=== PATIENT | female | born 1950 | race African-American/Black ===

== ENCOUNTER 2017-03-04 16:47 | Emergency (ER) | payer OTHER ==
[2017-03-04 17:09] VITALS: BMI 27.4
--- NOTE | 2017-03-04 17:22 | PDOC ---
History of Present Illness - General History Source: Patient Exam Limitations: No Limitations - History of Present Illness Initial Comments: CHIEF COMPLAINT: 66 y/o afebrile female with PMH HTN, chronic anemia with multiple prior transfusions (currently gets weekly iron injections) c/o palpitations and weakness since noon today. HISTORY OF PRESENT ILLNESS: The patient states since around noon today after waking up from a nap she has felt extremely weak and has had palpitations. She states her had to help her walk to the bathroom otherwise she thinks she probably would have fallen. She states the palpitations stopped when she got into the ambulance. She denies f/c, n/v/d, CP, SOB, cough, hemoptysis, abd pain, back pain, LOC, head trauma, hematemesis, melena, hematochezia. Vital signs on arrival are notable for pulse of 103 with O2 sat of 93% on RA. REVIEW OF SYSTEMS: GENERAL/CONSTITUTIONAL: No fever/chills. +weakness HEAD, EYES, EARS, NOSE AND THROAT: No change in vision. No ear pain or discharge. No sore throat. CARDIOVASCULAR: +palpitations. No chest pain or shortness of breath. RESPIRATORY: No cough, wheezing, or hemoptysis. GASTROINTESTINAL: No abd pain, nausea, vomiting, diarrhea. GENITOURINARY: No dysuria, frequency, or change in urination. MUSCULOSKELETAL: No joint or muscle swelling or pain. No neck or back pain. SKIN: No rash or easy bruising. NEUROLOGIC: No headache, vertigo, loss of consciousness, or loss of sensation. PHYSICAL EXAM: GENERAL: The patient is awake, alert, and fully oriented, in no acute distress. HEAD: Normal with no signs of trauma. ENT: Pupils equal, round and reactive to light, extraocular movements intact, sclera anicteric, with pale conjunctiva. LUNGS: Clear to auscultation bilaterally. Normal excursion. No respiratory distress or use of accessory muscles. CV: Rapid rate/regular rhythm, S1/S2, no MRG. Cap refill < 2 sec. ABDOMEN: Soft, non-distended, non-tender even to deep palpation, no hepatomegaly or splenomegaly, no masses. EXTREMITIES: Normal range of motion, no edema. NEUROLOGICAL: Normal speech, normal gait. CN II-XII grossly intact. PSYCH: Normal mood, normal affect. SKIN: Warm, dry, normal turgor, no rashes or lesions noted. <Elle Duong - Last Filed: 03/04/17 18:13> <Irving Gaspar - Last Filed: 03/05/17 02:32> - General Chief Complaint: Palpitations Stated Complaint: WEAKNESS Time Seen by Provider: 03/04/17 17:13 Past History - Past Medical History Anemia: Yes Diabetes: Yes HTN: Yes Hypercholesterolemia: Yes - Immunization History Immunization Up to Date: Yes - Psycho/Social/Smoking Cessation Hx Anxiety: Yes Suicidal Ideation: No Smoking History: Never smoked Have you smoked in the past 12 months: No Number of Cigarettes Smoked Daily: 0 Information on smoking cessation initiated: No Hx Alcohol Use: No Drug/Substance Use Hx: No Substance Use Type: None <Elle Duong - Last Filed: 03/04/17 18:13> <Irving Gaspar - Last Filed: 03/05/17 02:32> - Past Medical History Allergies/Adverse Reactions: Allergies Allergy/AdvReac Type Severity Reaction Status Date / Time codeine Allergy Verified 03/04/17 17:09 oxycodone HCl [From Percocet] Allergy Verified 03/04/17 17:09 Home Medications: Ambulatory Orders Amlodipine Besylate [Norvasc -] 10 mg PO DAILY 09/18/14 Perphenazine/Amitriptyline HCl [Perphen-Amitrip 4 mg-25 mg Tab] 1 each PO DAILY 01/12/15 Carvedilol 37.5 mg PO DAILY 08/22/15 Hydrochlorothiazide [Hctz -] 25 mg PO DAILY 08/22/15 Amoxicillin/Potassium Clav [Augmentin 875-125 Tablet] 1 each PO BID #14 tablet 04/12/16 Fluticasone Prop 0.05% Nasal [Flonase -] 1 - 2 spray NS DAILY #3 spray.pump 12/23 Tramadol HCl 50 mg PO Q6H PRN 04/12/16 *Physical Exam - Vital Signs Last Vital Signs Temp Pulse Resp BP Pulse Ox 97.7 F 103 H 18 147/77 93 L 03/04/17 17:05 03/04/17 17:05 03/04/17 17:05 03/04/17 17:05 03/04/17 17:05 <Elle Duong - Last Filed: 03/04/17 18:13> - Vital Signs Last Vital Signs Temp Pulse Resp BP Pulse Ox 98.3 F 82 18 135/69 99 03/04/17 23:30 03/04/17 23:30 03/04/17 23:30 03/04/17 23:30 03/04/17 23:30 <Irving Gaspar - Last Filed: 03/05/17 02:32> Heart Score/ECG Review - ECG Intrepretation Comment:: Twelve-lead EKG was performed and reviewed by Dr. Heart. There is sinus rhythm with 1st degree AV block. The axis is normal. The intervals are normal. nonspecific T wave abnormality Impression: Abnormal twelve-lead EKG <Elle Duong - Last Filed: 03/04/17 18:13> ED Treatment Course - LABORATORY CBC & Chemistry Diagram: 03/05/17 00:15 03/04/17 19:32 - ADDITIONAL ORDERS Additional order review: Laboratory Results 03/04/17 03/04/17 03/04/17 19:32 18:22 17:22 Sodium 140 Potassium 3.0 L Chloride 100 Carbon Dioxide 22 Anion Gap 18 H BUN 20 H Creatinine 2.1 H Creat Clearance w eGFR 23.49 Random Glucose 158 H Calcium 9.9 Total Bilirubin 0.1 L AST 25 ALT 25 Alkaline Phosphatase 116 Creatine Kinase 147 Troponin I < 0.02 Total Protein 9.0 H Albumin 4.1 Urine Color Straw Urine Appearance Clear Urine pH 5.0 Ur Specific Hamlet >= 1.030 H Urine Protein 2+ H Urine Glucose (UA) Negative Urine Ketones Negative Urine Blood 2+ H Urine Nitrite Negative Urine Bilirubin Negative Urine Urobilinogen Negative Ur Leukocyte Esterase Negative Urine RBC 24 Urine WBC 1 Ur Epithelial Cells Rare Urine Mucus Rare Blood Type B POSITIVE Antibody Screen Negative 03/04/17 17:22 Sodium Cancelled Potassium Cancelled Chloride Cancelled Carbon Dioxide Cancelled Anion Gap Cancelled BUN Cancelled Creatinine Cancelled Creat Clearance w eGFR Cancelled Random Glucose Cancelled Calcium Cancelled Total Bilirubin Cancelled AST Cancelled ALT Cancelled Alkaline Phosphatase Cancelled Creatine Kinase Cancelled Troponin I Cancelled Total Protein Cancelled Albumin Cancelled Urine Color Urine Appearance Urine pH Ur Specific Ham[place] Urine Protein Urine Glucose (UA) Urine Ketones Urine Blood Urine Nitrite Urine Bilirubin Urine Urobilinogen Ur Leukocyte Esterase Urine RBC Urine WBC Ur Epithelial Cells Urine Mucus Blood Type Antibody Screen 03/05/17 03/04/17 00:15 17:22 RBC 3.58 L 3.99 MCV 77.3 L 78.1 L MCHC 30.9 L 30.5 L RDW 22.9 H 23.7 H MPV 8.3 8.8 Neutrophils % 82.0 89.7 H Lymphocytes % 12.9 D 6.5 L Monocytes % 4.3 3.5 L Eosinophils % 0.2 D 0.1 Basophils % 0.6 0.2 - RADIOLOGY Radiology Studies Ordered: Category Date Time Status CHEST CT WITHOUT CONTRAST [CT] Stat CT Scan 03/04/17 22:00 Taken - Medications Given in the ED: ED Medications Discontinued Medications Generic Name Dose Route Start Last Admin Trade Name Freq PRN Reason Stop Dose Admin Sodium Chloride 1,000 mls @ 1,000 mls/hr 03/04/17 19:02 03/04/17 19:12 Normal Saline - IV 03/04/17 20:01 1,000 mls/hr ASDIR STA Administration Sodium Chloride 1,000 mls @ 1,000 mls/hr 03/04/17 23:38 03/05/17 00:18 Normal Saline - IV 03/05/17 00:37 1,000 mls/hr ASDIR STA Administration Potassium Chloride 40 meq 03/04/17 23:36 03/05/17 00:18 K-Dur - PO 03/04/17 23:37 40 meq ONCE ONE Administration <Irving Gaspar - Last Filed: 03/05/17 02:32> Medical Decision Making - Medical Decision Making A/P: 66 y/o afebrile, tachycardic female with PMH chronic anemia with multiple transfusions c/o weakness and palpitations today. Plan is as follows: 1. EKG 2. Labs 3. CXR I am signing this patient out to my colleague: CYNTHIA Gaspar In brief, this patient is being seen in the ED for a chief complaint of: weakness, palpitations. I have completed the initial assessment interview note and have ordered: labs, CXR, EKG I have reviewed the following results: EKG Pending results are: rest Plan for disposition is as follows: Pending <Elle Duong - Last Filed: 03/04/17 18:13> - Medical Decision Making 03/05/17 02:25 Patient reports symptoms have improved. Denies CP, SOB, Abd pain or any other complaints. Discussed case with Attending, who states patient can be d/c'd to home. Labs improved. Patient to follow up with PCP tomorrow. <Irving Gaspar - Last Filed: 03/05/17 02:32> *DC/Admit/Observation/Transfer <Elle Duong - Last Filed: 03/04/17 18:13> - Discharge Dispostion Admit: No <Irving Gaspar - Last Filed: 03/05/17 02:32> Diagnosis at time of Disposition: Mild dehydration Heat exhaustion Qualifiers: Encounter type: initial encounter Qualified Code(s): T67.5XXA - Heat exhaustion , unspecified, initial encounter - Discharge Dispostion Disposition: HOME Condition at time of disposition: Improved - Referrals Referrals: Consuelo Gibbs MD [Primary Care Provider] - - Patient Instructions Printed Discharge Instructions: DI for Dehydration -- Adult, DI for Heat Exhaustion and Heat Stroke Additional Instructions: Follow up with Dr. Gibbs this week. Call to schedule appointment. Continue current medications as prescribed. Drink plenty fluids, stay hydrated. Print Language: SAMOAN
[2017-03-04 18:33] LABS: URINE APPEARANCE CLEAR; URINE BILIRUBIN NEGATIVE (NEGATIVE); URINE COLOR STRAW; URINE GLUCOSE (UA) NEGATIVE (NEGATIVE); URINE KETONE NEGATIVE (NEGATIVE); URINE LEUK ESTERASE NEGATIVE (NEGATIVE); URINE NITRITE NEGATIVE (NEGATIVE); URINE UROBILINOGEN NEGATIVE E.U./dl (0.2-1.0)
[2017-03-04 18:35] LABS: BASOPHIL 0.2 % (0-2.0); EOSINOPHIL 0.1 % (0-4.5); MCH 23.8 pg (25.7-33.7); MCHC 30.5 g/dl (32.0-36.0); MEAN CELL VOLUME 78.1 fl (80-96); MEAN PLT VOLUME 8.8 fl (7.5-11.1); NEUTROPHILS 89.7 % (42.8-82.8); PLATELET COUNT 525 K/MM3 (134-434); RDW 23.7 % (11.6-15.6); WHITE BLOOD COUNT 16.7 K/mm3 (4.0-10.0)
[2017-03-04 18:49] LABS: URINE BLOOD 2+ (NEGATIVE); URINE PROTEIN 2+ (NEGATIVE)
[2017-03-04 18:50] LABS: URINE MUCUS RARE; URINE RBC 24 /hpf (0-3); URINE WBC 1 /hpf (3-5)
[2017-03-04] MEDS ORDERED: SODIUM CHLORIDE 1,000 ML IV STA ×2 (19:02→23:38)
[2017-03-04 19:49] LABS: ANISOCYTOSIS 2+; HYPOCHROMIA 1+; PLATELET ESTIMATE INCREASED (NORMAL); POLYCHROMASIA 1+
--- NOTE | 2017-03-04 20:10 | PDOC ---
*Physical Exam - Vital Signs Last Vital Signs Temp Pulse Resp BP Pulse Ox 97.7 F 103 H 18 147/77 93 L 03/04/17 17:05 03/04/17 17:05 03/04/17 17:05 03/04/17 17:05 03/04/17 17:05 ED Treatment Course - LABORATORY CBC & Chemistry Diagram: 03/04/17 17:22 03/04/17 17:22 - ADDITIONAL ORDERS Additional order review: Laboratory Results 03/04/17 03/04/17 03/04/17 18:22 17:22 17:22 Sodium Cancelled Potassium Cancelled Chloride Cancelled Carbon Dioxide Cancelled Anion Gap Cancelled BUN Cancelled Creatinine Cancelled Creat Clearance w eGFR Cancelled Random Glucose Cancelled Calcium Cancelled Total Bilirubin Cancelled AST Cancelled ALT Cancelled Alkaline Phosphatase Cancelled Creatine Kinase Cancelled Troponin I Cancelled Total Protein Cancelled Albumin Cancelled Urine Color Straw Urine Appearance Clear Urine pH 5.0 Urine Protein 2+ H Urine Glucose (UA) Negative Urine Ketones Negative Urine Blood 2+ H Urine Nitrite Negative Urine Bilirubin Negative Urine Urobilinogen Negative Ur Leukocyte Esterase Negative Urine RBC 24 Urine WBC 1 Ur Epithelial Cells Rare Urine Mucus Rare Blood Type B POSITIVE Antibody Screen Negative 03/04/17 17:22 RBC 3.99 MCV 78.1 L MCHC 30.5 L RDW 23.7 H MPV 8.8 Neutrophils % 89.7 H Lymphocytes % 6.5 L Monocytes % 3.5 L Eosinophils % 0.1 Basophils % 0.2 - Medications Given in the ED: ED Medications Discontinued Medications Generic Name Dose Route Start Last Admin Trade Name Freq PRN Reason Stop Dose Admin Sodium Chloride 1,000 mls @ 1,000 mls/hr 03/04/17 19:02 03/04/17 19:12 Normal Saline - IV 03/04/17 20:01 1,000 mls/hr ASDIR STA Administration Medical Decision Making - Medical Decision Making 03/04/17 20:09 Seen with MLP: 66y/o F with palpitations. Found to have leulocytosis, EKG with nonspecific T wave changes. Awaiting chemistries, but given complaints and leukocytosis likely monitoring in hospital.
[2017-03-04 20:36] LABS: ALBUMIN 4.1 g/dl (3.4-5.0); ANION GAP 18 (8-16); CALCIUM 9.9 mg/dL (8.5-10.1); CO2 22 mmol/L (21-32); CREATININE 2.1 mg/dL (0.55-1.02); GLUCOSE,RANDOM 158 mg/dL (74-106); SGOT/AST 25 U/L (15-37); SGPT/ALT 25 U/L (12-78)
[2017-03-04 20:40] LABS: ALK PHOS 116 U/L (45-117); BILIRUBIN,TOTAL 0.1 mg/dL (0.2-1.0); TROPONIN I < 0.02 ng/ml (0.00-0.05)
[2017-03-04] MEDS ORDERED: POTASSIUM CHLORIDE TABS 20 MEQ TABLET.ER (FP) PO ONE (23:36)
[2017-03-05] MEDS ORDERED: POTASSIUM CHLORIDE TABS 20 MEQ TABLET.ER (FP) PO ONE (00:20)
[2017-03-05 00:45] LABS: BASOPHIL 0.6 % (0-2.0); EOSINOPHIL 0.2 % (0-4.5); MCH 23.9 pg (25.7-33.7); MCHC 30.9 g/dl (32.0-36.0); MEAN CELL VOLUME 77.3 fl (80-96); MEAN PLT VOLUME 8.3 fl (7.5-11.1); PLATELET COUNT 447 K/MM3 (134-434); RDW 22.9 % (11.6-15.6)
[2017-03-05 01:36] VITALS: BP 135/69; PULSE 82; TEMP 98.3
[2017-03-05 07:43] LABS: ANISOCYTOSIS 2+; MICROCYTOSIS 2+
--- NOTE | 2017-03-05 11:37 | EKG ---
Test Reason : Blood Pressure : / mmHG Vent. Rate : 095 BPM Atrial Rate : 095 BPM P-R Int : 238 ms QRS Dur : 094 ms QT Int : 372 ms P-R-T Axes : 063 -06 032 degrees QTc Int : 467 ms SINUS RHYTHM WITH 1ST DEGREE A-V BLOCK VOLTAGE CRITERIA FOR LEFT VENTRICULAR HYPERTROPHY NONSPECIFIC T WAVE ABNORMALITY ABNORMAL ECG NO PREVIOUS ECGS AVAILABLE Confirmed by QUENTIN MAK MD ([id number]) on 03/05/2017 11:37:29 AM Referred By: Confirmed By:QUENTIN MAK MD
== END 2017-03-05 03:02 | disposition home or self-care (01) ==
LOC: JER 16:47
PROC: 3E0337Z Introduction of Electrolytic and Water Balance Substance into Peripheral Vein, Percutaneous Approach (ICD-10-PCS; principal; 2017-03-04)
DX: E86.0 Dehydration (principal); T67.5XXA Heat exhaustion, unspecified, initial encounter; Y93.89 Activity, other specified; Y92.89 Other specified places as the place of occurrence of the external cause; I10 Essential (primary) hypertension; D53.9 Nutritional anemia, unspecified; E87.6 Hypokalemia
CPT/HCPCS: 36415; 71020-TC; 71250-TC; 80053; 81003; 81015; 82550; 84484; 85025; 86850; 86900; 86901; 93005; 93010; 99284-25

== ENCOUNTER 2017-10-13 09:04 | Emergency (ER) | payer OTHER ==
[2017-10-13 09:36] VITALS: BP 123/61; PULSE 100; TEMP 98.6; BMI 24.7
[2017-10-13] MEDS ORDERED: ALBUTEROL SO4 2.5/IPRATROPIUM 0.5 INH SOL 3 ML VIAL.NEB. NEB ONE ×2 (10:14→10:23)
--- NOTE | 2017-10-13 10:15 | PDOC ---
History of Present Illness - General Chief Complaint: Respiratory Stated Complaint: COUGH, FEVER, EAR PAIN Time Seen by Provider: 10/13/17 09:53 History Source: Patient Exam Limitations: No Limitations - History of Present Illness Initial Comments: 10/13/17 10:15 Patient is a [67-year-old female with history of hypertension, high cholesterol , [id number] diabetes presents bilateral ear pain and cough, no fever. Able to without difficulty.] Past Medical History: [Denies]. Allergies: Codeine, oxycodone Medications: [See medication list] Family History: Non-contributory Social History: Denies smoking, alcohol use, or IVDU Review of Systems GENERAL/CONSTITUTIONAL: [No fever or chills. No weakness. No weight change.] HEAD, EYES, EARS, NOSE AND THROAT: [No change in vision. Bilateral ear pain. No sore throat. ] CARDIOVASCULAR: [No chest pain or shortness of breath.] RESPIRATORY: [Moist nonproductive cough, wheezing, or hemoptysis.] GASTROINTESTINAL: [No nausea, vomiting, diarrhea or constipation. No rectal bleeding.] GENITOURINARY: [No dysuria, frequency, or change in urination.] MUSCULOSKELETAL: [No joint or muscle swelling or pain. No neck or back pain.] SKIN AND BREASTS: [No rash or easy bruising.] NEUROLOGIC: [No headache, vertigo, loss of consciousness, or loss of sensation.] PSYCHIATRIC: [No depression or anxiety.] ENDOCRINE: [No increased thirst. No abnormal weight change.] HEMATOLOGIC/LYMPHATIC: [No anemia, easy bleeding, or history of blood clots.] ALLERGIC/IMMUNOLOGIC: [No hives or skin allergy. No latex allergy.] Physical Exam: GENERAL: [The patient is awake, alert, and fully oriented, in no acute distress. ] EYES: [Pupils equal, round and reactive to light, extraocular movements intact, sclera anicteric, conjunctiva clear.] ENT: [Ears with bilateral cerumen impaction, canals are unremarkable, nares patent, oropharynx clear without exudates. Moist mucous membranes. No uvula deviation] NECK: [Normal range of motion, supple without lymphadenopathy, JVD, or masses.] LUNGS: [Breath sounds equal, clear to auscultation bilaterally. No wheezes, and no crackles.] HEART: [Regular rate and rhythm, normal S1 and S2 without murmur, rub or gallop. ] ABDOMEN: [Soft, nontender, normoactive bowel sounds. No guarding, no rebound. No masses. No bruising or abrasions] MUSCULOSKELETAL: [Normal range of motion, no edema. No clubbing or cyanosis. No cords, erythema, or tenderness. No CVA Tenderness with fist.] NEUROLOGICAL: [Cranial nerves II through XII grossly intact. Normal speech, normal gait.] SKIN: [Warm, Dry, normal turgor, no rashes or lesions noted.] 10/13/17 11:25 Past History - Past Medical History Allergies/Adverse Reactions: Allergies Allergy/AdvReac Type Severity Reaction Status Date / Time codeine Allergy palpitation Verified 10/13/17 09:32 s oxycodone HCl [From Percocet] Allergy palpitation Verified 10/13/17 09:32 s Home Medications: Ambulatory Orders Amlodipine Besylate [Norvasc -] 10 mg PO DAILY 09/18/14 Perphenazine/Amitriptyline HCl [Perphen-Amitrip 4 mg-25 mg Tab] 1 each PO DAILY 01/12/15 Carvedilol 37.5 mg PO DAILY 08/22/15 Hydrochlorothiazide [Hctz -] 25 mg PO DAILY 08/22/15 Amoxicillin/Potassium Clav [Augmentin 875-125 Tablet] 1 each PO BID #14 tablet 04/12/16 Fluticasone Prop 0.05% Nasal [Flonase -] 1 - 2 spray NS DAILY #3 spray.pump 12/23 Tramadol HCl 50 mg PO Q6H PRN 04/12/16 Albuterol Sulfate Inhaler - [Ventolin HFA Inhaler -] 2 inh PO Q4H #1 inh Carbamide Peroxide 6.5% [Debrox -] 5 drop AU BID #1 bottle 10/13/17 Anemia: Yes COPD: No Diabetes: Yes (not on meds) HTN: Yes Hypercholesterolemia: Yes - Immunization History Immunization Up to Date: No - Suicide/Smoking/Psychosocial Hx Smoking History: Former smoker Have you smoked in the past 12 months: No Number of Cigarettes Smoked Daily: 0 If you are a former smoker, when did you quit?: 50 years ago Information on smoking cessation initiated: No Hx Alcohol Use: No Drug/Substance Use Hx: No Substance Use Type: None *Physical Exam - Vital Signs Last Vital Signs Temp Pulse Resp BP Pulse Ox 98.6 F 100 H 18 123/61 94 L 10/13/17 09:32 10/13/17 09:32 10/13/17 09:32 10/13/17 09:32 10/13/17 09:32 Medical Decision Making - Medical Decision Making 10/13/17 11:25 A/P: Patient with bilateral cerumen impaction. Lungs are clear in assessment patient with dry cough most likely viral in nature. Combivent given with good results. Rapid influenza sent and is negative we'll DC patient home on Debrox and albuterol inhaler for bronchospasm if symptoms persist follow-up with primary care doctor recommend follow-up with ENT in one week after Debrox use. 10/13/17 11:25 10/13/17 16:24 *DC/Admit/Observation/Transfer Diagnosis at time of Disposition: Cough Cerumen impaction Qualifiers: Laterality: bilateral Qualified Code(s): H61.23 - Impacted cerumen, bilateral - Discharge Dispostion Disposition: HOME Condition at time of disposition: Stable Admit: No - Prescriptions Prescriptions: Albuterol Sulfate Inhaler - [Ventolin HFA Inhaler -] 2 inh PO Q4H #1 inh Carbamide Peroxide 6.5% [Debrox -] 5 drop AU BID #1 bottle - Referrals Referrals: Sharif Anderson MD [Staff Physician] - - Patient Instructions Additional Instructions: Recommend follow-up with primary care doctor on Saturday if symptoms persist If any increased cough, fever, or any other concerns return to ER - Post Discharge Activity Forms/Work/School Notes: Back to Work
== END 2017-10-13 11:32 | disposition home or self-care (01) ==
LOC: JERFT 09:04
PROC: 3E0F7GC Introduction of Other Therapeutic Substance into Respiratory Tract, Via Natural or Artificial Opening (ICD-10-PCS; principal; 2017-10-13)
DX: R05 Cough (principal); H61.23 Impacted cerumen, bilateral
CPT/HCPCS: 87804; 94640; 99281-25

== ENCOUNTER 2017-10-15 05:05 | Inpatient (IN) | payer OTHER ==
--- NOTE | 2017-10-15 05:06 | PDOC ---
History of Present Illness - General History Source: Patient Exam Limitations: No Limitations - History of Present Illness Initial Comments: 10/15/17 05:45 The patient is a 67 year old female with a significant PMH of HTN, hyperlipidemia, diabetes, and chronic renal insufficiency (not currently on dialysis) who presents to the emergency department via EMS with progressively worsening shortness of breath beginning approximately 1 week ago and vomiting beginning today. The patient reports being seen here in the ED on 10/13/2017 for evaluation of cough and was discharged home after a negative flu swab. She reports her shortness of breath became worse this morning. She also notes about 4 episodes of vomiting today. The patient was started on CPAP on EMS. She presents to the ED with dramatic and frequent respiratory symptoms. The patient denies any history of CHF, COPD, or emphysema but is on Lasix. The patient denies chest pain, headache and dizziness. Denies fever, chills, diarrhea and constipation. Denies dysuria, frequency, urgency and hematuria. Allergies: Codeine, Oxycodone HCl Past surgical history: None reported. Social history: No reported cigarette, alcohol, or drug use. PCP: None reported. <Shantanu Hill - Last Filed: 10/15/17 06:25> <Pattie Borges - Last Filed: 10/18/17 22:02> - General Stated Complaint: DIFFICULTY BREATHING Time Seen by Provider: 10/15/17 05:06 Past History <Shantanu Hill - Last Filed: 10/15/17 06:25> - Past Medical History Anemia: Yes COPD: No Diabetes: Yes (not on meds) HTN: Yes Hypercholesterolemia: Yes - Immunization History Immunization Up to Date: No - Suicide/Smoking/Psychosocial Hx Smoking History: Former smoker Have you smoked in the past 12 months: No Number of Cigarettes Smoked Daily: 0 If you are a former smoker, when did you quit?: 50 years ago Hx Alcohol Use: No Drug/Substance Use Hx: No Substance Use Type: None <Pattie Borges - Last Filed: 10/18/17 22:02> - Past Medical History Allergies/Adverse Reactions: Allergies Allergy/AdvReac Type Severity Reaction Status Date / Time codeine Allergy palpitation Verified 10/15/17 06:01 s oxycodone HCl [From Percocet] Allergy palpitation Verified 10/15/17 06:01 s Home Medications: Ambulatory Orders Amlodipine Besylate [Norvasc -] 10 mg PO DAILY 09/18/14 Perphenazine/Amitriptyline HCl [Perphen-Amitrip 4 mg-25 mg Tab] 1 each PO DAILY 01/12/15 Albuterol Sulfate Inhaler - [Ventolin HFA Inhaler -] 2 inh PO Q4H #1 inh Furosemide 40 mg PO DAILY 10/16/17 Review of Systems - Review of Systems Able to Perform ROS?: Yes Comments:: 10/15/17 05:45 GENERAL/CONSTITUTIONAL: No fever or chills. No weakness. HEAD, EYES, EARS, NOSE AND THROAT: No change in vision. No ear pain or discharge. No sore throat. CARDIOVASCULAR: (+) Shortness of breath. No chest pain. RESPIRATORY: No cough, wheezing, or hemoptysis. GASTROINTESTINAL: (+) Vomiting. No diarrhea or constipation. GENITOURINARY: No dysuria, frequency, or change in urination. MUSCULOSKELETAL: No joint or muscle swelling or pain. No neck or back pain. SKIN: No rash NEUROLOGIC: No headache, vertigo, loss of consciousness, or change in strength/ sensation. ENDOCRINE: No increased thirst. No abnormal weight change. HEMATOLOGIC/LYMPHATIC: No anemia, easy bleeding, or history of blood clots. ALLERGIC/IMMUNOLOGIC: No hives or skin allergy. <Shantanu Hill - Last Filed: 10/15/17 06:25> *Physical Exam - Vital Signs Last Vital Signs Temp Pulse Resp BP Pulse Ox 95 H 22 125/54 97 10/15/17 05:08 10/15/17 05:08 10/15/17 05:08 10/15/17 05:30 - Physical Exam Comments: 10/15/17 05:46 GENERAL: Awake, alert, and fully oriented. HEAD: No signs of trauma EYES: PERRLA, EOMI, sclera anicteric, conjunctiva clear ENT: Auricles normal inspection, hearing grossly normal, nares patent, oropharynx clear without exudates. Moist mucosa NECK: Normal ROM, supple, no lymphadenopathy, JVD, or masses LUNGS: (+) Respiratory distress. (+) Tachypneic. (+) Diffuse wheezes and crackles, worse in bases. Speaking in 2-3 word sentences. HEART: (+) Mildly tachycardic. Regular rhythm, normal S1 and S2, no murmurs, rubs or gallops ABDOMEN: (+) Obese. Soft, nontender, normoactive bowel sounds. No guarding, no rebound. No masses EXTREMITIES: Normal range of motion, no edema. No clubbing or cyanosis. No cords, erythema, or tenderness NEUROLOGICAL: Cranial nerves II through XII grossly intact. Normal speech, normal gait SKIN: Warm, Dry, normal turgor, no rashes or lesions noted. <Shantanu Hill - Last Filed: 10/15/17 06:25> ED Treatment Course - LABORATORY CBC & Chemistry Diagram: 10/15/17 05:35 10/15/17 05:35 <Shantanu Hill - Last Filed: 10/15/17 06:25> - LABORATORY CBC & Chemistry Diagram: 10/18/17 16:50 10/18/17 06:20 <Pattie Borges - Last Filed: 10/18/17 22:02> Medical Decision Making - Critical Care Time Total Critical Care Time (minutes): 30 Critical Care Statement: The care of this patient involved high complexity decision making to prevent further life threatening deterioration of the patient 's condition and/or to evaluate & treat vital organ system(s) failure or risk of failure. - Medical Decision Making 10/15/17 06:30 Pt presents to the ED complaining of severe shortness of breath that has been worsening over the last week but became acutely worse today. hypoxic on arrival of EMS, started on CPAP with improvement. On arrival to the ED, patient was tachypneic and speaking in two to three word sentences, with improvement on bipap. CXR shows bilateral pulmonary edema. Labs show severe anemia with hgb of 4 and BNP of 5300. No stool in the rectal vault on exam. Will recheck CBC--platlets are extremely high--suggestive of either lab error or acute leukemia. Will type and cross. Will admit to ICU. 10/15/17 06:40 <Pattie Borges - Last Filed: 10/18/17 22:02> *DC/Admit/Observation/Transfer - Attestations Scribe Attestion: 10/15/17 05:46 Documentation prepared by Shantanu Hill, acting as vice president medical affairs for Pattie Borges MD. <Shantanu Hill - Last Filed: 10/15/17 06:25> - Discharge Dispostion Admit: Yes <Pattie Borges - Last Filed: 10/18/17 22:02> Diagnosis at time of Disposition: Thrombocytosis, Hyponatremia CHF (congestive heart failure) Qualifiers: Congestive heart failure type: unspecified Congestive heart failure chronicity : unspecified Qualified Code(s): I50.9 - Heart failure, unspecified Anemia Qualifiers: Anemia type: unspecified type Qualified Code(s): D64.9 - Anemia, unspecified Leukocytosis Qualifiers: Leukocytosis type: unspecified Qualified Code(s): D72.829 - Elevated white blood cell count, unspecified - Discharge Dispostion Condition at time of disposition: Guarded
[2017-10-15] MEDS ORDERED: ALBUTEROL SO4 2.5/IPRATROPIUM 0.5 INH SOL 3 ML VIAL.NEB. NEB ONE ×5 (05:20→20:31)
[2017-10-15] MEDS: ALBUTEROL SO4 2.5/IPRATROPIUM 0.5 INH SOL 3 ML VIAL.NEB. NEB SCH ×4 (05:26→06:23)
[2017-10-15] MEDS ORDERED: AZITHROMYCIN IVPB 500 MG in DEXTROSE 5%-WATER - 250 ML IVPB ONE (05:43)
[2017-10-15] MEDS ORDERED: CEFTRIAXONE 1 GM in DEXTROSE 5%-WATER - 50 ML IVPB ONE (05:43)
[2017-10-15 05:46] LABS: BASO % 0.3 % (0-2.0); HEMATOCRIT 13.3 % (32.4-45.2); LYMPH % 11.9 % (8-40); MCH 21.3 pg (25.7-33.7); MCHC 27.4 g/dl (32.0-36.0); MEAN CELL VOLUME 77.9 fl (80-96); MEAN PLT VOLUME 8.5 fl (7.5-11.1); MONO % 6.3 % (3.8-10.2); NEUT % 81.5 % (42.8-82.8); RBC 1.71 M/mm3 (3.60-5.2); RDW 22.5 % (11.6-15.6)
[2017-10-15] MEDS ORDERED: AZITHROMYCIN IVPB 250 ML IVPB ONE (05:51)
[2017-10-15] MEDS ORDERED: CEFTRIAXONE 1 GM/50 ML BAG ONE (05:51)
[2017-10-15 05:59] LABS: HEMOGLOBIN 3.6 GM/dL (10.7-15.3)
[2017-10-15 06:00] LABS: ADD RBC MORPHOLOGY YES; PLATELET COUNT 1168 K/MM3 (134-434)
[2017-10-15 06:01] LABS: ANISOCYTOSIS 3+
[2017-10-15 06:08] LABS: ANION GAP 33 (8-16); BILIRUBIN,TOTAL 0.6 mg/dL (0.2-1.0); BLOOD UREA NITROGEN 35 mg/dL (7-18); CALCIUM 7.9 mg/dL (8.5-10.1); CHLORIDE 86 mmol/L (98-107); CO2 8 mmol/L (21-32); CREATININE 2.8 mg/dL (0.55-1.02); GLUCOSE,RANDOM 121 mg/dL (74-106); POTASSIUM 3.9 mmol/L (3.5-5.1); SGOT/AST 47 U/L (15-37); SGPT/ALT 41 U/L (12-78); SODIUM 127 mmol/L (136-145)
[2017-10-15 06:10] LABS: ALK PHOS 108 U/L (45-117); N-TERMINAL BNP 5381.37 pg/ml (5-125)
[2017-10-15 06:40] LABS: BASO % 0.4 % (0-2.0); HEMATOCRIT 14.4 % (32.4-45.2); LYMPH % 10.5 % (8-40); MCH 20.7 pg (25.7-33.7); MCHC 26.7 g/dl (32.0-36.0); MEAN CELL VOLUME 77.7 fl (80-96); MEAN PLT VOLUME 8.8 fl (7.5-11.1); MONO % 5.9 % (3.8-10.2); NEUT % 83.2 % (42.8-82.8); RBC 1.85 M/mm3 (3.60-5.2); RDW 22.5 % (11.6-15.6); WHITE BLOOD COUNT 20.1 K/mm3 (4.0-10.0)
[2017-10-15] MEDS ORDERED: ALBUTEROL SO4 0.5 % INH SOLN 2.5 MG/0.5 ML VIAL.NEB. NEB ONE (07:03)
[2017-10-15 07:32] LABS: HEMOGLOBIN 3.8 GM/dL (10.7-15.3); PLATELET COUNT 1257 K/MM3 (134-434)
[2017-10-15 07:36] LABS: ALBUMIN 3.2 g/dl (3.4-5.0); ANION GAP 33 (8-16); BLOOD UREA NITROGEN 34 mg/dL (7-18); CALCIUM 8.4 mg/dL (8.5-10.1); CHLORIDE 86 mmol/L (98-107); CO2 9 mmol/L (21-32); GLUCOSE,RANDOM 113 mg/dL (74-106); SGPT/ALT 44 U/L (12-78); SODIUM 128 mmol/L (136-145)
[2017-10-15 07:38] LABS: ALK PHOS 112 U/L (45-117); BILIRUBIN,TOTAL 0.6 mg/dL (0.2-1.0); CREATININE 2.7 mg/dL (0.55-1.02); TOT PROT 7.4 g/dl (6.4-8.2)
[2017-10-15 08:11] LABS: POTASSIUM 4.3 mmol/L (3.5-5.1); SGOT/AST 72 U/L (15-37)
--- NOTE | 2017-10-15 08:14 | HP ---
CHIEF COMPLAINT: "I have trouble breathing and have chest discomfort" PCP/Claims Specialist: Viviana Manning ([facility]) Onc: Dr Nieto ([facility]) HISTORY OF PRESENT ILLNESS: This is a 67 yo F with PMH of chronic microcytic hypochromic anemia (treated by Dr Nieto with Fe infusions, baseline hgb 8, no genetic workup done), family history of anemia and stroke, CKD, diet controlled DM, HTN, who presents due to worsening sob and chest discomfort x 4 days. patient reports associated malaise , night sweats, several episodes of NBNB vomiting, anorexia, subjective f/c ( measured 99F at home) and mildly sore throat and dry cough. Patient was in ED 2 days ago, at which time she was tested flu and was sent home with [facility]. Today she is found to have anemia Hgb 3.6, WBC 20.1k, PLT 1257 and CXR showed bilateral diffuse pulmonary edema w/o layering at bases, suspicious for ARDS. afebrile and hemodynamically stable. She was severely tachypneic with nornal O2 sat on presentation, improved on bipap. Several hours into ED stay, patient was found with Bipap off, unresponsive, with + pulses and was witnessed to have seizure like activity with small jerking movements in extremities. on ABG she was found to be acidotic lactate 18, abg pH 7.18 and hypoxic, was paced back on BIPAP and regained baseline mental status AAOx3. A dose of sodium bicarb was given. 2 U pRBC transfusion was initiated with 40 IV lasix between units. Due to patients slightly hypoosmolar hyponatremia 128, she was started on NS @ 50 cc , administered cautiously due to concurrent possible ARDS, was started on Medrol and was covered with abx for CAP. Patient takes hydrochlorothiazide at home and amitriptyline/Perphenazine. EMR claudio not show prior hyponatremia. Per her outpatient physical therapy technician, her baseline Hgb is 8, Plat 500, march ferritin was 153 and transferring was 13%. hematologis d/o were atributed to CKD and Fe deficiency however she has not been worked up for other causes. Her last Fe infusion was a yr ago. Patient reports family history of colon CA and a normal colonoscopy 8 yrs ago. Patient denies weight change, h/a, syncope, abd pain, hemopthysis, melena, hematochezia, bleeding gums, easy bleeding or bruising, frequent infection, adenopathy. ER course was notable for: As above Recent Travel: denies PAST MEDICAL HISTORY: as above PAST SURGICAL HISTORY: knee surgery Social History: lives at home Smoking: denies Alcohol:denies Drugs: denies Family History: colon ca, anemia, stroke, htn Allergies codeine Allergy (Verified 10/15/17 06:01) palpitations oxycodone HCl [From Percocet] Allergy (Verified 10/15/17 06:01) palpitations HOME MEDICATIONS: Home Medications Medication Instructions Recorded Amlodipine Besylate [Norvasc -] 10 mg PO DAILY 09/18/14 Perphenazine/Amitriptyline HCl 1 each PO DAILY 01/12/15 [Perphen-Amitrip 4 mg-25 mg Tab] Carvedilol 37.5 mg PO DAILY 08/22/15 Hydrochlorothiazide [Hctz -] 25 mg PO DAILY 08/22/15 Albuterol Sulfate Inhaler - 2 inh PO Q4H #1 inh 10/13/17 [Ventolin HFA Inhaler -] Carbamide Peroxide 6.5% [Debrox -] 5 drop AU BID #1 bottle 10/13/17 REVIEW OF SYSTEMS CONSTITUTIONAL: Absent: diaphoresis, weight change HEENT: Absent: rhinorrhea, nasal congestion, difficulty swallowing, visual changes CARDIOVASCULAR: Absent: chest pain, syncope, palpitations, irregular heart rate, lightheadedness , peripheral edema RESPIRATORY: Absent: orthopnea, wheezing, stridor, hemoptysis GASTROINTESTINAL: Absent: abdominal pain, abdominal distension, nausea, vomiting, diarrhea, constipation, melena, hematochezia GENITOURINARY: Absent: dysuria, frequency, urgency, hesitancy, hematuria, flank pain, genital pain MUSCULOSKELETAL: Absent: myalgia, arthralgia, joint swelling, back pain, neck pain SKIN: Absent: rash, itching, pallor HEMATOLOGIC/IMMUNOLOGIC: Absent: easy bleeding, easy bruising, lymphadenopathy, frequent infections ENDOCRINE: Absent: unexplained weight gain, unexplained weight loss, heat intolerance, cold intolerance NEUROLOGIC: Absent: headache, focal weakness or paresthesias, dizziness, unsteady gait, seizure, mental status changes, bladder or bowel incontinence PSYCHIATRIC: Absent: anxiety, depression, suicidal or homicidal ideation, hallucinations. PHYSICAL EXAMINATION Vital Signs - 24 hr 10/15/17 10/15/17 10/15/17 05:08 05:30 06:01 Temperature Pulse Rate 95 H Pulse Rate [ Left Radial] Respiratory 22 22 Rate Blood Pressure 125/54 Blood Pressure [Left Arm] O2 Sat by Pulse 97 97 100 Oximetry (%) 10/15/17 10/15/17 10/15/17 06:23 06:24 07:22 Temperature 97.7 F 98 F Pulse Rate Pulse Rate [ Left Radial] Respiratory 22 Rate Blood Pressure Blood Pressure [Left Arm] O2 Sat by Pulse 100 100 Oximetry (%) 10/15/17 10/15/17 07:23 07:33 Temperature 98.4 F 98.3 F Pulse Rate Pulse Rate [ 89 94 H Left Radial] Respiratory 14 20 Rate Blood Pressure Blood Pressure 114/49 116/65 [Left Arm] O2 Sat by Pulse 97 100 Oximetry (%) GENERAL: Awake, alert, and fully oriented, in no acute distress. HEAD: Normal with no signs of trauma. EYES: Pupils equal, round and reactive to light, extraocular movements intact, sclera anicteric, conjunctiva clear. No lid lag. EARS, NOSE, THROAT: Ears normal, nares patent, oropharynx clear without exudates. Moist mucous membranes. NECK: Normal range of motion, supple without lymphadenopathy, JVD, or masses. LUNGS: Breath sounds equal, clear to auscultation bilaterally. No wheezes, and no crackles. No accessory muscle use. HEART: Regular rate and rhythm, normal S1 and S2 without murmur, rub or gallop. ABDOMEN: Soft, nontender, not distended, normoactive bowel sounds, no guarding, no rebound, no masses. No hepatomegaly or splenomegaly. MUSCULOSKELETAL: Normal range of motion at all joints. No bony deformities or tenderness. No CVA tenderness. UPPER EXTREMITIES: 2+ pulses, warm, well-perfused. No cyanosis. No clubbing. No peripheral edema. LOWER EXTREMITIES: 2+ pulses, warm, well-perfused. No calf tenderness. No peripheral edema. NEUROLOGICAL: Cranial nerves II-XII intact. Normal speech. Normal gait. PSYCHIATRIC: Cooperative. Good eye contact. Appropriate mood and affect. SKIN: Warm, dry, normal turgor, no rashes or lesions noted, normal capillary refill. Laboratory Results - last 24 hr 10/15/17 10/15/17 10/15/17 05:35 05:35 06:27 WBC 18.0 H D RBC 1.71 L D Hgb 3.6 L* D Hct 13.3 L MCV 77.9 L MCH 21.3 L MCHC 27.4 L RDW 22.5 H Plt Count 1168 H D MPV 8.5 Neutrophils % 81.5 Lymphocytes % 11.9 Monocytes % 6.3 Eosinophils % 0.0 D Basophils % 0.3 Hypochromia 2+ Anisocytosis 3+ Sodium 127 L Potassium 3.9 Chloride 86 L Carbon Dioxide 8 L Anion Gap 33 H BUN 35 H Creatinine 2.8 H Creat Clearance w eGFR 16.80 Random Glucose 121 H Lactic Acid 18.0 H* Calcium 7.9 L Total Bilirubin 0.6 D AST 47 H ALT 41 Alkaline Phosphatase 108 Creatine Kinase 446 H Creatine Kinase Index 1.6 CK-MB (CK-2) 7.512 H Troponin I 0.19 H B-Natriuretic Peptide 5381.37 H Total Protein 7.0 Albumin 3.0 L Stool Occult Blood Blood Type Antibody Screen Crossmatch 10/15/17 10/15/17 10/15/17 06:27 06:27 06:27 WBC 20.1 H RBC 1.85 L Hgb 3.8 L* Hct 14.4 L MCV 77.7 L MCH 20.7 L MCHC 26.7 L RDW 22.5 H Plt Count 1257 H MPV 8.8 Neutrophils % 83.2 H Lymphocytes % 10.5 Monocytes % 5.9 Eosinophils % 0.0 Basophils % 0.4 Hypochromia Anisocytosis Sodium 128 L Potassium 4.3 Chloride 86 L Carbon Dioxide 9 L Anion Gap 33 H BUN 34 H Creatinine 2.7 H Creat Clearance w eGFR 17.52 Random Glucose 113 H Lactic Acid Calcium 8.4 L Total Bilirubin 0.6 AST 72 H ALT 44 Alkaline Phosphatase 112 Creatine Kinase Creatine Kinase Index CK-MB (CK-2) Troponin I B-Natriuretic Peptide Total Protein 7.4 Albumin 3.2 L Stool Occult Blood Blood Type B POSITIVE Antibody Screen Negative Crossmatch See Detail 10/15/17 06:34 WBC RBC Hgb Hct MCV MCH MCHC RDW Plt Count MPV Neutrophils % Lymphocytes % Monocytes % Eosinophils % Basophils % Hypochromia Anisocytosis Sodium Potassium Chloride Carbon Dioxide Anion Gap BUN Creatinine Creat Clearance w eGFR Random Glucose Lactic Acid Calcium Total Bilirubin AST ALT Alkaline Phosphatase Creatine Kinase Creatine Kinase Index CK-MB (CK-2) Troponin I B-Natriuretic Peptide Total Protein Albumin Stool Occult Blood Negative Blood Type Antibody Screen Crossmatch ASSESSMENT/PLAN: Thrombocytosis, leukocytosis, severe anemia, acute on chronic -suspicious for hematologic malignancy PMF, ET, CML; less likely reactive in setting of infection or visceral malignancy -elevated ESR >140, CRP 3.3, uric acid 12.3 -slightly elevated IRN 1.3 -f/u vW factor to r/o acquired deficiency, JAK2, CALR, and MPL, erythropoetin -do not give ASA or any a/c until vW factor comes back normal. Hydroxyurea not indicated until definitive diagnosis of malignancy is made -hold home antipsychotic in case contributed to dysplastic anemia, although typically pancytopenia would be present. -chest and abd/pelvis ct w/o contrast delayed due to tenuous respirator status -LE duplex r/o dvt -f/u abd US results r/o splenomegaly -stool guaiac negative -GI consult for visceral malignancy evaluation -heme/onc consult appreciated Acute hypoxic respiratory failure/Possible ARDS -Continue BIPAP -IV Medrol (ok with Oncology) -Periodic ABGS, CXR Hyponatremia -patient is aaox2 -NS not beneficial due to risk of volume overload and risk of worsening ARDS -hold HCTZ, trend lytes -discussed with renal MARQUES on CKD -creat 35/2.8 gfr 18 from baseline creat 2.1 -does not appear severely volume overloaded at this time, hemodynamically stable. -likely due to anemia -expect improvement with transfusion -discussed with renal Metabolic acidosis -mostly due to lactic acidosis. -Repeat ABG at noon after blood transfusion, if acidosis does not improve, consider either Sodium bicarb drip or IV pushes q2 hr to minimize fluid overload -discussed with renal Severe Sepsis -criteria may be met due to underlying disease process w/o infection present -Cover pulmonary source rocephin/azithro -cross culture -ID consult Chest discomfort -Elevated trop 0.19, will trend -nonspecific t inversions and glattening in II, II AVF, V4-6, LVH -liklely demand ischemia due to anemia, will repeat ekg -TTE, cardio consult, tele monitoring -continue home coreg Witnessed seizure -likely due to transient hypoxia, resolved w/o neuro deficits when BIPAP replaced -CT head w/o contrast as patient is at risk for stroke due to thrombocytosis Diet controlled DM -ISS, BGM HTN -hold HCTZ, norvasc FEN minimize unnecessary fluids, lasix as needed monitor NA, mag phos currently elevated NPO except meds Dispo ICU Visit type - Emergency Visit Emergency Visit: Yes ED Registration Date: 10/15/17 Care time: The patient presented to the Emergency Department on the above date and was hospitalized for further evaluation of their emergent condition. - New Patient This patient is new to me today: Yes Date on this admission: 10/15/17 - Critical Care Critical Care patient: Yes Total Critical Care Time (in minutes): 60 Critical Care Statement: The care of this patient involved high complexity decision making to prevent further life threatening deterioration of the patient 's condition and/or to evaluate & treat vital organ system(s) failure or risk of failure.
[2017-10-15 08:16] LABS: ARTERIAL BLD GAS O2 SATURATION 99.1 % (90-98.9); ARTERIAL BLOOD GAS BASE EXCESS -20.7 meq/l (-2-2); CARBOXYHEMOGLOBIN 2.4 gm% (0.5-2.0)
--- NOTE | 2017-10-15 08:16 | PDOC ---
*Physical Exam - Vital Signs Last Vital Signs Temp Pulse Resp BP Pulse Ox 98.3 F 94 H 20 116/65 100 10/15/17 07:33 10/15/17 07:33 10/15/17 07:33 10/15/17 07:33 10/15/17 07:33 10/15/17 07:45 Assumed care at the beginning of my shift. Patient is a 67 YOF with h/o DM, CKD , HTN p/w SOB, labs showing anemia to 3.6, WBC 20.1k, PLT 1257. CXR showed bilateral pulmonary edema. Dr. Borges spoke with Jesus, recommended repeat CBCD. ED Treatment Course - LABORATORY CBC & Chemistry Diagram: 10/15/17 06:27 10/15/17 05:35 - ADDITIONAL ORDERS Additional order review: Laboratory Results 10/15/17 10/15/17 10/15/17 06:34 06:27 05:35 Sodium 127 L Potassium 3.9 Chloride 86 L Carbon Dioxide 8 L Anion Gap 33 H BUN 35 H Creatinine 2.8 H Creat Clearance w eGFR 16.80 Random Glucose 121 H Calcium 7.9 L Total Bilirubin 0.6 D AST 47 H ALT 41 Alkaline Phosphatase 108 Creatine Kinase 446 H Creatine Kinase Index 1.6 CK-MB (CK-2) 7.512 H Troponin I 0.19 H B-Natriuretic Peptide 5381.37 H Total Protein 7.0 Albumin 3.0 L Stool Occult Blood Negative Crossmatch See Detail 10/15/17 10/15/17 06:27 05:35 RBC 1.85 L 1.71 L D MCV 77.7 L 77.9 L MCHC 26.7 L 27.4 L RDW 22.5 H 22.5 H MPV 8.8 8.5 Neutrophils % 83.2 H 81.5 Lymphocytes % 10.5 11.9 Monocytes % 5.9 6.3 Eosinophils % 0.0 0.0 D Basophils % 0.4 0.3 - Medications Given in the ED: ED Medications Discontinued Medications Generic Name Dose Route Start Last Admin Trade Name Freq PRN Reason Stop Dose Admin Albuterol Sulfate 1 amp 10/15/17 07:03 10/15/17 07:21 Ventolin 0.5% - NEB 10/15/17 07:04 1 amp ONCE ONE Administration Albuterol/Ipratropium 1 amp 10/15/17 05:15 10/15/17 06:23 Duoneb - NEB 10/15/17 06:01 1 amp Q15M HARPREET Administration Azithromycin 500 mg/ Dextrose 250 mls @ 250 mls/hr 10/15/17 05:43 10/15/17 07 :08 IVPB 10/15/17 06:42 250 mls/hr ONCE ONE Administration Ceftriaxone Sodium 1 gm/ 50 mls @ 100 mls/hr 10/15/17 05:43 10/15/17 06:27 Dextrose IVPB 10/15/17 06:12 100 mls/hr ONCE ONE Administration *DC/Admit/Observation/Transfer Diagnosis at time of Disposition: Thrombocytosis, Hyponatremia CHF (congestive heart failure) Qualifiers: Congestive heart failure type: unspecified Congestive heart failure chronicity : unspecified Qualified Code(s): I50.9 - Heart failure, unspecified Anemia Qualifiers: Anemia type: unspecified type Qualified Code(s): D64.9 - Anemia, unspecified Leukocytosis Qualifiers: Leukocytosis type: unspecified Qualified Code(s): D72.829 - Elevated white blood cell count, unspecified - Discharge Dispostion Condition at time of disposition: Guarded Admit: Yes - Referrals Referrals: Consuelo Gibbs MD [Primary Care Provider] - - Patient Instructions - Post Discharge Activity
[2017-10-15 08:19] LABS: ALLENS TEST POSITIVE; ARTERIAL BLOOD GAS PCO2 17.3 mmHg (35-45); ARTERIAL BLOOD GAS pH 7.19 (7.35-7.45)
[2017-10-15] MEDS ORDERED: ASPIRIN 81 MG CHEWABLE TABLETS PO ONE (08:21)
--- NOTE | 2017-10-15 09:07 | EKG ---
Test Reason : Blood Pressure : / mmHG Vent. Rate : 090 BPM Atrial Rate : 090 BPM P-R Int : 134 ms QRS Dur : 090 ms QT Int : 368 ms P-R-T Axes : 071 018 193 degrees QTc Int : 450 ms NORMAL SINUS RHYTHM LEFT VENTRICULAR HYPERTROPHY WITH REPOLARIZATION ABNORMALITY ABNORMAL ECG WHEN COMPARED WITH ECG OF 15-OCT-2017 05:49, PREVIOUS ECG HAS UNDETERMINED RHYTHM, NEEDS REVIEW Confirmed by Jhon Lou ([id number]) on 10/15/2017 9:06:34 AM Referred By: Confirmed By:Jhon Lou
[2017-10-15 09:10] LABS: LDH 361 U/L (84-246)
[2017-10-15] MEDS ORDERED: SODIUM CHLORIDE 1,000 ML IV SCH (09:15)
[2017-10-15] MEDS ORDERED: HYDROXYUREA 500 MG CAPSULE PO SCH (09:15)
[2017-10-15 09:16] LABS: URIC ACID 12.3 mg/dL (2.6-7.2)
[2017-10-15 09:26] LABS: ACTIVATED PTT 22.9 SECONDS (26.9-34.4)
[2017-10-15 09:32] LABS: MAGNESIUM 3.2 mg/dL (1.8-2.4)
[2017-10-15 09:37] LABS: PHOSPHOROUS 8.6 mg/dL (2.5-4.9)
[2017-10-15] MEDS ORDERED: methylPREDNISolone NA SUCC 40 MG/1 ML VIAL IVPUSH ONE (09:38)
[2017-10-15] MEDS ORDERED: LORazepam 2 MG/ML SDV VIAL ONE (09:40)
--- NOTE | 2017-10-15 09:45 | PN ---
Teaching Attending Note Name of Resident: Orin Ledesma ATTENDING PHYSICIAN STATEMENT I saw and evaluated the patient. I reviewed the resident's note and discussed the case with the resident. I agree with the resident's findings and plan as documented. SUBJECTIVE: This is a 67 year old woman with a history of stage 3 CKD, HTN, type 2 DM, anemia who comes to the ED complaining of SOB for 4 days. She reports having fatigue, chills, non-productive cough, loss of appetite, nausea, vomiting. OBJECTIVE: Vital Signs Period Temp Pulse Resp BP Sys/Rahman Pulse Ox Last 24 Hr 97.7 F-98.4 F 89-95 14-22 114-133/49-65 97-100 HEART: S1S2, RRR LUNGS: Bilateral rhonchi ABDOMEN: Soft, non-tender, mild distention, normal BS EXTREMITIES: Trace edema Laboratory Tests 10/15/17 10/15/17 10/15/17 05:35 05:35 06:27 WBC 18.0 H D RBC 1.71 L D Hgb 3.6 L* D Hct 13.3 L MCV 77.9 L MCH 21.3 L MCHC 27.4 L RDW 22.5 H Plt Count 1168 H D MPV 8.5 Neutrophils % 81.5 Lymphocytes % 11.9 Monocytes % 6.3 Eosinophils % 0.0 D Basophils % 0.3 Hypochromia 2+ Anisocytosis 3+ PTT (Actin FS) Fibrinogen Anticoagulation Therapy Puncture Site ABG pH ABG pCO2 at Pt Temp ABG pO2 at Pt Temp ABG HCO3 ABG O2 Sat (Measured) ABG O2 Content ABG Base Excess Roosevelt Test Carboxyhemoglobin O2 Delivery Device Oxygen Flow Rate Vent Mode Vent Rate Mechanical Rate Pressure Support Vent Sodium 127 L Potassium 3.9 Chloride 86 L Carbon Dioxide 8 L Anion Gap 33 H BUN 35 H Creatinine 2.8 H Creat Clearance w eGFR 16.80 Random Glucose 121 H Lactic Acid 18.0 H* Uric Acid 12.3 H Calcium 7.9 L Phosphorus 8.6 H Magnesium 3.2 H Total Bilirubin 0.6 D AST 47 H ALT 41 Alkaline Phosphatase 108 LD Total 361 H Creatine Kinase 446 H Creatine Kinase Index 1.6 CK-MB (CK-2) 7.512 H Troponin I 0.19 H C-Reactive Protein 3.3 H B-Natriuretic Peptide 5381.37 H Total Protein 7.0 Albumin 3.0 L Stool Occult Blood Blood Type Antibody Screen Crossmatch 10/15/17 10/15/17 10/15/17 06:27 06:27 06:27 WBC 20.1 H RBC 1.85 L Hgb 3.8 L* Hct 14.4 L MCV 77.7 L MCH 20.7 L MCHC 26.7 L RDW 22.5 H Plt Count 1257 H MPV 8.8 Neutrophils % 83.2 H Lymphocytes % 10.5 Monocytes % 5.9 Eosinophils % 0.0 Basophils % 0.4 Hypochromia Anisocytosis PTT (Actin FS) Fibrinogen Anticoagulation Therapy Puncture Site ABG pH ABG pCO2 at Pt Temp ABG pO2 at Pt Temp ABG HCO3 ABG O2 Sat (Measured) ABG O2 Content ABG Base Excess Roosevelt Test Carboxyhemoglobin O2 Delivery Device Oxygen Flow Rate Vent Mode Vent Rate Mechanical Rate Pressure Support Vent Sodium 128 L Potassium 4.3 Chloride 86 L Carbon Dioxide 9 L Anion Gap 33 H BUN 34 H Creatinine 2.7 H Creat Clearance w eGFR 17.52 Random Glucose 113 H Lactic Acid Uric Acid Calcium 8.4 L Phosphorus Magnesium Total Bilirubin 0.6 AST 72 H ALT 44 Alkaline Phosphatase 112 LD Total Creatine Kinase Creatine Kinase Index CK-MB (CK-2) Troponin I C-Reactive Protein B-Natriuretic Peptide Total Protein 7.4 Albumin 3.2 L Stool Occult Blood Blood Type B POSITIVE Antibody Screen Negative Crossmatch See Detail 10/15/17 10/15/17 10/15/17 06:34 08:10 08:10 WBC RBC Hgb Hct MCV MCH MCHC RDW Plt Count MPV Neutrophils % Lymphocytes % Monocytes % Eosinophils % Basophils % Hypochromia Anisocytosis PTT (Actin FS) 22.9 L Fibrinogen 486.0 Anticoagulation Therapy No Result Required. Puncture Site Left radial ABG pH 7.19 L* ABG pCO2 at Pt Temp 17.3 L* ABG pO2 at Pt Temp 218.0 H* ABG HCO3 6.3 L* ABG O2 Sat (Measured) 99.1 H ABG O2 Content 5.0 L* ABG Base Excess -20.7 L* Roosevelt Test Positive Carboxyhemoglobin 2.4 H O2 Delivery Device No Result Required. Oxygen Flow Rate Yes Vent Mode No Result Required. Vent Rate No Result Required. Mechanical Rate No Result Required. Pressure Support Vent No Result Required. Sodium Potassium Chloride Carbon Dioxide Anion Gap BUN Creatinine Creat Clearance w eGFR Random Glucose Lactic Acid Uric Acid Calcium Phosphorus Magnesium Total Bilirubin AST ALT Alkaline Phosphatase LD Total Creatine Kinase Creatine Kinase Index CK-MB (CK-2) Troponin I C-Reactive Protein B-Natriuretic Peptide Total Protein Albumin Stool Occult Blood Negative Blood Type Antibody Screen Crossmatch Home Medications Medication Instructions Recorded Amlodipine Besylate [Norvasc -] 10 mg PO DAILY 09/18/14 Perphenazine/Amitriptyline HCl 1 each PO DAILY 01/12/15 [Perphen-Amitrip 4 mg-25 mg Tab] Carvedilol 37.5 mg PO DAILY 08/22/15 Hydrochlorothiazide [Hctz -] 25 mg PO DAILY 08/22/15 Albuterol Sulfate Inhaler - 2 inh PO Q4H #1 inh 10/13/17 [Ventolin HFA Inhaler -] Carbamide Peroxide 6.5% [Debrox -] 5 drop AU BID #1 bottle 10/13/17 ASSESSMENT AND PLAN: This is a 67 year old woman with a history of stage 3 CKD, HTN, type 2 DM, anemia who presented to the ED today complaining of SOB. She was found to have WBC 20.1, Hgb 3.8, platelets 1257, Na 128, BUN 34, creatinine 2.7, AG 33, lactic acid 18.0, troponin 0.19. CXR shows pulmonary edema vs bilateral infiltrates. 1. Severe microcytic anemia, leukocytosis, thrombocytosis - Has chronic microcytic anemia treated with IV iron and transfusions in the past - Last available hemoglobin is 8.6 from 02/2017 - Transfuse 2 units PRBCs - Leukocytosis (13.0-16.7 from 02/2017) and thrombocytosis (447-525) have been present in the past - Hematology consult - Possible severe sepsis (WBC 20.1, HR 95, RR 22, lactic acid 18.0) - Rocephin, Zithromax given in ED - Blood cultures pending - Monitor lactic acid - ID consult 2. Acute hypoxic respiratory failure secondary to possible acute CHF, possible non-cardiogenic pulmonary edema, possible pneumonia - Maintain on BiPAP - Echocardiogram - Pulmonary/critical care consult - Cardiology consult 3. High anion gap metabolic acidosis secondary to lactic acidosis, MARQUES/CKD - IV sodium bicarb - Gentle IV fluid - Monitor lactic acid 4. Acute kidney injury on stage 3 CKD - Last available creatinine is 2.1 from 02/2017 - Likely secondary to hypoperfusion from severe anemia - Transfuse PRBCs, gentle hydration - Monitor creatinine - Nephrology consult 5. Hyponatremia - Gentle hydration with IV NS - Monitor electrolytes 6. Elevated troponin - Likely demand ischemia secondary to severe anemia - No ischemic changes noted on EKG - Cardiac monitoring - Serial troponins - Echocardiogram - Cardiology consult 7. HTN - Continue Coreg, Norvasc 8. Type 2 DM - Fingersticks with Novolog sliding scale
--- NOTE | 2017-10-15 09:48 | CONSULT ---
Consult Consult Specialty:: hematology Reason for Consultation:: suspicious for hematological disorder - History of Present Illness History of Present Illness: 67 YOF with h/o DM, CKD, HTN p/w SOB, labs showing anemia to 3.6, WBC 20.1k, PLT 1257. CXR showed bilateral pulmonary edema. Hematology consulted for severe abn in CBC. Pt seen and examined in the ER. Could not complete a full HPI , as pt was in severe resp distress and had a episode of unresponsiveness. - History Source History Provided By: Patient, Medical Record - Alcohol/Substance Use Hx Alcohol Use: No - Smoking History Smoking history: Former smoker Have you smoked in the past 12 months: No Aproximately how many cigarettes per day: 0 If you are a former smoker, when did you quit?: 50 years ago Home Medications - Allergies Allergies/Adverse Reactions: Allergies Allergy/AdvReac Type Severity Reaction Status Date / Time codeine Allergy palpitation Verified 10/15/17 06:01 s oxycodone HCl [From Percocet] Allergy palpitation Verified 10/15/17 06:01 s - Home Medications Home Medications: Ambulatory Orders Amlodipine Besylate [Norvasc -] 10 mg PO DAILY 09/18/14 Perphenazine/Amitriptyline HCl [Perphen-Amitrip 4 mg-25 mg Tab] 1 each PO DAILY 01/12/15 Carvedilol 37.5 mg PO DAILY 08/22/15 Hydrochlorothiazide [Hctz -] 25 mg PO DAILY 08/22/15 Albuterol Sulfate Inhaler - [Ventolin HFA Inhaler -] 2 inh PO Q4H #1 inh Carbamide Peroxide 6.5% [Debrox -] 5 drop AU BID #1 bottle 10/13/17 Review of Systems Findings/Remarks: due to her clinical condition ROS unobtained. Physical Exam Vital Signs: Vital Signs Temperature 98.1 F 10/15/17 09:44 Pulse Rate 90 10/15/17 09:44 Respiratory Rate 20 10/15/17 09:44 Blood Pressure 133/58 10/15/17 09:44 O2 Sat by Pulse Oximetry (%) 100 10/15/17 09:44 Constitutional: Yes: Severe Distress Eyes: Yes: Conjunctiva Clear HENT: Yes: Atraumatic, Normocephalic Neck: Yes: Supple. No: Lymphadenopathy Cardiovascular: Yes: Tachycardia Respiratory: Yes: Accessory Muscle Use, SOB Extremities: Yes: WNL Edema: No Neurological: Yes: Lethargy, Seizure Labs: CBC, BMP 10/15/17 06:27 10/15/17 06:27 Imaging - Results Chest X-ray: Report Reviewed Problem List - Problems (1) Anemia Code(s): D64.9 - ANEMIA, UNSPECIFIED Qualifiers: Anemia type: unspecified type Qualified Code(s): D64.9 - Anemia, unspecified (2) Leukocytosis Code(s): D72.829 - ELEVATED WHITE BLOOD CELL COUNT, UNSPECIFIED Qualifiers: Leukocytosis type: unspecified Qualified Code(s): D72.829 - Elevated white blood cell count, unspecified (3) Thrombocytosis Code(s): D47.3 - ESSENTIAL (HEMORRHAGIC) THROMBOCYTHEMIA (4) CHF (congestive heart failure) Code(s): I50.9 - HEART FAILURE, UNSPECIFIED Qualifiers: Congestive heart failure type: unspecified Congestive heart failure chronicity: unspecified Qualified Code(s): I50.9 - Heart failure, unspecified Assessment/Plan Severe anemia/Thrombocytosis/Mild Leucocytosis. -suspicious for a primary hematolgical disorder vs a reactive process ( infection, Fe Def anemia ) -will send peripheral blood flow, JAk2, BCR-ABL -reportedly follows with Dr.Elizabeth Nieto at [facility] for chronic Iron deficiency and is on venofer , accessed records did not have any work up for any primary MPN, no JAK2/BCR-ABL done. Was being treated for ACD/ACI and was given Aranesp. -transfusion prbc as needed -d/c Hydrea an anti-neoplastic agent as presently with no heme-malignancy diagnosis -d/c aspirin ( for risk of having acquired VWD and risk of bleeding from the thrombocytosis). -she is at risk for VTE, Order US of the LE to r/o DVT. if respiratory status allows , will need CT-PE protocol -if a ct abdomen , is not done. recommend US to r/o splenomegaly. Hypoxic resp distress ?etiology ?chf ?PE rec cardiology consult also I witnessed her starting to have a brief episode of unresponsiveness, started to have seizure, ?exacerbated by Hypoxia , ?new TIA , recommend Neuro c/ s ,CTH. was notified that she responded to bipap, was not intubated. MARQUES vs worsening CKD/HypoNa/lactic acidosis -send infectious work-up -abx per ID/Primary team. As per question of AC -would need CTH prior to consideration of any AC critically ill pt. d/w resident, ICU
[2017-10-15] MEDS ORDERED: methylPREDNISolone NA SUCC 125 MG/2 ML VIAL ONE (09:49)
[2017-10-15 09:50] LABS: INR 1.35 (0.82-1.09); PROTHROMBIN TIME (PATIENT) 15.3 SEC (9.98-11.88)
[2017-10-15] MEDS: CARVEDILOL 25 MG TABLET (FP) PO SCH (10:01)
[2017-10-15] MEDS: MUPIROCIN 2% TOPICAL OINTMENT FOR DECOLONIZATION NS SCH ×2 (10:01→22:03)
[2017-10-15] MEDS ORDERED: FUROSEMIDE 40 MG/4 ML INJECTABLE VIAL IVPUSH ONE (10:06)
[2017-10-15] MEDS ORDERED: CARVEDILOL 25 MG, CARVEDILOL 12.5 MG PO ONE (10:15)
[2017-10-15] MEDS ORDERED: FUROSEMIDE 40 MG/4 ML INJECTABLE VIAL ONE (10:40)
[2017-10-15 10:42] LABS: URINE APPEARANCE SLCLOUDY; URINE BILIRUBIN NEGATIVE (NEGATIVE); URINE BLOOD NEGATIVE (NEGATIVE); URINE COLOR LTYELLOW; URINE GLUCOSE (UA) NEGATIVE (NEGATIVE); URINE KETONE TRACE (NEGATIVE); URINE LEUK ESTERASE NEGATIVE (NEGATIVE); URINE NITRITE NEGATIVE (NEGATIVE); URINE PROTEIN 2+ (NEGATIVE); URINE UROBILINOGEN NEGATIVE mg/dL (0.2-1.0)
[2017-10-15 10:47] LABS: URINE BACTERIA MANY /hpf (NONE SEEN); URINE HYALINE CAST 1 /lpf; URINE MUCUS RARE
[2017-10-15] MEDS: INSULIN SLIDING SCALE (NOVOLOG) 1 VIAL SQ SCH ×2 (11:07→18:15)
[2017-10-15] MEDS ORDERED: SODIUM BICARBONATE 4.2% 5 MEQ/10 ML DISP.SYRIN IVPUSH ONE (11:14)
--- NOTE | 2017-10-15 11:26 | CONSULT ---
Consult Consult Specialty:: Nephrology Referred by:: Dr. Moeller Reason for Consultation:: CKD Acidosis - History of Present Illness Chief Complaint: Trouble breathing History of Present Illness: 67F history of HTN, CKD, diet controlled DM per patient, anemia treated with IV iron, presents to the hospital with a 4 day history of shortness of breath. Per patient she was here recently and discharged from ED. She reports continued shortness of breath which has worsened and she called EMS. She reports nausea NBNB vomiting fevers chills chest pain and shortness of breath. She also endorses an non productive cough. In the ED she was found to have anemia Hgb 3.6 , leukocytosis 20.1k, PLT 1257 and CXR showed bilateral diffuse pulmonary edema. Patient was also noted to be unresponsive at one point in the ED and had a seizure. Patient denies a history of CHF but is on lasix and coreg. She denies any ingestions or drug use. She denies over the counter NSAIDs. She states she used to follow with a facilities locator at [facility] but has not seen him in 3-5 years. She denies weight change or bleedings from GI or tracts. Patient was noted to be in metabolic acidosis in the ED. - History Source History Provided By: Patient, Medical Record Limitations to Obtaining History: Clinical Condition - Alcohol/Substance Use Hx Alcohol Use: No - Smoking History Smoking history: Former smoker Have you smoked in the past 12 months: No Aproximately how many cigarettes per day: 0 If you are a former smoker, when did you quit?: 50 years ago Home Medications - Allergies Allergies/Adverse Reactions: Allergies Allergy/AdvReac Type Severity Reaction Status Date / Time codeine Allergy palpitation Verified 10/15/17 06:01 s oxycodone HCl [From Percocet] Allergy palpitation Verified 10/15/17 06:01 s - Home Medications Home Medications: Ambulatory Orders Amlodipine Besylate [Norvasc -] 10 mg PO DAILY 09/18/14 Perphenazine/Amitriptyline HCl [Perphen-Amitrip 4 mg-25 mg Tab] 1 each PO DAILY 01/12/15 Carvedilol 37.5 mg PO DAILY 08/22/15 Hydrochlorothiazide [Hctz -] 25 mg PO DAILY 08/22/15 Albuterol Sulfate Inhaler - [Ventolin HFA Inhaler -] 2 inh PO Q4H #1 inh Carbamide Peroxide 6.5% [Debrox -] 5 drop AU BID #1 bottle 10/13/17 Family Disease History - Family Disease History Other Family History: history of anemia in family Review of Systems - Review of Systems Constitutional: reports: Chills, Fever, Weakness Eyes: reports: No Symptoms HENT: reports: No Symptoms Neck: reports: No Symptoms Cardiovascular: reports: Chest Pain, Edema, Shortness of Breath Respiratory: reports: Cough, SOB on Exertion Gastrointestinal: reports: Bloating, Constipation, Nausea, Vomiting Genitourinary: reports: No Symptoms Musculoskeletal: reports: No Symptoms Hematology/Lymphatic: reports: Other (anemia) Physical Exam Vital Signs: Vital Signs Temperature 98.1 F 10/15/17 11:08 Pulse Rate 76 10/15/17 11:08 Respiratory Rate 20 10/15/17 11:08 Blood Pressure 120/77 10/15/17 11:08 O2 Sat by Pulse Oximetry (%) 99 10/15/17 11:08 Constitutional: Yes: No Distress, Other (on BIPAP) Eyes: Yes: Other (conjunctival pallor) HENT: Yes: Atraumatic, Normocephalic Neck: Yes: Supple Cardiovascular: Yes: Regular Rate and Rhythm, S1, S2 Respiratory: Yes: On BiPap, Wheezes, Other (bilateral coarse breath sounds) Gastrointestinal: Yes: Soft, Distention. No: Tenderness Renal/: No: Bladder Distention, Mcallister Present Extremities: Yes: WNL Edema: No Neurological: Yes: Alert, Oriented Psychiatric: Yes: Alert, Oriented Labs: CBC, BMP 10/15/17 06:27 10/15/17 06:27 Imaging - Results Chest X-ray: Report Reviewed, Image Reviewed Ultrasound: Report Reviewed Assessment/Plan 67F with multiple medical problems presents to the ED with shortness of breath found to be in metabolic acidosis. anion gap metabolic acidosis with concomitant metabolic alkalosis likely secondary to GI loses and appropriately compensated respiratory alkalosis. Metabolic acidosis likely secondary to a combination of CKD and lactic acidosis Acute on chronic Kidney injury Patient received BiCarb in ED recheck ABG to check acid base status and if pH remains below 7.2 can start bicarb gtt with caution due to volume and respiratory status check osmolar gap recheck lactic acid check serum osm check urine toxicology repeat BMP now check alcohol level keep MAP >70 dose all medications for CrCl <15 check FeNa and FeUrea r/o salicylate toxicity as patient takes a lot of lorie seltzer at home and contains aspirin Severe symptomatic anemia: unknown cause patient was being worked up as outpatient could be due to CKD Transfuse PRBCs trend CBC Hematology work up Acute reparatory failure: not hypoxic or hypercarbic could be due to volume overload recommend CT scan chest - reviewed previous CT chest trend CXR ABD distention: ABD US noted patient uses a lot of lorie seltzer at home Per primary team Hyponatremia: continue to trend sodium could be from diuretics HTN: Restart home meds keep MAP >70 DM: ISS FIngersticks for blood glucose monitoring Possible CHF exacerbation: BNP elevated although many reasons could elevate it patient on coreg and lasix at home denies CHF history ECHO Will follow thank you for this consultative opportunity case discussed with attending Dr. Reed
--- NOTE | 2017-10-15 11:39 | PN ---
Teaching Attending Note Name of Resident: Elan Fournier (Nephrology) ATTENDING PHYSICIAN STATEMENT I saw and evaluated the patient. I reviewed the resident's note and discussed the case with the resident. I agree with the resident's findings and plan as documented. SUBJECTIVE: OBJECTIVE: Vital Signs Temperature 98.1 F 10/15/17 11:08 Pulse Rate 76 10/15/17 11:08 Respiratory Rate 20 10/15/17 11:08 Blood Pressure 120/77 10/15/17 11:08 O2 Sat by Pulse Oximetry (%) 99 10/15/17 11:08 Intake & Output 10/12/17 10/13/17 10/14/17 10/15/17 23:59 23:59 23:59 23:59 Output Total 100 Balance -100 Weight 68.039 kg NAD awake and alert on BIPAP RRR Dec Bs distended abd Trace LE edema ASSESSMENT AND PLAN: 67 year old woman with PMhx of CKD (baseline Cr 2.1), Hypertension, DM (not on meds), Chronic anemia who presented with complaints of sob and found to have severe anemia, metabolic acidosis and MARQUES with Cr of 2.7. #Anion gap metabolic acidosis with concurrent metabolic alkalosis with adequate respiratory compensation etiology is likely multifactorial from Lactic acidosis + renal insufficiency however given preserved BP should also r/o ingestions check repeat ABG, BMP, Serum OSM, Urine Toxicology, Alcohol levels, lactic acid at noon if ph remains less then 7.2 can consider bicarb infusion continue bipap for respiratory support #Acute on Chronic Renal insuffiency etiology likely renal hypoprofusion/ATN in setting of severe anemia check Urine for FeNa, FeUrea keep MAP > 65 volume infusion with PRBC would be cautious with IVF given possible congestion on CXR keep MAP > 70 dose all meds for CrCl less then 15 #Severe Anemia Etiology uncertain Heme following tarnsfuse PRBC as needed #Chest congestion on CXR consider CT of the chest to better characterize lesions #Abd distension f/u abd US Thank you Will follow Tc Reed DO
[2017-10-15] MEDS ORDERED: SODIUM BICARBONATE 8.4% - 50 ML ONE (11:43)
[2017-10-15] MEDS ORDERED: SODIUM BICARBONATE 2.4 MEQ/5 ML SDVIAL ONE (11:45)
[2017-10-15] MEDS ORDERED: SODIUM BICARBONATE 8.4% 50 MEQ/50 ML DISP.SYRIN IVPUSH ONE (11:57)
--- NOTE | 2017-10-15 12:13 | CON.ID ---
Consult Consult Specialty:: infectious disease Referred by:: hospitalist Reason for Consultation:: leukocytosis - History of Present Illness Chief Complaint: LEBLANC, generalized weakness History of Present Illness: 67 year old female history of iron deficiency anemia- last received venofer about 6 to 9 months ago deveoped weakness aobut one month ago- 4 days ago she became extremely weak with dry cough and LEBLANC- got SOB with any exertion no fevers seen in ED 10/13 and had influenza screen done which was negative she presented to ED this AM with worsening weakness she has had vomiting 4 times- no blood she is chronically constipated- she has had gas pain and has been taking lorie seltzer 2-3 tabs evry 4 hours for last 4 days also some tylenol denies abdominal pain no dysuria had a colonoscopy 6 years ago last saw her PCP in June 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 reports taking lasix at home which she self d/isabell two days ago - History Source History Provided By: Patient, Medical Record Limitations to Obtaining History: No Limitations - Past Medical History Cardio/Vascular: Yes: HTN Renal/: Yes: Other (ckd) Heme/Onc: Yes: Anemia - Alcohol/Substance Use Hx Alcohol Use: No - Smoking History Smoking history: Former smoker Have you smoked in the past 12 months: No Aproximately how many cigarettes per day: 0 If you are a former smoker, when did you quit?: 50 years ago - Social History Usual Living Arrangement: With Spouse ADL: Independent Occupation: retired History of Recent Travel: No Home Medications - Allergies Allergies/Adverse Reactions: Allergies Allergy/AdvReac Type Severity Reaction Status Date / Time codeine Allergy palpitation Verified 10/15/17 06:01 s oxycodone HCl [From Percocet] Allergy palpitation Verified 10/15/17 06:01 s - Home Medications Home Medications: Ambulatory Orders Amlodipine Besylate [Norvasc -] 10 mg PO DAILY 09/18/14 Perphenazine/Amitriptyline HCl [Perphen-Amitrip 4 mg-25 mg Tab] 1 each PO DAILY 01/12/15 Carvedilol 37.5 mg PO DAILY 08/22/15 Hydrochlorothiazide [Hctz -] 25 mg PO DAILY 08/22/15 Albuterol Sulfate Inhaler - [Ventolin HFA Inhaler -] 2 inh PO Q4H #1 inh Carbamide Peroxide 6.5% [Debrox -] 5 drop AU BID #1 bottle 10/13/17 Family Disease History - Family Disease History Other Family History: history of anemia in family Review of Systems - Review of Systems Constitutional: reports: Weakness. denies: Chills, Fever Eyes: reports: No Symptoms HENT: reports: No Symptoms. denies: Difficult Swallowing Neck: reports: No Symptoms Cardiovascular: reports: No Symptoms. denies: Chest Pain Respiratory: reports: Cough, SOB on Exertion Gastrointestinal: reports: Bloating, Constipation, Vomiting. denies: Abdominal Pain, Rectal Bleeding, Vomiting Blood Genitourinary: reports: No Symptoms. denies: Burning, Discharge Musculoskeletal: reports: No Symptoms Integumentary: reports: No Symptoms Physical Exam Vital Signs: Vital Signs Temperature 98.1 F 10/15/17 11:08 Pulse Rate 76 10/15/17 11:08 Respiratory Rate 20 10/15/17 11:08 Blood Pressure 120/77 10/15/17 11:08 O2 Sat by Pulse Oximetry (%) 99 10/15/17 11:08 Constitutional: Yes: Well Nourished, No Distress, Calm Eyes: Yes: Conjunctiva Clear HENT: Yes: Atraumatic, Normocephalic Neck: Yes: Supple Cardiovascular: Yes: Regular Rate and Rhythm Respiratory: Yes: Regular, CTA Bilaterally Gastrointestinal: Yes: Normal Bowel Sounds, Distention, Other (tympanitic +BS). No: Tenderness ...Rectal Exam: Yes: Deferred Extremities: Yes: WNL Edema: No Psychiatric: Yes: Alert, Oriented Labs: CBC, BMP 10/15/17 06:27 Laboratory Tests 10/15/17 10/15/17 10/15/17 06:27 11:40 11:40 Sodium 127 L Potassium 4.5 Chloride 84 L Carbon Dioxide 11 L Anion Gap 32 H BUN 44 H Creatinine 3.1 H Lactic Acid 14.4 H* Total Bilirubin 0.6 AST 72 H ALT 44 Alkaline Phosphatase 112 Imaging - Results Chest X-ray: Report Reviewed (c/w CHF), Image Reviewed Problem List - Problems (1) Anemia Code(s): D64.9 - ANEMIA, UNSPECIFIED Qualifiers: Anemia type: unspecified type Qualified Code(s): D64.9 - Anemia, unspecified (2) Lactic acidosis Code(s): E87.2 - ACIDOSIS (3) Thrombocytosis Code(s): D47.3 - ESSENTIAL (HEMORRHAGIC) THROMBOCYTHEMIA (4) Leukocytosis Code(s): D72.829 - ELEVATED WHITE BLOOD CELL COUNT, UNSPECIFIED Qualifiers: Leukocytosis type: unspecified Qualified Code(s): D72.829 - Elevated white blood cell count, unspecified (5) Acute renal failure superimposed on chronic kidney disease Code(s): N17.9 - ACUTE KIDNEY FAILURE, UNSPECIFIED; N18.9 - CHRONIC KIDNEY DISEASE, UNSPECIFIED Assessment/Plan cannot r/o sepsis- ?GI ?LUNG cxray more c/w chf in the setting of severe anemia received rocephin and zithromax in ed this am will broaden coverage to zosyn/zithromax to cover bowel as well given abdominal distention-adjust for MARQUES imaging is pending check influenza and legionella antigen as well severe acidosis- check salicylate level, management per renal severe anemia with thrombocytosis, leukocytosis may be secondary to the anemia- management per hematology d/w ICU team, d/w hematology overalll 45 minutes spent in the care of this critically ill ICU patient
[2017-10-15 12:41] LABS: URINE CREATININE 99.6 mg/dL (20-320)
[2017-10-15 12:43] LABS: COCAINE, UR NEGATIVE ng/ml (CUTOFF=300); METHADONE, UR NEGATIVE ng/ml (CUTOFF=300); OPIATES, URI NEGATIVE ng/ml (CUTOFF=300); PHENCYCLIDINE,URINE NEGATIVE ng/ml (CUTOFF=25); URINE AMPHETAMINES NEGATIVE ng/ml (CUTOFF=500); URINE BARBITURATES NEGATIVE ng/ml (CUTOFF=200); URINE BENZODIAZEPINES NEGATIVE ng/ml (CUTOFF=200)
[2017-10-15 12:45] LABS: ANION GAP 32 (8-16); BLOOD UREA NITROGEN 44 mg/dL (7-18); CALCIUM 8.4 mg/dL (8.5-10.1); CHLORIDE 84 mmol/L (98-107); CO2 11 mmol/L (21-32); CREATININE 3.1 mg/dL (0.55-1.02); GLUCOSE,RANDOM 142 mg/dL (74-106); SODIUM 127 mmol/L (136-145)
[2017-10-15 12:47] LABS: POTASSIUM 4.5 mmol/L (3.5-5.1)
[2017-10-15 12:50] LABS: ALCOHOL < 5.0 mg/dl (0-5); SALICYLATE 7.096 mg/dl (0.0-30.0)
[2017-10-15 12:53] LABS: ACETAMINOPHEN 3.159 ug/ml (10.0-30.0)
[2017-10-15 13:10] LABS: ARTERIAL BLOOD GAS PCO2 23.9 mmHg (35-45)
[2017-10-15 13:11] LABS: ALLENS TEST POSITIVE; ARTERIAL BLD GAS O2 SATURATION 99.7 % (90-98.9)
[2017-10-15] MEDS ORDERED: PIPERACILLIN/TAZOB 2.25 GM/50 ML PREMIX BAG IVPB SCH (13:15)
--- NOTE | 2017-10-15 14:16 | CONSULT ---
Consult Consult Specialty:: Pulm/CCU Referred by:: ED Reason for Consultation:: Severe anemia, Acute hypoxic respiratory failure - History of Present Illness Chief Complaint: Difficulty breathing. History of Present Illness: 67 year old F with pmh of chronic iron deficiency anemia (receiving iron infusions by hematology), CKD, DM, and HTN presented with 4 days of weakness, cough, sob that worsened. Patient was seen in the ED two days ago, tested negative for flu, and sent home with nebulizer treatments. Patient still had SOB , which worsened yesterday and came to ED via EMS. In the ED she had an episode of jerky movements, while unresponsive with her bipap removed. Patient had pulses at the time and was placed back on bipap. In the ED patient's labs revealed an anemia Hgb 3.6, leukocytosis 20.1k, PLT 1257 and CXR showed bilateral diffuse pulmonary edema. Patient denies weight change, headache, abdominal pain, hemoptysis, melena, hematochezia, lymphadenopathy. - History Source History Provided By: Patient Limitations to Obtaining History: No Limitations - Past Medical History Cardio/Vascular: Yes: HTN Renal/: Yes: Other (ckd) - Alcohol/Substance Use Hx Alcohol Use: No - Smoking History Smoking history: Former smoker Have you smoked in the past 12 months: No Aproximately how many cigarettes per day: 0 If you are a former smoker, when did you quit?: 50 years ago - Social History Usual Living Arrangement: With Spouse ADL: Independent Occupation: retired History of Recent Travel: No Home Medications - Allergies Allergies/Adverse Reactions: Allergies Allergy/AdvReac Type Severity Reaction Status Date / Time codeine Allergy palpitation Verified 10/15/17 06:01 s oxycodone HCl [From Percocet] Allergy palpitation Verified 10/15/17 06:01 s - Home Medications Home Medications: Ambulatory Orders Amlodipine Besylate [Norvasc -] 10 mg PO DAILY 09/18/14 Perphenazine/Amitriptyline HCl [Perphen-Amitrip 4 mg-25 mg Tab] 1 each PO DAILY 01/12/15 Carvedilol 37.5 mg PO DAILY 08/22/15 Hydrochlorothiazide [Hctz -] 25 mg PO DAILY 08/22/15 Albuterol Sulfate Inhaler - [Ventolin HFA Inhaler -] 2 inh PO Q4H #1 inh Carbamide Peroxide 6.5% [Debrox -] 5 drop AU BID #1 bottle 10/13/17 Family Disease History - Family Disease History Other Family History: history of anemia in family Review of Systems Findings/Remarks: CONSTITUTIONAL: Absent: diaphoresis, weight change HEENT: Absent: rhinorrhea, nasal congestion, difficulty swallowing, visual changes CARDIOVASCULAR: Absent: chest pain, syncope, palpitations, irregular heart rate, lightheadedness , peripheral edema RESPIRATORY: Absent: orthopnea, wheezing, stridor, hemoptysis GASTROINTESTINAL: Absent: abdominal pain, diarrhea, constipation, melena, hematochezia GENITOURINARY: Absent: dysuria, hematuria, flank pain MUSCULOSKELETAL: Absent: myalgia, arthralgia, back pain, neck pain SKIN: Absent: rash, itching, pallor HEMATOLOGIC/IMMUNOLOGIC: Absent: easy bleeding, easy bruising, lymphadenopathy, frequent infections ENDOCRINE: Absent: unexplained weight gain, unexplained weight loss, heat intolerance, cold intolerance NEUROLOGIC: Absent: headache, focal weakness or paresthesias PSYCHIATRIC: Absent: anxiety, depression Physical Exam Vital Signs: Vital Signs Temperature 98.1 F 10/15/17 11:08 Pulse Rate 90 10/15/17 13:32 Respiratory Rate 20 10/15/17 11:08 Blood Pressure 120/77 10/15/17 11:08 O2 Sat by Pulse Oximetry (%) 100 10/15/17 13:32 PHYSICAL EXAMINATION GENERAL: Awake, alert, and fully oriented, in respiratory distress on bipap. HEAD: Normal with no signs of trauma. EYES: Pupils equal, round and reactive to light, extraocular movements intact, sclera anicteric, conjunctiva clear. No lid lag. EARS, NOSE, THROAT: unable to assess 2/2 to bipap NECK: supple without lymphadenopathy, JVD LUNGS: diffuse rhonchi throughout HEART: Regular rate and rhythm, normal S1 and S2, no m/r/g ABDOMEN: Soft, nontender, + distended, globally reduced bowel sounds, no guarding, no rebound, no masses. No fluid wave MUSCULOSKELETAL: No CVA tenderness. UPPER EXTREMITIES: 2+ pulses, warm, well-perfused. No cyanosis. No clubbing. No peripheral edema. LOWER EXTREMITIES: 2+ pulses, warm, well-perfused. No calf tenderness. trace peripheral edema. NEUROLOGICAL: Cranial nerves II-XII grossly intact. Normal speech. PSYCHIATRIC: Cooperative. Good eye contact. Appropriate mood and affect. SKIN: Warm, dry Labs: CBC, BMP 10/15/17 06:27 10/15/17 11:40 Assessment/Plan 67 year old F with pmh of chronic iron deficiency anemia (receiving iron infusions by hematology), CKD, DM, and HTN presented with 4 days of weakness, cough, sob that worsened #CV HTN Troponinemia -Hold home BP meds except coreg -Trend troponins -Echo pending, Repeat EKG pending -Cardiology consulted #Pulm Acute hypoxic respiratory failure -Continue patient on Bipap -IV solumederol 60 mg q9h -Monitor CXR's #Renal Metabolic Acidosis 2/2 to lactic acid vs renal disease MARQUES on CKD Hyponatremia -Repeat ABG, possible sodium bicarb drip depending on repeat ABg -Monitor BMP -Monitor cr, urine output -avoid nephrotoxic medications -Renal on board #Heme/Onc Thrombocytosis, leukocytosis, anemia Diffuse abdominal distention -No aspirin or hydroxyurea -Transfuse prbc as needed, only received 1 prbc so far, maintain hgb >7 -f/u vW factor, JAK2, Bcr-abl, CALR, MPL, SHELIA and EPO -no DVT or splenomegaly on u/s -Abd xray, CT pending -Hematology on board #ID Severe Sepsis 2/2 to unknown cause -Continue ceftriaxone/azithromycin -F/u Cultures -ID on board #Neuro Possible seizure in ED -Seizure resolved -Patient with no current gross neurologic deficits -Head CT w/o contrast pending #Endo DM -BGM TIDAC -ISS TIDAC #FEN/GI -No IVF -Monitor BMP -NPO except meds #PPx -SCDs #Dispo: Continue ICU level of care
[2017-10-15] MEDS ORDERED: PIPERACILLIN/TAZOBACTAM 2.25 GM VIAL IVPB ONE (14:32)
--- NOTE | 2017-10-15 14:53 | PN ---
Teaching Attending Note Name of Resident: Caesar Bowens ATTENDING PHYSICIAN STATEMENT I saw and evaluated the patient. I reviewed the resident's note and discussed the case with the resident. I agree with the resident's findings and plan as documented. SUBJECTIVE: History of Present Illness: 67 F, chronic iron deficiency anemia (receiving iron infusions/Aranesp by hematology at [facility]), CKD, DM, and HTN. Admitted via ER due to 4 to5 days of generalized weakness, dry cough, and SOB. Patient also reports abdominal distention for the last 2 to 3 weeks. No travel history or sick contacts. No hemoptysis. She has not noticed any occult bleeding. Required NIPVV therapy for acute respiratory distress. There was a concern for seizure activity and AMS as well but has not recurred. CXR: bilateral congestive changes / no effusions. Severe anemia, thrombocytosis, lactic acidosis, and electrolyte derangement noted. Intake & Output 10/12/17 10/13/17 10/14/17 10/15/17 23:59 23:59 23:59 23:59 Output Total 100 Balance -100 Weight 150 lb Last Vital Signs Temp Pulse Resp BP Pulse Ox 98.1 F 90 20 120/77 100 10/15/17 11:08 10/15/17 13:32 10/15/17 11:08 10/15/17 11:08 10/15/17 13:32 Active Medications Acetaminophen (Tylenol -) 650 mg PO Q4H PRN PRN Reason: PAIN Amitriptyline HCl (Elavil -) 25 mg PO HS [facility] Carvedilol (Coreg -) 37.5 mg PO DAILY [facility] Last Admin: 10/15/17 10:01 Dose: Not Given Chlorhexidine Gluconate (Hibiclens For Decolonization -) 1 applic TP HS [facility] Piperacillin/Tazobactam/Dextrose (Zosyn 2.25gm Ivpb (Premix)) 2.25 gm in 50 mls @ 100 mls/hr IVPB Q8H-IV [facility] Insulin Aspart (Novolog Vial Sliding Scale -) 1 vial SQ TIDAC [facility] PRN Reason: Protocol Last Admin: 10/15/17 11:07 Dose: Not Given Methylprednisolone Sodium Succinate (Solu-Medrol -) 60 mg IVPUSH Q8H-IV [facility] Mupirocin (Bactroban Ointment (For Decolonization) -) 1 applic NS BID [facility] Stop: 10/20/17 09:59 Last Admin: 10/15/17 10:01 Dose: Not Given PHYSICAL EXAMINATION GENERAL: Awake, alert, and fully oriented, NAD on NIPPV HEAD: Normal with no signs of trauma. EYES: Pupils equal, round and reactive to light, sclera anicteric, (+) Pallor EARS, NOSE, THROAT: unable to assess 2/2 to bipap NECK: supple without lymphadenopathy, JVD LUNGS: scattered rhonchi HEART: Regular rate and rhythm, normal S1 and S2, no m/r/g ABDOMEN: Softly distended but non-tender, reduced bowel sounds, no guarding, no rebound, no masses. No fluid wave MUSCULOSKELETAL: No CVA tenderness. UPPER EXTREMITIES: 2+ pulses, warm, well-perfused. No cyanosis. No clubbing. No peripheral edema. LOWER EXTREMITIES: 2+ pulses, warm, well-perfused. No calf tenderness. trace peripheral edema. NEUROLOGICAL: Non-focal PSYCHIATRIC: Cooperative. Good eye contact. Appropriate mood and affect. SKIN: Warm, dry Labs: Laboratory Results - last 24 hr 10/15/17 10/15/17 10/15/17 05:35 05:35 06:27 WBC 18.0 H D RBC 1.71 L D Hgb 3.6 L* D Hct 13.3 L MCV 77.9 L MCH 21.3 L MCHC 27.4 L RDW 22.5 H Plt Count 1168 H D MPV 8.5 Neutrophils % 81.5 Lymphocytes % 11.9 Monocytes % 6.3 Eosinophils % 0.0 D Basophils % 0.3 Hypochromia 2+ Anisocytosis 3+ ESR PT with INR INR PTT (Actin FS) Fibrinogen Anticoagulation Therapy Puncture Site ABG pH ABG pCO2 at Pt Temp ABG pO2 at Pt Temp ABG HCO3 ABG O2 Sat (Measured) ABG O2 Content ABG Base Excess [place] Test Carboxyhemoglobin O2 Delivery Device Oxygen Flow Rate Vent Mode Vent Rate Mechanical Rate Pressure Support Vent Sodium 127 L Potassium 3.9 Chloride 86 L Carbon Dioxide 8 L Anion Gap 33 H BUN 35 H Creatinine 2.8 H Creat Clearance w eGFR 16.80 POC Glucometer Random Glucose 121 H Serum Osmolality Lactic Acid 18.0 H* Uric Acid 12.3 H Calcium 7.9 L Phosphorus 8.6 H Magnesium 3.2 H Total Bilirubin 0.6 D AST 47 H ALT 41 Alkaline Phosphatase 108 LD Total 361 H Creatine Kinase 446 H Creatine Kinase Index 1.6 CK-MB (CK-2) 7.512 H Troponin I 0.19 H C-Reactive Protein 3.3 H B-Natriuretic Peptide 5381.37 H Total Protein 7.0 Albumin 3.0 L Urine Color Urine Appearance Urine pH Ur Specific [place] Urine Protein Urine Glucose (UA) Urine Ketones Urine Blood Urine Nitrite Urine Bilirubin Urine Urobilinogen Ur Leukocyte Esterase Urine WBC (Auto) Urine RBC (Auto) Urine Bacteria Hyaline Casts Urine Mucus U Random Total Protein Ur Random Sodium Ur Random Urea Nitrogn Urine Creatinine Stool Occult Blood Salicylates Opiates Screen Methadone Screen Acetaminophen Barbiturate Screen Phencyclidine Screen Ur Amphetamines Screen MDMA (Ecstasy) Screen Benzodiazepines Screen Cocaine Screen U Marijuana (THC) Screen Alcohol, Quantitative Blood Type Antibody Screen Crossmatch 10/15/17 10/15/17 10/15/17 06:27 06:27 06:27 WBC 20.1 H RBC 1.85 L Hgb 3.8 L* Hct 14.4 L MCV 77.7 L MCH 20.7 L MCHC 26.7 L RDW 22.5 H Plt Count 1257 H MPV 8.8 Neutrophils % 83.2 H Lymphocytes % 10.5 Monocytes % 5.9 Eosinophils % 0.0 Basophils % 0.4 Hypochromia Anisocytosis ESR PT with INR INR PTT (Actin FS) Fibrinogen Anticoagulation Therapy Puncture Site ABG pH ABG pCO2 at Pt Temp ABG pO2 at Pt Temp ABG HCO3 ABG O2 Sat (Measured) ABG O2 Content ABG Base Excess [place] Test Carboxyhemoglobin O2 Delivery Device Oxygen Flow Rate Vent Mode Vent Rate Mechanical Rate Pressure Support Vent Sodium 128 L Potassium 4.3 Chloride 86 L Carbon Dioxide 9 L Anion Gap 33 H BUN 34 H Creatinine 2.7 H Creat Clearance w eGFR 17.52 POC Glucometer Random Glucose 113 H Serum Osmolality Lactic Acid Uric Acid Calcium 8.4 L Phosphorus Magnesium Total Bilirubin 0.6 AST 72 H ALT 44 Alkaline Phosphatase 112 LD Total Creatine Kinase Creatine Kinase Index CK-MB (CK-2) Troponin I C-Reactive Protein B-Natriuretic Peptide Total Protein 7.4 Albumin 3.2 L Urine Color Urine Appearance Urine pH Ur Specific [place] Urine Protein Urine Glucose (UA) Urine Ketones Urine Blood Urine Nitrite Urine Bilirubin Urine Urobilinogen Ur Leukocyte Esterase Urine WBC (Auto) Urine RBC (Auto) Urine Bacteria Hyaline Casts Urine Mucus U Random Total Protein Ur Random Sodium Ur Random Urea Nitrogn Urine Creatinine Stool Occult Blood Salicylates Opiates Screen Methadone Screen Acetaminophen Barbiturate Screen Phencyclidine Screen Ur Amphetamines Screen MDMA (Ecstasy) Screen Benzodiazepines Screen Cocaine Screen U Marijuana (THC) Screen Alcohol, Quantitative Blood Type B POSITIVE Antibody Screen Negative Crossmatch See Detail 10/15/17 10/15/17 10/15/17 06:27 06:34 08:10 WBC RBC Hgb Hct MCV MCH MCHC RDW Plt Count MPV Neutrophils % Lymphocytes % Monocytes % Eosinophils % Basophils % Hypochromia Anisocytosis ESR > 140 H PT with INR INR PTT (Actin FS) Fibrinogen Anticoagulation Therapy No Result Required. Puncture Site Left radial ABG pH 7.19 L* ABG pCO2 at Pt Temp 17.3 L* ABG pO2 at Pt Temp 218.0 H* ABG HCO3 6.3 L* ABG O2 Sat (Measured) 99.1 H ABG O2 Content 5.0 L* ABG Base Excess -20.7 L* [place] Test Positive Carboxyhemoglobin 2.4 H O2 Delivery Device No Result Required. Oxygen Flow Rate Yes Vent Mode No Result Required. Vent Rate No Result Required. Mechanical Rate No Result Required. Pressure Support Vent No Result Required. Sodium Potassium Chloride Carbon Dioxide Anion Gap BUN Creatinine Creat Clearance w eGFR POC Glucometer Random Glucose Serum Osmolality Lactic Acid Uric Acid Calcium Phosphorus Magnesium Total Bilirubin AST ALT Alkaline Phosphatase LD Total Creatine Kinase Creatine Kinase Index CK-MB (CK-2) Troponin I C-Reactive Protein B-Natriuretic Peptide Total Protein Albumin Urine Color Urine Appearance Urine pH Ur Specific [place] Urine Protein Urine Glucose (UA) Urine Ketones Urine Blood Urine Nitrite Urine Bilirubin Urine Urobilinogen Ur Leukocyte Esterase Urine WBC (Auto) Urine RBC (Auto) Urine Bacteria Hyaline Casts Urine Mucus U Random Total Protein Ur Random Sodium Ur Random Urea Nitrogn Urine Creatinine Stool Occult Blood Negative Salicylates Opiates Screen Methadone Screen Acetaminophen Barbiturate Screen Phencyclidine Screen Ur Amphetamines Screen MDMA (Ecstasy) Screen Benzodiazepines Screen Cocaine Screen U Marijuana (THC) Screen Alcohol, Quantitative Blood Type Antibody Screen Crossmatch 10/15/17 10/15/17 10/15/17 08:10 08:10 09:39 WBC RBC Hgb Hct MCV MCH MCHC RDW Plt Count MPV Neutrophils % Lymphocytes % Monocytes % Eosinophils % Basophils % Hypochromia Anisocytosis ESR PT with INR 15.30 H INR 1.35 H PTT (Actin FS) 22.9 L Fibrinogen 486.0 Anticoagulation Therapy Puncture Site ABG pH ABG pCO2 at Pt Temp ABG pO2 at Pt Temp ABG HCO3 ABG O2 Sat (Measured) ABG O2 Content ABG Base Excess [place] Test Carboxyhemoglobin O2 Delivery Device Oxygen Flow Rate Vent Mode Vent Rate Mechanical Rate Pressure Support Vent Sodium Potassium Chloride Carbon Dioxide Anion Gap BUN Creatinine Creat Clearance w eGFR POC Glucometer 99.05461 Random Glucose Serum Osmolality Lactic Acid Uric Acid Calcium Phosphorus Magnesium Total Bilirubin AST ALT Alkaline Phosphatase LD Total Creatine Kinase Creatine Kinase Index CK-MB (CK-2) Troponin I C-Reactive Protein B-Natriuretic Peptide Total Protein Albumin Urine Color Urine Appearance Urine pH Ur Specific [place] Urine Protein Urine Glucose (UA) Urine Ketones Urine Blood Urine Nitrite Urine Bilirubin Urine Urobilinogen Ur Leukocyte Esterase Urine WBC (Auto) Urine RBC (Auto) Urine Bacteria Hyaline Casts Urine Mucus U Random Total Protein Ur Random Sodium Ur Random Urea Nitrogn Urine Creatinine Stool Occult Blood Salicylates Opiates Screen Methadone Screen Acetaminophen Barbiturate Screen Phencyclidine Screen Ur Amphetamines Screen MDMA (Ecstasy) Screen Benzodiazepines Screen Cocaine Screen U Marijuana (THC) Screen Alcohol, Quantitative Blood Type Antibody Screen Crossmatch 10/15/17 10/15/17 10/15/17 10:31 11:40 11:40 WBC RBC Hgb Hct MCV MCH MCHC RDW Plt Count MPV Neutrophils % Lymphocytes % Monocytes % Eosinophils % Basophils % Hypochromia Anisocytosis ESR PT with INR INR PTT (Actin FS) Fibrinogen Anticoagulation Therapy Puncture Site ABG pH ABG pCO2 at Pt Temp ABG pO2 at Pt Temp ABG HCO3 ABG O2 Sat (Measured) ABG O2 Content ABG Base Excess [place] Test Carboxyhemoglobin O2 Delivery Device Oxygen Flow Rate Vent Mode Vent Rate Mechanical Rate Pressure Support Vent Sodium 127 L Potassium 4.5 Chloride 84 L Carbon Dioxide 11 L Anion Gap 32 H BUN 44 H Creatinine 3.1 H Creat Clearance w eGFR POC Glucometer Random Glucose 142 H Serum Osmolality Lactic Acid 14.4 H* Uric Acid Calcium 8.4 L Phosphorus Magnesium Total Bilirubin AST ALT Alkaline Phosphatase LD Total Creatine Kinase Creatine Kinase Index CK-MB (CK-2) Troponin I C-Reactive Protein B-Natriuretic Peptide Total Protein Albumin Urine Color Ltyellow Urine Appearance Slcloudy Urine pH 5.0 Ur Specific [place] 1.017 Urine Protein 2+ H Urine Glucose (UA) Negative Urine Ketones Trace H Urine Blood Negative Urine Nitrite Negative Urine Bilirubin Negative Urine Urobilinogen Negative Ur Leukocyte Esterase Negative Urine WBC (Auto) 5 Urine RBC (Auto) 2 Urine Bacteria Many Hyaline Casts 1 Urine Mucus Rare U Random Total Protein Ur Random Sodium Ur Random Urea Nitrogn Urine Creatinine Stool Occult Blood Salicylates Opiates Screen Methadone Screen Acetaminophen Barbiturate Screen Phencyclidine Screen Ur Amphetamines Screen MDMA (Ecstasy) Screen Benzodiazepines Screen Cocaine Screen U Marijuana (THC) Screen Alcohol, Quantitative Blood Type Antibody Screen Crossmatch 10/15/17 10/15/17 10/15/17 11:40 11:40 12:04 WBC RBC Hgb Hct MCV MCH MCHC RDW Plt Count MPV Neutrophils % Lymphocytes % Monocytes % Eosinophils % Basophils % Hypochromia Anisocytosis ESR PT with INR INR PTT (Actin FS) Fibrinogen Anticoagulation Therapy Puncture Site ABG pH ABG pCO2 at Pt Temp ABG pO2 at Pt Temp ABG HCO3 ABG O2 Sat (Measured) ABG O2 Content ABG Base Excess [place] Test Carboxyhemoglobin O2 Delivery Device Oxygen Flow Rate Vent Mode Vent Rate Mechanical Rate Pressure Support Vent Sodium Potassium Chloride Carbon Dioxide Anion Gap BUN Creatinine Creat Clearance w eGFR POC Glucometer Random Glucose Serum Osmolality 288 Lactic Acid Uric Acid Calcium Phosphorus Magnesium Total Bilirubin AST ALT Alkaline Phosphatase LD Total Creatine Kinase Creatine Kinase Index CK-MB (CK-2) Troponin I C-Reactive Protein B-Natriuretic Peptide Total Protein Albumin Urine Color Urine Appearance Urine pH Ur Specific [place] Urine Protein Urine Glucose (UA) Urine Ketones Urine Blood Urine Nitrite Urine Bilirubin Urine Urobilinogen Ur Leukocyte Esterase Urine WBC (Auto) Urine RBC (Auto) Urine Bacteria Hyaline Casts Urine Mucus U Random Total Protein Ur Random Sodium Ur Random Urea Nitrogn Urine Creatinine Stool Occult Blood Salicylates 7.096 Opiates Screen Methadone Screen Acetaminophen 3.159 L Barbiturate Screen Phencyclidine Screen Ur Amphetamines Screen MDMA (Ecstasy) Screen Benzodiazepines Screen Cocaine Screen U Marijuana (THC) Screen Alcohol, Quantitative Cancelled < 5.0 Blood Type Antibody Screen Crossmatch 10/15/17 10/15/17 10/15/17 12:05 12:05 12:05 WBC RBC Hgb Hct MCV MCH MCHC RDW Plt Count MPV Neutrophils % Lymphocytes % Monocytes % Eosinophils % Basophils % Hypochromia Anisocytosis ESR PT with INR INR PTT (Actin FS) Fibrinogen Anticoagulation Therapy Puncture Site ABG pH ABG pCO2 at Pt Temp ABG pO2 at Pt Temp ABG HCO3 ABG O2 Sat (Measured) ABG O2 Content ABG Base Excess [place] Test Carboxyhemoglobin O2 Delivery Device Oxygen Flow Rate Vent Mode Vent Rate Mechanical Rate Pressure Support Vent Sodium Potassium Chloride Carbon Dioxide Anion Gap BUN Creatinine Creat Clearance w eGFR POC Glucometer Random Glucose Serum Osmolality Lactic Acid Uric Acid Calcium Phosphorus Magnesium Total Bilirubin AST ALT Alkaline Phosphatase LD Total Creatine Kinase Creatine Kinase Index CK-MB (CK-2) Troponin I C-Reactive Protein B-Natriuretic Peptide Total Protein Albumin Urine Color Urine Appearance Urine pH Ur Specific [place] Urine Protein Urine Glucose (UA) Urine Ketones Urine Blood Urine Nitrite Urine Bilirubin Urine Urobilinogen Ur Leukocyte Esterase Urine WBC (Auto) Urine RBC (Auto) Urine Bacteria Hyaline Casts Urine Mucus U Random Total Protein 159 H Ur Random Sodium 10 Ur Random Urea Nitrogn Cancelled 313 Urine Creatinine 99.6 Stool Occult Blood Salicylates Opiates Screen Negative Methadone Screen Negative Acetaminophen Barbiturate Screen Negative Phencyclidine Screen Negative Ur Amphetamines Screen Negative MDMA (Ecstasy) Screen Negative Benzodiazepines Screen Negative Cocaine Screen Negative U Marijuana (THC) Screen Negative Alcohol, Quantitative Blood Type Antibody Screen Crossmatch 10/15/17 10/15/17 12:05 12:49 WBC RBC Hgb Hct MCV MCH MCHC RDW Plt Count MPV Neutrophils % Lymphocytes % Monocytes % Eosinophils % Basophils % Hypochromia Anisocytosis ESR PT with INR INR PTT (Actin FS) Fibrinogen Anticoagulation Therapy No Result Required. Puncture Site Right radial ABG pH 7.40 D ABG pCO2 at Pt Temp 23.9 L D ABG pO2 at Pt Temp 152.0 H* ABG HCO3 14.6 L* ABG O2 Sat (Measured) 99.7 H* ABG O2 Content 7.2 L* ABG Base Excess No Result Required. [place] Test Positive Carboxyhemoglobin O2 Delivery Device No Result Required. Oxygen Flow Rate Yes Vent Mode No Result Required. Vent Rate No Result Required. Mechanical Rate No Result Required. Pressure Support Vent No Result Required. Sodium Potassium Chloride Carbon Dioxide Anion Gap BUN Creatinine Creat Clearance w eGFR POC Glucometer Random Glucose Serum Osmolality Lactic Acid Uric Acid Calcium Phosphorus Magnesium Total Bilirubin AST ALT Alkaline Phosphatase LD Total Creatine Kinase Creatine Kinase Index CK-MB (CK-2) Troponin I C-Reactive Protein B-Natriuretic Peptide Total Protein Albumin Urine Color Urine Appearance Urine pH Ur Specific [place] Urine Protein Urine Glucose (UA) Urine Ketones Urine Blood Urine Nitrite Urine Bilirubin Urine Urobilinogen Ur Leukocyte Esterase Urine WBC (Auto) Urine RBC (Auto) Urine Bacteria Hyaline Casts Urine Mucus U Random Total Protein Ur Random Sodium Ur Random Urea Nitrogn Urine Creatinine Cancelled Stool Occult Blood Salicylates Opiates Screen Methadone Screen Acetaminophen Barbiturate Screen Phencyclidine Screen Ur Amphetamines Screen MDMA (Ecstasy) Screen Benzodiazepines Screen Cocaine Screen U Marijuana (THC) Screen Alcohol, Quantitative Blood Type Antibody Screen Crossmatch Assessment/Plan Severe symptomatic anemia Abnormal CXR: (?) early ARDS (?) High output CHF Acute hypoxic respiratory failure Do not suspect PNA Chronic iron deficiency anemia CKD DM HTN (?) troponin PLAN: Transfusional support Trend troponin Cardiology consulted ECHO STAT CT Ab/Pelvis Would minimize IVF for now due to possibility of ARDS physiology Monitor off Steroids for now Follow ABG Strict I & O Chamberlain-culture Glycemic control Noted that patient has been evaluated by Heme and ID ICU monitoring Dr Martínez Critical care time spent in reviewing chart, evaluating patient and formulating plan - 36 minutes.
[2017-10-15] MEDS: PIPERACILLIN/TAZOB 2.25 GM 2.25 GM/50 ML BAG IVPB SCH (14:57)
[2017-10-15 15:17] LABS: BASO % 0.3 % (0-2.0); EOS % 0.2 % (0-4.5); HEMATOCRIT 17.1 % (32.4-45.2); LYMPH % 10.4 % (8-40); MCH 22.9 pg (25.7-33.7); MCHC 30.4 g/dl (32.0-36.0); MEAN CELL VOLUME 75.3 fl (80-96); MEAN PLT VOLUME 8.2 fl (7.5-11.1); MONO % 2.9 % (3.8-10.2); NEUT % 86.2 % (42.8-82.8); PLATELET COUNT 1057 K/MM3 (134-434); RBC 2.26 M/mm3 (3.60-5.2); RDW 21.8 % (11.6-15.6); WHITE BLOOD COUNT 22.5 K/mm3 (4.0-10.0)
[2017-10-15 15:24] LABS: HEMOGLOBIN 5.2 GM/dL (10.7-15.3)
[2017-10-15 15:43] LABS: ALBUMIN 3.2 g/dl (3.4-5.0); ANION GAP 24 (8-16); BLOOD UREA NITROGEN 48 mg/dL (7-18); CALCIUM 8.3 mg/dL (8.5-10.1); CHLORIDE 85 mmol/L (98-107); CO2 20 mmol/L (21-32); CREATININE 2.9 mg/dL (0.55-1.02); GLUCOSE,RANDOM 157 mg/dL (74-106); MAGNESIUM 3.1 mg/dL (1.8-2.4); PHOSPHOROUS 6.9 mg/dL (2.5-4.9); POTASSIUM 3.5 mmol/L (3.5-5.1); SGOT/AST 81 U/L (15-37); SGPT/ALT 60 U/L (12-78); SODIUM 129 mmol/L (136-145)
[2017-10-15 15:45] LABS: ALK PHOS 111 U/L (45-117); BILIRUBIN,TOTAL 0.6 mg/dL (0.2-1.0); TOT PROT 7.2 g/dl (6.4-8.2)
[2017-10-15] MEDS ORDERED: methylPREDNISolone NA SUCC 40 MG/1 ML VIAL IVPUSH SCH (18:00)
[2017-10-15] MEDS ORDERED: PIPERACILLIN/TAZOB 2.25 GM 2.25 GM in DEXTROSE 5%-WATER - 100 ML IVPB SCH (18:00)
--- NOTE | 2017-10-15 19:01 | CON.CARD ---
Consult Consult Specialty:: Cardiology Referred by:: Hospitalist Reason for Consultation:: Cardiac evaluation - History of Present Illness Chief Complaint: Seen in ER with respiratory distress on CPAP History of Present Illness: Patient is a 67 year old female with underlying history of chronic iron deficiency anemia (had received iron infusion), CKD, diabetes mellitus and hypertension who presents with generalized weakness, cough and worsening shortness of breath. Patient was in the ED on Saturday and was tested negative for influenza and wa sent home with nebulizer treatment. Patient continued to have shortness of breath which prompted her to return via EMS. She was placed on BIPAP for worsening respiratory status and severe metabolic acidosis. She was also found to be severely anemic with Hgb of 3.6, leukocytosis 20.1 and thrombocytosis 1257 suggestive of a hematologic process. CXR revealed bilateral diffuse pulmonary edema suggestive of high output failure. Cardiology consultation was called for further evaluation. She was ordered transthoracic echocardiography which revealed normal left ventricular systolic function, normal RV systolic function, mild mitral valve regurgitation and mild pulmonary hypertension. She denies chest pain or palpitations. She remains on BIPAP. She denies fever or chills. She denies headache or lightheadedness. She denies nausea, vomiting, diarrhea or abdominal pain. - History Source History Provided By: Patient, Medical Record Limitations to Obtaining History: Clinical Condition - Past Medical History Cardio/Vascular: Yes: HTN Renal/: Yes: Renal Inusuff Heme/Onc: Yes: Anemia Endocrine: Yes: Diabetes Mellitus - Past Surgical History Additional Surgical History: Knee surgery - Alcohol/Substance Use Hx Alcohol Use: No - Smoking History Smoking history: Former smoker Have you smoked in the past 12 months: No Aproximately how many cigarettes per day: 0 If you are a former smoker, when did you quit?: 50 years ago - Social History Usual Living Arrangement: With Spouse ADL: Independent Occupation: retired History of Recent Travel: No Home Medications - Allergies Allergies/Adverse Reactions: Allergies Allergy/AdvReac Type Severity Reaction Status Date / Time codeine Allergy palpitation Verified 10/15/17 06:01 s oxycodone HCl [From Percocet] Allergy palpitation Verified 10/15/17 06:01 s - Home Medications Home Medications: Ambulatory Orders Amlodipine Besylate [Norvasc -] 10 mg PO DAILY 09/18/14 Perphenazine/Amitriptyline HCl [Perphen-Amitrip 4 mg-25 mg Tab] 1 each PO DAILY 01/12/15 Carvedilol 37.5 mg PO DAILY 08/22/15 Hydrochlorothiazide [Hctz -] 25 mg PO DAILY 08/22/15 Albuterol Sulfate Inhaler - [Ventolin HFA Inhaler -] 2 inh PO Q4H #1 inh Carbamide Peroxide 6.5% [Debrox -] 5 drop AU BID #1 bottle 10/13/17 Family Disease History - Family Disease History Other Family History: history of anemia in family Review of Systems - Review of Systems Constitutional: denies: Chills, Fever Cardiovascular: reports: Shortness of Breath. denies: Chest Pain, Palpitations Respiratory: reports: SOB, SOB on Exertion. denies: Cough, Hemoptysis, PND Gastrointestinal: reports: Vomiting. denies: Abdominal Pain, Constipation, Diarrhea, Melena, Nausea, Rectal Bleeding Genitourinary: denies: Dysuria, Hematuria Musculoskeletal: denies: Back Pain, Joint Pain Neurological: reports: Weakness. denies: Dizziness, Headache, Seizure, Syncope Vital Signs: Vital Signs Temperature 98.1 F 10/15/17 18:42 Pulse Rate 90 10/15/17 18:42 Respiratory Rate 20 10/15/17 18:42 Blood Pressure 116/69 10/15/17 18:42 O2 Sat by Pulse Oximetry (%) 100 10/15/17 18:42 Constitutional: Yes: Well Nourished HENT: Yes: Atraumatic Neck: Yes: Supple Respiratory: Yes: Diminished Gastrointestinal: Yes: Normal Bowel Sounds, Soft, Abdomen, Obese. No: Tenderness Cardiovascular: Yes: Regular Rate and Rhythm JVD: No Carotid Bruit: No PMI: Non-Displaced Heart Sounds: Yes: S1, S2. No: Gallop Murmur: Yes: Systolic Murmur, Grade 1 Edema: No - Other Data Labs, Other Data: CBC, BMP 10/15/17 15:00 10/15/17 15:00 INR, PTT INR 1.35 (0.82-1.09) H 10/15/17 08:10 Fibrinogen 486.0 mg/dL (238-498) 10/15/17 08:10 Troponin, BNP 10/15/17 10/15/17 05:35 15:00 Troponin I 0.19 H 0.27 H B-Natriuretic Peptide 5381.37 H Laboratory Results - last 24 hr 10/15/17 10/15/17 10/15/17 05:35 05:35 06:27 WBC 18.0 H D RBC 1.71 L D Hgb 3.6 L* D Hct 13.3 L MCV 77.9 L MCH 21.3 L MCHC 27.4 L RDW 22.5 H Plt Count 1168 H D MPV 8.5 Neutrophils % 81.5 Lymphocytes % 11.9 Monocytes % 6.3 Eosinophils % 0.0 D Basophils % 0.3 Hypochromia 2+ Anisocytosis 3+ ESR PT with INR INR PTT (Actin FS) Fibrinogen Anticoagulation Therapy Puncture Site ABG pH ABG pCO2 at Pt Temp ABG pO2 at Pt Temp ABG HCO3 ABG O2 Sat (Measured) ABG O2 Content ABG Base Excess [place] Test Carboxyhemoglobin O2 Delivery Device Oxygen Flow Rate Vent Mode Vent Rate Mechanical Rate Pressure Support Vent Sodium 127 L Potassium 3.9 Chloride 86 L Carbon Dioxide 8 L Anion Gap 33 H BUN 35 H Creatinine 2.8 H Creat Clearance w eGFR 16.80 POC Glucometer Random Glucose 121 H Serum Osmolality Lactic Acid 18.0 H* Uric Acid 12.3 H Calcium 7.9 L Phosphorus 8.6 H Magnesium 3.2 H Total Bilirubin 0.6 D AST 47 H ALT 41 Alkaline Phosphatase 108 LD Total 361 H Creatine Kinase 446 H Creatine Kinase Index 1.6 CK-MB (CK-2) 7.512 H Troponin I 0.19 H C-Reactive Protein 3.3 H B-Natriuretic Peptide 5381.37 H Total Protein 7.0 Albumin 3.0 L Urine Color Urine Appearance Urine pH Ur Specific [place] Urine Protein Urine Glucose (UA) Urine Ketones Urine Blood Urine Nitrite Urine Bilirubin Urine Urobilinogen Ur Leukocyte Esterase Urine WBC (Auto) Urine RBC (Auto) Urine Bacteria Hyaline Casts Urine Mucus U Random Total Protein Ur Random Sodium Ur Random Urea Nitrogn Urine Creatinine Stool Occult Blood Salicylates Opiates Screen Methadone Screen Acetaminophen Barbiturate Screen Phencyclidine Screen Ur Amphetamines Screen MDMA (Ecstasy) Screen Benzodiazepines Screen Cocaine Screen U Marijuana (THC) Screen Alcohol, Quantitative Blood Type Antibody Screen Crossmatch 10/15/17 10/15/17 10/15/17 06:27 06:27 06:27 WBC 20.1 H RBC 1.85 L Hgb 3.8 L* Hct 14.4 L MCV 77.7 L MCH 20.7 L MCHC 26.7 L RDW 22.5 H Plt Count 1257 H MPV 8.8 Neutrophils % 83.2 H Lymphocytes % 10.5 Monocytes % 5.9 Eosinophils % 0.0 Basophils % 0.4 Hypochromia Anisocytosis ESR PT with INR INR PTT (Actin FS) Fibrinogen Anticoagulation Therapy Puncture Site ABG pH ABG pCO2 at Pt Temp ABG pO2 at Pt Temp ABG HCO3 ABG O2 Sat (Measured) ABG O2 Content ABG Base Excess [place] Test Carboxyhemoglobin O2 Delivery Device Oxygen Flow Rate Vent Mode Vent Rate Mechanical Rate Pressure Support Vent Sodium 128 L Potassium 4.3 Chloride 86 L Carbon Dioxide 9 L Anion Gap 33 H BUN 34 H Creatinine 2.7 H Creat Clearance w eGFR 17.52 POC Glucometer Random Glucose 113 H Serum Osmolality Lactic Acid Uric Acid Calcium 8.4 L Phosphorus Magnesium Total Bilirubin 0.6 AST 72 H ALT 44 Alkaline Phosphatase 112 LD Total Creatine Kinase Creatine Kinase Index CK-MB (CK-2) Troponin I C-Reactive Protein B-Natriuretic Peptide Total Protein 7.4 Albumin 3.2 L Urine Color Urine Appearance Urine pH Ur Specific [place] Urine Protein Urine Glucose (UA) Urine Ketones Urine Blood Urine Nitrite Urine Bilirubin Urine Urobilinogen Ur Leukocyte Esterase Urine WBC (Auto) Urine RBC (Auto) Urine Bacteria Hyaline Casts Urine Mucus U Random Total Protein Ur Random Sodium Ur Random Urea Nitrogn Urine Creatinine Stool Occult Blood Salicylates Opiates Screen Methadone Screen Acetaminophen Barbiturate Screen Phencyclidine Screen Ur Amphetamines Screen MDMA (Ecstasy) Screen Benzodiazepines Screen Cocaine Screen U Marijuana (THC) Screen Alcohol, Quantitative Blood Type B POSITIVE Antibody Screen Negative Crossmatch See Detail 10/15/17 10/15/17 10/15/17 06:27 06:34 08:10 WBC RBC Hgb Hct MCV MCH MCHC RDW Plt Count MPV Neutrophils % Lymphocytes % Monocytes % Eosinophils % Basophils % Hypochromia Anisocytosis ESR > 140 H PT with INR INR PTT (Actin FS) Fibrinogen Anticoagulation Therapy No Result Required. Puncture Site Left radial ABG pH 7.19 L* ABG pCO2 at Pt Temp 17.3 L* ABG pO2 at Pt Temp 218.0 H* ABG HCO3 6.3 L* ABG O2 Sat (Measured) 99.1 H ABG O2 Content 5.0 L* ABG Base Excess -20.7 L* [place] Test Positive Carboxyhemoglobin 2.4 H O2 Delivery Device No Result Required. Oxygen Flow Rate Yes Vent Mode No Result Required. Vent Rate No Result Required. Mechanical Rate No Result Required. Pressure Support Vent No Result Required. Sodium Potassium Chloride Carbon Dioxide Anion Gap BUN Creatinine Creat Clearance w eGFR POC Glucometer Random Glucose Serum Osmolality Lactic Acid Uric Acid Calcium Phosphorus Magnesium Total Bilirubin AST ALT Alkaline Phosphatase LD Total Creatine Kinase Creatine Kinase Index CK-MB (CK-2) Troponin I C-Reactive Protein B-Natriuretic Peptide Total Protein Albumin Urine Color Urine Appearance Urine pH Ur Specific [place] Urine Protein Urine Glucose (UA) Urine Ketones Urine Blood Urine Nitrite Urine Bilirubin Urine Urobilinogen Ur Leukocyte Esterase Urine WBC (Auto) Urine RBC (Auto) Urine Bacteria Hyaline Casts Urine Mucus U Random Total Protein Ur Random Sodium Ur Random Urea Nitrogn Urine Creatinine Stool Occult Blood Negative Salicylates Opiates Screen Methadone Screen Acetaminophen Barbiturate Screen Phencyclidine Screen Ur Amphetamines Screen MDMA (Ecstasy) Screen Benzodiazepines Screen Cocaine Screen U Marijuana (THC) Screen Alcohol, Quantitative Blood Type Antibody Screen Crossmatch 10/15/17 10/15/17 10/15/17 08:10 08:10 09:39 WBC RBC Hgb Hct MCV MCH MCHC RDW Plt Count MPV Neutrophils % Lymphocytes % Monocytes % Eosinophils % Basophils % Hypochromia Anisocytosis ESR PT with INR 15.30 H INR 1.35 H PTT (Actin FS) 22.9 L Fibrinogen 486.0 Anticoagulation Therapy Puncture Site ABG pH ABG pCO2 at Pt Temp ABG pO2 at Pt Temp ABG HCO3 ABG O2 Sat (Measured) ABG O2 Content ABG Base Excess [place] Test Carboxyhemoglobin O2 Delivery Device Oxygen Flow Rate Vent Mode Vent Rate Mechanical Rate Pressure Support Vent Sodium Potassium Chloride Carbon Dioxide Anion Gap BUN Creatinine Creat Clearance w eGFR POC Glucometer 99.57237 Random Glucose Serum Osmolality Lactic Acid Uric Acid Calcium Phosphorus Magnesium Total Bilirubin AST ALT Alkaline Phosphatase LD Total Creatine Kinase Creatine Kinase Index CK-MB (CK-2) Troponin I C-Reactive Protein B-Natriuretic Peptide Total Protein Albumin Urine Color Urine Appearance Urine pH Ur Specific [place] Urine Protein Urine Glucose (UA) Urine Ketones Urine Blood Urine Nitrite Urine Bilirubin Urine Urobilinogen Ur Leukocyte Esterase Urine WBC (Auto) Urine RBC (Auto) Urine Bacteria Hyaline Casts Urine Mucus U Random Total Protein Ur Random Sodium Ur Random Urea Nitrogn Urine Creatinine Stool Occult Blood Salicylates Opiates Screen Methadone Screen Acetaminophen Barbiturate Screen Phencyclidine Screen Ur Amphetamines Screen MDMA (Ecstasy) Screen Benzodiazepines Screen Cocaine Screen U Marijuana (THC) Screen Alcohol, Quantitative Blood Type Antibody Screen Crossmatch 10/15/17 10/15/17 10/15/17 10:31 11:40 11:40 WBC RBC Hgb Hct MCV MCH MCHC RDW Plt Count MPV Neutrophils % Lymphocytes % Monocytes % Eosinophils % Basophils % Hypochromia Anisocytosis ESR PT with INR INR PTT (Actin FS) Fibrinogen Anticoagulation Therapy Puncture Site ABG pH ABG pCO2 at Pt Temp ABG pO2 at Pt Temp ABG HCO3 ABG O2 Sat (Measured) ABG O2 Content ABG Base Excess [place] Test Carboxyhemoglobin O2 Delivery Device Oxygen Flow Rate Vent Mode Vent Rate Mechanical Rate Pressure Support Vent Sodium 127 L Potassium 4.5 Chloride 84 L Carbon Dioxide 11 L Anion Gap 32 H BUN 44 H Creatinine 3.1 H Creat Clearance w eGFR POC Glucometer Random Glucose 142 H Serum Osmolality Lactic Acid 14.4 H* Uric Acid Calcium 8.4 L Phosphorus Magnesium Total Bilirubin AST ALT Alkaline Phosphatase LD Total Creatine Kinase Creatine Kinase Index CK-MB (CK-2) Troponin I C-Reactive Protein B-Natriuretic Peptide Total Protein Albumin Urine Color Ltyellow Urine Appearance Slcloudy Urine pH 5.0 Ur Specific [place] 1.017 Urine Protein 2+ H Urine Glucose (UA) Negative Urine Ketones Trace H Urine Blood Negative Urine Nitrite Negative Urine Bilirubin Negative Urine Urobilinogen Negative Ur Leukocyte Esterase Negative Urine WBC (Auto) 5 Urine RBC (Auto) 2 Urine Bacteria Many Hyaline Casts 1 Urine Mucus Rare U Random Total Protein Ur Random Sodium Ur Random Urea Nitrogn Urine Creatinine Stool Occult Blood Salicylates Opiates Screen Methadone Screen Acetaminophen Barbiturate Screen Phencyclidine Screen Ur Amphetamines Screen MDMA (Ecstasy) Screen Benzodiazepines Screen Cocaine Screen U Marijuana (THC) Screen Alcohol, Quantitative Blood Type Antibody Screen Crossmatch 10/15/17 10/15/17 10/15/17 11:40 11:40 12:04 WBC RBC Hgb Hct MCV MCH MCHC RDW Plt Count MPV Neutrophils % Lymphocytes % Monocytes % Eosinophils % Basophils % Hypochromia Anisocytosis ESR PT with INR INR PTT (Actin FS) Fibrinogen Anticoagulation Therapy Puncture Site ABG pH ABG pCO2 at Pt Temp ABG pO2 at Pt Temp ABG HCO3 ABG O2 Sat (Measured) ABG O2 Content ABG Base Excess [place] Test Carboxyhemoglobin O2 Delivery Device Oxygen Flow Rate Vent Mode Vent Rate Mechanical Rate Pressure Support Vent Sodium Potassium Chloride Carbon Dioxide Anion Gap BUN Creatinine Creat Clearance w eGFR POC Glucometer Random Glucose Serum Osmolality 288 Lactic Acid Uric Acid Calcium Phosphorus Magnesium Total Bilirubin AST ALT Alkaline Phosphatase LD Total Creatine Kinase Creatine Kinase Index CK-MB (CK-2) Troponin I C-Reactive Protein B-Natriuretic Peptide Total Protein Albumin Urine Color Urine Appearance Urine pH Ur Specific [place] Urine Protein Urine Glucose (UA) Urine Ketones Urine Blood Urine Nitrite Urine Bilirubin Urine Urobilinogen Ur Leukocyte Esterase Urine WBC (Auto) Urine RBC (Auto) Urine Bacteria Hyaline Casts Urine Mucus U Random Total Protein Ur Random Sodium Ur Random Urea Nitrogn Urine Creatinine Stool Occult Blood Salicylates 7.096 Opiates Screen Methadone Screen Acetaminophen 3.159 L Barbiturate Screen Phencyclidine Screen Ur Amphetamines Screen MDMA (Ecstasy) Screen Benzodiazepines Screen Cocaine Screen U Marijuana (THC) Screen Alcohol, Quantitative Cancelled < 5.0 Blood Type Antibody Screen Crossmatch 10/15/17 10/15/17 10/15/17 12:05 12:05 12:05 WBC RBC Hgb Hct MCV MCH MCHC RDW Plt Count MPV Neutrophils % Lymphocytes % Monocytes % Eosinophils % Basophils % Hypochromia Anisocytosis ESR PT with INR INR PTT (Actin FS) Fibrinogen Anticoagulation Therapy Puncture Site ABG pH ABG pCO2 at Pt Temp ABG pO2 at Pt Temp ABG HCO3 ABG O2 Sat (Measured) ABG O2 Content ABG Base Excess [place] Test Carboxyhemoglobin O2 Delivery Device Oxygen Flow Rate Vent Mode Vent Rate Mechanical Rate Pressure Support Vent Sodium Potassium Chloride Carbon Dioxide Anion Gap BUN Creatinine Creat Clearance w eGFR POC Glucometer Random Glucose Serum Osmolality Lactic Acid Uric Acid Calcium Phosphorus Magnesium Total Bilirubin AST ALT Alkaline Phosphatase LD Total Creatine Kinase Creatine Kinase Index CK-MB (CK-2) Troponin I C-Reactive Protein B-Natriuretic Peptide Total Protein Albumin Urine Color Urine Appearance Urine pH Ur Specific [place] Urine Protein Urine Glucose (UA) Urine Ketones Urine Blood Urine Nitrite Urine Bilirubin Urine Urobilinogen Ur Leukocyte Esterase Urine WBC (Auto) Urine RBC (Auto) Urine Bacteria Hyaline Casts Urine Mucus U Random Total Protein 159 H Ur Random Sodium 10 Ur Random Urea Nitrogn Cancelled 313 Urine Creatinine 99.6 Stool Occult Blood Salicylates Opiates Screen Negative Methadone Screen Negative Acetaminophen Barbiturate Screen Negative Phencyclidine Screen Negative Ur Amphetamines Screen Negative MDMA (Ecstasy) Screen Negative Benzodiazepines Screen Negative Cocaine Screen Negative U Marijuana (THC) Screen Negative Alcohol, Quantitative Blood Type Antibody Screen Crossmatch 10/15/17 10/15/17 10/15/17 12:05 12:49 15:00 WBC 22.5 H RBC 2.26 L D Hgb 5.2 L* D Hct 17.1 L D MCV 75.3 L MCH 22.9 L MCHC 30.4 L RDW 21.8 H Plt Count 1057 H MPV 8.2 Neutrophils % 86.2 H Lymphocytes % 10.4 Monocytes % 2.9 L Eosinophils % 0.2 D Basophils % 0.3 Hypochromia Anisocytosis ESR PT with INR INR PTT (Actin FS) Fibrinogen Anticoagulation Therapy No Result Required. Puncture Site Right radial ABG pH 7.40 D ABG pCO2 at Pt Temp 23.9 L D ABG pO2 at Pt Temp 152.0 H* ABG HCO3 14.6 L* ABG O2 Sat (Measured) 99.7 H* ABG O2 Content 7.2 L* ABG Base Excess No Result Required. [place] Test Positive Carboxyhemoglobin O2 Delivery Device No Result Required. Oxygen Flow Rate Yes Vent Mode No Result Required. Vent Rate No Result Required. Mechanical Rate No Result Required. Pressure Support Vent No Result Required. Sodium Potassium Chloride Carbon Dioxide Anion Gap BUN Creatinine Creat Clearance w eGFR POC Glucometer Random Glucose Serum Osmolality Lactic Acid Uric Acid Calcium Phosphorus Magnesium Total Bilirubin AST ALT Alkaline Phosphatase LD Total Creatine Kinase Creatine Kinase Index CK-MB (CK-2) Troponin I C-Reactive Protein B-Natriuretic Peptide Total Protein Albumin Urine Color Urine Appearance Urine pH Ur Specific [place] Urine Protein Urine Glucose (UA) Urine Ketones Urine Blood Urine Nitrite Urine Bilirubin Urine Urobilinogen Ur Leukocyte Esterase Urine WBC (Auto) Urine RBC (Auto) Urine Bacteria Hyaline Casts Urine Mucus U Random Total Protein Ur Random Sodium Ur Random Urea Nitrogn Urine Creatinine Cancelled Stool Occult Blood Salicylates Opiates Screen Methadone Screen Acetaminophen Barbiturate Screen Phencyclidine Screen Ur Amphetamines Screen MDMA (Ecstasy) Screen Benzodiazepines Screen Cocaine Screen U Marijuana (THC) Screen Alcohol, Quantitative Blood Type Antibody Screen Crossmatch 10/15/17 10/15/17 10/15/17 15:00 15:00 15:00 WBC RBC Hgb Hct MCV MCH MCHC RDW Plt Count MPV Neutrophils % Lymphocytes % Monocytes % Eosinophils % Basophils % Hypochromia Anisocytosis ESR PT with INR INR PTT (Actin FS) Fibrinogen Anticoagulation Therapy No Result Required. Puncture Site ABG pH ABG pCO2 at Pt Temp ABG pO2 at Pt Temp ABG HCO3 ABG O2 Sat (Measured) ABG O2 Content ABG Base Excess [place] Test Carboxyhemoglobin O2 Delivery Device No Result Required. Oxygen Flow Rate No Result Required. Vent Mode No Result Required. Vent Rate No Result Required. Mechanical Rate No Result Required. Pressure Support Vent No Result Required. Sodium 129 L Potassium 3.5 Chloride 85 L Carbon Dioxide 20 L Anion Gap 24 H BUN 48 H Creatinine 2.9 H Creat Clearance w eGFR 16.14 POC Glucometer Random Glucose 157 H Serum Osmolality Lactic Acid Uric Acid Calcium 8.3 L Phosphorus 6.9 H Magnesium 3.1 H Total Bilirubin 0.6 AST 81 H ALT 60 Alkaline Phosphatase 111 LD Total Creatine Kinase Creatine Kinase Index CK-MB (CK-2) Troponin I 0.27 H C-Reactive Protein B-Natriuretic Peptide Total Protein 7.2 Albumin 3.2 L Urine Color Urine Appearance Urine pH Ur Specific [place] Urine Protein Urine Glucose (UA) Urine Ketones Urine Blood Urine Nitrite Urine Bilirubin Urine Urobilinogen Ur Leukocyte Esterase Urine WBC (Auto) Urine RBC (Auto) Urine Bacteria Hyaline Casts Urine Mucus U Random Total Protein Ur Random Sodium Ur Random Urea Nitrogn Urine Creatinine Stool Occult Blood Salicylates Opiates Screen Methadone Screen Acetaminophen Barbiturate Screen Phencyclidine Screen Ur Amphetamines Screen MDMA (Ecstasy) Screen Benzodiazepines Screen Cocaine Screen U Marijuana (THC) Screen Alcohol, Quantitative Blood Type Antibody Screen Crossmatch Normal sinus rhythm with LVH Echo: Report Reviewed (Normal LV systolic function, normal RV function, mild MR , mild pulmonary HTN) Imaging - Results Chest X-ray: Report Reviewed (Pulmonary edema) X-ray: Report Reviewed (AXR bowel gas pattern) Ultrasound: Report Reviewed (Vascular No DVT) EKG: Report Reviewed Problem List - Problems (1) Demand ischemia Code(s): I24.8 - OTHER FORMS OF ACUTE ISCHEMIC HEART DISEASE (2) Diabetes mellitus Code(s): E11.9 - TYPE 2 DIABETES MELLITUS WITHOUT COMPLICATIONS Qualifiers: Diabetes mellitus type: type 2 Diabetes mellitus complication status: without complication Diabetes mellitus mcfp 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 Qualified Code(s): E11.9 - Type 2 diabetes mellitus without complications (3) Hypertension Code(s): I10 - ESSENTIAL (PRIMARY) HYPERTENSION Qualifiers: Hypertension type: essential hypertension Qualified Code(s): I10 - Essential (primary) hypertension (4) Acute renal failure superimposed on chronic kidney disease Code(s): N17.9 - ACUTE KIDNEY FAILURE, UNSPECIFIED; N18.9 - CHRONIC KIDNEY DISEASE, UNSPECIFIED (5) Anemia Code(s): D64.9 - ANEMIA, UNSPECIFIED Qualifiers: Anemia type: unspecified type Qualified Code(s): D64.9 - Anemia, unspecified (6) CHF (congestive heart failure) Code(s): I50.9 - HEART FAILURE, UNSPECIFIED Qualifiers: Congestive heart failure type: unspecified Congestive heart failure chronicity: unspecified Qualified Code(s): I50.9 - Heart failure, unspecified (7) Lactic acidosis Code(s): E87.2 - ACIDOSIS (8) Leukocytosis Code(s): D72.829 - ELEVATED WHITE BLOOD CELL COUNT, UNSPECIFIED Qualifiers: Leukocytosis type: unspecified Qualified Code(s): D72.829 - Elevated white blood cell count, unspecified (9) Thrombocytosis Code(s): D47.3 - ESSENTIAL (HEMORRHAGIC) THROMBOCYTHEMIA Assessment/Plan 1. Severe symptomatic anemia/leukocytosis/thrombocytosis, etiology to be determined, hematologic process 2. Clinical presentation compatible with high output failure +/- ARDS - acute hypoxic respiratory failure currently on BIPAP 3. Elevated troponin - demand ischemia 4. History of hypertension 5. Diabetes mellitus 6. CKD 7. ? sepsis 8. Lactic acidosis PLAN: 1. ICU admission 2. Hematology input noted. Transfuse as per Hematology service. 3. Empiric antibiotics. Sepsis work up 4. Follow CXR. Diuresis as needed 5. CT of chest, abdomen/pelvis. 6. Transthoracic echocardiography report noted 7. Trend troponin Guarded Further plans are to follow Patient was seen and examined 40 minutes. Jitendra Rowley MD
[2017-10-15 19:11] LABS: ARTERIAL BLD GAS O2 SATURATION 94.4 % (90-98.9); ARTERIAL BLOOD GAS BASE EXCESS 2.4 meq/l (-2-2); ARTERIAL BLOOD GAS PO2 70.8 mmHg (80-100); ARTERIAL BLOOD GAS pH 7.48 (7.35-7.45)
[2017-10-15 19:12] VITALS: BMI 24.7
[2017-10-15 19:13] LABS: ALLENS TEST POSITIVE
[2017-10-15] MEDS ORDERED: CHLORHEXIDINE GLUCONATE 4% CLEANSER FOR DECOLONIZATION TP SCH (22:00)
[2017-10-15] MEDS ORDERED: AMITRIPTYLINE HCL 25 MG TABLET (FP) ONE (22:23)
[2017-10-15] MEDS: AMITRIPTYLINE HCL 25 MG TABLET (FP) PO SCH (22:25)
[2017-10-15 22:54] LABS: BASO % 0.1 % (0-2.0); EOS % 0.4 % (0-4.5); HEMATOCRIT 20.3 % (32.4-45.2); LYMPH % 8.3 % (8-40); MCH 24.2 pg (25.7-33.7); MCHC 31.9 g/dl (32.0-36.0); MEAN CELL VOLUME 75.9 fl (80-96); MEAN PLT VOLUME 8.2 fl (7.5-11.1); MONO % 5.9 % (3.8-10.2); NEUT % 85.3 % (42.8-82.8); PLATELET COUNT 1003 K/MM3 (134-434); RBC 2.67 M/mm3 (3.60-5.2); WHITE BLOOD COUNT 22.9 K/mm3 (4.0-10.0)
[2017-10-15 23:08] LABS: HEMOGLOBIN 6.5 GM/dL (10.7-15.3)
[2017-10-16] MEDS ORDERED: PIPERACILLIN/TAZOBACTAM 2.25 GM VIAL IVPB ONE (02:08)
[2017-10-16] MEDS: PIPERACILLIN/TAZOB 2.25 GM 2.25 GM/50 ML BAG IVPB SCH ×6 (02:37→21:55)
[2017-10-16 06:28] LABS: BASO % 0.6 % (0-2.0); HEMATOCRIT 19.9 % (32.4-45.2); LYMPH % 7.7 % (8-40); MCH 24.4 pg (25.7-33.7); MCHC 32.1 g/dl (32.0-36.0); MEAN CELL VOLUME 76.2 fl (80-96); MEAN PLT VOLUME 8.3 fl (7.5-11.1); MONO % 6.6 % (3.8-10.2); NEUT % 85.1 % (42.8-82.8); PLATELET COUNT 944 K/MM3 (134-434); RBC 2.61 M/mm3 (3.60-5.2); RDW 20.3 % (11.6-15.6); WHITE BLOOD COUNT 27.8 K/mm3 (4.0-10.0)
[2017-10-16 06:52] LABS: LDH 436 U/L (84-246)
[2017-10-16 07:15] LABS: INR 1.28 (0.82-1.09); PROTHROMBIN TIME (PATIENT) 14.5 SEC (9.98-11.88)
[2017-10-16] MEDS: INSULIN SLIDING SCALE (NOVOLOG) 1 VIAL SQ SCH ×3 (07:15→18:54)
[2017-10-16 07:17] LABS: ACTIVATED PTT 25.8 SECONDS (26.9-34.4)
[2017-10-16 07:27] LABS: URIC ACID 14.3 mg/dL (2.6-7.2)
[2017-10-16 07:29] LABS: HEMOGLOBIN 6.4 GM/dL (10.7-15.3)
[2017-10-16 07:36] LABS: ALBUMIN 3.1 g/dl (3.4-5.0); ANION GAP 12 (8-16); BILIRUBIN,TOTAL 0.6 mg/dL (0.2-1.0); BLOOD UREA NITROGEN 52 mg/dL (7-18); CALCIUM 7.9 mg/dL (8.5-10.1); CHLORIDE 95 mmol/L (98-107); CO2 28 mmol/L (21-32); CREATININE 2.4 mg/dL (0.55-1.02); GLUCOSE,RANDOM 127 mg/dL (74-106); MAGNESIUM 3.4 mg/dL (1.8-2.4); PHOSPHOROUS 6.1 mg/dL (2.5-4.9); POTASSIUM 3.6 mmol/L (3.5-5.1); SGOT/AST 101 U/L (15-37); SGPT/ALT 78 U/L (12-78); SODIUM 135 mmol/L (136-145); TOT PROT 6.7 g/dl (6.4-8.2)
[2017-10-16 07:51] LABS: ALK PHOS 104 U/L (45-117)
--- NOTE | 2017-10-16 08:54 | PN ---
Progress Note (short form) - Note Progress Note: still in ED awake and alert +flatus no BM for 4 days on !00% NRB mask s/p transfusion Vital Signs Period Temp Pulse Resp BP Sys/Rahman Pulse Ox Last 24 Hr 98.1 F-99.4 F 76-97 18-20 116-150/58-77 50-100 cor-rrr lungs decreased bs at bases abd firm +BS, distended ext no edema CBC, BMP 10/16/17 06:05 10/16/17 06:05 lactic acid 1.1 cxray- multifocal infiltrates ct scans- right axillary lymph node multifocal pneumonia head ct- no cva Microbiology 10/15/17 06:27 Blood - Peripheral Venous Blood Culture - Preliminary NO GROWTH OBTAINED AFTER 24 HOURS, INCUBATION TO CONTINUE FOR 4 DAYS. 10/15/17 06:27 Blood - Peripheral Venous Blood Culture - Preliminary NO GROWTH OBTAINED AFTER 24 HOURS, INCUBATION TO CONTINUE FOR 4 DAYS. 10/15/17 12:22 Urine For Antigen Detection Legionella Antigen - Final 10/15/17 12:22 Urine For Antigen Detection Streptococcus pneumoniae Antigen (M - Final 10/15/17 13:30 Nasopharyngeal Swab Influenza Types A,B Antigen (PRICE) - Final 10/15/17 13:30 Nasopharyngeal Swab - Final a/p chest imaging c/w pneumonia- would continue zosyn - ?aspiration- she had vomited numerous times at home severe anemia with leukocytosis and thrombocytosis- s/p transfusion- ?further blood products, ?malignancy right axillary adenopathy- ?biopsy mario/ckd-improved abdominal distention persists Problem List - Problems (1) Anemia Code(s): D64.9 - ANEMIA, UNSPECIFIED Qualifiers: Anemia type: unspecified type Qualified Code(s): D64.9 - Anemia, unspecified (2) Lactic acidosis Code(s): E87.2 - ACIDOSIS (3) Thrombocytosis Code(s): D47.3 - ESSENTIAL (HEMORRHAGIC) THROMBOCYTHEMIA (4) Leukocytosis Code(s): D72.829 - ELEVATED WHITE BLOOD CELL COUNT, UNSPECIFIED Qualifiers: Leukocytosis type: unspecified Qualified Code(s): D72.829 - Elevated white blood cell count, unspecified (5) Acute renal failure superimposed on chronic kidney disease Code(s): N17.9 - ACUTE KIDNEY FAILURE, UNSPECIFIED; N18.9 - CHRONIC KIDNEY DISEASE, UNSPECIFIED
--- NOTE | 2017-10-16 09:07 | CON.GI ---
Consult Consult Specialty:: GI Reason for Consultation:: Anemia - History of Present Illness History of Present Illness: PER ED INTAKE: This is a 67 yo F with PMH of chronic microcytic hypochromic anemia (treated by Dr Nieto with Fe infusions, baseline hgb 8, no genetic workup done), family history of anemia and stroke, CKD, diet controlled DM, HTN, who presents due to worsening sob and chest discomfort x 4 days. patient reports associated malaise , night sweats, several episodes of NBNB vomiting, anorexia, subjective f/c ( measured 99F at home) and mildly sore throat and dry cough. Patient was in ED 2 days ago, at which time she was tested flu and was sent home with nebs. Today she is found to have anemia Hgb 3.6, WBC 20.1k, PLT 1257 and CXR showed bilateral diffuse pulmonary edema w/o layering at bases, suspicious for ARDS. afebrile and hemodynamically stable. She was severely tachypneic with nornal O2 sat on presentation, improved on bipap. Several hours into ED stay, patient was found with Bipap off, unresponsive, with + pulses and was witnessed to have seizure like activity with small jerking movements in extremities. on ABG she was found to be acidotic lactate 18, abg pH 7.18 and hypoxic, was paced back on BIPAP and regained baseline mental status AAOx3. A dose of sodium bicarb was given. 2 U pRBC transfusion was initiated with 40 IV lasix between units. Due to patients slightly hypoosmolar hyponatremia 128, she was started on NS @ 50 cc , administered cautiously due to concurrent possible ARDS, was started on Medrol and was covered with abx for CAP. Patient takes hydrochlorothiazide at home and amitriptyline/Perphenazine. EMR claudio not show prior hyponatremia. Per her outpatient search engine marketing strategist, her baseline Hgb is 8, Plat 500, march ferritin was 153 and transferring was 13%. hematologis d/o were atributed to CKD and Fe deficiency however she has not been worked up for other causes. Her last Fe infusion was a yr ago. Patient reports family history of colon CA and a normal colonoscopy 8 yrs ago. Patient denies weight change, h/a, syncope, abd pain, hemopthysis, melena, hematochezia, bleeding gums, easy bleeding or bruising, frequent infection, adenopathy. At the time of this encounter, the patient is on non-rebreather, saturating 100% , awake, alert, oriented, appears comfortable. States she noted abdominal distension 2 weeks ago. Reports regular, formed bms with laxatives. Had one episode of vomiting in the last 2 weeks. Has not experienced abdominal pain, or discomfort related to the distension. Maintained adequate PO intake all this time. Reports no melena, hematochezia, hematemesis, changed in stool caliper, or weight loss.A CT study revealed b/l pna and normal bowels. US - no biliary pathology. AXR - non-specific bowel gas pattern. - History Source History Provided By: Patient, Medical Record, Caregiver Limitations to Obtaining History: No Limitations - Past Medical History Cardio/Vascular: Yes: HTN Renal/: Yes: Renal Inusuff Endocrine: Yes: Diabetes Mellitus - Past Surgical History Additional Surgical History: Knee surgery - Alcohol/Substance Use Hx Alcohol Use: No - Smoking History Smoking history: Former smoker Have you smoked in the past 12 months: No Aproximately how many cigarettes per day: 0 If you are a former smoker, when did you quit?: 50 years ago - Social History Usual Living Arrangement: With Spouse ADL: Independent Occupation: retired History of Recent Travel: No Home Medications - Allergies Allergies/Adverse Reactions: Allergies Allergy/AdvReac Type Severity Reaction Status Date / Time codeine Allergy palpitation Verified 10/15/17 06:01 s oxycodone HCl [From Percocet] Allergy palpitation Verified 10/15/17 06:01 s - Home Medications Home Medications: Ambulatory Orders Amlodipine Besylate [Norvasc -] 10 mg PO DAILY 09/18/14 Perphenazine/Amitriptyline HCl [Perphen-Amitrip 4 mg-25 mg Tab] 1 each PO DAILY 01/12/15 Carvedilol 37.5 mg PO DAILY 08/22/15 Hydrochlorothiazide [Hctz -] 25 mg PO DAILY 08/22/15 Albuterol Sulfate Inhaler - [Ventolin HFA Inhaler -] 2 inh PO Q4H #1 inh Carbamide Peroxide 6.5% [Debrox -] 5 drop AU BID #1 bottle 10/13/17 Family Disease History - Family Disease History Family Disease History: CA: Mother (colon) Other Family History: history of anemia in family Review of Systems Findings/Remarks: As per HPI, H&P Physical Exam-GI Vital Signs: Vital Signs Temperature 98.1 F 10/16/17 07:30 Pulse Rate 88 10/16/17 07:30 Respiratory Rate 18 10/16/17 07:30 Blood Pressure 149/73 10/16/17 07:30 O2 Sat by Pulse Oximetry (%) 100 10/16/17 07:30 Constitutional: Yes: Well Nourished, No Distress, Calm. No: Anxious, Diaphoresis Eyes: Yes: Conjunctiva Clear HENT: Yes: Atraumatic Neck: Yes: Supple Cardiovascular: Yes: Regular Rate and Rhythm Respiratory: Yes: Regular, On Venti-Mask Gastrointestinal Inspection: Yes: Distention ...Palpate: No: Firm/Rigid, Guarding, Tenderness, Epigastium, Tenderness, Rebound ...Percussion: Yes: Tympanitic. No: Dullness ...Rectal Exam: Yes: Deferred, Guaiac Negative Neurological: Yes: Alert, Oriented Labs: CBC, BMP 10/16/17 06:05 10/16/17 06:05 INR, PTT INR 1.28 (0.82-1.09) H 10/16/17 06:05 Fibrinogen 486.0 mg/dL (238-498) 10/15/17 08:10 Laboratory Tests 10/15/17 10/15/17 10/15/17 05:35 05:35 06:27 WBC 18.0 H D RBC 1.71 L D Hgb 3.6 L* D Hct 13.3 L MCV 77.9 L MCH 21.3 L MCHC 27.4 L RDW 22.5 H Plt Count 1168 H D MPV 8.5 Neutrophils % 81.5 Lymphocytes % 11.9 Monocytes % 6.3 Eosinophils % 0.0 D Basophils % 0.3 Hypochromia 2+ Anisocytosis 3+ ESR PT with INR INR PTT (Actin FS) Fibrinogen Anticoagulation Therapy Puncture Site ABG pH ABG pCO2 at Pt Temp ABG pO2 at Pt Temp ABG HCO3 ABG O2 Sat (Measured) ABG O2 Content ABG Base Excess [place] Test Carboxyhemoglobin O2 Delivery Device Oxygen Flow Rate Vent Mode Vent Rate Mechanical Rate Pressure Support Vent Sodium 127 L Potassium 3.9 Chloride 86 L Carbon Dioxide 8 L Anion Gap 33 H BUN 35 H Creatinine 2.8 H Creat Clearance w eGFR 16.80 POC Glucometer Random Glucose 121 H Serum Osmolality Lactic Acid 18.0 H* Uric Acid 12.3 H Calcium 7.9 L Phosphorus 8.6 H Magnesium 3.2 H Total Bilirubin 0.6 D AST 47 H ALT 41 Alkaline Phosphatase 108 LD Total 361 H Creatine Kinase 446 H Creatine Kinase Index 1.6 CK-MB (CK-2) 7.512 H Troponin I 0.19 H C-Reactive Protein 3.3 H B-Natriuretic Peptide 5381.37 H Total Protein 7.0 Albumin 3.0 L Urine Color Urine Appearance Urine pH Ur Specific Robertson Urine Protein Urine Glucose (UA) Urine Ketones Urine Blood Urine Nitrite Urine Bilirubin Urine Urobilinogen Ur Leukocyte Esterase Urine WBC (Auto) Urine RBC (Auto) Urine Bacteria Hyaline Casts Urine Mucus U Random Total Protein Ur Random Sodium Ur Random Urea Nitrogn Urine Creatinine Stool Occult Blood Salicylates Opiates Screen Methadone Screen Acetaminophen Barbiturate Screen Phencyclidine Screen Ur Amphetamines Screen MDMA (Ecstasy) Screen Benzodiazepines Screen Cocaine Screen U Marijuana (THC) Screen Alcohol, Quantitative Rheumatoid Factor Blood Type Antibody Screen Crossmatch 10/15/17 10/15/17 10/15/17 06:27 06:27 06:27 WBC 20.1 H RBC 1.85 L Hgb 3.8 L* Hct 14.4 L MCV 77.7 L MCH 20.7 L MCHC 26.7 L RDW 22.5 H Plt Count 1257 H MPV 8.8 Neutrophils % 83.2 H Lymphocytes % 10.5 Monocytes % 5.9 Eosinophils % 0.0 Basophils % 0.4 Hypochromia Anisocytosis ESR PT with INR INR PTT (Actin FS) Fibrinogen Anticoagulation Therapy Puncture Site ABG pH ABG pCO2 at Pt Temp ABG pO2 at Pt Temp ABG HCO3 ABG O2 Sat (Measured) ABG O2 Content ABG Base Excess [place] Test Carboxyhemoglobin O2 Delivery Device Oxygen Flow Rate Vent Mode Vent Rate Mechanical Rate Pressure Support Vent Sodium 128 L Potassium 4.3 Chloride 86 L Carbon Dioxide 9 L Anion Gap 33 H BUN 34 H Creatinine 2.7 H Creat Clearance w eGFR 17.52 POC Glucometer Random Glucose 113 H Serum Osmolality Lactic Acid Uric Acid Calcium 8.4 L Phosphorus Magnesium Total Bilirubin 0.6 AST 72 H ALT 44 Alkaline Phosphatase 112 LD Total Creatine Kinase Creatine Kinase Index CK-MB (CK-2) Troponin I C-Reactive Protein B-Natriuretic Peptide Total Protein 7.4 Albumin 3.2 L Urine Color Urine Appearance Urine pH Ur Specific Robertson Urine Protein Urine Glucose (UA) Urine Ketones Urine Blood Urine Nitrite Urine Bilirubin Urine Urobilinogen Ur Leukocyte Esterase Urine WBC (Auto) Urine RBC (Auto) Urine Bacteria Hyaline Casts Urine Mucus U Random Total Protein Ur Random Sodium Ur Random Urea Nitrogn Urine Creatinine Stool Occult Blood Salicylates Opiates Screen Methadone Screen Acetaminophen Barbiturate Screen Phencyclidine Screen Ur Amphetamines Screen MDMA (Ecstasy) Screen Benzodiazepines Screen Cocaine Screen U Marijuana (THC) Screen Alcohol, Quantitative Rheumatoid Factor Blood Type B POSITIVE Antibody Screen Negative Crossmatch See Detail 10/15/17 10/15/17 10/15/17 06:27 06:34 08:10 WBC RBC Hgb Hct MCV MCH MCHC RDW Plt Count MPV Neutrophils % Lymphocytes % Monocytes % Eosinophils % Basophils % Hypochromia Anisocytosis ESR > 140 H PT with INR INR PTT (Actin FS) Fibrinogen Anticoagulation Therapy No Result Required. Puncture Site Left radial ABG pH 7.19 L* ABG pCO2 at Pt Temp 17.3 L* ABG pO2 at Pt Temp 218.0 H* ABG HCO3 6.3 L* ABG O2 Sat (Measured) 99.1 H ABG O2 Content 5.0 L* ABG Base Excess -20.7 L* [place] Test Positive Carboxyhemoglobin 2.4 H O2 Delivery Device No Result Required. Oxygen Flow Rate Yes Vent Mode No Result Required. Vent Rate No Result Required. Mechanical Rate No Result Required. Pressure Support Vent No Result Required. Sodium Potassium Chloride Carbon Dioxide Anion Gap BUN Creatinine Creat Clearance w eGFR POC Glucometer Random Glucose Serum Osmolality Lactic Acid Uric Acid Calcium Phosphorus Magnesium Total Bilirubin AST ALT Alkaline Phosphatase LD Total Creatine Kinase Creatine Kinase Index CK-MB (CK-2) Troponin I C-Reactive Protein B-Natriuretic Peptide Total Protein Albumin Urine Color Urine Appearance Urine pH Ur Specific Robertson Urine Protein Urine Glucose (UA) Urine Ketones Urine Blood Urine Nitrite Urine Bilirubin Urine Urobilinogen Ur Leukocyte Esterase Urine WBC (Auto) Urine RBC (Auto) Urine Bacteria Hyaline Casts Urine Mucus U Random Total Protein Ur Random Sodium Ur Random Urea Nitrogn Urine Creatinine Stool Occult Blood Negative Salicylates Opiates Screen Methadone Screen Acetaminophen Barbiturate Screen Phencyclidine Screen Ur Amphetamines Screen MDMA (Ecstasy) Screen Benzodiazepines Screen Cocaine Screen U Marijuana (THC) Screen Alcohol, Quantitative Rheumatoid Factor Blood Type Antibody Screen Crossmatch 10/15/17 10/15/17 10/15/17 08:10 08:10 09:39 WBC RBC Hgb Hct MCV MCH MCHC RDW Plt Count MPV Neutrophils % Lymphocytes % Monocytes % Eosinophils % Basophils % Hypochromia Anisocytosis ESR PT with INR 15.30 H INR 1.35 H PTT (Actin FS) 22.9 L Fibrinogen 486.0 Anticoagulation Therapy Puncture Site ABG pH ABG pCO2 at Pt Temp ABG pO2 at Pt Temp ABG HCO3 ABG O2 Sat (Measured) ABG O2 Content ABG Base Excess [place] Test Carboxyhemoglobin O2 Delivery Device Oxygen Flow Rate Vent Mode Vent Rate Mechanical Rate Pressure Support Vent Sodium Potassium Chloride Carbon Dioxide Anion Gap BUN Creatinine Creat Clearance w eGFR POC Glucometer 99.62134 Random Glucose Serum Osmolality Lactic Acid Uric Acid Calcium Phosphorus Magnesium Total Bilirubin AST ALT Alkaline Phosphatase LD Total Creatine Kinase Creatine Kinase Index CK-MB (CK-2) Troponin I C-Reactive Protein B-Natriuretic Peptide Total Protein Albumin Urine Color Urine Appearance Urine pH Ur Specific Robertson Urine Protein Urine Glucose (UA) Urine Ketones Urine Blood Urine Nitrite Urine Bilirubin Urine Urobilinogen Ur Leukocyte Esterase Urine WBC (Auto) Urine RBC (Auto) Urine Bacteria Hyaline Casts Urine Mucus U Random Total Protein Ur Random Sodium Ur Random Urea Nitrogn Urine Creatinine Stool Occult Blood Salicylates Opiates Screen Methadone Screen Acetaminophen Barbiturate Screen Phencyclidine Screen Ur Amphetamines Screen MDMA (Ecstasy) Screen Benzodiazepines Screen Cocaine Screen U Marijuana (THC) Screen Alcohol, Quantitative Rheumatoid Factor Blood Type Antibody Screen Crossmatch 10/15/17 10/15/17 10/15/17 10:31 11:40 11:40 WBC RBC Hgb Hct MCV MCH MCHC RDW Plt Count MPV Neutrophils % Lymphocytes % Monocytes % Eosinophils % Basophils % Hypochromia Anisocytosis ESR PT with INR INR PTT (Actin FS) Fibrinogen Anticoagulation Therapy Puncture Site ABG pH ABG pCO2 at Pt Temp ABG pO2 at Pt Temp ABG HCO3 ABG O2 Sat (Measured) ABG O2 Content ABG Base Excess [place] Test Carboxyhemoglobin O2 Delivery Device Oxygen Flow Rate Vent Mode Vent Rate Mechanical Rate Pressure Support Vent Sodium 127 L Potassium 4.5 Chloride 84 L Carbon Dioxide 11 L Anion Gap 32 H BUN 44 H Creatinine 3.1 H Creat Clearance w eGFR POC Glucometer Random Glucose 142 H Serum Osmolality Lactic Acid 14.4 H* Uric Acid Calcium 8.4 L Phosphorus Magnesium Total Bilirubin AST ALT Alkaline Phosphatase LD Total Creatine Kinase Creatine Kinase Index CK-MB (CK-2) Troponin I C-Reactive Protein B-Natriuretic Peptide Total Protein Albumin Urine Color Ltyellow Urine Appearance Slcloudy Urine pH 5.0 Ur Specific Robertson 1.017 Urine Protein 2+ H Urine Glucose (UA) Negative Urine Ketones Trace H Urine Blood Negative Urine Nitrite Negative Urine Bilirubin Negative Urine Urobilinogen Negative Ur Leukocyte Esterase Negative Urine WBC (Auto) 5 Urine RBC (Auto) 2 Urine Bacteria Many Hyaline Casts 1 Urine Mucus Rare U Random Total Protein Ur Random Sodium Ur Random Urea Nitrogn Urine Creatinine Stool Occult Blood Salicylates Opiates Screen Methadone Screen Acetaminophen Barbiturate Screen Phencyclidine Screen Ur Amphetamines Screen MDMA (Ecstasy) Screen Benzodiazepines Screen Cocaine Screen U Marijuana (THC) Screen Alcohol, Quantitative Rheumatoid Factor Blood Type Antibody Screen Crossmatch 10/15/17 10/15/17 10/15/17 11:40 11:40 12:04 WBC RBC Hgb Hct MCV MCH MCHC RDW Plt Count MPV Neutrophils % Lymphocytes % Monocytes % Eosinophils % Basophils % Hypochromia Anisocytosis ESR PT with INR INR PTT (Actin FS) Fibrinogen Anticoagulation Therapy Puncture Site ABG pH ABG pCO2 at Pt Temp ABG pO2 at Pt Temp ABG HCO3 ABG O2 Sat (Measured) ABG O2 Content ABG Base Excess [place] Test Carboxyhemoglobin O2 Delivery Device Oxygen Flow Rate Vent Mode Vent Rate Mechanical Rate Pressure Support Vent Sodium Potassium Chloride Carbon Dioxide Anion Gap BUN Creatinine Creat Clearance w eGFR POC Glucometer Random Glucose Serum Osmolality 288 Lactic Acid Uric Acid Calcium Phosphorus Magnesium Total Bilirubin AST ALT Alkaline Phosphatase LD Total Creatine Kinase Creatine Kinase Index CK-MB (CK-2) Troponin I C-Reactive Protein B-Natriuretic Peptide Total Protein Albumin Urine Color Urine Appearance Urine pH Ur Specific Robertson Urine Protein Urine Glucose (UA) Urine Ketones Urine Blood Urine Nitrite Urine Bilirubin Urine Urobilinogen Ur Leukocyte Esterase Urine WBC (Auto) Urine RBC (Auto) Urine Bacteria Hyaline Casts Urine Mucus U Random Total Protein Ur Random Sodium Ur Random Urea Nitrogn Urine Creatinine Stool Occult Blood Salicylates 7.096 Opiates Screen Methadone Screen Acetaminophen 3.159 L Barbiturate Screen Phencyclidine Screen Ur Amphetamines Screen MDMA (Ecstasy) Screen Benzodiazepines Screen Cocaine Screen U Marijuana (THC) Screen Alcohol, Quantitative Cancelled < 5.0 Rheumatoid Factor Blood Type Antibody Screen Crossmatch 10/15/17 10/15/17 10/15/17 12:05 12:05 12:05 WBC RBC Hgb Hct MCV MCH MCHC RDW Plt Count MPV Neutrophils % Lymphocytes % Monocytes % Eosinophils % Basophils % Hypochromia Anisocytosis ESR PT with INR INR PTT (Actin FS) Fibrinogen Anticoagulation Therapy Puncture Site ABG pH ABG pCO2 at Pt Temp ABG pO2 at Pt Temp ABG HCO3 ABG O2 Sat (Measured) ABG O2 Content ABG Base Excess [place] Test Carboxyhemoglobin O2 Delivery Device Oxygen Flow Rate Vent Mode Vent Rate Mechanical Rate Pressure Support Vent Sodium Potassium Chloride Carbon Dioxide Anion Gap BUN Creatinine Creat Clearance w eGFR POC Glucometer Random Glucose Serum Osmolality Lactic Acid Uric Acid Calcium Phosphorus Magnesium Total Bilirubin AST ALT Alkaline Phosphatase LD Total Creatine Kinase Creatine Kinase Index CK-MB (CK-2) Troponin I C-Reactive Protein B-Natriuretic Peptide Total Protein Albumin Urine Color Urine Appearance Urine pH Ur Specific [place] Urine Protein Urine Glucose (UA) Urine Ketones Urine Blood Urine Nitrite Urine Bilirubin Urine Urobilinogen Ur Leukocyte Esterase Urine WBC (Auto) Urine RBC (Auto) Urine Bacteria Hyaline Casts Urine Mucus U Random Total Protein 159 H Ur Random Sodium 10 Ur Random Urea Nitrogn Cancelled 313 Urine Creatinine 99.6 Stool Occult Blood Salicylates Opiates Screen Negative Methadone Screen Negative Acetaminophen Barbiturate Screen Negative Phencyclidine Screen Negative Ur Amphetamines Screen Negative MDMA (Ecstasy) Screen Negative Benzodiazepines Screen Negative Cocaine Screen Negative U Marijuana (THC) Screen Negative Alcohol, Quantitative Rheumatoid Factor Blood Type Antibody Screen Crossmatch 10/15/17 10/15/17 10/15/17 12:05 12:49 15:00 WBC 22.5 H RBC 2.26 L D Hgb 5.2 L* D Hct 17.1 L D MCV 75.3 L MCH 22.9 L MCHC 30.4 L RDW 21.8 H Plt Count 1057 H MPV 8.2 Neutrophils % 86.2 H Lymphocytes % 10.4 Monocytes % 2.9 L Eosinophils % 0.2 D Basophils % 0.3 Hypochromia Anisocytosis ESR PT with INR INR PTT (Actin FS) Fibrinogen Anticoagulation Therapy No Result Required. Puncture Site Right radial ABG pH 7.40 D ABG pCO2 at Pt Temp 23.9 L D ABG pO2 at Pt Temp 152.0 H* ABG HCO3 14.6 L* ABG O2 Sat (Measured) 99.7 H* ABG O2 Content 7.2 L* ABG Base Excess No Result Required. [place] Test Positive Carboxyhemoglobin O2 Delivery Device No Result Required. Oxygen Flow Rate Yes Vent Mode No Result Required. Vent Rate No Result Required. Mechanical Rate No Result Required. Pressure Support Vent No Result Required. Sodium Potassium Chloride Carbon Dioxide Anion Gap BUN Creatinine Creat Clearance w eGFR POC Glucometer Random Glucose Serum Osmolality Lactic Acid Uric Acid Calcium Phosphorus Magnesium Total Bilirubin AST ALT Alkaline Phosphatase LD Total Creatine Kinase Creatine Kinase Index CK-MB (CK-2) Troponin I C-Reactive Protein B-Natriuretic Peptide Total Protein Albumin Urine Color Urine Appearance Urine pH Ur Specific [place] Urine Protein Urine Glucose (UA) Urine Ketones Urine Blood Urine Nitrite Urine Bilirubin Urine Urobilinogen Ur Leukocyte Esterase Urine WBC (Auto) Urine RBC (Auto) Urine Bacteria Hyaline Casts Urine Mucus U Random Total Protein Ur Random Sodium Ur Random Urea Nitrogn Urine Creatinine Cancelled Stool Occult Blood Salicylates Opiates Screen Methadone Screen Acetaminophen Barbiturate Screen Phencyclidine Screen Ur Amphetamines Screen MDMA (Ecstasy) Screen Benzodiazepines Screen Cocaine Screen U Marijuana (THC) Screen Alcohol, Quantitative Rheumatoid Factor Blood Type Antibody Screen Crossmatch 10/15/17 10/15/17 10/15/17 15:00 15:00 15:00 WBC RBC Hgb Hct MCV MCH MCHC RDW Plt Count MPV Neutrophils % Lymphocytes % Monocytes % Eosinophils % Basophils % Hypochromia Anisocytosis ESR PT with INR INR PTT (Actin FS) Fibrinogen Anticoagulation Therapy No Result Required. Puncture Site Right radial ABG pH 7.48 H ABG pCO2 at Pt Temp 35.0 D ABG pO2 at Pt Temp 70.8 L D ABG HCO3 25.7 ABG O2 Sat (Measured) 94.4 ABG O2 Content 7.3 L* ABG Base Excess 2.4 H [place] Test Positive Carboxyhemoglobin O2 Delivery Device Bipap Oxygen Flow Rate 50% Vent Mode No Result Required. Vent Rate No Result Required. Mechanical Rate No Pressure Support Vent 14/6 Sodium 129 L Potassium 3.5 Chloride 85 L Carbon Dioxide 20 L Anion Gap 24 H BUN 48 H Creatinine 2.9 H Creat Clearance w eGFR 16.14 POC Glucometer Random Glucose 157 H Serum Osmolality Lactic Acid Uric Acid Calcium 8.3 L Phosphorus 6.9 H Magnesium 3.1 H Total Bilirubin 0.6 AST 81 H ALT 60 Alkaline Phosphatase 111 LD Total Creatine Kinase Creatine Kinase Index CK-MB (CK-2) Troponin I 0.27 H C-Reactive Protein B-Natriuretic Peptide Total Protein 7.2 Albumin 3.2 L Urine Color Urine Appearance Urine pH Ur Specific [place] Urine Protein Urine Glucose (UA) Urine Ketones Urine Blood Urine Nitrite Urine Bilirubin Urine Urobilinogen Ur Leukocyte Esterase Urine WBC (Auto) Urine RBC (Auto) Urine Bacteria Hyaline Casts Urine Mucus U Random Total Protein Ur Random Sodium Ur Random Urea Nitrogn Urine Creatinine Stool Occult Blood Salicylates Opiates Screen Methadone Screen Acetaminophen Barbiturate Screen Phencyclidine Screen Ur Amphetamines Screen MDMA (Ecstasy) Screen Benzodiazepines Screen Cocaine Screen U Marijuana (THC) Screen Alcohol, Quantitative Rheumatoid Factor Blood Type Antibody Screen Crossmatch 10/15/17 10/15/17 10/15/17 15:15 18:11 22:42 WBC 22.9 H RBC 2.67 L Hgb 6.5 L* D Hct 20.3 L D MCV 75.9 L MCH 24.2 L MCHC 31.9 L RDW 21.0 H Plt Count 1003 H MPV 8.2 Neutrophils % 85.3 H Lymphocytes % 8.3 D Monocytes % 5.9 D Eosinophils % 0.4 D Basophils % 0.1 Hypochromia Anisocytosis ESR PT with INR INR PTT (Actin FS) Fibrinogen Anticoagulation Therapy Puncture Site ABG pH ABG pCO2 at Pt Temp ABG pO2 at Pt Temp ABG HCO3 ABG O2 Sat (Measured) ABG O2 Content ABG Base Excess [place] Test Carboxyhemoglobin O2 Delivery Device Oxygen Flow Rate Vent Mode Vent Rate Mechanical Rate Pressure Support Vent Sodium Potassium Chloride Carbon Dioxide Anion Gap BUN Creatinine Creat Clearance w eGFR POC Glucometer 143.28965 Random Glucose Serum Osmolality Lactic Acid 7.3 H* Uric Acid Calcium Phosphorus Magnesium Total Bilirubin AST ALT Alkaline Phosphatase LD Total Creatine Kinase Creatine Kinase Index CK-MB (CK-2) Troponin I C-Reactive Protein B-Natriuretic Peptide Total Protein Albumin Urine Color Urine Appearance Urine pH Ur Specific [place] Urine Protein Urine Glucose (UA) Urine Ketones Urine Blood Urine Nitrite Urine Bilirubin Urine Urobilinogen Ur Leukocyte Esterase Urine WBC (Auto) Urine RBC (Auto) Urine Bacteria Hyaline Casts Urine Mucus U Random Total Protein Ur Random Sodium Ur Random Urea Nitrogn Urine Creatinine Stool Occult Blood Salicylates Opiates Screen Methadone Screen Acetaminophen Barbiturate Screen Phencyclidine Screen Ur Amphetamines Screen MDMA (Ecstasy) Screen Benzodiazepines Screen Cocaine Screen U Marijuana (THC) Screen Alcohol, Quantitative Rheumatoid Factor Blood Type Antibody Screen Crossmatch 10/15/17 10/16/17 10/16/17 23:42 06:05 06:05 WBC 27.8 H RBC 2.61 L Hgb 6.4 L* Hct 19.9 L MCV 76.2 L MCH 24.4 L MCHC 32.1 RDW 20.3 H Plt Count 944 H MPV 8.3 Neutrophils % 85.1 H Lymphocytes % 7.7 L Monocytes % 6.6 Eosinophils % 0.0 D Basophils % 0.6 D Hypochromia Anisocytosis ESR PT with INR 14.50 H INR 1.28 H PTT (Actin FS) 25.8 L Fibrinogen Anticoagulation Therapy Puncture Site ABG pH ABG pCO2 at Pt Temp ABG pO2 at Pt Temp ABG HCO3 ABG O2 Sat (Measured) ABG O2 Content ABG Base Excess [place] Test Carboxyhemoglobin O2 Delivery Device Oxygen Flow Rate Vent Mode Vent Rate Mechanical Rate Pressure Support Vent Sodium Potassium Chloride Carbon Dioxide Anion Gap BUN Creatinine Creat Clearance w eGFR POC Glucometer Random Glucose Serum Osmolality Lactic Acid 1.7 Uric Acid Calcium Phosphorus Magnesium Total Bilirubin AST ALT Alkaline Phosphatase LD Total Creatine Kinase Creatine Kinase Index CK-MB (CK-2) Troponin I C-Reactive Protein B-Natriuretic Peptide Total Protein Albumin Urine Color Urine Appearance Urine pH Ur Specific [place] Urine Protein Urine Glucose (UA) Urine Ketones Urine Blood Urine Nitrite Urine Bilirubin Urine Urobilinogen Ur Leukocyte Esterase Urine WBC (Auto) Urine RBC (Auto) Urine Bacteria Hyaline Casts Urine Mucus U Random Total Protein Ur Random Sodium Ur Random Urea Nitrogn Urine Creatinine Stool Occult Blood Salicylates Opiates Screen Methadone Screen Acetaminophen Barbiturate Screen Phencyclidine Screen Ur Amphetamines Screen MDMA (Ecstasy) Screen Benzodiazepines Screen Cocaine Screen U Marijuana (THC) Screen Alcohol, Quantitative Rheumatoid Factor Blood Type Antibody Screen Crossmatch 10/16/17 10/16/17 10/16/17 06:05 06:05 06:05 WBC RBC Hgb Hct MCV MCH MCHC RDW Plt Count MPV Neutrophils % Lymphocytes % Monocytes % Eosinophils % Basophils % Hypochromia Anisocytosis ESR PT with INR INR PTT (Actin FS) Fibrinogen Anticoagulation Therapy Puncture Site ABG pH ABG pCO2 at Pt Temp ABG pO2 at Pt Temp ABG HCO3 ABG O2 Sat (Measured) ABG O2 Content ABG Base Excess Roosevelt Test Carboxyhemoglobin O2 Delivery Device Oxygen Flow Rate Vent Mode Vent Rate Mechanical Rate Pressure Support Vent Sodium 135 L Potassium 3.6 Chloride 95 L Carbon Dioxide 28 Anion Gap 12 BUN 52 H Creatinine 2.4 H Creat Clearance w eGFR 20.08 POC Glucometer Random Glucose 127 H Serum Osmolality Lactic Acid 1.1 Uric Acid 14.3 H* Calcium 7.9 L Phosphorus 6.1 H Magnesium 3.4 H Total Bilirubin 0.6 AST 101 H ALT 78 Alkaline Phosphatase 104 LD Total 436 H Creatine Kinase 1719 H Creatine Kinase Index CK-MB (CK-2) Troponin I 0.72 H* C-Reactive Protein B-Natriuretic Peptide Total Protein 6.7 Albumin 3.1 L Urine Color Urine Appearance Urine pH Ur Specific Robertson Urine Protein Urine Glucose (UA) Urine Ketones Urine Blood Urine Nitrite Urine Bilirubin Urine Urobilinogen Ur Leukocyte Esterase Urine WBC (Auto) Urine RBC (Auto) Urine Bacteria Hyaline Casts Urine Mucus U Random Total Protein Ur Random Sodium Ur Random Urea Nitrogn Urine Creatinine Stool Occult Blood Salicylates Opiates Screen Methadone Screen Acetaminophen Barbiturate Screen Phencyclidine Screen Ur Amphetamines Screen MDMA (Ecstasy) Screen Benzodiazepines Screen Cocaine Screen U Marijuana (THC) Screen Alcohol, Quantitative Rheumatoid Factor < 10.0 Blood Type Antibody Screen Crossmatch Imaging - Results X-ray: Report Reviewed Cat Scan: Report Reviewed Ultrasound: Report Reviewed Problem List - Problems (1) Iron deficiency anemia due to chronic blood loss Code(s): D50.0 - IRON DEFICIENCY ANEMIA SECONDARY TO BLOOD LOSS (CHRONIC) (2) Iron deficiency anemia Code(s): D50.9 - IRON DEFICIENCY ANEMIA, UNSPECIFIED (3) Abnormal abdominal exam Code(s): R19.8 - OTH SYMPTOMS AND SIGNS INVOLVING THE DGSTV SYS AND ABDOMEN (4) Acute renal failure superimposed on chronic kidney disease Code(s): N17.9 - ACUTE KIDNEY FAILURE, UNSPECIFIED; N18.9 - CHRONIC KIDNEY DISEASE, UNSPECIFIED (5) CHF (congestive heart failure) Code(s): I50.9 - HEART FAILURE, UNSPECIFIED Qualifiers: Congestive heart failure type: unspecified Congestive heart failure chronicity: unspecified Qualified Code(s): I50.9 - Heart failure, unspecified (6) Diabetes mellitus Code(s): E11.9 - TYPE 2 DIABETES MELLITUS WITHOUT COMPLICATIONS Qualifiers: Diabetes mellitus type: type 2 Diabetes mellitus complication status: without complication Diabetes mellitus retirement insulin use: without retirement use Qualified Code(s): E11.9 - Type 2 diabetes mellitus without complications (7) Hyponatremia Code(s): E87.1 - HYPO-OSMOLALITY AND HYPONATREMIA (8) Iron deficiency anemia Code(s): D50.9 - IRON DEFICIENCY ANEMIA, UNSPECIFIED (9) Lactic acidosis Code(s): E87.2 - ACIDOSIS (10) Leukocytosis Code(s): D72.829 - ELEVATED WHITE BLOOD CELL COUNT, UNSPECIFIED Qualifiers: Leukocytosis type: unspecified Qualified Code(s): D72.829 - Elevated white blood cell count, unspecified (11) Thrombocytosis Code(s): D47.3 - ESSENTIAL (HEMORRHAGIC) THROMBOCYTHEMIA Assessment/Plan A 67 yof with multiple chronic medical issues, found to have b/l PNA, electrolytes abnormalities, renal insufficiency and profound microcytic, hypochromic anemia w/o obvious source, or external signs of blood loss. An Abdominal distension was found on exam, however the patient reports normal, formed stools, flatus. Various imaging modalities do not indicate any degree of obstruction, or bowel pathology thus far. As discussed with the patient, the GI work up is warranted in settings of severe , microcytic, hypochromic anemia to r/o gastrointestinal malignancy, or chronic GI blood loss. The patient in not optimal for endoscopic work up at this time due to acute respiratory and electrolytes issues. Will follow Betina closely for any acute GI-related developments while she is recovering from b/l PNA. Diagnostic EGD and colonoscopy as soon as her pulmonary status improves, sooner if dictated by clinical condition.
[2017-10-16] MEDS ORDERED: PIPERACILLIN/TAZOB 2.25 GM/50 ML PREMIX BAG IVPB SCH (09:15)
--- NOTE | 2017-10-16 09:20 | PN ---
Progress Note (short form) - Note Progress Note: pt seen and examined, in the ER. Events noted Imaging/labs/chart reviewed She feels much better. was on BiPAP, now on Facemask. asked her if she recalls anything about the axillary LN, she mentioned she wasn' t aware of any LAD nor was she investigated with any biopsy. She wasn't aware of any "hematological" disorder other than the anemia for which she was on aranesp/venofer until 09/2016. O/E: General: NAD, on Facemask HEENT: NCAT Bilateral breast/axilla: Could not appreciate any mass Cor: RRR Lung: CTAb/l Abd: distended , BS+. LE: No edema Temp Pulse Resp BP Pulse Ox 98.1 F 88 18 149/73 100 10/16/17 07:30 10/16/17 07:30 10/16/17 07:30 10/16/17 07:30 10/16/17 07:30 CBC, BMP 10/16/17 06:05 10/16/17 06:05 Current Medications Generic Name Dose Route Start Last Admin Trade Name Freq PRN Reason Stop Dose Admin Acetaminophen 650 mg 10/15/17 09:04 Tylenol - PO Q4H PRN PAIN Amitriptyline HCl 25 mg 10/15/17 22:00 10/15/17 22:25 Elavil - PO 25 mg HS [facility] Administration Carvedilol 37.5 mg 10/15/17 10:00 10/15/17 10:01 Coreg - PO Not Given DAILY [facility] Chlorhexidine Gluconate 1 applic 10/15/17 22:00 10/15/17 22:25 Hibiclens For Decolonization - TP Not Given HS [facility] Insulin Aspart 1 vial 10/15/17 11:00 10/16/17 07:15 Novolog Vial Sliding Scale - SQ Not Given TIDAC [facility] Protocol Mupirocin 1 applic 10/15/17 10:00 10/15/17 22:03 Bactroban Ointment (For Decolonization) - NS 10/20/17 09:59 1 appful BID [facility] Administration Piperacillin/Tazobactam/Dextrose 2.25 gm 10/16/17 09:15 Zosyn 2.25gm Ivpb (Premix) IVPB Q6H-IV [facility] Severe anemia/Thrombocytosis/Mild Leucocytosis. -improving -a reactive process alone (myrtle in the setting of small spleen) or in combination with a primary hematological process along with reactive process (eg : infection) is not certain at this point -await all the molecular and spl tests that has been done ( will take time for the results ) -GI f/u reviewed -await VWD panel Hypoxic resp distress -improved -CT with multifocal PNA, abx per ID and w/u per ID Incidental note of axillary LAD: -?seen on 02/2017 CT ?report -would recommend US of the axilla and when stable a core biopsy MARQUES vs worsening CKD -renal fn stable now -hyperuricemia ?etiology -LDH is increasing, hapto added -will ask renal about renally dosed allopurinol as still at this point still a primary heme disorder is not ruled out. will follow discussed with pt pts PMD Dr.Radhika Gibbs Problem List - Problems (1) Anemia Code(s): D64.9 - ANEMIA, UNSPECIFIED Qualifiers: Anemia type: unspecified type Qualified Code(s): D64.9 - Anemia, unspecified (2) Leukocytosis Code(s): D72.829 - ELEVATED WHITE BLOOD CELL COUNT, UNSPECIFIED Qualifiers: Leukocytosis type: unspecified Qualified Code(s): D72.829 - Elevated white blood cell count, unspecified (3) Thrombocytosis Code(s): D47.3 - ESSENTIAL (HEMORRHAGIC) THROMBOCYTHEMIA (4) CHF (congestive heart failure) Code(s): I50.9 - HEART FAILURE, UNSPECIFIED Qualifiers: Congestive heart failure type: unspecified Congestive heart failure chronicity: unspecified Qualified Code(s): I50.9 - Heart failure, unspecified
[2017-10-16] MEDS ORDERED: ASPIRIN 81 MG CHEWABLE TABLETS PO SCH (10:00)
[2017-10-16] MEDS: MUPIROCIN 2% TOPICAL OINTMENT FOR DECOLONIZATION NS SCH (10:00)
--- NOTE | 2017-10-16 10:27 | EKG ---
Test Reason : Blood Pressure : / mmHG Vent. Rate : 089 BPM Atrial Rate : 089 BPM P-R Int : 134 ms QRS Dur : 090 ms QT Int : 388 ms P-R-T Axes : 061 005 041 degrees QTc Int : 472 ms SINUS RHYTHM WITH PREMATURE SUPRAVENTRICULAR COMPLEXES MODERATE VOLTAGE CRITERIA FOR LVH, MAY BE NORMAL VARIANT NONSPECIFIC ST AND T WAVE ABNORMALITY ABNORMAL ECG WHEN COMPARED WITH ECG OF 15-OCT-2017 05:51, PREMATURE SUPRAVENTRICULAR COMPLEXES ARE NOW PRESENT T WAVE INVERSION NO LONGER EVIDENT IN INFERIOR LEADS T WAVE INVERSION NO LONGER EVIDENT IN LATERAL LEADS Confirmed by KIERSTEN RENO, ANDREW ([id number]) on 10/16/2017 10:26:37 AM Referred By: Confirmed By:ANDREW BURCH MD
[2017-10-16] MEDS ORDERED: amLODIPine BESYLATE 5 MG TABLET (FP) ONE (11:34)
[2017-10-16] MEDS: SODIUM CHLORIDE 1,000 ML IV SCH (11:35)
[2017-10-16] MEDS: amLODIPine BESYLATE 5 MG TABLET (FP) PO SCH (11:40)
--- NOTE | 2017-10-16 12:08 | PN ---
Progress Note (short form) - Note Progress Note: Renal follow up for MARQUES on CKD and metabolic acidosis Pt seen and examined in the ER no acute complaints abd is still distended but is passing gas sob is improved no fever, chills, N/V/D making urine via sood Vital Signs Temperature 97.7 F 10/16/17 11:30 Pulse Rate 90 10/16/17 11:30 Respiratory Rate 18 10/16/17 11:30 Blood Pressure 151/77 10/16/17 11:30 O2 Sat by Pulse Oximetry (%) 100 10/16/17 11:30 Intake & Output 10/13/17 10/14/17 10/15/17 10/16/17 23:59 23:59 23:59 23:59 Output Total 1700 Balance -1700 Weight 63.503 kg NAD awake and alert on 100% NRB Dec BS throughout the lung haynes distended abd no LE edema CBC, BMP 10/16/17 06:05 10/16/17 06:05 Current Medications Acetaminophen (Tylenol -) 650 mg PO Q4H PRN PRN Reason: PAIN Amitriptyline HCl (Elavil -) 25 mg PO HS [facility] Last Admin: 10/15/17 22:25 Dose: 25 mg Amlodipine Besylate (Norvasc -) 5 mg PO DAILY [facility] Last Admin: 10/16/17 11:40 Dose: 5 mg Carvedilol (Coreg -) 37.5 mg PO DAILY [facility] Last Admin: 10/15/17 10:01 Dose: Not Given Chlorhexidine Gluconate (Hibiclens For Decolonization -) 1 applic TP HS [facility] Last Admin: 10/15/17 22:25 Dose: Not Given Sodium Chloride (Normal Saline -) 1,000 mls @ 83 mls/hr IV ASDIR [facility] Last Admin: 10/16/17 11:35 Dose: 83 mls/hr Piperacillin/Tazobactam/Dextrose (Zosyn 2.25gm Ivpb (Premix)) 2.25 gm in 50 mls @ 100 mls/hr IVPB Q6H-IV [facility] Insulin Aspart (Novolog Vial Sliding Scale -) 1 vial SQ TIDAC [facility] PRN Reason: Protocol Last Admin: 10/16/17 07:15 Dose: Not Given Mupirocin (Bactroban Ointment (For Decolonization) -) 1 applic NS BID [facility] Stop: 10/20/17 09:59 Last Admin: 10/16/17 10:00 Dose: Not Given 67 year old woman with PMhx of CKD (baseline Cr 2.1), Hypertension, DM (not on meds), Chronic anemia who presented with complaints of sob and found to have severe anemia, metabolic acidosis and MARQUES with Cr of 2.7. #Anion gap metabolic acidosis acidosis improved, lactic acid is now WNL BP stable continue PRBC transfusion keep MAP > 65 Trend serum bicab levels #Acute on Chronic Renal insufficiency urine studies consistent with pre-renal azotemia renal function improving toward baseline s/p transfusions continue volume resuscitation with IVF and PRBC as needed #Severe Anemia improving with blood transfusion heme following #Chest congestion on CXR findings now more consistent with infectious process continue Abx as per ID Will follow Tc Reed DO
[2017-10-16] MEDS ORDERED: INSULIN (NOVOLOG) ASPART 100 UNITS/ML 10ML VIAL ONE (12:59)
--- NOTE | 2017-10-16 14:51 | PN ---
Teaching Attending Note Name of Resident: Sharif Gimenez ATTENDING PHYSICIAN STATEMENT I saw and evaluated the patient. I reviewed the resident's note and discussed the case with the resident. I agree with the resident's findings and plan as documented. SUBJECTIVE: seen at 10 am , feels much better than before, has no Cp or abd pain, denies hematuria, hematochezia, vaginal bleed or melena. follows with oceanic sciences professor and gets IV iron but does not know her diagnosis. OBJECTIVE: NAD. Non rebreather mask on, dry MM, no facial droop EOMI. CV: RRR, 3/6 Sm at LUSB and LLSB with 2/6 SM at apex . . JVD Lungs: b/l fine crackles on boh lung haynes . Abd: soft, distended , NT, tympanic , no hepatomegaly Ext: no edema , or erythema ASSESSMENT AND PLAN: 67 y/o lady with h/o chronic microcytic anemia, CKD 3, DM II, HTN, and other medical problems who presented with SOB and chest discomofrt x 10 days . She was found to have severe sepsis, hyponatremia, MARQUES, metabolic acidosis, and severe anemia 1- Severe sepsis : due to b/l PNA. ( community acquired). CT scan reviewed. improved. - cont zosyn for broad coverage. might be able to downgrade to CTx and azithro - send sputum cx - follow blood cx - Urine legionella/ pneumococcal neg - send mycoplasma igM 2- Acute hypoxic resp failure, 2/2 PNA - cont Abx - oxygen supp, - pleural effusions , are likely parapneumonic 3-Severe microcytic anemia : unknown w/u and diagnosis from before follows with Dr. Nieto . responded to 2 units of RBC. ? chronic GI bleed, vs hemolytic anemia ( LDH slightly elevated) , vs Thalassemia or other - transfuse another unit of RBC - unfortunately iron studies were not done before transfusion - FOBT Neg x 1, repeat x 2 - GI w/u ( EGD, colo) when stable - will contact her oceanic sciences professor. - will check with heme about smear - f/u uterine fibroids as out pt 4- MARQUES: prerenal azotemia. FeUrea 16%. responded to IVF and blood - start gentle hydration and give another unit of RBC - hold HCTZ 5- metabolic acidosis form lactic acidosis . due to severe sepsis and hypoxia, resolved 6- demand ischemia: due to sepsis . - EKG reviewed. flat and inverted TW in lateral leads. - repeat trop - although has elevated BNP, she clinically looks volume depleted 7-HTN: hold LCTx and start lower dose of norvasc 8- mild Rhabdo : IVF Dispo : downgrade to tele SCDs for DVT px .
[2017-10-16] MEDS: ACETAMINOPHEN 325 MG TABLET (FP) PO PRN (15:50)
--- NOTE | 2017-10-16 16:07 | PN ---
Progress Note (short form) - Note Progress Note: PULMONARY Transfused 3 units PRBC with appropriate response. States breathing is improving. +nonproductive cough. Last Vital Signs Temp Pulse Resp BP Pulse Ox 98.0 F 85 21 116/72 95 10/16/17 15:15 10/16/17 15:15 10/16/17 15:15 10/16/17 15:15 10/16/17 15:15 Gen: mildly tachypneic at rest Heart: RRR Lung: decreased breath sounds at the bases Abd: soft, nontender Ext: no edema CBC, BMP 10/16/17 06:05 10/16/17 06:05 Active Medications Acetaminophen (Tylenol -) 650 mg PO Q4H PRN PRN Reason: PAIN Last Admin: 10/16/17 15:50 Dose: 650 mg Amitriptyline HCl (Elavil -) 25 mg PO HS [facility] Last Admin: 10/15/17 22:25 Dose: 25 mg Amlodipine Besylate (Norvasc -) 5 mg PO DAILY [facility] Last Admin: 10/16/17 11:40 Dose: 5 mg Sodium Chloride (Normal Saline -) 1,000 mls @ 83 mls/hr IV ASDIR [facility] Last Admin: 10/16/17 11:35 Dose: 83 mls/hr Piperacillin/Tazobactam/Dextrose (Zosyn 2.25gm Ivpb (Premix)) 2.25 gm in 50 mls @ 100 mls/hr IVPB Q6H-IV [facility] Last Admin: 10/16/17 15:05 Dose: Not Given Insulin Aspart (Novolog Vial Sliding Scale -) 1 vial SQ TIDAC [facility] PRN Reason: Protocol Last Admin: 10/16/17 12:55 Dose: 2 units A/P Acute Hypoxic Respiratory Failure Severe Anemia Pneumonia Sepsis r/o ARDS Lactic Acidosis +Troponins likely Demand Ischemia HTN DM CKD - continue antibiotics - f/u cultures - inhaled bronchodilators - monitor H/H - transfuse as needed - O2 to keep SpO2 >90% - DVT prophylaxis
--- NOTE | 2017-10-16 16:10 | PN ---
Physical Exam: SUBJECTIVE: Patient seen and examined at bedside. Patient is well-appearing and is breathing off of bipap and on a non-rebreather. Patient states that her breathing has much improved. She states that she still has a cough productive of white sputum. She states that she has been retaining urine and hasn't had a bowel movement in several days, although she has been passing gas. Denies chest pain, SOB, nausea, vomiting, diarrhea, fevers, chills. OBJECTIVE: Vital Signs Period Temp Pulse Resp BP Sys/Rahman Pulse Ox Last 24 Hr 97.7 F-99.4 F 85-96 18-21 116-151/61-77 50-100 GENERAL: The patient is awake, alert, and fully oriented, in no acute distress. breathing on non-rebreather NECK: Trachea midline, full range of motion, supple. no JVD noted on exam LUNGS: Breath sounds equal, clear to auscultation bilaterally, bibasilar crackles noted on exam HEART: Regular rate and rhythm, systolic murmur 2/6 noted on exam, S1, S2 without murmur, rub or gallop. ABDOMEN: distended and tympanitic, nontender, bowel sounds present but diminished, no guarding, no rebound, no hepatosplenomegaly, no masses. EXTREMITIES: 2+ pulses, warm, well-perfused, no edema. NEUROLOGICAL: Cranial nerves II through XII grossly intact. Normal speech, gait not observed. PSYCH: Normal mood, normal affect. SKIN: Warm, dry, normal turgor, no rashes or lesions noted Laboratory Results - last 24 hr 10/11/17 10/15/17 10/15/17 08:00 06:27 06:27 WBC RBC Hgb Hct MCV MCH MCHC RDW Plt Count MPV Neutrophils % Lymphocytes % Monocytes % Eosinophils % Basophils % PT with INR INR PTT (Actin FS) Anticoagulation Therapy Puncture Site ABG pH ABG pCO2 at Pt Temp ABG pO2 at Pt Temp ABG HCO3 ABG O2 Sat (Measured) ABG O2 Content ABG Base Excess Roosevelt Test O2 Delivery Device Oxygen Flow Rate Vent Mode Vent Rate Mechanical Rate Pressure Support Vent Sodium Potassium Chloride Carbon Dioxide Anion Gap BUN Creatinine Creat Clearance w eGFR POC Glucometer Random Glucose Lactic Acid Uric Acid Calcium Phosphorus Magnesium Erythropoietin Final Cancelled Total Bilirubin AST ALT Alkaline Phosphatase LD Total Creatine Kinase Creatine Kinase Index CK-MB (CK-2) Troponin I Total Protein Albumin Rheumatoid Factor Blood Type B POSITIVE Antibody Screen Negative Crossmatch See Detail 10/15/17 10/15/17 10/15/17 15:00 15:00 15:15 WBC RBC Hgb Hct MCV MCH MCHC RDW Plt Count MPV Neutrophils % Lymphocytes % Monocytes % Eosinophils % Basophils % PT with INR INR PTT (Actin FS) Anticoagulation Therapy No Result Required. Puncture Site Right radial ABG pH 7.48 H ABG pCO2 at Pt Temp 35.0 D ABG pO2 at Pt Temp 70.8 L D ABG HCO3 25.7 ABG O2 Sat (Measured) 94.4 ABG O2 Content 7.3 L* ABG Base Excess 2.4 H Roosevelt Test Positive O2 Delivery Device Bipap Oxygen Flow Rate 50% Vent Mode No Result Required. Vent Rate No Result Required. Mechanical Rate No Pressure Support Vent 14/6 Sodium Potassium Chloride Carbon Dioxide Anion Gap BUN Creatinine Creat Clearance w eGFR POC Glucometer Random Glucose Lactic Acid 7.3 H* Uric Acid Calcium Phosphorus Magnesium Erythropoietin Total Bilirubin AST ALT Alkaline Phosphatase LD Total Creatine Kinase Creatine Kinase Index CK-MB (CK-2) Troponin I 0.27 H Total Protein Albumin Rheumatoid Factor Blood Type Antibody Screen Crossmatch 10/15/17 10/15/17 10/15/17 18:11 22:42 23:42 WBC 22.9 H RBC 2.67 L Hgb 6.5 L* D Hct 20.3 L D MCV 75.9 L MCH 24.2 L MCHC 31.9 L RDW 21.0 H Plt Count 1003 H MPV 8.2 Neutrophils % 85.3 H Lymphocytes % 8.3 D Monocytes % 5.9 D Eosinophils % 0.4 D Basophils % 0.1 PT with INR INR PTT (Actin FS) Anticoagulation Therapy Puncture Site ABG pH ABG pCO2 at Pt Temp ABG pO2 at Pt Temp ABG HCO3 ABG O2 Sat (Measured) ABG O2 Content ABG Base Excess Roosevelt Test O2 Delivery Device Oxygen Flow Rate Vent Mode Vent Rate Mechanical Rate Pressure Support Vent Sodium Potassium Chloride Carbon Dioxide Anion Gap BUN Creatinine Creat Clearance w eGFR POC Glucometer [phone] Random Glucose Lactic Acid 1.7 Uric Acid Calcium Phosphorus Magnesium Erythropoietin Total Bilirubin AST ALT Alkaline Phosphatase LD Total Creatine Kinase Creatine Kinase Index CK-MB (CK-2) Troponin I Total Protein Albumin Rheumatoid Factor Blood Type Antibody Screen Crossmatch 10/16/17 10/16/17 10/16/17 06:05 06:05 06:05 WBC 27.8 H RBC 2.61 L Hgb 6.4 L* Hct 19.9 L MCV 76.2 L MCH 24.4 L MCHC 32.1 RDW 20.3 H Plt Count 944 H MPV 8.3 Neutrophils % 85.1 H Lymphocytes % 7.7 L Monocytes % 6.6 Eosinophils % 0.0 D Basophils % 0.6 D PT with INR 14.50 H INR 1.28 H PTT (Actin FS) 25.8 L Anticoagulation Therapy Puncture Site ABG pH ABG pCO2 at Pt Temp ABG pO2 at Pt Temp ABG HCO3 ABG O2 Sat (Measured) ABG O2 Content ABG Base Excess Roosevelt Test O2 Delivery Device Oxygen Flow Rate Vent Mode Vent Rate Mechanical Rate Pressure Support Vent Sodium 135 L Potassium 3.6 Chloride 95 L Carbon Dioxide 28 Anion Gap 12 BUN 52 H Creatinine 2.4 H Creat Clearance w eGFR 20.08 POC Glucometer Random Glucose 127 H Lactic Acid Uric Acid Calcium 7.9 L Phosphorus 6.1 H Magnesium 3.4 H Erythropoietin Total Bilirubin 0.6 AST 101 H ALT 78 Alkaline Phosphatase 104 LD Total Creatine Kinase 1719 H Creatine Kinase Index 0.4 CK-MB (CK-2) 8.188 H Troponin I 0.72 H* Total Protein 6.7 Albumin 3.1 L Rheumatoid Factor Blood Type Antibody Screen Crossmatch 10/16/17 10/16/17 10/16/17 06:05 06:05 12:53 WBC RBC Hgb Hct MCV MCH MCHC RDW Plt Count MPV Neutrophils % Lymphocytes % Monocytes % Eosinophils % Basophils % PT with INR INR PTT (Actin FS) Anticoagulation Therapy Puncture Site ABG pH ABG pCO2 at Pt Temp ABG pO2 at Pt Temp ABG HCO3 ABG O2 Sat (Measured) ABG O2 Content ABG Base Excess Roosevelt Test O2 Delivery Device Oxygen Flow Rate Vent Mode Vent Rate Mechanical Rate Pressure Support Vent Sodium Potassium Chloride Carbon Dioxide Anion Gap BUN Creatinine Creat Clearance w eGFR POC Glucometer [phone] Random Glucose Lactic Acid 1.1 Uric Acid 14.3 H* Calcium Phosphorus Magnesium Erythropoietin Total Bilirubin AST ALT Alkaline Phosphatase LD Total 436 H Creatine Kinase Creatine Kinase Index CK-MB (CK-2) Troponin I Total Protein Albumin Rheumatoid Factor < 10.0 Blood Type Antibody Screen Crossmatch Active Medications Generic Name Dose Route Start Last Admin Trade Name Freq PRN Reason Stop Dose Admin Acetaminophen 650 mg 10/15/17 09:04 10/16/17 15:50 Tylenol - PO 650 mg Q4H PRN Administration PAIN Amitriptyline HCl 25 mg 10/15/17 22:00 10/15/17 22:25 Elavil - PO 25 mg HS [facility] Administration Amlodipine Besylate 5 mg 10/16/17 11:15 10/16/17 11:40 Norvasc - PO 5 mg DAILY [facility] Administration Sodium Chloride 1,000 mls @ 83 mls/hr 10/16/17 11:00 10/16/17 11:35 Normal Saline - IV 83 mls/hr ASDIR [facility] Administration Piperacillin/Tazobactam/Dextrose 2.25 gm in 50 mls @ 100 mls/hr 10/16/17 11: 30 10/16/17 15:05 Zosyn 2.25gm Ivpb (Premix) IVPB Not Given Q6H-IV [facility] Insulin Aspart 1 vial 10/15/17 11:00 10/16/17 12:55 Novolog Vial Sliding Scale - SQ 2 units TIDAC [facility] Administration Protocol ASSESSMENT/PLAN: This is a 67 year old female with a past medical history of chronic anemia, DM, HTN, MARQUES is admitted to the hospital for the treatment of respiratory failure, sepsis, anemia, and MARQUES. #Respiratory Failure: likely 2/2 severe sepsis due to bilateral pneumonia in combination with anemia -patient saturating at 100% on non-rebreather, she desatted when non-rebreather was removed -continue treatment with zosyn 2.25gm IV -pulmonology Dr. Cleaning consult appreciated #Severe Anemia: hgb was 3.6 on admission, improved, patient is a known chronic anemic -patient is s/p 2 U PRBCs, after which hgb improved to 6.5 and then 6.4 several hours later -although hemoglobin improved appropriately to treatment, patient would need another unit PRBCs -order 1 unit PRBCs -recheck Hgb in AM -Patient's portable grinding machine operator, Dr. Liyah Nieto ([phone]) was contacted to discuss etiology of anemia. Patient is a long-time patient of hers, but hasn't seen her in a long time in person, but rather has phone call conversations. Patient had previous workup done by Dr. Spencer Miles at [facility], who diagnosed her with alpha thalassemia trait, folate, B12, and iron deficiencies. She was getting Venofer infusions in the past. Dr. Nieto reports no other known causes, and stated that the patient's baseline Hgb is 9 and she has had several nosebleeds likely associated with high blood pressure. #Troponinemia: likely demand -repeat troponinsat 3pm #Acute Kidney Injury: likely pre-renal in origin - improving -fractional excretion of urea 19%, represents prerenal in origin #Hyponatremia: resolved #Metabolic Acidosis: likely 2/2 lactic acidosis -fluids and blood #FEN Diabetic/sodium diet Replete lytes in AM can use fluids to assist in MARQUES #Prophylaxis: SCDs #Disposition: Continue to monitor on med surg Visit type - Emergency Visit Emergency Visit: Yes ED Registration Date: 10/15/17 Care time: The patient presented to the Emergency Department on the above date and was hospitalized for further evaluation of their emergent condition. - New Patient This patient is new to me today: Yes Date on this admission: 10/16/17 - Critical Care Critical Care patient: No
--- NOTE | 2017-10-16 17:48 | PN ---
Progress Note, Physician History of Present Illness: Dyspnea and cough slowly improving. - Current Medication List Current Medications: Active Medications Acetaminophen (Tylenol -) 650 mg PO Q4H PRN PRN Reason: PAIN Last Admin: 10/16/17 15:50 Dose: 650 mg Amitriptyline HCl (Elavil -) 25 mg PO HS [facility] Last Admin: 10/15/17 22:25 Dose: 25 mg Amlodipine Besylate (Norvasc -) 5 mg PO DAILY [facility] Last Admin: 10/16/17 11:40 Dose: 5 mg Sodium Chloride (Normal Saline -) 1,000 mls @ 83 mls/hr IV ASDIR [facility] Last Admin: 10/16/17 11:35 Dose: 83 mls/hr Piperacillin/Tazobactam/Dextrose (Zosyn 2.25gm Ivpb (Premix)) 2.25 gm in 50 mls @ 100 mls/hr IVPB Q6H-IV [facility] Last Admin: 10/16/17 15:05 Dose: Not Given Insulin Aspart (Novolog Vial Sliding Scale -) 1 vial SQ TIDAC [facility] PRN Reason: Protocol Last Admin: 10/16/17 12:55 Dose: 2 units - Objective Vital Signs: Vital Signs Temperature 99.3 F 10/16/17 17:00 Pulse Rate 80 10/16/17 17:00 Respiratory Rate 22 10/16/17 17:00 Blood Pressure 154/72 10/16/17 17:00 O2 Sat by Pulse Oximetry (%) 95 10/16/17 17:00 Constitutional: Yes: No Distress, Calm Neck: Yes: Supple Cardiovascular: Yes: Regular Rate and Rhythm Respiratory: Yes: Regular, Diminished, On Venti-Mask Gastrointestinal: Yes: Normal Bowel Sounds, Soft Edema: No Labs: CBC, BMP 10/16/17 06:05 10/16/17 06:05 INR, PTT INR 1.28 (0.82-1.09) H 10/16/17 06:05 Fibrinogen 486.0 mg/dL (238-498) 10/15/17 08:10 - ....Imaging Chest X-ray: Report Reviewed (Improved congestion and bibasilar infiltrates, RUL consolidation) Cat Scan: Report Reviewed (Chest CT: Bilateral upper and lower lobe consolidation) EKG: Report Reviewed (SR @ 89 PAC, mod criterial for LVH) Problem List - Problems (1) Acute renal failure superimposed on chronic kidney disease Code(s): N17.9 - ACUTE KIDNEY FAILURE, UNSPECIFIED; N18.9 - CHRONIC KIDNEY DISEASE, UNSPECIFIED Qualifiers: Chronic kidney disease stage: unspecified stage (2) Anemia Code(s): D64.9 - ANEMIA, UNSPECIFIED Qualifiers: Anemia type: unspecified type Qualified Code(s): D64.9 - Anemia, unspecified (3) CHF (congestive heart failure) Code(s): I50.9 - HEART FAILURE, UNSPECIFIED Qualifiers: Congestive heart failure type: unspecified Congestive heart failure chronicity: unspecified Qualified Code(s): I50.9 - Heart failure, unspecified (4) Demand ischemia Code(s): I24.8 - OTHER FORMS OF ACUTE ISCHEMIC HEART DISEASE (5) Diabetes mellitus Code(s): E11.9 - TYPE 2 DIABETES MELLITUS WITHOUT COMPLICATIONS Qualifiers: Diabetes mellitus type: type 2 Diabetes mellitus complication status: without complication Diabetes mellitus moth exterminator insulin use: without alf use Qualified Code(s): E11.9 - Type 2 diabetes mellitus without complications (6) Hypertension Code(s): I10 - ESSENTIAL (PRIMARY) HYPERTENSION Qualifiers: Hypertension type: essential hypertension Qualified Code(s): I10 - Essential (primary) hypertension (7) Leukocytosis Code(s): D72.829 - ELEVATED WHITE BLOOD CELL COUNT, UNSPECIFIED Qualifiers: Leukocytosis type: unspecified Qualified Code(s): D72.829 - Elevated white blood cell count, unspecified (8) Thrombocytosis Code(s): D47.3 - ESSENTIAL (HEMORRHAGIC) THROMBOCYTHEMIA (9) Pneumonia Code(s): J18.9 - PNEUMONIA, UNSPECIFIED ORGANISM Qualifiers: Laterality: bilateral Lung location: upper lobe of lung (10) Diastolic dysfunction Code(s): I51.9 - HEART DISEASE, UNSPECIFIED Assessment/Plan 10/15/2017 Echo: Normal biventricular size and fxn, mild LAE, mild MR, mild pulm HTN RVSP 30-40 mmHg 1. Severe symptomatic anemia/leukocytosis/thrombocytosis improving, etiology to be determined 2. Acute hypoxic respiratory failure referable to multilobar pneumonia and sepsis currently on ventimask 3. Elevated troponin - demand ischemia 4. Hypertension/HCVD 5. Diastolic dysfunction 6. Diabetes mellitus 7. Acute on CKD (pre-renal) 8. Lactic acidosis improved PLAN: 1. BD, O2 to keep SpO2 >90% 2. Hematology input noted. Transfuse as per Hematology service. 3. Empiric antibiotics per ID. Sepsis work up ongoing 4. Judicious hydration with monitor renal recovery 5. Norvasc 5 qd 6. Trend troponin to document peak, mechanical DVT prophylaxis
[2017-10-16] MEDS ORDERED: ENOXAPARIN NA (PORCINE) 30 MG/0.3 ML DISP.SYRIN SQ SCH (18:15)
[2017-10-16 18:33] LABS: HEMATOCRIT 24.4 % (32.4-45.2); HEMOGLOBIN 7.7 GM/dL (10.7-15.3); MCH 24.5 pg (25.7-33.7); MCHC 31.5 g/dl (32.0-36.0); MEAN CELL VOLUME 77.7 fl (80-96); MEAN PLT VOLUME 8.2 fl (7.5-11.1); PLATELET COUNT 914 K/MM3 (134-434); RBC 3.14 M/mm3 (3.60-5.2); RDW 20.2 % (11.6-15.6); WHITE BLOOD COUNT 27.9 K/mm3 (4.0-10.0)
[2017-10-16] MEDS: CARVEDILOL 25 MG TABLET (FP) PO SCH (18:56)
[2017-10-16] MEDS: AMITRIPTYLINE HCL 25 MG TABLET (FP) PO SCH ×2 (21:45→21:57)
[2017-10-17] MEDS: PIPERACILLIN/TAZOB 2.25 GM 2.25 GM/50 ML BAG IVPB SCH ×2 (03:21→09:30)
[2017-10-17] MEDS: SODIUM CHLORIDE 1,000 ML IV SCH ×3 (03:30→18:28)
[2017-10-17 07:28] LABS: HEMATOCRIT 23.5 % (32.4-45.2); HEMOGLOBIN 7.3 GM/dL (10.7-15.3); MCH 24.2 pg (25.7-33.7); MCHC 31.1 g/dl (32.0-36.0); MEAN CELL VOLUME 77.7 fl (80-96); MEAN PLT VOLUME 8.1 fl (7.5-11.1); PLATELET COUNT 782 K/MM3 (134-434); RBC 3.02 M/mm3 (3.60-5.2); RDW 20.2 % (11.6-15.6); WHITE BLOOD COUNT 24.2 K/mm3 (4.0-10.0)
[2017-10-17] MEDS: INSULIN SLIDING SCALE (NOVOLOG) 1 VIAL SQ SCH ×3 (07:38→17:13)
[2017-10-17 08:42] LABS: ANION GAP 12 (8-16); BLOOD UREA NITROGEN 25 mg/dL (7-18); CALCIUM 7.8 mg/dL (8.5-10.1); CHLORIDE 102 mmol/L (98-107); CO2 26 mmol/L (21-32); GLUCOSE,RANDOM 107 mg/dL (74-106); POTASSIUM 3.6 mmol/L (3.5-5.1); SODIUM 140 mmol/L (136-145)
[2017-10-17 08:50] LABS: CREATININE 1.5 mg/dL (0.55-1.02)
[2017-10-17] MEDS ORDERED: PT OWN MED DRAWER 7, Y5N ONE (09:16)
[2017-10-17] MEDS: amLODIPine BESYLATE 5 MG TABLET (FP) PO SCH (09:30)
--- NOTE | 2017-10-17 09:36 | PN ---
Progress Note (short form) - Note Progress Note: pt seen and examined. Pt much improved, now on NC. She feels better she says. had no BM yet. +cough ( non productive ) No other sx reported/ All consults noted/chart reviewed in detail O/E: General: NAD, on NC. HEENT: NCAT Bilateral breast/axilla: Could not appreciate any mass Cor: RRR Lung: CTAb/l Abd: distended , BS+. LE: No edema Last Vital Signs Temp Pulse Resp BP Pulse Ox 98.6 F 92 H 20 158/85 97 10/17/17 05:00 10/17/17 05:00 10/17/17 05:00 10/17/17 05:00 10/16/17 20:51 CBC, BMP 10/17/17 05:23 10/17/17 05:23 Current Medications Generic Name Dose Route Start Last Admin Trade Name Freq PRN Reason Stop Dose Admin Acetaminophen 650 mg 10/15/17 09:04 10/16/17 15:50 Tylenol - PO 650 mg Q4H PRN Administration PAIN Amitriptyline HCl 25 mg 10/15/17 22:00 10/16/17 21:57 Elavil - PO Not Given HS [facility] Amlodipine Besylate 5 mg 10/16/17 11:15 10/17/17 09:30 Norvasc - PO 5 mg DAILY [facility] Administration Sodium Chloride 1,000 mls @ 83 mls/hr 10/16/17 11:00 10/17/17 03:30 Normal Saline - IV 83 mls/hr ASDIR [facility] Administration Piperacillin/Tazobactam/Dextrose 2.25 gm in 50 mls @ 100 mls/hr 10/16/17 11: 30 10/17/17 09:30 Zosyn 2.25gm Ivpb (Premix) IVPB 100 mls/hr Q6H-IV [facility] Administration Piperacillin Sod/Tazobactam 100 mls @ 200 mls/hr 10/17/17 21:30 Sod 2.25 gm/ Dextrose IVPB Q6H-IV [facility] Insulin Aspart 1 vial 10/15/17 11:00 10/17/17 07:38 Novolog Vial Sliding Scale - SQ Not Given TIDAC [facility] Protocol Severe anemia/Thrombocytosis/Mild Leucocytosis. multifocal PNA, as per CT Incidental note of axillary LAD in CT chest h/o Gastric ulcers MARQUES Hyperuricemia high LDH -improving/stable -for heme parameters: a reactive process alone (myrtle in the setting of small spleen) or in combination with a primary hematological process along with reactive process (eg: infection) is not certain at this point -await all the molecular and spl tests that has been done ( will take time for the results ) -GI f/u reviewed -await VWD panel - abx per ID and w/u per ID -Biopsy (of the image finding of LAD) at some point either IP/OP,need to inform her PMD ( Dr.Radhika Gibbs) -renal fn stable -f/u Hapto -if less suspicion of bleed, to consider DVT ppx -Await today's LDH/Uric acid ?allopurinol -will follow Problem List - Problems (1) Anemia Code(s): D64.9 - ANEMIA, UNSPECIFIED Qualifiers: Anemia type: unspecified type Qualified Code(s): D64.9 - Anemia, unspecified (2) Leukocytosis Code(s): D72.829 - ELEVATED WHITE BLOOD CELL COUNT, UNSPECIFIED Qualifiers: Leukocytosis type: unspecified Qualified Code(s): D72.829 - Elevated white blood cell count, unspecified (3) Thrombocytosis Code(s): D47.3 - ESSENTIAL (HEMORRHAGIC) THROMBOCYTHEMIA (4) CHF (congestive heart failure) Code(s): I50.9 - HEART FAILURE, UNSPECIFIED Qualifiers: Congestive heart failure type: unspecified Congestive heart failure chronicity: unspecified Qualified Code(s): I50.9 - Heart failure, unspecified
--- NOTE | 2017-10-17 11:09 | PN ---
Progress Note, Physician Chief Complaint: Events noted Feels better History of Present Illness: Patient was seen and examined. Awake and alert. Chart was reviewed Denies chest pain, less SOB and no palpitations this am Complains of cough Sinus tachycardia with elevated BP - Current Medication List Current Medications: Active Medications Acetaminophen (Tylenol -) 650 mg PO Q4H PRN PRN Reason: PAIN Last Admin: 10/16/17 15:50 Dose: 650 mg Amitriptyline HCl (Elavil -) 25 mg PO HS [facility] Last Admin: 10/16/17 21:57 Dose: Not Given Amlodipine Besylate (Norvasc -) 5 mg PO DAILY [facility] Last Admin: 10/17/17 09:30 Dose: 5 mg Sodium Chloride (Normal Saline -) 1,000 mls @ 83 mls/hr IV ASDIR [facility] Last Admin: 10/17/17 03:30 Dose: 83 mls/hr Piperacillin Sod/Tazobactam (Sod 2.25 gm/ Dextrose) 100 mls @ 200 mls/hr IVPB Q6H-IV [facility] Insulin Aspart (Novolog Vial Sliding Scale -) 1 vial SQ TIDAC [facility] PRN Reason: Protocol Last Admin: 10/17/17 07:38 Dose: Not Given - Objective Vital Signs: Vital Signs Temperature 98.2 F 10/17/17 09:00 Pulse Rate 110 H 10/17/17 09:00 Respiratory Rate 18 10/17/17 09:00 Blood Pressure 164/84 10/17/17 09:00 O2 Sat by Pulse Oximetry (%) 94 L 10/17/17 08:00 Constitutional: Yes: Well Nourished Eyes: Yes: PERRL HENT: Yes: Atraumatic Neck: Yes: Supple Cardiovascular: Yes: Regular Rate and Rhythm, Tachycardia, Murmur (Soft SM), S1 , S2 Respiratory: Yes: Diminished Gastrointestinal: Yes: Normal Bowel Sounds, Soft. No: Tenderness Edema: No Additional Findings/Remarks: - Review of Systems Constitutional: denies: Chills, Fever Cardiovascular: reports: Shortness of Breath. denies: Chest Pain, Palpitations Respiratory: reports: SOB, SOB on Exertion. (+) Cough, denies: Hemoptysis, PND Gastrointestinal: denies: Vomiting. denies: Abdominal Pain, Constipation, Diarrhea, Melena, Nausea, Rectal Bleeding Genitourinary: denies: Dysuria, Hematuria Musculoskeletal: denies: Back Pain, Joint Pain Neurological: reports: Weakness. denies: Dizziness, Headache, Seizure, Syncope Labs: CBC, BMP 10/17/17 05:23 10/17/17 05:23 INR, PTT INR 1.28 (0.82-1.09) H 10/16/17 06:05 Fibrinogen 486.0 mg/dL (238-498) 10/15/17 08:10 Problem List - Problems (1) Demand ischemia Code(s): I24.8 - OTHER FORMS OF ACUTE ISCHEMIC HEART DISEASE (2) Diabetes mellitus Code(s): E11.9 - TYPE 2 DIABETES MELLITUS WITHOUT COMPLICATIONS Qualifiers: Diabetes mellitus type: type 2 Diabetes mellitus complication status: without complication Diabetes mellitus custodial insulin use: without watermelon inspector use Qualified Code(s): E11.9 - Type 2 diabetes mellitus without complications (3) Hypertension Code(s): I10 - ESSENTIAL (PRIMARY) HYPERTENSION Qualifiers: Hypertension type: essential hypertension Qualified Code(s): I10 - Essential (primary) hypertension (4) Acute renal failure superimposed on chronic kidney disease Code(s): N17.9 - ACUTE KIDNEY FAILURE, UNSPECIFIED; N18.9 - CHRONIC KIDNEY DISEASE, UNSPECIFIED Qualifiers: Chronic kidney disease stage: unspecified stage (5) Anemia Code(s): D64.9 - ANEMIA, UNSPECIFIED Qualifiers: Anemia type: unspecified type Qualified Code(s): D64.9 - Anemia, unspecified (6) CHF (congestive heart failure) Code(s): I50.9 - HEART FAILURE, UNSPECIFIED Qualifiers: Congestive heart failure type: unspecified Congestive heart failure chronicity: unspecified Qualified Code(s): I50.9 - Heart failure, unspecified (7) Lactic acidosis Code(s): E87.2 - ACIDOSIS (8) Leukocytosis Code(s): D72.829 - ELEVATED WHITE BLOOD CELL COUNT, UNSPECIFIED Qualifiers: Leukocytosis type: unspecified Qualified Code(s): D72.829 - Elevated white blood cell count, unspecified (9) Thrombocytosis Code(s): D47.3 - ESSENTIAL (HEMORRHAGIC) THROMBOCYTHEMIA Assessment/Plan 1. Severe symptomatic anemia/leukocytosis/thrombocytosis, hematologic process - improving 2. Initial presentation suggestive of high output failure with hypoxic respiratory failure - multi-lobar pneumonia and sepsis 3. Elevated troponin - demand ischemia 4. History of hypertension 5. Diabetes mellitus 6. Acute on chronic kidney disease 7. Lactic acidosis - improved PLAN: 1. Follow CBC and Hematology input. 2. Empiric antibiotics. 3. Continue Amlodipine as tolerated 4. Hydration and monitor renal function 5. Continue monitor on telemetry Guarded Jitendra Rowley MD
[2017-10-17 11:10] LABS: LDH 673 U/L (84-246); URIC ACID 9.4 mg/dL (2.6-7.2)
--- NOTE | 2017-10-17 13:24 | PN ---
Progress Note, Physician Chief Complaint: ID Still some SOB couph but not acutely ill Never febrile - Current Medication List Current Medications: Active Medications Acetaminophen (Tylenol -) 650 mg PO Q4H PRN PRN Reason: PAIN Last Admin: 10/16/17 15:50 Dose: 650 mg Amitriptyline HCl (Elavil -) 25 mg PO HS [facility] Last Admin: 10/16/17 21:57 Dose: Not Given Amlodipine Besylate (Norvasc -) 5 mg PO DAILY [facility] Last Admin: 10/17/17 09:30 Dose: 5 mg Sodium Chloride (Normal Saline -) 1,000 mls @ 83 mls/hr IV [facility]IR [facility] Last Admin: 10/17/17 12:13 Dose: Not Given Piperacillin Sod/Tazobactam (Sod 2.25 gm/ Dextrose) 100 mls @ 200 mls/hr IVPB Q6H-IV [facility] Insulin Aspart (Novolog Vial Sliding Scale -) 1 vial SQ TIDAC [facility] PRN Reason: Protocol Last Admin: 10/17/17 11:48 Dose: 2 units - Objective Vital Signs: Vital Signs Temperature 98.2 F 10/17/17 09:00 Pulse Rate 110 H 10/17/17 09:00 Respiratory Rate 18 10/17/17 09:00 Blood Pressure 164/84 10/17/17 09:00 O2 Sat by Pulse Oximetry (%) 94 L 10/17/17 08:00 Constitutional: Yes: No Distress Neck: Yes: WNL, Supple Cardiovascular: Yes: Regular Rate and Rhythm, S1, S2. No: Murmur Respiratory: Yes: WNL, Regular, CTA Bilaterally Gastrointestinal: Yes: WNL, Normal Bowel Sounds, Soft, Distention. No: Tenderness, Tenderness, Epigastrium Labs: CBC, BMP 10/17/17 05:23 10/17/17 05:23 INR, PTT INR 1.28 (0.82-1.09) H 10/16/17 06:05 Fibrinogen 486.0 mg/dL (238-498) 10/15/17 08:10 Assessment/Plan Microbiology 10/15/17 10:31 Urine - Urine Clean Catch Urine Culture - Final NO GROWTH OBTAINED 10/15/17 06:27 Blood - Peripheral Venous Blood Culture - Preliminary NO GROWTH OBTAINED AFTER 48 HOURS, INCUBATION TO CONTINUE FOR 3 DAYS. 02/06/18 06:27 Blood - Peripheral Venous Blood Culture - Preliminary NO GROWTH OBTAINED AFTER 48 HOURS, INCUBATION TO CONTINUE FOR 3 DAYS. Laboratory Tests 10/17/17 10/17/17 05:23 05:23 WBC 24.2 H Hgb 7.3 L Hct 23.5 L Plt Count 782 H BUN 25 H D Creatinine 1.5 H Assessment Suspect myeloproliferative disorder CT chest seen could be pulmonary edema heart failure ( vs PNA) Plan Discussed with pulmonary and hematology Flow cytometry pending Repeat chest xray if Pneumonia better may consider stopping antibiotics ( edema ?) Ry RENO
--- NOTE | 2017-10-17 13:26 | PN ---
Progress Note (short form) - Note Progress Note: PULMONARY Marked clinical improvement. No fevers recorded. Minimal nonproductive cough. No fevers or chills. Last Vital Signs Temp Pulse Resp BP Pulse Ox 98.2 F 110 H 18 164/84 94 L 10/17/17 09:00 10/17/17 09:00 10/17/17 09:00 10/17/17 09:00 10/17/17 08:00 Intake & Output 10/14/17 10/15/17 10/16/17 10/17/17 23:59 23:59 23:59 23:59 Intake Total 733 821 Output Total 1700 3200 1350 Balance -1700 -2467 -529 Weight 63.503 kg 68.719 kg Gen: less tachypneic Heart: RRR Lung: decreased breath sounds at the bases Abd: soft, nontender Ext: no edema CBC, BMP 10/17/17 05:23 10/17/17 05:23 Active Medications Acetaminophen (Tylenol -) 650 mg PO Q4H PRN PRN Reason: PAIN Last Admin: 10/16/17 15:50 Dose: 650 mg Amitriptyline HCl (Elavil -) 25 mg PO HS [facility] Last Admin: 10/16/17 21:57 Dose: Not Given Amlodipine Besylate (Norvasc -) 5 mg PO DAILY [facility] Last Admin: 10/17/17 09:30 Dose: 5 mg Sodium Chloride (Normal Saline -) 1,000 mls @ 83 mls/hr IV ASDIR [facility] Last Admin: 10/17/17 12:13 Dose: Not Given Piperacillin Sod/Tazobactam (Sod 2.25 gm/ Dextrose) 100 mls @ 200 mls/hr IVPB Q6H-IV [facility] Insulin Aspart (Novolog Vial Sliding Scale -) 1 vial SQ TIDAC [facility] PRN Reason: Protocol Last Admin: 10/17/17 11:48 Dose: 2 units A/P Acute Hypoxic Respiratory Failure Severe Anemia s/p PRBC Transfusions r/o Myeloproliferative Disorder r/o Pneumonia Sepsis r/o ARDS Lactic Acidosis +Troponins likely Demand Ischemia HTN DM CKD - continue empiric antibiotics - f/u cultures - initial CT chest findings may be related to acute pulmonary edema from high output failure - will repeat CXR in AM, if marked improvement can consider stopping antibiotics if cultures negative - inhaled bronchodilators - monitor H/H - transfuse as needed - heme f/u - O2 to keep SpO2 >90% - DVT prophylaxis
[2017-10-17] MEDS: PIPERACILLIN/TAZOB 2.25 GM 2.25 GM in DEXTROSE 5%-WATER - 100 ML IVPB SCH ×2 (14:27→21:30)
[2017-10-17] MEDS: ACETAMINOPHEN 325 MG TABLET (FP) PO PRN (14:34)
--- NOTE | 2017-10-17 16:11 | PN ---
Teaching Attending Note Name of Resident: Sharif Gimenez ATTENDING PHYSICIAN STATEMENT I saw and evaluated the patient. I reviewed the resident's note and discussed the case with the resident. I agree with the resident's findings and plan as documented. SUBJECTIVE: No fever or chills. feels much better. SOB has improved refused 2 doses of zosyn last night OBJECTIVE: NAD. has NC on EOMI. CV: RRR, 3/6 SM at LUSB and LLSB with 2/6 SM at apex. JVD Lungs: b/l fine crackles on both lung haynes . Ext: no edema , or erythema Breast exam : no masses in breasts , possible muscular density felt in lower part of both breasts. 1 cm soft, nontender , mobile lymph node is felt in R axilla and 0.5 CM Lymph node ( mobile , non tender , and soft ) in L axilla ASSESSMENT AND PLAN: 67 y/o lady with h/o chronic microcytic anemia, CKD 3, DM II, HTN, and other medical problems who presented with SOB and chest discomofrt x 10 days . She was found to have severe sepsis, hyponatremia, MARQUES, metabolic acidosis, and severe anemia 1- Suspicion for Severe sepsis : from b/l PNA. - cont zosyn - sputum cx if able to - follow blood cx - Urine legionella/ pneumococcal neg - mycoplasma igM pending - D/W Dr. Cleaning , cont Abx empirically . question of Pulm edema , but her O2 requirement improved even with IVF. still can be pulm congestion as it is b/l and central - repeat Cxray in am 2-Severe microcytic anemia :her pulverizer Dr. Payne was contacted and paperwork was obtained. she has h/o alpha Thalassemia , iron def a, folat and B12 def. - monitor Hb . transfuse for Hb < 7 - although LDh is elevated , but hapto is elevated and bili is NL, does nto fit with hemolysis - repeat OB - no premature cells on smear - has h/o gastric ulcers per her pulverizer, will need EGD to r/o GI bleed - follow Heme studies - Primay BM disorder myrtle with leukocytosis 3- MARQUES: prerenal azotemia. - cont gentle hydration 4- metabolic acidosis form lactic acidosis . due to severe sepsis and hypoxia, resolved 5- demand ischemia: due to sepsis. -Trop trended down 6-HTN:cont norvasc 7- mild Rhabdo : IVF SCDs, hold heparin until EGD is done Dispo : [facility]
--- NOTE | 2017-10-17 16:18 | PN ---
Physical Exam: SUBJECTIVE: Patient seen and examined at bedside. Nurse informed me that patient refused 2 previous doses of zosyn because it "caused her to cough and have worsened respiratory symptoms". Patient overnight also needed bipap because she was desaturating on non-rebreather. Currently patient is seen breathing on bipap. She is awake and alert and in no distress. She denies shortness of breath, chest pain, nausea, vomiting, or diarrhea. She endorses a cough productive of white sputum that has improved since yesterday. She also has not yet had a bowel movement, and she states that she frequently passes gas when moving positions. OBJECTIVE: Vital Signs Period Temp Pulse Resp BP Sys/Rahman Pulse Ox Last 24 Hr 98.2 F-99.4 F 80-110 18-22 148-165/72-85 94-97 GENERAL: The patient is awake, alert, and fully oriented, in no acute distress. breathing on bipap when examined NECK: Trachea midline, full range of motion, supple. no JVD noted on exam LUNGS: Breath sounds equal, clear to auscultation bilaterally, improved lung exam, decreased crackles HEART: Regular rate and rhythm, systolic murmur 2/6 noted on exam, S1, S2 without murmur, rub or gallop. ABDOMEN: distended and tympanitic, nontender, bowel sounds present but diminished, no guarding, no rebound, no hepatosplenomegaly, no masses. EXTREMITIES: 2+ pulses, warm, well-perfused, no edema. NEUROLOGICAL: Cranial nerves II through XII grossly intact. Normal speech, gait not observed. PSYCH: Normal mood, normal affect. : Mcallister removed this morning and patient spontaneously voided SKIN: Warm, dry, normal turgor, no rashes or lesions noted Laboratory Results - last 24 hr 10/15/17 10/16/17 10/16/17 08:10 10:00 18:00 WBC RBC Hgb Hct MCV MCH MCHC RDW Plt Count MPV Haptoglobin 250 H Methemoglobin 2.0 H Sodium Potassium Chloride Carbon Dioxide Anion Gap BUN Creatinine POC Glucometer Random Glucose Uric Acid Calcium Ferritin LD Total Creatine Kinase 1759 H Creatine Kinase Index 0.4 CK-MB (CK-2) 7.462 H Troponin I 0.57 H 10/16/17 10/16/17 10/16/17 18:00 18:00 18:53 WBC 27.9 H RBC 3.14 L D Hgb 7.7 L D Hct 24.4 L D MCV 77.7 L MCH 24.5 L MCHC 31.5 L RDW 20.2 H Plt Count 914 H MPV 8.2 Haptoglobin Methemoglobin Sodium Potassium Chloride Carbon Dioxide Anion Gap BUN Creatinine POC Glucometer 175 Random Glucose Uric Acid Calcium Ferritin LD Total Creatine Kinase Creatine Kinase Index CK-MB (CK-2) Troponin I 0.58 H 10/17/17 10/17/17 10/17/17 05:23 05:23 05:23 WBC 24.2 H RBC 3.02 L Hgb 7.3 L Hct 23.5 L MCV 77.7 L MCH 24.2 L MCHC 31.1 L RDW 20.2 H Plt Count 782 H MPV 8.1 Haptoglobin Methemoglobin Sodium 140 Potassium 3.6 Chloride 102 Carbon Dioxide 26 Anion Gap 12 BUN 25 H D Creatinine 1.5 H POC Glucometer Random Glucose 107 H Uric Acid 9.4 H D Calcium 7.8 L Ferritin 28.304 LD Total 673 H Creatine Kinase 1158 H Creatine Kinase Index 0.2 CK-MB (CK-2) 3.278 Troponin I 0.36 H 10/17/17 10/17/17 10/17/17 05:23 05:50 11:47 WBC RBC Hgb Hct MCV MCH MCHC RDW Plt Count MPV Haptoglobin Methemoglobin Sodium Potassium Chloride Carbon Dioxide Anion Gap BUN Creatinine POC Glucometer 141 160 Random Glucose Uric Acid Cancelled Calcium Ferritin LD Total Cancelled Creatine Kinase Creatine Kinase Index CK-MB (CK-2) Troponin I Active Medications Generic Name Dose Route Start Last Admin Trade Name Freq PRN Reason Stop Dose Admin Acetaminophen 650 mg 10/15/17 09:04 10/17/17 14:34 Tylenol - PO 650 mg Q4H PRN Administration PAIN Amitriptyline HCl 25 mg 10/15/17 22:00 10/16/17 21:57 Elavil - PO Not Given HS HARPREET Amlodipine Besylate 5 mg 10/16/17 11:15 10/17/17 09:30 Norvasc - PO 5 mg DAILY HARPREET Administration Sodium Chloride 1,000 mls @ 83 mls/hr 10/16/17 11:00 10/17/17 12:13 Normal Saline - IV Not Given ASDIR HARPREET Piperacillin Sod/Tazobactam 100 mls @ 200 mls/hr 10/17/17 15:00 10/17/17 14: 27 Sod 2.25 gm/ Dextrose IVPB 200 mls/hr Q6H-IV HARPREET Administration Insulin Aspart 1 vial 10/15/17 11:00 10/17/17 11:48 Novolog Vial Sliding Scale - SQ 2 units TIDAC HARPREET Administration Protocol ASSESSMENT/PLAN: This is a 67 year old female with a past medical history of chronic anemia, DM, HTN, MARQUES is admitted to the hospital for the treatment of respiratory failure, sepsis, anemia, and MARQUES. #Respiratory Failure: likely 2/2 severe sepsis due to bilateral pneumonia in combination with anemia -patient was breathing on bipap in the morning saturating at 100%, later bipap was removed and patient was saturating on nasal cannula 5L -continue treatment with zosyn 2.25gm IV - encourage taking the medication to assist with the pneumonia -pulmonology Dr. Cleaning consult appreciated - could also be related to pulmonary edema from acute high-output failure -repeat CXR in AM -appreciate ID reccs and Cards reccs #Severe Anemia: stable - Hgb 7.3 today -patient is s/p 2 U PRBCs this hospital admission -recheck CBC in AM -Patient's enroller, Dr. Liyah Nieto ([phone]) was contacted to discuss etiology of anemia. Patient is a long-time patient of hers, but hasn't seen her in a long time in person, but rather has phone call conversations. Patient had previous workup done by Dr. Spencer Miles at [facility], who diagnosed her with alpha thalassemia trait, folate, B12, and iron deficiencies. She was getting Venofer infusions in the past. Dr. Nieto reports no other known causes, and stated that the patient's baseline Hgb is 9 and she has had several nosebleeds likely associated with high blood pressure. -appreciate heme reccs #Troponinemia: likely demand, resolved -trops peaked, no longer need to trend #Acute Kidney Injury: likely pre-renal in origin - improving, Cre 1.5 today -fractional excretion of urea 19% on admission, represents prerenal in origin -continuing to improve, monitor BMP in AM #Hyponatremia: resolved #Metabolic Acidosis: likely 2/2 lactic acidosis -IV NS @ 83cc/hr #FEN Diabetic/sodium diet Replete lytes in AM IV NS @ 83c/hr #Prophylaxis: SCDs #Disposition: Continue to monitor on med surg Visit type - Emergency Visit Emergency Visit: No - New Patient This patient is new to me today: No - Critical Care Critical Care patient: No
--- NOTE | 2017-10-17 16:50 | PN ---
Progress Note, Physician Chief Complaint: The patient seen in her room. On Bipap. Comfortable. Reviewed notes of other physicians. No chest pain. History of Present Illness: 67 year old woman with PMhx of CKD (baseline Cr 2.1), Hypertension, DM (not on meds), Chronic anemia who presented with complaints of sob and found to have severe anemia, metabolic acidosis and MARQUES with Cr of 2.7. - Current Medication List Current Medications: Active Medications Acetaminophen (Tylenol -) 650 mg PO Q4H PRN PRN Reason: PAIN Last Admin: 10/17/17 14:34 Dose: 650 mg Amitriptyline HCl (Elavil -) 25 mg PO HS HARPREET Last Admin: 10/16/17 21:57 Dose: Not Given Amlodipine Besylate (Norvasc -) 5 mg PO DAILY [facility] Last Admin: 10/17/17 09:30 Dose: 5 mg Sodium Chloride (Normal Saline -) 1,000 mls @ 83 mls/hr IV ASDIR [facility] Last Admin: 10/17/17 12:13 Dose: Not Given Piperacillin Sod/Tazobactam (Sod 2.25 gm/ Dextrose) 100 mls @ 200 mls/hr IVPB Q6H-IV HARPREET Last Admin: 10/17/17 14:27 Dose: 200 mls/hr Insulin Aspart (Novolog Vial Sliding Scale -) 1 vial SQ TIDAC HARPREET PRN Reason: Protocol Last Admin: 10/17/17 11:48 Dose: 2 units - Objective Vital Signs: Vital Signs Temperature 99.4 F 10/17/17 14:00 Pulse Rate 97 H 10/17/17 14:00 Respiratory Rate 18 10/17/17 09:00 Blood Pressure 148/79 10/17/17 14:00 O2 Sat by Pulse Oximetry (%) 94 L 10/17/17 08:00 Constitutional: Yes: Anxious, Pallor Eyes: Yes: Conjunctiva Clear HENT: Yes: Normocephalic Neck: Yes: Trachea Midline Cardiovascular: Yes: S1, S2 Respiratory: Yes: Regular, CTA Bilaterally, Cough, Diminished, Rhonchi Gastrointestinal: Yes: Normal Bowel Sounds, Soft Genitourinary: No: CVA Tenderness - Left, CVA Tenderness - Right Labs: CBC, BMP 10/17/17 05:23 10/17/17 05:23 INR, PTT INR 1.28 (0.82-1.09) H 10/16/17 06:05 Fibrinogen 486.0 mg/dL (238-498) 10/15/17 08:10 Problem List - Problems (1) Chronic kidney disease Code(s): N18.9 - CHRONIC KIDNEY DISEASE, UNSPECIFIED (2) Acute renal failure superimposed on chronic kidney disease Code(s): N17.9 - ACUTE KIDNEY FAILURE, UNSPECIFIED; N18.9 - CHRONIC KIDNEY DISEASE, UNSPECIFIED Qualifiers: Chronic kidney disease stage: unspecified stage (3) Anemia Code(s): D64.9 - ANEMIA, UNSPECIFIED Qualifiers: Anemia type: unspecified type Qualified Code(s): D64.9 - Anemia, unspecified (4) CHF (congestive heart failure) Code(s): I50.9 - HEART FAILURE, UNSPECIFIED Qualifiers: Congestive heart failure type: unspecified Congestive heart failure chronicity: unspecified Qualified Code(s): I50.9 - Heart failure, unspecified (5) Diabetes mellitus Code(s): E11.9 - TYPE 2 DIABETES MELLITUS WITHOUT COMPLICATIONS Qualifiers: Diabetes mellitus type: type 2 Diabetes mellitus complication status: without complication Diabetes mellitus fdc insulin use: without laborer marine terminal use Qualified Code(s): E11.9 - Type 2 diabetes mellitus without complications (6) Hypertension Code(s): I10 - ESSENTIAL (PRIMARY) HYPERTENSION Qualifiers: Hypertension type: essential hypertension Qualified Code(s): I10 - Essential (primary) hypertension Assessment/Plan 67 year old woman with PMhx of CKD (baseline Cr 2.1), Hypertension, DM (not on meds), Chronic anemia who presented with complaints of sob and found to have severe anemia, metabolic acidosis and MARQUES with Cr of 2.7. Anion gap metabolic acidosis. Resolved Vital signs stable. Severe anemia... continue PRBC transfusion as needed. Hematolgy services following. Hyperuricemia..improved. No objection to starting low dose allopurinol if needed. Acute on Chronic Renal insufficiency urine studies consistent with pre-renal azotemia renal function improving toward baseline s/p transfusions continue volume resuscitation with IVF and PRBC as needed Chest congestion on CXR findings now more consistent with infectious process. Abx as per ID Thank you. Will follow with you. Mary Oviedo MD
[2017-10-17] MEDS ORDERED: SODIUM PHOSPHATE/NA BIPHOS 133 ML ENEMA PR ONE (19:15)
[2017-10-17] MEDS: AMITRIPTYLINE HCL 25 MG TABLET (FP) PO SCH (21:30)
[2017-10-18] MEDS ORDERED: ADENOSINE 6 MG/2 ML VIAL IVPUSH ONE (01:54)
--- NOTE | 2017-10-18 02:14 | HOSP ---
Subjective - Review of Symptoms Events since last encounter: RN called that patient is having a HR of 150. Patient seen and examined. Patient reports palpitations. Denies chest pain, sob, dizziness, lightheadedness , nausea, vomiting, Denies numbness or weakness in any part of body. Denies blood in stool. BP 154/77 VT 155 Spo3 96% on 3 L nasal canula. Patient awake alert oriented. CVS_ tachycardia, s1s2 normal Lungs: b/l air entry present, mild crackles b/l, no wheeze. EKG strips from monitor reviewed ECHO from 10/15/17 reviewed New EKG shows SVT Plan Adenosine 6mg IV TSH, cbc, cmp, mg, phos, trop i stat cardiology follow up after adenosine changed to sinus rhythm, HR decreased to 110. Patient feels much better. Discussed Dr. Moeller. Physical Examination Vital Signs: Vital Signs Temperature 98.9 F 10/17/17 17:00 Pulse Rate 62 10/17/17 17:00 Respiratory Rate 20 10/17/17 17:00 Blood Pressure 153/84 10/17/17 17:00 O2 Sat by Pulse Oximetry (%) 94 L 10/17/17 08:00 Labs: CBC, BMP 10/17/17 05:23 10/17/17 05:23 Visit type - Emergency Visit Emergency Visit: Yes ED Registration Date: 10/15/17 Care time: The patient presented to the Emergency Department on the above date and was hospitalized for further evaluation of their emergent condition. - New Patient This patient is new to me today: Yes Date on this admission: 10/18/17 - Critical Care Critical Care patient: No
[2017-10-18] MEDS: PIPERACILLIN/TAZOB 2.25 GM 2.25 GM in DEXTROSE 5%-WATER - 100 ML IVPB SCH ×4 (02:22→22:27)
[2017-10-18 03:12] LABS: BASO % 0.2 % (0-2.0); EOS % 0.9 % (0-4.5); HEMATOCRIT 26.1 % (32.4-45.2); LYMPH % 6.6 % (8-40); MCH 24.3 pg (25.7-33.7); MCHC 30.8 g/dl (32.0-36.0); MEAN CELL VOLUME 78.9 fl (80-96); MEAN PLT VOLUME 8.5 fl (7.5-11.1); MONO % 4.1 % (3.8-10.2); NEUT % 88.2 % (42.8-82.8); PLATELET COUNT 781 K/MM3 (134-434); RDW 20.3 % (11.6-15.6); WHITE BLOOD COUNT 20.4 K/mm3 (4.0-10.0)
[2017-10-18 03:45] LABS: ALBUMIN 2.6 g/dl (3.4-5.0); ANION GAP 13 (8-16); BILIRUBIN,TOTAL 0.5 mg/dL (0.2-1.0); BLOOD UREA NITROGEN 18 mg/dL (7-18); CALCIUM 7.9 mg/dL (8.5-10.1); CHLORIDE 103 mmol/L (98-107); CO2 23 mmol/L (21-32); CREATININE 1.3 mg/dL (0.55-1.02); GLUCOSE,RANDOM 124 mg/dL (74-106); MAGNESIUM 2.4 mg/dL (1.8-2.4); PHOSPHOROUS 2.6 mg/dL (2.5-4.9); POTASSIUM 3.4 mmol/L (3.5-5.1); SGOT/AST 131 U/L (15-37); SGPT/ALT 224 U/L (12-78); SODIUM 139 mmol/L (136-145); TOT PROT 6.8 g/dl (6.4-8.2)
[2017-10-18 03:54] LABS: ALK PHOS 158 U/L (45-117)
[2017-10-18] MEDS ORDERED: POTASSIUM CHLORIDE ORAL LIQUID 20 MEQ/15 ML PO ONE (04:02)
[2017-10-18] MEDS: SODIUM CHLORIDE 1,000 ML IV SCH ×2 (04:29→11:40)
[2017-10-18 06:06] LABS: VON WILL RISTOCETIN CO-FACTOR 258 % (50-200)
[2017-10-18] MEDS: INSULIN SLIDING SCALE (NOVOLOG) 1 VIAL SQ SCH ×3 (06:06→16:50)
[2017-10-18 07:47] LABS: CHLORIDE 106 mmol/L (98-107); POTASSIUM 4.5 mmol/L (3.5-5.1); SODIUM 139 mmol/L (136-145)
[2017-10-18 08:01] LABS: ALBUMIN 2.4 g/dl (3.4-5.0); ALK PHOS 147 U/L (45-117); ANION GAP 9 (8-16); BILIRUBIN,TOTAL 0.6 mg/dL (0.2-1.0); BLOOD UREA NITROGEN 16 mg/dL (7-18); CALCIUM 8.1 mg/dL (8.5-10.1); CO2 24 mmol/L (21-32); CREATININE 1.3 mg/dL (0.55-1.02); GLUCOSE,RANDOM 113 mg/dL (74-106); LDH 450 U/L (84-246); MAGNESIUM 2.3 mg/dL (1.8-2.4); PHOSPHOROUS 3.1 mg/dL (2.5-4.9); SGOT/AST 106 U/L (15-37); SGPT/ALT 194 U/L (12-78); TOT PROT 6.1 g/dl (6.4-8.2); URIC ACID 5.3 mg/dL (2.6-7.2)
[2017-10-18 08:07] LABS: SERUM IRON SATURATION 4 % (15-55); TOTAL IRON BINDING CAPACITY 365 ug/dL (250-450); UIBC 350 ug/dL (118-369)
[2017-10-18 08:26] LABS: HEMATOCRIT 25.4 % (32.4-45.2); HEMOGLOBIN 7.6 GM/dL (10.7-15.3); MEAN CELL VOLUME 79.8 fl (80-96); MEAN PLT VOLUME 8.1 fl (7.5-11.1); PLATELET COUNT 756 K/MM3 (134-434); RBC 3.18 M/mm3 (3.60-5.2); WHITE BLOOD COUNT 19.8 K/mm3 (4.0-10.0)
--- NOTE | 2017-10-18 09:05 | PN ---
Progress Note, Physician History of Present Illness: Clinically much better. on NC O2. No events to suggest ongoing GI bleeding - Current Medication List Current Medications: Active Medications Acetaminophen (Tylenol -) 650 mg PO Q4H PRN PRN Reason: PAIN Amitriptyline HCl (Elavil -) 25 mg PO HS HARPREET Amlodipine Besylate (Norvasc -) 5 mg PO DAILY [facility] Piperacillin Sod/Tazobactam (Sod 2.25 gm/ Dextrose) 100 mls @ 200 mls/hr IVPB Q6H-IV HARPREET Last Admin: 10/18/17 02:22 Dose: 200 mls/hr Sodium Chloride (Normal Saline -) 1,000 mls @ 83 mls/hr IV ASDIR HARPREET Last Admin: 10/18/17 04:29 Dose: Not Given Insulin Aspart (Novolog Vial Sliding Scale -) 1 vial SQ TIDAC HARPREET PRN Reason: Protocol Last Admin: 10/18/17 06:06 Dose: Not Given - Objective Vital Signs: Vital Signs Temperature 98 F 10/18/17 08:01 Pulse Rate 92 H 10/18/17 08:01 Respiratory Rate 20 10/18/17 08:01 Blood Pressure 142/62 10/18/17 08:01 O2 Sat by Pulse Oximetry (%) 97 10/17/17 21:00 Constitutional: Yes: Well Nourished, No Distress, Calm Eyes: Yes: Conjunctiva Clear HENT: Yes: Atraumatic Neck: Yes: Supple Cardiovascular: Yes: Regular Rate and Rhythm Respiratory: Yes: Regular Gastrointestinal: Yes: Soft. No: Melena, Rectal Bleeding, Tenderness, Vomiting Neurological: Yes: Alert, Oriented Labs: CBC, BMP 10/18/17 06:20 10/18/17 06:20 INR, PTT INR 1.28 (0.82-1.09) H 10/16/17 06:05 Fibrinogen 486.0 mg/dL (238-498) 10/15/17 08:10 CBCD WBC 19.8 K/mm3 (4.0-10.0) H 10/18/17 06:20 RBC 3.18 M/mm3 (3.60-5.2) L 10/18/17 06:20 Hgb 7.6 GM/dL (10.7-15.3) L 10/18/17 06:20 Hct 25.4 % (32.4-45.2) L 10/18/17 06:20 MCV 79.8 fl (80-96) L 10/18/17 06:20 MCHC 30.0 g/dl (32.0-36.0) L 10/18/17 06:20 RDW 20.0 % (11.6-15.6) H 10/18/17 06:20 Plt Count 756 K/MM3 (134-434) H 10/18/17 06:20 MPV 8.1 fl (7.5-11.1) 10/18/17 06:20 CMP Sodium 139 mmol/L (136-145) 10/18/17 06:20 Potassium 4.5 mmol/L (3.5-5.1) 10/18/17 06:20 Chloride 106 mmol/L (98-107) 10/18/17 06:20 Carbon Dioxide 24 mmol/L (21-32) 10/18/17 06:20 Anion Gap 9 (8-16) 10/18/17 06:20 BUN 16 mg/dL (7-18) 10/18/17 06:20 Creatinine 1.3 mg/dL (0.55-1.02) H 10/18/17 06:20 Creat Clearance w eGFR 40.73 (>60) 10/18/17 06:20 Calcium 8.1 mg/dL (8.5-10.1) L 10/18/17 06:20 Total Bilirubin 0.6 mg/dL (0.2-1.0) 10/18/17 06:20 AST 106 U/L (15-37) H 10/18/17 06:20 ALT 194 U/L (12-78) H 10/18/17 06:20 Alkaline Phosphatase 147 U/L (45-117) H 10/18/17 06:20 Total Protein 6.1 g/dl (6.4-8.2) L 10/18/17 06:20 Albumin 2.4 g/dl (3.4-5.0) L 10/18/17 06:20 Problem List - Problems (1) Iron deficiency anemia due to chronic blood loss Code(s): D50.0 - IRON DEFICIENCY ANEMIA SECONDARY TO BLOOD LOSS (CHRONIC) (2) Iron deficiency anemia Code(s): D50.9 - IRON DEFICIENCY ANEMIA, UNSPECIFIED (3) Abnormal abdominal exam Code(s): R19.8 - OTH SYMPTOMS AND SIGNS INVOLVING THE DGSTV SYS AND ABDOMEN (4) Acute renal failure superimposed on chronic kidney disease Code(s): N17.9 - ACUTE KIDNEY FAILURE, UNSPECIFIED; N18.9 - CHRONIC KIDNEY DISEASE, UNSPECIFIED Qualifiers: Chronic kidney disease stage: unspecified stage (5) CHF (congestive heart failure) Code(s): I50.9 - HEART FAILURE, UNSPECIFIED Qualifiers: Congestive heart failure type: unspecified Congestive heart failure chronicity: unspecified Qualified Code(s): I50.9 - Heart failure, unspecified (6) Diabetes mellitus Code(s): E11.9 - TYPE 2 DIABETES MELLITUS WITHOUT COMPLICATIONS Qualifiers: Diabetes mellitus type: type 2 Diabetes mellitus complication status: without complication Diabetes mellitus buttermaker helper insulin use: without shelter use Qualified Code(s): E11.9 - Type 2 diabetes mellitus without complications (7) Hyponatremia Code(s): E87.1 - HYPO-OSMOLALITY AND HYPONATREMIA (8) Iron deficiency anemia Code(s): D50.9 - IRON DEFICIENCY ANEMIA, UNSPECIFIED (9) Lactic acidosis Code(s): E87.2 - ACIDOSIS (10) Leukocytosis Code(s): D72.829 - ELEVATED WHITE BLOOD CELL COUNT, UNSPECIFIED Qualifiers: Leukocytosis type: unspecified Qualified Code(s): D72.829 - Elevated white blood cell count, unspecified (11) Thrombocytosis Code(s): D47.3 - ESSENTIAL (HEMORRHAGIC) THROMBOCYTHEMIA Assessment/Plan As discussed with the patient, will plan endoscopic work up for iron deficiency anemia early next week if continues to improve from respiratory stand point. PPI po qam and close monitoring for signs of acute GI bleeding.
--- NOTE | 2017-10-18 09:42 | PATH ---
Surgical Pathology Report Patient Name: JOLIE PRAKASH [facility]. Rec. #: [id number] /Age/Gender: 1950 (Age: 67) / F Account: [id number] Location: [address] [place] [address] Taken: 10/16/2017 Received: 10/16/2017 Reported: 10/18/2017 Physicians: Jo Reynoso M.D. Specimen(s) Received PERIPHERAL BLOOD 2 GREEN TOPS Clinical History New onset thrombocytosis Final Diagnosis COMPREHENSIVE FL[facility] [place] ([id number]) shows the following: INTERPRETATION: In the sample analyzed, there is no evidence of B or T cell proliferative disorders or increase in blasts. Comment: Correlation with the results of molecular studies (BCR/ABL1,JAK2, MPL,CALR) is essential in order to assess for peripheral blood involvement by a myeloproliferative process. See [facility] report for additional details ([id number]). Electronically Signed Viki Hernandez M.D. Addendum Reported: 10/22/2017 Addendum Diagnosis JAK2 ([id number]) MUTATION ANALYSIS BY PCR [facility] [place] ([id number]) shows the following: RESULTS: Only the wild-type JAK2 sequence was detected. INTERPRETATION: Negative for JAK2 (V617F) Mutation. See [facility] report ([id number]) for additional details. BCR-ABL GENE REARRANGEMENT (IS) ANALYSIS performed and interpreted at [place], [place] ([id number]) shows the following: RESULTS: NEGATIVE BCR/ABL Major breakpoints (b2a2 and b3a2): Not Detected BCR/ABL Minor breakpoint (e1a2): Not Detected INTERPRETATION: No BCR-ABL translocation was detected in this sample. See [facility] report ([id number]) for additional details. Viki Hernandez M.D. Gross Description Received are 2 lavender top tubes of peripheral blood which are sent to [facility]. /10/16/2017 saudi10/16/2017
[2017-10-18] MEDS ORDERED: amLODIPine BESYLATE 5 MG TABLET (FP) PO SCH (10:00)
--- NOTE | 2017-10-18 10:28 | PN ---
Progress Note, Physician History of Present Illness: Episode of PSVT 150s overnight which broke with Adenosine 6 mg IV. Had BM for first time in 5 days with relief of bloating. Dyspnea improving. - Current Medication List Current Medications: Active Medications Acetaminophen (Tylenol -) 650 mg PO Q4H PRN PRN Reason: PAIN Amitriptyline HCl (Elavil -) 25 mg PO HS HARPREET Amlodipine Besylate (Norvasc -) 5 mg PO DAILY [facility] Piperacillin Sod/Tazobactam (Sod 2.25 gm/ Dextrose) 100 mls @ 200 mls/hr IVPB Q6H-IV HARPREET Last Admin: 10/18/17 02:22 Dose: 200 mls/hr Sodium Chloride (Normal Saline -) 1,000 mls @ 83 mls/hr IV ASDIR [facility] Last Admin: 10/18/17 04:29 Dose: Not Given Insulin Aspart (Novolog Vial Sliding Scale -) 1 vial SQ TIDAC HARPREET PRN Reason: Protocol Last Admin: 10/18/17 06:06 Dose: Not Given Pantoprazole Sodium (Protonix -) 40 mg PO DAILY [facility] - Objective Vital Signs: Vital Signs Temperature 98 F 10/18/17 08:01 Pulse Rate 92 H 10/18/17 08:01 Respiratory Rate 20 10/18/17 08:01 Blood Pressure 142/62 10/18/17 08:01 O2 Sat by Pulse Oximetry (%) 98 10/18/17 08:00 Constitutional: Yes: No Distress, Calm Neck: Yes: Supple Cardiovascular: Yes: Regular Rate and Rhythm Respiratory: Yes: Regular, Diminished, On Nasal O2 Gastrointestinal: Yes: Soft, Hypoactive Bowel Sounds Edema: No Labs: CBC, BMP 10/18/17 06:20 10/18/17 06:20 INR, PTT INR 1.28 (0.82-1.09) H 10/16/17 06:05 Fibrinogen 486.0 mg/dL (238-498) 10/15/17 08:10 - ....Imaging Chest X-ray: Report Reviewed (Slight improvement) EKG: Report Reviewed (PSVT @ 156 Tele: PSVT->SR) Problem List - Problems (1) Acute renal failure superimposed on chronic kidney disease Code(s): N17.9 - ACUTE KIDNEY FAILURE, UNSPECIFIED; N18.9 - CHRONIC KIDNEY DISEASE, UNSPECIFIED Qualifiers: Chronic kidney disease stage: unspecified stage (2) Anemia Code(s): D64.9 - ANEMIA, UNSPECIFIED Qualifiers: Anemia type: unspecified type Qualified Code(s): D64.9 - Anemia, unspecified (3) CHF (congestive heart failure) Code(s): I50.9 - HEART FAILURE, UNSPECIFIED Qualifiers: Congestive heart failure type: unspecified Congestive heart failure chronicity: unspecified Qualified Code(s): I50.9 - Heart failure, unspecified (4) Demand ischemia Code(s): I24.8 - OTHER FORMS OF ACUTE ISCHEMIC HEART DISEASE (5) Diabetes mellitus Code(s): E11.9 - TYPE 2 DIABETES MELLITUS WITHOUT COMPLICATIONS Qualifiers: Diabetes mellitus type: type 2 Diabetes mellitus complication status: without complication Diabetes mellitus intermediate insulin use: without logging engineer use Qualified Code(s): E11.9 - Type 2 diabetes mellitus without complications (6) Hypertension Code(s): I10 - ESSENTIAL (PRIMARY) HYPERTENSION Qualifiers: Hypertension type: essential hypertension Qualified Code(s): I10 - Essential (primary) hypertension (7) Leukocytosis Code(s): D72.829 - ELEVATED WHITE BLOOD CELL COUNT, UNSPECIFIED Qualifiers: Leukocytosis type: unspecified Qualified Code(s): D72.829 - Elevated white blood cell count, unspecified (8) Thrombocytosis Code(s): D47.3 - ESSENTIAL (HEMORRHAGIC) THROMBOCYTHEMIA (9) Pneumonia Code(s): J18.9 - PNEUMONIA, UNSPECIFIED ORGANISM Qualifiers: Laterality: bilateral Lung location: upper lobe of lung (10) Diastolic dysfunction Code(s): I51.9 - HEART DISEASE, UNSPECIFIED (11) Paroxysmal supraventricular tachycardia Code(s): I47.1 - SUPRAVENTRICULAR TACHYCARDIA (12) Abnormal LFTs Code(s): R94.5 - ABNORMAL RESULTS OF LIVER FUNCTION STUDIES Assessment/Plan 10/15/2017 Echo: Normal biventricular size and fxn, mild LAE, mild MR, mild pulm HTN RVSP 30-40 mmHg 1. Paroxysmal supraventricular tachycardia-> NSR post adenosine 2. Severe symptomatic anemia/leukocytosis/thrombocytosis improving, r/o Myeloproliferative Disorder 3. Acute hypoxic respiratory failure referable to multilobar pneumonia and sepsis improving 4. Elevated troponin - demand ischemia 5. Hypertension/HCVD 6. Diastolic dysfunction 7. Diabetes mellitus 8. Acute on CKD (pre-renal) 9. Abnormal LFTs PLAN: 1. BD, O2 to keep SpO2 >90% 2. Hematology input noted. Transfuse as per Hematology service. 3. Empiric antibiotics per ID, f/u C&S 4. Judicious hydration with monitor renal recovery 5. Change Norvasc 5 qd to Toprol XL 25 qd 6. Troponins have peaked, trend LFTs, mechanical DVT prophylaxis 7. Consideration for EP study and RF ablation as outpatient 8. Endoscopy planned early next week for evaluation of anemia per GI input, f/u CXR
[2017-10-18] MEDS: PANTOPRAZOLE 40 MG TABLET (FP) PO SCH (10:34)
--- NOTE | 2017-10-18 10:53 | PN ---
Progress Note (short form) - Note Progress Note: pt seen and examined. continues to improved well. chart reviewed in detail, consult notes reviewed CBC improving New abn LFTs LDH/UA improving appreciate renal O/E: General: NAD, on NC. HEENT: NCAT Cor: RRR Lung: CTAb/l Abd: distended , BS+. LE: No edema Last Vital Signs Temp Pulse Resp BP Pulse Ox 98 F 92 H 20 142/62 98 10/18/17 08:01 10/18/17 08:01 10/18/17 08:01 10/18/17 08:01 10/18/17 08:00 CBC, BMP 10/18/17 06:20 10/18/17 06:20 Current Medications Generic Name Dose Route Start Last Admin Trade Name Freq PRN Reason Stop Dose Admin Acetaminophen 650 mg 10/18/17 00:17 Tylenol - PO Q4H PRN PAIN Amitriptyline HCl 25 mg 10/18/17 22:00 Elavil - PO HS [facility] Piperacillin Sod/Tazobactam 100 mls @ 200 mls/hr 10/17/17 15:00 10/18/17 02: 22 Sod 2.25 gm/ Dextrose IVPB 200 mls/hr Q6H-IV [facility] Administration Sodium Chloride 1,000 mls @ 83 mls/hr 10/18/17 00:17 10/18/17 04:29 Normal Saline - IV Not Given ASDIR [facility] Insulin Aspart 1 vial 10/18/17 07:00 10/18/17 06:06 Novolog Vial Sliding Scale - SQ Not Given TIDAC [facility] Protocol Metoprolol Succinate 25 mg 10/18/17 10:45 Toprol Xl - PO DAILY [facility] Pantoprazole Sodium 40 mg 10/18/17 06:00 10/18/17 10:34 Protonix - PO 40 mg DAILY [facility] Administration Severe anemia/Thrombocytosis/Mild Leucocytosis. multifocal PNA, as per CT Incidental note of axillary LAD in CT chest h/o Gastric ulcers MARQUES abn LFts ( new ) LDH/Uric acid down trended -flow negative, await molecular studies to rule in MPN -abx duration per ID, f/u repeat CXR -will hold off on allopurinol, parameters improved, daily LDH/Uric acid -axillary LAD biopsy IP/OP -LFTs ?med ,nl on admission, continue to monitor Problem List - Problems (1) Anemia Code(s): D64.9 - ANEMIA, UNSPECIFIED Qualifiers: Anemia type: unspecified type Qualified Code(s): D64.9 - Anemia, unspecified (2) Leukocytosis Code(s): D72.829 - ELEVATED WHITE BLOOD CELL COUNT, UNSPECIFIED Qualifiers: Leukocytosis type: unspecified Qualified Code(s): D72.829 - Elevated white blood cell count, unspecified (3) Thrombocytosis Code(s): D47.3 - ESSENTIAL (HEMORRHAGIC) THROMBOCYTHEMIA (4) CHF (congestive heart failure) Code(s): I50.9 - HEART FAILURE, UNSPECIFIED Qualifiers: Congestive heart failure type: unspecified Congestive heart failure chronicity: unspecified Qualified Code(s): I50.9 - Heart failure, unspecified
--- NOTE | 2017-10-18 11:03 | PN ---
Progress Note (short form) - Note Progress Note: alert +BM today on nasal canulla episode palpitations overnight-svt responded to adenosine +BM dry cough on her way to repeat cxray Vital Signs Period Temp Pulse Resp BP Sys/Rahman Pulse Ox Last 24 Hr 98 F-99.4 F 62-158 16-20 142-163/62-93 97-98 cor-rrr lungs decreased bs upper back abd firm, nt ext no edema CBC, BMP 10/18/17 06:20 10/18/17 06:20 cxray- multifocal infiltrates-predominantly RUL ct scans- right axillary lymph node multifocal pneumonia head ct- no cva Microbiology 10/15/17 06:27 Blood - Peripheral Venous Blood Culture - Preliminary NO GROWTH OBTAINED AFTER 72 HOURS, INCUBATION TO CONTINUE FOR 2 DAYS. 10/15/17 06:27 Blood - Peripheral Venous Blood Culture - Preliminary NO GROWTH OBTAINED AFTER 72 HOURS, INCUBATION TO CONTINUE FOR 2 DAYS. 10/16/17 12:56 Serum Mycoplasma Antibody - Preliminary 10/15/17 10:31 Urine - Urine Clean Catch Urine Culture - Final NO GROWTH OBTAINED 10/15/17 12:22 Urine For Antigen Detection Legionella Antigen - Final 10/15/17 12:22 Urine For Antigen Detection Streptococcus pneumoniae Antigen (M - Final 10/15/17 13:30 Nasopharyngeal Swab Influenza Types A,B Antigen (PRICE) - Final 10/15/17 13:30 Nasopharyngeal Swab - Final a/p chest imaging c/w pneumonia- - ?aspiration- she had vomited numerous times at home-?atypical CHF- f/u cxray today- continue zosyn severe anemia with leukocytosis and thrombocytosis- s/p transfusion- high haptoglobin argues against hemolysis right axillary adenopathy- ?biopsy mario/ckd-improved abnl lfts, elevated cpk- ?partially due to elevated CPK, shock liver recovering? , appear to be trending down, will repeat cpk in am Problem List - Problems (1) Anemia Code(s): D64.9 - ANEMIA, UNSPECIFIED Qualifiers: Anemia type: unspecified type Qualified Code(s): D64.9 - Anemia, unspecified (2) Lactic acidosis Code(s): E87.2 - ACIDOSIS (3) Thrombocytosis Code(s): D47.3 - ESSENTIAL (HEMORRHAGIC) THROMBOCYTHEMIA (4) Leukocytosis Code(s): D72.829 - ELEVATED WHITE BLOOD CELL COUNT, UNSPECIFIED Qualifiers: Leukocytosis type: unspecified Qualified Code(s): D72.829 - Elevated white blood cell count, unspecified (5) Acute renal failure superimposed on chronic kidney disease Code(s): N17.9 - ACUTE KIDNEY FAILURE, UNSPECIFIED; N18.9 - CHRONIC KIDNEY DISEASE, UNSPECIFIED Qualifiers: Chronic kidney disease stage: unspecified stage
[2017-10-18] MEDS: metoPROLOL SUCCINATE 25 MG TAB.SR.24H (FP) PO SCH (11:40)
--- NOTE | 2017-10-18 13:12 | PN ---
Progress Note (short form) - Note Progress Note: Renal follow up for MARQUES on CKD and metabolic acidosis Pt seen and examined the bedside awake and alert on NC O2 has episode of SVT last night no sob, chest pain, abd pain, N/V making urine Vital Signs Temperature 98 F 10/18/17 08:01 Pulse Rate 92 H 10/18/17 08:01 Respiratory Rate 20 10/18/17 08:01 Blood Pressure 142/62 10/18/17 08:01 O2 Sat by Pulse Oximetry (%) 98 10/18/17 08:00 Intake & Output 10/15/17 10/16/17 10/17/17 10/18/17 23:59 23:59 23:59 23:59 Intake Total 733 3148 240 Output Total 1700 3200 1350 Balance -1700 -2467 1798 240 Weight 63.503 kg 68.719 kg 70.307 kg NAD Dec BS at lung bases trace LE edema CBC, BMP 10/18/17 06:20 10/18/17 06:20 Current Medications Acetaminophen (Tylenol -) 650 mg PO Q4H PRN PRN Reason: PAIN Amitriptyline HCl (Elavil -) 25 mg PO HS [facility] Piperacillin Sod/Tazobactam (Sod 2.25 gm/ Dextrose) 100 mls @ 200 mls/hr IVPB Q6H-IV [facility] Last Admin: 10/18/17 11:36 Dose: 200 mls/hr Sodium Chloride (Normal Saline -) 1,000 mls @ 83 mls/hr IV ASDIR [facility] Last Admin: 10/18/17 11:40 Dose: 83 mls/hr Insulin Aspart (Novolog Vial Sliding Scale -) 1 vial SQ TIDAC [facility] PRN Reason: Protocol Last Admin: 10/18/17 11:36 Dose: Not Given Metoprolol Succinate (Toprol Xl -) 25 mg PO DAILY [facility] Last Admin: 10/18/17 11:40 Dose: 25 mg Pantoprazole Sodium (Protonix -) 40 mg PO DAILY [facility] Last Admin: 10/18/17 10:34 Dose: 40 mg 67 year old woman with PMhx of CKD (baseline Cr 2.1), Hypertension, DM (not on meds), Chronic anemia who presented with complaints of sob and found to have severe anemia, metabolic acidosis and MARQUES with Cr of 2.7. #Anion gap metabolic acidosis acidosis is now resolved, LA and serum Bicarb are WNL #Acute on Chronic Renal insufficiency Renal function now improved to better then pt reported baseline can d/c IVF as pt is tolerating oral diet and has good fluid intake trend BUN/Cr and electrolytes #Severe Anemia Hgb is improved Heme following #Chest congestion on CXR Continue Abx as per ID holding IVF Will follow Tc Reed DO
--- NOTE | 2017-10-18 13:41 | PN ---
Progress Note, Physician History of Present Illness: PULMONARY ALERT,FEELING BETTER,SOB IMPROVING.-CP,LESS COUGH + CLEAR SPUTUM. - Current Medication List Current Medications: Active Medications Acetaminophen (Tylenol -) 650 mg PO Q4H PRN PRN Reason: PAIN Amitriptyline HCl (Elavil -) 25 mg PO HS [facility] Piperacillin Sod/Tazobactam (Sod 2.25 gm/ Dextrose) 100 mls @ 200 mls/hr IVPB Q6H-IV [facility] Last Admin: 10/18/17 11:36 Dose: 200 mls/hr Insulin Aspart (Novolog Vial Sliding Scale -) 1 vial SQ TIDAC [facility] PRN Reason: Protocol Last Admin: 10/18/17 11:36 Dose: Not Given Metoprolol Succinate (Toprol Xl -) 25 mg PO DAILY [facility] Last Admin: 10/18/17 11:40 Dose: 25 mg Pantoprazole Sodium (Protonix -) 40 mg PO DAILY [facility] Last Admin: 10/18/17 10:34 Dose: 40 mg - Objective Vital Signs: Vital Signs Temperature 98 F 10/18/17 08:01 Pulse Rate 92 H 10/18/17 08:01 Respiratory Rate 20 10/18/17 08:01 Blood Pressure 142/62 10/18/17 08:01 O2 Sat by Pulse Oximetry (%) 98 10/18/17 08:00 Constitutional: Yes: Well Nourished, Calm Eyes: Yes: WNL HENT: Yes: WNL Neck: Yes: WNL Cardiovascular: Yes: Regular Rate and Rhythm, S1, S2 Respiratory: Yes: CTA Bilaterally (CRACKLES MEHDI), Rales Gastrointestinal: Yes: Normal Bowel Sounds, Soft Extremities: Yes: WNL Edema: Yes Edema: LLE: Trace, RLE: Trace Labs: CBC, BMP 10/18/17 06:20 10/18/17 06:20 INR, PTT INR 1.28 (0.82-1.09) H 10/16/17 06:05 Fibrinogen 486.0 mg/dL (238-498) 10/15/17 08:10 - ....Imaging Chest X-ray: Report Reviewed, Image Reviewed Problem List - Problems (1) Acute hypoxemic respiratory failure Code(s): J96.01 - ACUTE RESPIRATORY FAILURE WITH HYPOXIA (2) Anemia Code(s): D64.9 - ANEMIA, UNSPECIFIED Qualifiers: Anemia type: unspecified type Qualified Code(s): D64.9 - Anemia, unspecified (3) CHF (congestive heart failure) Code(s): I50.9 - HEART FAILURE, UNSPECIFIED Qualifiers: Congestive heart failure type: unspecified Congestive heart failure chronicity: unspecified Qualified Code(s): I50.9 - Heart failure, unspecified (4) Chronic kidney disease Code(s): N18.9 - CHRONIC KIDNEY DISEASE, UNSPECIFIED (5) Demand ischemia Code(s): I24.8 - OTHER FORMS OF ACUTE ISCHEMIC HEART DISEASE (6) Diabetes mellitus Code(s): E11.9 - TYPE 2 DIABETES MELLITUS WITHOUT COMPLICATIONS Qualifiers: Diabetes mellitus type: type 2 Diabetes mellitus complication status: without complication Diabetes mellitus snf insulin use: without termite control representative use Qualified Code(s): E11.9 - Type 2 diabetes mellitus without complications (7) Lactic acidosis Code(s): E87.2 - ACIDOSIS (8) Pneumonia Code(s): J18.9 - PNEUMONIA, UNSPECIFIED ORGANISM Qualifiers: Laterality: bilateral Lung location: upper lobe of lung Assessment/Plan A/P Acute Hypoxic Respiratory Failure IMPROVING Severe Anemia s/p PRBC Transfusions r/o Myeloproliferative Disorder Pneumonia clinically improving Sepsis Lactic Acidosis +Troponins likely Demand Ischemia HTN DM CKD - antibiotics - inhaled bronchodilators - monitor H/H - transfuse as needed - O2 to keep SpO2 >90% - DVT prophylaxis DR JOY
[2017-10-18 13:57] LABS: VON WILLEBRAND ANTIGEN 476 % (50-200)
--- NOTE | 2017-10-18 14:10 | PN ---
Physical Exam: SUBJECTIVE: Patient seen and examined at bedside. Patient states that she feels improved and is able to breathe off of bipap. States that she had a bowel movement. denies chest pain, SOB, nausea, vomiting, diarrhea. OBJECTIVE: Vital Signs Period Temp Pulse Resp BP Sys/Rahman Pulse Ox Last 24 Hr 98 F-98.9 F 62-158 16-20 142-163/62-93 97-98 GENERAL: The patient is awake, alert, and fully oriented, in no acute distress. breathing on bipap when examined NECK: Trachea midline, full range of motion, supple. no JVD noted on exam LUNGS: Breath sounds equal, clear to auscultation bilaterally, improved lung exam, decreased crackles HEART: Regular rate and rhythm, systolic murmur 2/6 noted on exam, S1, S2 without murmur, rub or gallop. ABDOMEN: soft and nontender, bowel sounds present but diminished, no guarding, no rebound, no hepatosplenomegaly, no masses. EXTREMITIES: 2+ pulses, warm, well-perfused, no edema. NEUROLOGICAL: Cranial nerves II through XII grossly intact. Normal speech, gait not observed. PSYCH: Normal mood, normal affect. : patient is spontaneously voiding SKIN: Warm, dry, normal turgor, no rashes or lesions noted Laboratory Results - last 24 hr 10/15/17 10/16/17 10/16/17 06:27 06:05 06:05 WBC RBC Hgb Hct MCV MCH MCHC RDW Plt Count MPV Neutrophils % Lymphocytes % Monocytes % Eosinophils % Basophils % von Willebrand Antigen 476 H vWF Ristocetin Cofactr 258 H Sodium Potassium Chloride Carbon Dioxide Anion Gap BUN Creatinine Creat Clearance w eGFR POC Glucometer Random Glucose Lactic Acid Uric Acid Calcium Phosphorus Magnesium Iron TIBC Iron Saturation Total Bilirubin AST ALT Alkaline Phosphatase LD Total Troponin I Total Protein Albumin TSH SHELIA Screen Negative Blood Type B POSITIVE Antibody Screen Negative Crossmatch See Detail 10/17/17 10/17/17 10/18/17 05:23 17:12 03:00 WBC RBC Hgb Hct MCV MCH MCHC RDW Plt Count MPV Neutrophils % Lymphocytes % Monocytes % Eosinophils % Basophils % von Willebrand Antigen vWF Ristocetin Cofactr Sodium 139 Potassium 3.4 L Chloride 103 Carbon Dioxide 23 Anion Gap 13 BUN 18 Creatinine 1.3 H Creat Clearance w eGFR 40.73 POC Glucometer 153 Random Glucose 124 H Lactic Acid Uric Acid Calcium 7.9 L Phosphorus 2.6 Magnesium 2.4 Iron 15 L TIBC 365 Iron Saturation 4 L Total Bilirubin 0.5 AST 131 H ALT 224 H Alkaline Phosphatase 158 H LD Total Troponin I 0.20 H Total Protein 6.8 Albumin 2.6 L TSH 1.89 SHELIA Screen Blood Type Antibody Screen Crossmatch 10/18/17 10/18/17 10/18/17 03:00 03:30 05:57 WBC 20.4 H RBC 3.30 L Hgb 8.0 L Hct 26.1 L MCV 78.9 L MCH 24.3 L MCHC 30.8 L RDW 20.3 H Plt Count 781 H MPV 8.5 Neutrophils % 88.2 H Lymphocytes % 6.6 L Monocytes % 4.1 Eosinophils % 0.9 D Basophils % 0.2 von Willebrand Antigen vWF Ristocetin Cofactr Sodium Potassium Chloride Carbon Dioxide Anion Gap BUN Creatinine Creat Clearance w eGFR POC Glucometer 134 Random Glucose Lactic Acid 1.0 Uric Acid Calcium Phosphorus Magnesium Iron TIBC Iron Saturation Total Bilirubin AST ALT Alkaline Phosphatase LD Total Troponin I Total Protein Albumin TSH SHELIA Screen Blood Type Antibody Screen Crossmatch 10/18/17 10/18/17 10/18/17 06:20 06:20 11:35 WBC 19.8 H RBC 3.18 L Hgb 7.6 L Hct 25.4 L MCV 79.8 L MCH 24.0 L MCHC 30.0 L RDW 20.0 H Plt Count 756 H MPV 8.1 Neutrophils % Lymphocytes % Monocytes % Eosinophils % Basophils % von Willebrand Antigen vWF Ristocetin Cofactr Sodium 139 Potassium 4.5 Chloride 106 Carbon Dioxide 24 Anion Gap 9 BUN 16 Creatinine 1.3 H Creat Clearance w eGFR 40.73 POC Glucometer 150 Random Glucose 113 H Lactic Acid Uric Acid 5.3 D Calcium 8.1 L Phosphorus 3.1 Magnesium 2.3 Iron TIBC Iron Saturation Total Bilirubin 0.6 AST 106 H ALT 194 H Alkaline Phosphatase 147 H LD Total 450 H Troponin I Total Protein 6.1 L Albumin 2.4 L TSH SHELIA Screen Blood Type Antibody Screen Crossmatch Active Medications Generic Name Dose Route Start Last Admin Trade Name Freq PRN Reason Stop Dose Admin Acetaminophen 650 mg 10/18/17 00:17 Tylenol - PO Q4H PRN PAIN Amitriptyline HCl 25 mg 10/18/17 22:00 Elavil - PO HS [facility] Piperacillin Sod/Tazobactam 100 mls @ 200 mls/hr 10/17/17 15:00 10/18/17 11: 36 Sod 2.25 gm/ Dextrose IVPB 200 mls/hr Q6H-IV [facility] Administration Insulin Aspart 1 vial 10/18/17 07:00 10/18/17 11:36 Novolog Vial Sliding Scale - SQ Not Given TIDAC [facility] Protocol Metoprolol Succinate 25 mg 10/18/17 10:45 10/18/17 11:40 Toprol Xl - PO 25 mg DAILY [facility] Administration Pantoprazole Sodium 40 mg 10/18/17 06:00 10/18/17 10:34 Protonix - PO 40 mg DAILY [facility] Administration ASSESSMENT/PLAN: This is a 67 year old female with a past medical history of chronic anemia, DM, HTN, MARQUES is admitted to the hospital for the treatment of respiratory failure, sepsis, anemia, and MARQUES. #Respiratory Failure: likely 2/2 severe sepsis due to bilateral pneumonia -patient is saturating at 100% on 5L NC this morning -continue treatment with zosyn 2.25gm IV -pulm consult appreciated -repeat CXR in AM -appreciate ID reccs and Cards reccs #Severe Anemia: stable -patient is s/p 2 U PRBCs this hospital admission -recheck CBC in AM -Patient's community relations liaison, Dr. Liyah Nieto ([phone]) was contacted to discuss etiology of anemia. Patient is a long-time patient of hers, but hasn't seen her in a long time in person, but rather has phone call conversations. Patient had previous workup done by Dr. Spencer Miles at [facility], who diagnosed her with alpha thalassemia trait, folate, B12, and iron deficiencies. She was getting Venofer infusions in the past. Dr. Nieto reports no other known causes, and stated that the patient's baseline Hgb is 9 and she has had several nosebleeds likely associated with high blood pressure. -appreciate heme reccs #Troponinemia: likely demand, resolved -trops peaked, no longer need to trend #Acute Kidney Injury: improving -fractional excretion of urea 19% on admission, represents prerenal in origin -continuing to improve, monitor BMP in AM #Hyponatremia: resolved #Metabolic Acidosis: likely 2/2 lactic acidosis -resolved #FEN Diabetic/sodium diet Replete lytes in AM Not on standing fluids #Prophylaxis: SCDs #Disposition: Continue to monitor on med surg Visit type - Emergency Visit Emergency Visit: No - New Patient This patient is new to me today: No - Critical Care Critical Care patient: No
--- NOTE | 2017-10-18 14:11 | EKG ---
Test Reason : Blood Pressure : / mmHG Vent. Rate : 156 BPM Atrial Rate : 208 BPM P-R Int : 000 ms QRS Dur : 070 ms QT Int : 290 ms P-R-T Axes : 000 003 109 degrees QTc Int : 467 ms POOR DATA QUALITY, INTERPRETATION MAY BE ADVERSELY AFFECTED SUPRAVENTRICULAR TACHYCARDIA LEFT VENTRICULAR HYPERTROPHY WITH REPOLARIZATION ABNORMALITY CANNOT RULE OUT SEPTAL INFARCT , AGE UNDETERMINED ABNORMAL ECG Confirmed by MARLO INIGUEZ MD ([id number]) on 10/18/2017 2:10:38 PM Referred By: Confirmed By:MARLO INIGUEZ MD
[2017-10-18 17:09] LABS: BASO % 0.4 % (0-2.0); EOS % 1.8 % (0-4.5); HEMATOCRIT 24.9 % (32.4-45.2); HEMOGLOBIN 7.8 GM/dL (10.7-15.3); LYMPH % 9.8 % (8-40); MCH 24.5 pg (25.7-33.7); MCHC 31.3 g/dl (32.0-36.0); MEAN CELL VOLUME 78.4 fl (80-96); MEAN PLT VOLUME 7.9 fl (7.5-11.1); MONO % 5.8 % (3.8-10.2); NEUT % 82.2 % (42.8-82.8); PLATELET COUNT 722 K/MM3 (134-434); RBC 3.17 M/mm3 (3.60-5.2); RDW 20.5 % (11.6-15.6); WHITE BLOOD COUNT 16.4 K/mm3 (4.0-10.0)
--- NOTE | 2017-10-18 19:51 | PN ---
Teaching Attending Note Name of Resident: Sharif Gimenez ATTENDING PHYSICIAN STATEMENT I saw and evaluated the patient. I reviewed the resident's note and discussed the case with the resident. I agree with the resident's findings and plan as documented. SUBJECTIVE: no pain, no OSB , feels better OBJECTIVE: NAD. CV: RRR, 3/6 SM at LUSB and LLSB with 2/6 SM at apex. JVD Lungs: b/l fine crackles on both lung haynes . Ext: no edema , or erythema ASSESSMENT AND PLAN: 67 y/o lady with h/o chronic microcytic anemia, CKD 3, DM II, HTN, and other medical problems who presented with SOB and chest discomofrt x 10 days . She was found to have severe sepsis, hyponatremia, MARQUES, metabolic acidosis, and severe anemia 1- Suspicion for Severe sepsis : from b/l PNA. although cxray is worse , the pt is doing better - cont zosyn - sputum cx pending - follow blood cx - mycoplasma igM pending 2-Severe microcytic anemia : she has h/o alpha Thalassemia , iron def a, folat and B12 def. - monitor Hb . 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 - dc IVF 4- Metabolic acidosis form lactic acidosis . due to severe sepsis and hypoxia, resolved 5- Demand ischemia: due to sepsis. -Trop trended down 6-HTN:cont norvasc 7- b/l LAP in axilla on exam breast exam with no masses , she undertand the need for mammo and lymphp node Bx to r/o breast cancer as out pt 8- LFTs abn: possibly due to Abx . monitor , trended down . if up again can get US SCDs, give sq heparin Dispo : [facility]
[2017-10-18] MEDS: HEPARIN NA (PORCINE) 5,000 UNITS/ML 1ML VIAL SQ SCH (22:27)
[2017-10-18] MEDS: AMITRIPTYLINE HCL 25 MG TABLET (FP) PO SCH (22:43)
[2017-10-19] MEDS ORDERED: PT OWN MED DRAWER 7, Y5N ONE ×2 (00:47→14:52)
[2017-10-19] MEDS: PIPERACILLIN/TAZOB 2.25 GM 2.25 GM in DEXTROSE 5%-WATER - 100 ML IVPB SCH ×4 (02:29→22:18)
[2017-10-19] MEDS: HEPARIN NA (PORCINE) 5,000 UNITS/ML 1ML VIAL SQ SCH ×3 (06:13→22:07)
[2017-10-19] MEDS: INSULIN SLIDING SCALE (NOVOLOG) 1 VIAL SQ SCH ×3 (06:14→17:02)
[2017-10-19 08:43] LABS: CHLORIDE 106 mmol/L (98-107); POTASSIUM 3.9 mmol/L (3.5-5.1); SODIUM 138 mmol/L (136-145)
[2017-10-19 08:51] LABS: BASO % 0.4 % (0-2.0); EOS % 3.9 % (0-4.5); HEMATOCRIT 27.2 % (32.4-45.2); HEMOGLOBIN 8.2 GM/dL (10.7-15.3); LYMPH % 10.7 % (8-40); MCH 23.7 pg (25.7-33.7); MCHC 30.1 g/dl (32.0-36.0); MONO % 5.4 % (3.8-10.2); NEUT % 79.6 % (42.8-82.8); PLATELET COUNT 720 K/MM3 (134-434); RBC 3.45 M/mm3 (3.60-5.2); RDW 21.2 % (11.6-15.6); WHITE BLOOD COUNT 14.9 K/mm3 (4.0-10.0)
[2017-10-19 08:55] LABS: ALBUMIN 2.5 g/dl (3.4-5.0); ALK PHOS 156 U/L (45-117); ANION GAP 8 (8-16); BILIRUBIN,TOTAL 0.2 mg/dL (0.2-1.0); BLOOD UREA NITROGEN 18 mg/dL (7-18); CALCIUM 8.3 mg/dL (8.5-10.1); CO2 24 mmol/L (21-32); CREATININE 1.3 mg/dL (0.55-1.02); GLUCOSE,RANDOM 122 mg/dL (74-106); SGOT/AST 63 U/L (15-37); SGPT/ALT 156 U/L (12-78); TOT PROT 6.4 g/dl (6.4-8.2)
[2017-10-19] MEDS: PANTOPRAZOLE 40 MG TABLET (FP) PO SCH ×2 (09:08→16:01)
[2017-10-19] MEDS: metoPROLOL SUCCINATE 25 MG TAB.SR.24H (FP) PO SCH (09:08)
[2017-10-19] MEDS: ACETAMINOPHEN 325 MG TABLET (FP) PO PRN (09:35)
--- NOTE | 2017-10-19 10:41 | PN ---
Progress Note, Physician History of Present Illness: PULMONARY ALERT,FEELING BETTER,-SOB,-CP,MIN COUGH - Current Medication List Current Medications: Active Medications Acetaminophen (Tylenol -) 650 mg PO Q4H PRN PRN Reason: PAIN Last Admin: 10/19/17 09:35 Dose: 650 mg Amitriptyline HCl (Elavil -) 25 mg PO HS [facility] Last Admin: 10/18/17 22:43 Dose: Not Given Heparin Sodium (Porcine) (Heparin -) 5,000 unit SQ TID [facility] Last Admin: 10/19/17 06:13 Dose: 5,000 unit Piperacillin Sod/Tazobactam (Sod 2.25 gm/ Dextrose) 100 mls @ 200 mls/hr IVPB Q6H-IV [facility] Last Admin: 10/19/17 09:08 Dose: 200 mls/hr Insulin Aspart (Novolog Vial Sliding Scale -) 1 vial SQ TIDAC [facility] PRN Reason: Protocol Last Admin: 10/19/17 06:14 Dose: Not Given Metoprolol Succinate (Toprol Xl -) 25 mg PO DAILY [facility] Last Admin: 10/19/17 09:08 Dose: 25 mg Pantoprazole Sodium (Protonix -) 40 mg PO DAILY [facility] Last Admin: 10/19/17 09:08 Dose: 40 mg - Objective Vital Signs: Vital Signs Temperature 98.5 F 10/19/17 07:29 Pulse Rate 91 H 10/19/17 07:29 Respiratory Rate 20 10/19/17 07:33 Blood Pressure 123/82 10/19/17 07:29 O2 Sat by Pulse Oximetry (%) 99 10/19/17 10:02 Constitutional: Yes: Well Nourished, Calm Eyes: Yes: WNL HENT: Yes: WNL Neck: Yes: WNL Cardiovascular: Yes: Regular Rate and Rhythm, S1, S2 Respiratory: Yes: Rales (FEW CRACKLES) Gastrointestinal: Yes: Normal Bowel Sounds, Soft Extremities: Yes: WNL Edema: No Labs: CBC, BMP 10/19/17 07:55 10/19/17 07:55 INR, PTT INR 1.28 (0.82-1.09) H 10/16/17 06:05 Fibrinogen 486.0 mg/dL (238-498) 10/15/17 08:10 Problem List - Problems (1) Acute hypoxemic respiratory failure Code(s): Neelima96.01 - ACUTE RESPIRATORY FAILURE WITH HYPOXIA (2) Anemia Code(s): D64.9 - ANEMIA, UNSPECIFIED Qualifiers: Anemia type: unspecified type Qualified Code(s): D64.9 - Anemia, unspecified (3) CHF (congestive heart failure) Code(s): I50.9 - HEART FAILURE, UNSPECIFIED Qualifiers: Congestive heart failure type: unspecified Congestive heart failure chronicity: unspecified Qualified Code(s): I50.9 - Heart failure, unspecified (4) Chronic kidney disease Code(s): N18.9 - CHRONIC KIDNEY DISEASE, UNSPECIFIED (5) Demand ischemia Code(s): I24.8 - OTHER FORMS OF ACUTE ISCHEMIC HEART DISEASE (6) Diabetes mellitus Code(s): E11.9 - TYPE 2 DIABETES MELLITUS WITHOUT COMPLICATIONS Qualifiers: Diabetes mellitus type: type 2 Diabetes mellitus complication status: without complication Diabetes mellitus intermediate insulin use: without intermediate use Qualified Code(s): E11.9 - Type 2 diabetes mellitus without complications (7) Lactic acidosis Code(s): E87.2 - ACIDOSIS (8) Pneumonia Code(s): J18.9 - PNEUMONIA, UNSPECIFIED ORGANISM Qualifiers: Laterality: bilateral Lung location: upper lobe of lung Assessment/Plan A/P Acute Hypoxic Respiratory Failure IMPROVING Severe Anemia s/p PRBC Transfusions r/o Myeloproliferative Disorder Pneumonia clinically improving Sepsis Lactic Acidosis +Troponins likely Demand Ischemia HTN DM CKD - antibiotics - inhaled bronchodilators - monitor H/H - transfuse as needed - O2 to keep SpO2 >90% - DVT prophylaxis - chest x-ray am pa +lateral am DR JOY
--- NOTE | 2017-10-19 11:33 | PN ---
Progress Note, Physician Chief Complaint: The patient seen in her room. O2 by nasal cannula in place. Seems comfortable. Denies any chest pains, but still gets occasional shortness of breath. Maintains good urine output. - Current Medication List Current Medications: Active Medications Acetaminophen (Tylenol -) 650 mg PO Q4H PRN PRN Reason: PAIN Last Admin: 10/19/17 09:35 Dose: 650 mg Amitriptyline HCl (Elavil -) 25 mg PO HS [facility] Last Admin: 10/18/17 22:43 Dose: Not Given Heparin Sodium (Porcine) (Heparin -) 5,000 unit SQ TID [facility] Last Admin: 10/19/17 06:13 Dose: 5,000 unit Piperacillin Sod/Tazobactam (Sod 2.25 gm/ Dextrose) 100 mls @ 200 mls/hr IVPB Q6H-IV [facility] Last Admin: 10/19/17 09:08 Dose: 200 mls/hr Insulin Aspart (Novolog Vial Sliding Scale -) 1 vial SQ TIDAC [facility] PRN Reason: Protocol Last Admin: 10/19/17 11:25 Dose: Not Given Metoprolol Succinate (Toprol Xl -) 25 mg PO DAILY [facility] Last Admin: 10/19/17 09:08 Dose: 25 mg Pantoprazole Sodium (Protonix -) 40 mg PO DAILY [facility] Last Admin: 10/19/17 09:08 Dose: 40 mg - Objective Vital Signs: Vital Signs Temperature 98.5 F 10/19/17 07:29 Pulse Rate 91 H 10/19/17 07:29 Respiratory Rate 20 10/19/17 07:33 Blood Pressure 123/82 10/19/17 07:29 O2 Sat by Pulse Oximetry (%) 99 10/19/17 10:02 Constitutional: Yes: Well Nourished, Calm Eyes: Yes: Conjunctiva Clear HENT: Yes: Normocephalic Cardiovascular: Yes: Regular Rate and Rhythm, S1, S2 Respiratory: Yes: Diminished, Rhonchi Gastrointestinal: Yes: Normal Bowel Sounds, Soft Genitourinary: No: Bladder Distention, CVA Tenderness - Left, CVA Tenderness - Right Musculoskeletal: Yes: Joint Stiffness Edema: No Labs: CBC, BMP 10/19/17 07:55 10/19/17 07:55 INR, PTT INR 1.28 (0.82-1.09) H 10/16/17 06:05 Fibrinogen 486.0 mg/dL (238-498) 10/15/17 08:10 Problem List - Problems (1) Chronic kidney disease Code(s): N18.9 - CHRONIC KIDNEY DISEASE, UNSPECIFIED (2) Acute renal failure superimposed on chronic kidney disease Code(s): N17.9 - ACUTE KIDNEY FAILURE, UNSPECIFIED; N18.9 - CHRONIC KIDNEY DISEASE, UNSPECIFIED Qualifiers: Chronic kidney disease stage: unspecified stage (3) Anemia Code(s): D64.9 - ANEMIA, UNSPECIFIED Qualifiers: Anemia type: unspecified type Qualified Code(s): D64.9 - Anemia, unspecified (4) CHF (congestive heart failure) Code(s): I50.9 - HEART FAILURE, UNSPECIFIED Qualifiers: Congestive heart failure type: unspecified Congestive heart failure chronicity: unspecified Qualified Code(s): I50.9 - Heart failure, unspecified (5) Diabetes mellitus Code(s): E11.9 - TYPE 2 DIABETES MELLITUS WITHOUT COMPLICATIONS Qualifiers: Diabetes mellitus type: type 2 Diabetes mellitus complication status: without complication Diabetes mellitus supervisor intermediates insulin use: without fpc use Qualified Code(s): E11.9 - Type 2 diabetes mellitus without complications (6) Hypertension Code(s): I10 - ESSENTIAL (PRIMARY) HYPERTENSION Qualifiers: Hypertension type: essential hypertension Qualified Code(s): I10 - Essential (primary) hypertension Assessment/Plan 67 year old woman with PMhx of CKD , Hypertension, DM, Chronic anemia who presented with complaints of sob and found to have severe anemia, metabolic acidosis and MARQUES with Cr of 2.7. The patient's renal functions have improved significantly. Anion gap metabolic acidosis. Resolved Severe anemia... continue PRBC transfusion as needed. Hematolgy services following. Hyperuricemia..improved. Last uric acid 5.3. She does not require IV fluids at this point. IV Abx as per the ID services. Thank you. Will follow with you. Mary Oviedo MD
[2017-10-19] MEDS: IRON SUCROSE INJECTION 200 MG in SODIUM CHLORIDE 90 ML IVPB SCH (13:30)
--- NOTE | 2017-10-19 14:11 | PN ---
Physical Exam: SUBJECTIVE: Patient seen and examined at bedside. No acute events overnight noted. Pt feels better and has decreased SOB and cough. Feels improved overall. OBJECTIVE: Vital Signs Period Temp Pulse Resp BP Sys/Rahman Pulse Ox Last 24 Hr 98.4 F-99.1 F 89-99 16-20 123-168/81-97 99-100 GENERAL: The patient is awake, alert, and fully oriented, in no acute distress. NECK: Trachea midline, full range of motion, supple. LUNGS: Mild crackles. HEART: Regular rate and rhythm, S1 S2+, systolic murmur 2/6 best heard in aortic region ABDOMEN: soft and nontender, normoactive bowel sounds. EXTREMITIES: warm, well-perfused, no edema. NEUROLOGICAL: Normal speech, gait not observed. PSYCH: Normal mood, normal affect. SKIN: Warm, dry Laboratory Results - last 24 hr 10/15/1718 10/17/17 06:27 06:05 05:23 WBC RBC Hgb Hct MCV MCH MCHC RDW Plt Count MPV Neutrophils % Lymphocytes % Monocytes % Eosinophils % Basophils % von Willebrand Antigen 476 H Sodium Potassium Chloride Carbon Dioxide Anion Gap BUN Creatinine Creat Clearance w eGFR POC Glucometer Random Glucose Calcium Total Bilirubin AST ALT Alkaline Phosphatase Creatine Kinase Creatine Kinase Index CK-MB (CK-2) Total Protein Albumin Globulin 3.5 Beta Globulins 1.2 ANSHUL & SPEP Interp Total Protein (ANSHUL) 6.3 Albumin (ANSHUL) 2.8 L Albumin/Globulin (ANSHUL) 0.9 Lgmzu-7-Kzckdlavs ANSHUL 0.4 Jfdef-0-Zmayzageg ANSHUL 1.2 H Gamma Globulins (ANSHUL) 0.8 ANSHUL M-Armand Not observed ANSHUL Comments IEP IgG 905 IEP IgA 232 IEP IgM 73 Blood Type B POSITIVE Antibody Screen Negative Crossmatch See Detail 10/18/17 10/18/17 10/19/17 16:49 16:50 05:05 WBC 16.4 H RBC 3.17 L Hgb 7.8 L Hct 24.9 L MCV 78.4 L MCH 24.5 L MCHC 31.3 L RDW 20.5 H Plt Count 722 H MPV 7.9 Neutrophils % 82.2 Lymphocytes % 9.8 D Monocytes % 5.8 Eosinophils % 1.8 D Basophils % 0.4 von Willebrand Antigen Sodium Potassium Chloride Carbon Dioxide Anion Gap BUN Creatinine Creat Clearance w eGFR POC Glucometer 118 Random Glucose Calcium Total Bilirubin AST ALT Alkaline Phosphatase Creatine Kinase 302 H Creatine Kinase Index 0.6 CK-MB (CK-2) 2.029 Total Protein Albumin Globulin Beta Globulins ANSHUL & SPEP Interp Total Protein (ANSHUL) Albumin (ANSHUL) Albumin/Globulin (ANSHUL) Unfjt-9-Ytfnbsidv ANSHUL Dyskv-8-Hdbtdjypi ANSHUL Gamma Globulins (ANSHUL) ANSHUL M-Armand ANSHUL Comments IEP IgG IEP IgA IEP IgM Blood Type Antibody Screen Crossmatch 10/19/17 10/19/17 10/19/17 06:01 07:55 07:55 WBC 14.9 H RBC 3.45 L Hgb 8.2 L Hct 27.2 L MCV 79.0 L MCH 23.7 L MCHC 30.1 L RDW 21.2 H Plt Count 720 H MPV 8.0 Neutrophils % 79.6 Lymphocytes % 10.7 Monocytes % 5.4 Eosinophils % 3.9 D Basophils % 0.4 von Willebrand Antigen Sodium 138 Potassium 3.9 Chloride 106 Carbon Dioxide 24 Anion Gap 8 BUN 18 Creatinine 1.3 H Creat Clearance w eGFR 40.73 POC Glucometer 129 Random Glucose 122 H Calcium 8.3 L Total Bilirubin 0.2 D AST 63 H ALT 156 H Alkaline Phosphatase 156 H Creatine Kinase Creatine Kinase Index CK-MB (CK-2) Total Protein 6.4 Albumin 2.5 L Globulin Beta Globulins ANSHUL & SPEP Interp Total Protein (ANSHUL) Albumin (ANSHUL) Albumin/Globulin (ANSHUL) Dpmer-0-Ayxpdlbag ANSHUL Idetn-0-Lemknyvea ANSHUL Gamma Globulins (ANSHUL) ANSHUL M-Armand ANSHUL Comments IEP IgG IEP IgA IEP IgM Blood Type Antibody Screen Crossmatch 10/19/17 11:10 WBC RBC Hgb Hct MCV MCH MCHC RDW Plt Count MPV Neutrophils % Lymphocytes % Monocytes % Eosinophils % Basophils % von Willebrand Antigen Sodium Potassium Chloride Carbon Dioxide Anion Gap BUN Creatinine Creat Clearance w eGFR POC Glucometer 112 Random Glucose Calcium Total Bilirubin AST ALT Alkaline Phosphatase Creatine Kinase Creatine Kinase Index CK-MB (CK-2) Total Protein Albumin Globulin Beta Globulins ANSHUL & SPEP Interp Total Protein (ANSHUL) Albumin (ANSHUL) Albumin/Globulin (ANSHUL) Bwycl-8-Fucajdhax ANSHUL Uwsby-8-Mueqothen ANSHUL Gamma Globulins (ANSHUL) ANSHUL M-Armand ANSHUL Comments IEP IgG IEP IgA IEP IgM Blood Type Antibody Screen Crossmatch Active Medications Generic Name Dose Route Start Last Admin Trade Name Freq PRN Reason Stop Dose Admin Acetaminophen 650 mg 10/18/17 00:17 10/19/17 09:35 Tylenol - PO 650 mg Q4H PRN Administration PAIN Amitriptyline HCl 25 mg 10/18/17 22:00 10/18/17 22:43 Elavil - PO Not Given HS [facility] Heparin Sodium (Porcine) 5,000 unit 10/18/17 22:00 10/19/17 13:32 Heparin - SQ 5,000 unit TID [facility] Administration Piperacillin Sod/Tazobactam 100 mls @ 200 mls/hr 10/17/17 15:00 10/19/17 09: 08 Sod 2.25 gm/ Dextrose IVPB 200 mls/hr Q6H-IV [facility] Administration Iron Sucrose 200 mg/ Sodium 100 mls @ 100 mls/hr 10/19/17 13:00 10/19/17 13: 30 Chloride IVPB 10/22/17 12:59 100 mls/hr DAILY@0800 [facility] Administration Insulin Aspart 1 vial 10/18/17 07:00 10/19/17 11:25 Novolog Vial Sliding Scale - SQ Not Given [facility] Protocol Metoprolol Succinate 25 mg 10/18/17 10:45 10/19/17 09:08 Toprol Xl - PO 25 mg DAILY [facility] Administration Pantoprazole Sodium 40 mg 10/18/17 06:00 10/19/17 09:08 Protonix - PO 40 mg DAILY [facility] Administration ASSESSMENT/PLAN: 67 y/o F w/PMH of chronic anemia, HTN, DM admitted for respiratory failure and sepsis secondary to pna. Respiratory failure and sepsis secondary to b/l PNA -Pt clinically improving -c/w zosyn 2.25 gm IV, ID on board -pulm on board -oxygenating well on 5L NC -CXR w/no significant change -f/u AM CXR -Chronic anemia -Received 2 units PRBCs during this admission. -pt w/hx of alpha thal trait, b12, folic acid, and iron def -H/H currently stable -continue to monitor -heme on board -MARQUES -improved -Cr 1.3 and has been stable at 1.3 for last few days. -continue to monitor -HTN -c/w toprol xl 25 mg po qd, off norvasc now -DVT ppx -Heparin 5000 units sq q8h -FEN -No fluids -Monitor electrolytes -Diabetic low sodium diet -Dispo: monitor on med surg Visit type - Emergency Visit Emergency Visit: Yes ED Registration Date: 10/15/17 Care time: The patient presented to the Emergency Department on the above date and was hospitalized for further evaluation of their emergent condition. - New Patient This patient is new to me today: Yes Date on this admission: 10/19/17 - Critical Care Critical Care patient: No
--- NOTE | 2017-10-19 14:27 | PN ---
Progress Note, Physician History of Present Illness: No further episodes of PSVT once on Toprol XL. Dyspnea improving. - Current Medication List Current Medications: Active Medications Acetaminophen (Tylenol -) 650 mg PO Q4H PRN PRN Reason: PAIN Last Admin: 10/19/17 09:35 Dose: 650 mg Amitriptyline HCl (Elavil -) 25 mg PO HS [facility] Last Admin: 10/18/17 22:43 Dose: Not Given Heparin Sodium (Porcine) (Heparin -) 5,000 unit SQ TID [facility] Last Admin: 10/19/17 13:32 Dose: 5,000 unit Piperacillin Sod/Tazobactam (Sod 2.25 gm/ Dextrose) 100 mls @ 200 mls/hr IVPB Q6H-IV [facility] Last Admin: 10/19/17 09:08 Dose: 200 mls/hr Iron Sucrose 200 mg/ Sodium (Chloride) 100 mls @ 100 mls/hr IVPB DAILY@0800 [facility] Stop: 10/22/17 12:59 Last Admin: 10/19/17 13:30 Dose: 100 mls/hr Insulin Aspart (Novolog Vial Sliding Scale -) 1 vial SQ TIDAC [facility] PRN Reason: Protocol Last Admin: 10/19/17 11:25 Dose: Not Given Metoprolol Succinate (Toprol Xl -) 25 mg PO DAILY [facility] Last Admin: 10/19/17 09:08 Dose: 25 mg Pantoprazole Sodium (Protonix -) 40 mg PO DAILY [facility] Last Admin: 10/19/17 09:08 Dose: 40 mg - Objective Vital Signs: Vital Signs Temperature 98.5 F 10/19/17 07:29 Pulse Rate 91 H 10/19/17 07:29 Respiratory Rate 20 10/19/17 07:33 Blood Pressure 123/82 10/19/17 07:29 O2 Sat by Pulse Oximetry (%) 99 10/19/17 10:02 Constitutional: Yes: No Distress, Calm Neck: Yes: Supple Cardiovascular: Yes: Regular Rate and Rhythm Respiratory: Yes: Regular, CTA Bilaterally, On Nasal O2 Gastrointestinal: Yes: Normal Bowel Sounds, Soft Edema: No Labs: CBC, BMP 10/19/17 07:55 10/19/17 07:55 INR, PTT INR 1.28 (0.82-1.09) H 10/16/17 06:05 Fibrinogen 486.0 mg/dL (238-498) 10/15/17 08:10 - ....Imaging Chest X-ray: Report Reviewed (No significant changes) EKG: Report Reviewed (Tele: SR occ PVC no recurrence of PSVT) Problem List - Problems (1) Acute renal failure superimposed on chronic kidney disease Code(s): N17.9 - ACUTE KIDNEY FAILURE, UNSPECIFIED; N18.9 - CHRONIC KIDNEY DISEASE, UNSPECIFIED Qualifiers: Chronic kidney disease stage: unspecified stage (2) Anemia Code(s): D64.9 - ANEMIA, UNSPECIFIED Qualifiers: Anemia type: unspecified type Qualified Code(s): D64.9 - Anemia, unspecified (3) CHF (congestive heart failure) Code(s): I50.9 - HEART FAILURE, UNSPECIFIED Qualifiers: Congestive heart failure type: unspecified Congestive heart failure chronicity: unspecified Qualified Code(s): I50.9 - Heart failure, unspecified (4) Demand ischemia Code(s): I24.8 - OTHER FORMS OF ACUTE ISCHEMIC HEART DISEASE (5) Diabetes mellitus Code(s): E11.9 - TYPE 2 DIABETES MELLITUS WITHOUT COMPLICATIONS Qualifiers: Diabetes mellitus type: type 2 Diabetes mellitus complication status: without complication Diabetes mellitus rodent exterminator insulin use: without custodial use Qualified Code(s): E11.9 - Type 2 diabetes mellitus without complications (6) Hypertension Code(s): I10 - ESSENTIAL (PRIMARY) HYPERTENSION Qualifiers: Hypertension type: essential hypertension Qualified Code(s): I10 - Essential (primary) hypertension (7) Leukocytosis Code(s): D72.829 - ELEVATED WHITE BLOOD CELL COUNT, UNSPECIFIED Qualifiers: Leukocytosis type: unspecified Qualified Code(s): D72.829 - Elevated white blood cell count, unspecified (8) Thrombocytosis Code(s): D47.3 - ESSENTIAL (HEMORRHAGIC) THROMBOCYTHEMIA (9) Pneumonia Code(s): J18.9 - PNEUMONIA, UNSPECIFIED ORGANISM Qualifiers: Laterality: bilateral Lung location: upper lobe of lung (10) Diastolic dysfunction Code(s): I51.9 - HEART DISEASE, UNSPECIFIED (11) Paroxysmal supraventricular tachycardia Code(s): I47.1 - SUPRAVENTRICULAR TACHYCARDIA (12) Abnormal LFTs Code(s): R94.5 - ABNORMAL RESULTS OF LIVER FUNCTION STUDIES Assessment/Plan 10/15/2017 Echo: Normal biventricular size and fxn, mild LAE, mild MR, mild pulm HTN RVSP 30-40 mmHg 1. Paroxysmal supraventricular tachycardia-> NSR post adenosine 2. Severe symptomatic anemia/leukocytosis/thrombocytosis improving, r/o Myeloproliferative Disorder 3. Acute hypoxic respiratory failure referable to multilobar pneumonia and sepsis improving 4. Elevated troponin - demand ischemia 5. Hypertension/HCVD 6. Diastolic dysfunction 7. Diabetes mellitus 8. Acute on CKD (pre-renal) improving 9. Abnormal LFTs improving PLAN: 1. BD, O2 to keep SpO2 >90% 2. Hematology input noted. Transfuse as per Hematology service. 3. Empiric antibiotics per ID, f/u C&S 4. Judicious hydration with monitor renal recovery 5. Continue Toprol XL 25 qd, start ASA 81 qd 6. Troponins and LFTs have peaked and now downtrending, DVT and GI prophylaxis 7. Consideration for EP study and RF ablation as outpatient 8. Endoscopy planned early next week for evaluation of anemia per GI input
[2017-10-19] MEDS: ASPIRIN 81 MG CHEWABLE TABLETS PO SCH (14:55)
--- NOTE | 2017-10-19 15:04 | PN ---
Progress Note (short form) - Note Progress Note: alert +BM today on nasal canulla Vital Signs Period Temp Pulse Resp BP Sys/Rahman Pulse Ox Last 24 Hr 98.5 F-99.1 F 89-99 16-20 123-168/82-97 99-100 cor-rrr lungs decreased bs at bases abd softer ext trace edema CBC, BMP 10/19/17 07:55 10/19/17 07:55 Microbiology 10/16/17 16:35 Sputum - Expectorated Gram Stain - Final 10/16/17 16:35 Sputum - Expectorated Sputum Culture - Preliminary 10/15/17 06:27 Blood - Peripheral Venous Blood Culture - Preliminary NO GROWTH OBTAINED AFTER 96 HOURS, INCUBATION TO CONTINUE FOR 1 DAYS. 10/15/17 06:27 Blood - Peripheral Venous Blood Culture - Preliminary NO GROWTH OBTAINED AFTER 96 HOURS, INCUBATION TO CONTINUE FOR 1 DAYS. 10/16/17 12:56 Serum Mycoplasma Antibody - Preliminary 10/15/17 10:31 Urine - Urine Clean Catch Urine Culture - Final NO GROWTH OBTAINED 10/15/17 12:22 Urine For Antigen Detection Legionella Antigen - Final 10/15/17 12:22 Urine For Antigen Detection Streptococcus pneumoniae Antigen (M - Final 10/15/17 13:30 Nasopharyngeal Swab Influenza Types A,B Antigen (PRICE) - Final 10/15/17 13:30 Nasopharyngeal Swab - Final a/p possible pneumonia versus chf- continue zosyn- ?aspiration at home-day #4 antibiotics severe anemia- per heme/GI d/w hospitalist Problem List - Problems (1) Anemia Code(s): D64.9 - ANEMIA, UNSPECIFIED Qualifiers: Anemia type: unspecified type Qualified Code(s): D64.9 - Anemia, unspecified (2) Lactic acidosis Code(s): E87.2 - ACIDOSIS (3) Thrombocytosis Code(s): D47.3 - ESSENTIAL (HEMORRHAGIC) THROMBOCYTHEMIA (4) Leukocytosis Code(s): D72.829 - ELEVATED WHITE BLOOD CELL COUNT, UNSPECIFIED Qualifiers: Leukocytosis type: unspecified Qualified Code(s): D72.829 - Elevated white blood cell count, unspecified (5) Acute renal failure superimposed on chronic kidney disease Code(s): N17.9 - ACUTE KIDNEY FAILURE, UNSPECIFIED; N18.9 - CHRONIC KIDNEY DISEASE, UNSPECIFIED Qualifiers: Chronic kidney disease stage: unspecified stage
--- NOTE | 2017-10-19 15:46 | PN ---
Teaching Attending Note Name of Resident: Hipolito Ocampo ATTENDING PHYSICIAN STATEMENT I saw and evaluated the patient. I reviewed the resident's note and discussed the case with the resident. I agree with the resident's findings and plan as documented. SUBJECTIVE: No fever or chills , feels better , no abd pain or SOB , no dysuria OBJECTIVE: NAD. CV: RRR, 3/6 SM at LUSB and LLSB with 2/6 SM at apex. JVD Lungs: clear lungs today, minimal decrease in breath sounds at bases Ext: no edema , or erythema ASSESSMENT AND PLAN: 67 y/o lady with h/o chronic microcytic anemia, CKD 3, DM II, HTN, and other medical problems who presented with SOB and chest discomofrt x 10 days . She was found to have severe sepsis, hyponatremia, MARQUES, metabolic acidosis, and severe anemia 1- Suspicion for Severe sepsis: from b/l PNA. cxray reviewed. - cont zosyn ( day 5 of abx ) - sputum wit neg gram stain , and no growth in 24 hr - blood cx NGTD - mycoplasma igM pending 2-Severe microcytic anemia : she has h/o alpha Thalassemia , iron def a, folat and B12 def. - monitor Hb . 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 - stable Cr 4- HTN: cont BB , as she had SVTs 5- Demand ischemia: due to sepsis. -Trop trended down 6- - b/l LAP in axilla on exam breast exam with no masses , she understand the need for mammo and lymph node Bx to r/o breast cancer as out pt 7- LFTs abn: possibly due to Abx or sepsis . monitor , trended down . if up again can get US SCDs, sq heparin Dispo : [facility]
--- NOTE | 2017-10-19 18:14 | PN ---
Progress Note (short form) - Note Progress Note: Seen in follow up. No new complaints, no events noted over past 24 hours. Meds reviewed. Current Medications Generic Name Dose Route Start Last Admin Trade Name Daria PRN Reason Stop Dose Admin Acetaminophen 650 mg 10/18/17 00:17 10/19/17 09:35 Tylenol - PO 650 mg Q4H PRN Administration PAIN Amitriptyline HCl 25 mg 10/18/17 22:00 10/18/17 22:43 Elavil - PO Not Given [facility] Aspirin 81 mg 10/19/17 14:45 10/19/17 14:55 Asa - PO 81 mg DAILY [facility] Administration Heparin Sodium (Porcine) 5,000 unit 10/18/17 22:00 10/19/17 13:32 Heparin - SQ 5,000 unit TID [facility] Administration Piperacillin Sod/Tazobactam 100 mls @ 200 mls/hr 10/17/17 15:00 10/19/17 14: 54 Sod 2.25 gm/ Dextrose IVPB 200 mls/hr Q6H-IV [facility] Administration Iron Sucrose 200 mg/ Sodium 100 mls @ 100 mls/hr 10/19/17 13:00 10/19/17 13: 30 Chloride IVPB 10/22/17 12:59 100 mls/hr DAILY@0800 [facility] Administration Insulin Aspart 1 vial 10/18/17 07:00 10/19/17 17:02 Novolog Vial Sliding Scale - SQ Not Given TIDAC [facility] Protocol Metoprolol Succinate 25 mg 10/18/17 10:45 10/19/17 09:08 Toprol Xl - PO 25 mg DAILY [facility] Administration Pantoprazole Sodium 40 mg 10/18/17 06:00 10/19/17 16:01 Protonix - PO Not Given DAILY [facility] On exam: Last Vital Signs Temp Pulse Resp BP Pulse Ox 98.5 F 91 H 20 123/82 99 10/19/17 07:29 10/19/17 07:29 10/19/17 07:33 10/19/17 07:29 10/19/17 10:02 General: In no acute distress. Extremities: Pallor, no icterus, RLE extensive swelling Chest:good air entry bilaterally, clear. Sternal incisional scar. Abdomen: Soft, no organomegaly, no masses. Neuro: Alert and oriented, non-focal. CVS: Normal sinus rhythm, S1, S2, no gallop or murmur. Assessment. Pneumonia, iron deficiency anemia, with thrombocytosis - likely reactive. Iron deficiency is chronic, and has received IV iron in the past. Etiology not clear to me but assume she has been worked up in the past. Noted that she is seen by GI this admission, with endoscopy anticipated. In interim while admitted will offer IV repletion of iron - estimated deficit > 1.5g
[2017-10-19] MEDS: AMITRIPTYLINE HCL 25 MG TABLET (FP) PO SCH (22:08)
[2017-10-20] MEDS: PIPERACILLIN/TAZOB 2.25 GM 2.25 GM in DEXTROSE 5%-WATER - 100 ML IVPB SCH ×4 (02:03→21:30)
[2017-10-20] MEDS: INSULIN SLIDING SCALE (NOVOLOG) 1 VIAL SQ SCH ×3 (06:13→16:16)
[2017-10-20] MEDS: HEPARIN NA (PORCINE) 5,000 UNITS/ML 1ML VIAL SQ SCH ×3 (06:15→21:30)
[2017-10-20 07:47] LABS: HEMATOCRIT 26.9 % (32.4-45.2); HEMOGLOBIN 8.3 GM/dL (10.7-15.3); MCH 23.9 pg (25.7-33.7); MCHC 30.8 g/dl (32.0-36.0); MEAN CELL VOLUME 77.7 fl (80-96); MEAN PLT VOLUME 7.9 fl (7.5-11.1); PLATELET COUNT 682 K/MM3 (134-434); RBC 3.47 M/mm3 (3.60-5.2); WHITE BLOOD COUNT 12.7 K/mm3 (4.0-10.0)
[2017-10-20 08:06] LABS: ALBUMIN 2.4 g/dl (3.4-5.0); BLOOD UREA NITROGEN 17 mg/dL (7-18); CALCIUM 8.8 mg/dL (8.5-10.1); CHLORIDE 105 mmol/L (98-107); GLUCOSE,RANDOM 98 mg/dL (74-106); POTASSIUM 4.2 mmol/L (3.5-5.1); SODIUM 140 mmol/L (136-145)
[2017-10-20 08:12] LABS: ALK PHOS 171 U/L (45-117); ANION GAP 10 (8-16); BILIRUBIN,TOTAL 0.2 mg/dL (0.2-1.0); CO2 25 mmol/L (21-32); CREATININE 1.4 mg/dL (0.55-1.02); SGOT/AST 42 U/L (15-37); SGPT/ALT 125 U/L (12-78); TOT PROT 6.6 g/dl (6.4-8.2)
[2017-10-20] MEDS ORDERED: PT OWN MED DRAWER 7, Y5N ONE ×4 (08:31→14:43)
[2017-10-20] MEDS: ACETAMINOPHEN 325 MG TABLET (FP) PO PRN (08:38)
[2017-10-20] MEDS: ASPIRIN 81 MG CHEWABLE TABLETS PO SCH (09:28)
[2017-10-20] MEDS: metoPROLOL SUCCINATE 25 MG TAB.SR.24H (FP) PO SCH (09:28)
[2017-10-20] MEDS: PANTOPRAZOLE 40 MG TABLET (FP) PO SCH (09:28)
--- NOTE | 2017-10-20 11:08 | PN ---
Progress Note (short form) - Note Progress Note: Seen in follow up. Received IV iron yesterday No new complaints, no events noted over past 24 hours. Meds reviewed. Current Medications Generic Name Dose Route Start Last Admin Trade Name Daria PRN Reason Stop Dose Admin Acetaminophen 650 mg 10/18/17 00:17 10/20/17 08:38 Tylenol - PO 650 mg Q4H PRN Administration PAIN Amitriptyline HCl 25 mg 10/18/17 22:00 10/19/17 22:08 Elavil - PO Not Given [facility] Aspirin 81 mg 10/19/17 14:45 10/20/17 09:28 Asa - PO 81 mg DAILY [facility] Administration Heparin Sodium (Porcine) 5,000 unit 10/18/17 22:00 10/20/17 06:15 Heparin - SQ 5,000 unit TID [facility] Administration Piperacillin Sod/Tazobactam 100 mls @ 200 mls/hr 10/17/17 15:00 10/20/17 10: 52 Sod 2.25 gm/ Dextrose IVPB 200 mls/hr Q6H-IV [facility] Administration Iron Sucrose 200 mg/ Sodium 100 mls @ 100 mls/hr 10/19/17 13:00 10/19/17 13: 30 Chloride IVPB 10/22/17 12:59 100 mls/hr DAILY@0800 [facility] Administration Insulin Aspart 1 vial 10/18/17 07:00 10/20/17 06:13 Novolog Vial Sliding Scale - SQ Not Given TIDAC [facility] Protocol Metoprolol Succinate 25 mg 10/18/17 10:45 10/20/17 09:28 Toprol Xl - PO 25 mg DAILY [facility] Administration Pantoprazole Sodium 40 mg 10/18/17 06:00 10/20/17 09:28 Protonix - PO 40 mg DAILY [facility] Administration On exam: Last Vital Signs Temp Pulse Resp BP Pulse Ox 97.9 F 89 18 156/86 99 10/20/17 06:00 10/20/17 06:00 10/20/17 06:00 10/20/17 06:00 10/19/17 21:00 General: In no acute distress. Extremities: Pallor, no icterus, RLE extensive swelling, ?improved Chest:good air entry bilaterally, clear. Sternal incisional scar. Abdomen: Soft, no organomegaly, no masses. Neuro: Alert and oriented, non-focal. CVS: Normal sinus rhythm, S1, S2, no gallop or murmur. Assessment. Pneumonia, iron deficiency anemia, with thrombocytosis - likely reactive - today lower than yesterday. Iron deficiency is chronic, and has received IV iron in the past. Etiology not clear to me but assume she has been worked up in the past. Noted that she is seen by GI this admission, with endoscopy anticipated. In interim while admitted will offer IV repletion of iron - estimated deficit > 1.5g
[2017-10-20] MEDS: IRON SUCROSE INJECTION 200 MG in SODIUM CHLORIDE 90 ML IVPB SCH (11:21)
--- NOTE | 2017-10-20 13:49 | PN ---
Progress Note, Physician History of Present Illness: No further episodes of PSVT once on Toprol XL. Dyspnea improving. - Current Medication List Current Medications: Active Medications Acetaminophen (Tylenol -) 650 mg PO Q4H PRN PRN Reason: PAIN Last Admin: 10/20/17 08:38 Dose: 650 mg Amitriptyline HCl (Elavil -) 25 mg PO HS [facility] Last Admin: 10/19/17 22:08 Dose: Not Given Aspirin (Asa -) 81 mg PO DAILY [facility] Last Admin: 10/20/17 09:28 Dose: 81 mg Heparin Sodium (Porcine) (Heparin -) 5,000 unit SQ TID [facility] Last Admin: 10/20/17 13:27 Dose: 5,000 unit Piperacillin Sod/Tazobactam (Sod 2.25 gm/ Dextrose) 100 mls @ 200 mls/hr IVPB Q6H-IV [facility] Last Admin: 10/20/17 10:52 Dose: 200 mls/hr Iron Sucrose 200 mg/ Sodium (Chloride) 100 mls @ 100 mls/hr IVPB DAILY@0800 [facility] Stop: 10/22/17 12:59 Last Admin: 10/20/17 11:21 Dose: 100 mls/hr Insulin Aspart (Novolog Vial Sliding Scale -) 1 vial SQ TIDAC [facility] PRN Reason: Protocol Last Admin: 10/20/17 11:10 Dose: Not Given Metoprolol Succinate (Toprol Xl -) 25 mg PO DAILY [facility] Last Admin: 10/20/17 09:28 Dose: 25 mg Pantoprazole Sodium (Protonix -) 40 mg PO DAILY [facility] Last Admin: 10/20/17 09:28 Dose: 40 mg - Objective Vital Signs: Vital Signs Temperature 97.9 F 10/20/17 08:00 Pulse Rate 90 10/20/17 08:00 Respiratory Rate 18 10/20/17 08:00 Blood Pressure 165/95 10/20/17 08:00 O2 Sat by Pulse Oximetry (%) 100 10/20/17 09:00 Constitutional: Yes: No Distress, Calm Neck: Yes: Supple Cardiovascular: Yes: Regular Rate and Rhythm Respiratory: Yes: Regular, Diminished, On Nasal O2 Gastrointestinal: Yes: Normal Bowel Sounds, Soft Edema: No Labs: CBC, BMP 10/20/17 07:00 10/20/17 07:00 INR, PTT INR 1.28 (0.82-1.09) H 10/16/17 06:05 Fibrinogen 486.0 mg/dL (238-498) 10/15/17 08:10 - ....Imaging Chest X-ray: Report Reviewed (Stable upper lobe infiltrates) Problem List - Problems (1) Acute renal failure superimposed on chronic kidney disease Code(s): N17.9 - ACUTE KIDNEY FAILURE, UNSPECIFIED; N18.9 - CHRONIC KIDNEY DISEASE, UNSPECIFIED Qualifiers: Chronic kidney disease stage: unspecified stage (2) Anemia Code(s): D64.9 - ANEMIA, UNSPECIFIED Qualifiers: Anemia type: unspecified type Qualified Code(s): D64.9 - Anemia, unspecified (3) CHF (congestive heart failure) Code(s): I50.9 - HEART FAILURE, UNSPECIFIED Qualifiers: Congestive heart failure type: unspecified Congestive heart failure chronicity: unspecified Qualified Code(s): I50.9 - Heart failure, unspecified (4) Demand ischemia Code(s): I24.8 - OTHER FORMS OF ACUTE ISCHEMIC HEART DISEASE (5) Diabetes mellitus Code(s): E11.9 - TYPE 2 DIABETES MELLITUS WITHOUT COMPLICATIONS Qualifiers: Diabetes mellitus type: type 2 Diabetes mellitus complication status: without complication Diabetes mellitus electronic parts designer insulin use: without electronic parts designer use Qualified Code(s): E11.9 - Type 2 diabetes mellitus without complications (6) Hypertension Code(s): I10 - ESSENTIAL (PRIMARY) HYPERTENSION Qualifiers: Hypertension type: essential hypertension Qualified Code(s): I10 - Essential (primary) hypertension (7) Leukocytosis Code(s): D72.829 - ELEVATED WHITE BLOOD CELL COUNT, UNSPECIFIED Qualifiers: Leukocytosis type: unspecified Qualified Code(s): D72.829 - Elevated white blood cell count, unspecified (8) Thrombocytosis Code(s): D47.3 - ESSENTIAL (HEMORRHAGIC) THROMBOCYTHEMIA (9) Pneumonia Code(s): J18.9 - PNEUMONIA, UNSPECIFIED ORGANISM Qualifiers: Laterality: bilateral Lung location: upper lobe of lung (10) Diastolic dysfunction Code(s): I51.9 - HEART DISEASE, UNSPECIFIED (11) Paroxysmal supraventricular tachycardia Code(s): I47.1 - SUPRAVENTRICULAR TACHYCARDIA (12) Abnormal LFTs Code(s): R94.5 - ABNORMAL RESULTS OF LIVER FUNCTION STUDIES Assessment/Plan 10/15/2017 Echo: Normal biventricular size and fxn, mild LAE, mild MR, mild pulm HTN RVSP 30-40 mmHg 1. Paroxysmal supraventricular tachycardia-> NSR post adenosine 2. Severe symptomatic anemia/leukocytosis/thrombocytosis improving, r/o Myeloproliferative Disorder 3. Acute hypoxic respiratory failure referable to multilobar pneumonia and sepsis improving 4. Elevated troponin - demand ischemia 5. Hypertension/HCVD 6. Diastolic dysfunction 7. Diabetes mellitus 8. Acute on CKD (pre-renal) improving 9. Abnormal LFTs improving PLAN: 1. BD, O2 to keep SpO2 >90% 2. Hematology input noted. Transfuse as per Hematology service. 3. Empiric antibiotics per ID, f/u C&S 4. Judicious hydration with monitor renal recovery 5. Continue Toprol XL 25 qd and ASA 81 qd 6. Troponins and LFTs have peaked and now downtrending, DVT and GI prophylaxis 7. Consideration for EP study and RF ablation as outpatient 8. Endoscopy planned early next week for evaluation of anemia per GI input
--- NOTE | 2017-10-20 15:20 | PN ---
Progress Note, Physician History of Present Illness: pulmonary alert,no complaints,-cough,-sob - Current Medication List Current Medications: Active Medications Acetaminophen (Tylenol -) 650 mg PO Q4H PRN PRN Reason: PAIN Last Admin: 10/20/17 08:38 Dose: 650 mg Amitriptyline HCl (Elavil -) 25 mg PO HS [facility] Last Admin: 10/19/17 22:08 Dose: Not Given Aspirin (Asa -) 81 mg PO DAILY [facility] Last Admin: 10/20/17 09:28 Dose: 81 mg Heparin Sodium (Porcine) (Heparin -) 5,000 unit SQ TID [facility] Last Admin: 10/20/17 13:27 Dose: 5,000 unit Piperacillin Sod/Tazobactam (Sod 2.25 gm/ Dextrose) 100 mls @ 200 mls/hr IVPB Q6H-IV [facility] Last Admin: 10/20/17 15:06 Dose: 200 mls/hr Iron Sucrose 200 mg/ Sodium (Chloride) 100 mls @ 100 mls/hr IVPB DAILY@0800 [facility] Stop: 10/22/17 12:59 Last Admin: 10/20/17 11:21 Dose: 100 mls/hr Insulin Aspart (Novolog Vial Sliding Scale -) 1 vial SQ TIDAC [facility] PRN Reason: Protocol Last Admin: 10/20/17 11:10 Dose: Not Given Metoprolol Succinate (Toprol Xl -) 25 mg PO DAILY [facility] Last Admin: 10/20/17 09:28 Dose: 25 mg Pantoprazole Sodium (Protonix -) 40 mg PO DAILY [facility] Last Admin: 10/20/17 09:28 Dose: 40 mg - Objective Vital Signs: Vital Signs Temperature 98.2 F 10/20/17 15:08 Pulse Rate 82 10/20/17 15:08 Respiratory Rate 18 10/20/17 15:08 Blood Pressure 156/89 10/20/17 15:08 O2 Sat by Pulse Oximetry (%) 100 10/20/17 09:00 Constitutional: Yes: Well Nourished, Calm Eyes: Yes: WNL HENT: Yes: WNL Neck: Yes: WNL Cardiovascular: Yes: Regular Rate and Rhythm, S1, S2 Respiratory: Yes: Rales (few craackles amelia) Gastrointestinal: Yes: Normal Bowel Sounds, Soft Extremities: Yes: WNL Edema: No Labs: CBC, BMP 10/20/17 07:00 10/20/17 07:00 INR, PTT INR 1.28 (0.82-1.09) H 10/16/17 06:05 Fibrinogen 486.0 mg/dL (238-498) 10/15/17 08:10 - ....Imaging Chest X-ray: Report Reviewed, Image Reviewed (no change) Problem List - Problems (1) Acute hypoxemic respiratory failure Code(s): J96.01 - ACUTE RESPIRATORY FAILURE WITH HYPOXIA (2) Anemia Code(s): D64.9 - ANEMIA, UNSPECIFIED Qualifiers: Anemia type: unspecified type Qualified Code(s): D64.9 - Anemia, unspecified (3) CHF (congestive heart failure) Code(s): I50.9 - HEART FAILURE, UNSPECIFIED Qualifiers: Congestive heart failure type: unspecified Congestive heart failure chronicity: unspecified Qualified Code(s): I50.9 - Heart failure, unspecified (4) Chronic kidney disease Code(s): N18.9 - CHRONIC KIDNEY DISEASE, UNSPECIFIED (5) Demand ischemia Code(s): I24.8 - OTHER FORMS OF ACUTE ISCHEMIC HEART DISEASE (6) Diabetes mellitus Code(s): E11.9 - TYPE 2 DIABETES MELLITUS WITHOUT COMPLICATIONS Qualifiers: Diabetes mellitus type: type 2 Diabetes mellitus complication status: without complication Diabetes mellitus tank terminal gauger insulin use: without tank terminal gauger use Qualified Code(s): E11.9 - Type 2 diabetes mellitus without complications (7) Lactic acidosis Code(s): E87.2 - ACIDOSIS (8) Pneumonia Code(s): J18.9 - PNEUMONIA, UNSPECIFIED ORGANISM Qualifiers: Laterality: bilateral Lung location: upper lobe of lung Assessment/Plan A/P Acute Hypoxic Respiratory Failure IMPROVING Severe Anemia s/p PRBC Transfusions r/o Myeloproliferative Disorder Pneumonia clinically improving Sepsis Lactic Acidosis +Troponins likely Demand Ischemia HTN DM CKD - antibiotics as per ID - inhaled bronchodilators - monitor H/H - transfuse as needed - O2 to keep SpO2 >90% - DVT prophylaxis DR JOY
[2017-10-20] MEDS ORDERED: metoPROLOL SUCCINATE 25 MG TAB.SR.24H (FP) PO ONE (15:31)
--- NOTE | 2017-10-20 15:39 | PN ---
Progress Note (short form) - Note Progress Note: Subjective: no fever or chills, has no abd pain , no SOB. No events Objective: Vital Signs: Last Vital Signs Temp Pulse Resp BP Pulse Ox 98.2 F 82 18 156/89 100 10/20/17 15:08 10/20/17 15:08 10/20/17 15:08 10/20/17 15:08 10/20/17 09:00 Intake & Output 10/17/17 10/18/17 10/19/17 10/20/17 23:59 23:59 23:59 23:59 Intake Total 3148 900 1660 890 Output Total 1350 Balance 2730 442 1634 890 Weight 151 lb 8 oz 155 lb 155 lb 6.4 oz 149 lb 6.4 oz Laboratory Results - last 24 hr 10/20/17 10/20/17 10/20/17 05:46 07:00 07:00 WBC 12.7 H RBC 3.47 L Hgb 8.3 L Hct 26.9 L MCV 77.7 L MCH 23.9 L MCHC 30.8 L RDW 21.0 H Plt Count 682 H MPV 7.9 Sodium 140 Potassium 4.2 Chloride 105 Carbon Dioxide 25 Anion Gap 10 BUN 17 Creatinine 1.4 H Creat Clearance w eGFR 37.39 POC Glucometer 104 Random Glucose 98 Calcium 8.8 Total Bilirubin 0.2 AST 42 H ALT 125 H Alkaline Phosphatase 171 H Total Protein 6.6 Albumin 2.4 L 10/20/17 11:09 WBC RBC Hgb Hct MCV MCH MCHC RDW Plt Count MPV Sodium Potassium Chloride Carbon Dioxide Anion Gap BUN Creatinine Creat Clearance w eGFR POC Glucometer 123 Random Glucose Calcium Total Bilirubin AST ALT Alkaline Phosphatase Total Protein Albumin Physical Exam: NAD. CV: RRR, 3/6 SM at LUSB and LLSB with 2/6 SM at apex. JVD Lungs: clear lungs today, minimal decrease in breath sounds at bases Ext: no edema , or erythema ASSESSMENT AND PLAN: 67 y/o lady with h/o chronic microcytic anemia, CKD 3, DM II, HTN, and other medical problems who presented with SOB and chest discomofrt x 10 days . She was found to have severe sepsis, hyponatremia, MARQUES, metabolic acidosis, and severe anemia 1- Suspicion for Severe sepsis: from b/l PNA. 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 - cont zosyn ( day 6 of abx ) - sputum cx and blood cx neg - mycoplasma igM pending 2-Severe microcytic anemia : she has h/o alpha Thalassemia , iron def a, folat and B12 def. - stable Hb . 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 - cr better than admission cr, but slightly worse today. monitor 4- HTN: cont BB but increase dose to 50 as BP 150s-160s 5- Demand ischemia: due to sepsis. -Trop trended down 6- - b/l LAP in axilla on exam breast exam with no masses , she understand the need for mammo and lymph node Bx to r/o breast cancer as out pt 7- LFTs abn: possibly due to Abx or sepsis . monitor , trended down . if up again can get US SCDs, sq heparin Dispo : HLOC Visit type - Emergency Visit Emergency Visit: Yes ED Registration Date: 10/15/17 Care time: The patient presented to the Emergency Department on the above date and was hospitalized for further evaluation of their emergent condition. - New Patient This patient is new to me today: No - Critical Care Critical Care patient: No
--- NOTE | 2017-10-20 15:50 | PN ---
Progress Note, Physician Chief Complaint: The patient seen in her room. Seems comfortable. Denies any chest pains, but still gets occasional shortness of breath. Maintains good urine output. No specific complaints. History of Present Illness: 67 year old woman with PMhx of CKD (baseline Cr 2.1), Hypertension, DM (not on meds), Chronic anemia who presented with complaints of sob and found to have severe anemia, metabolic acidosis and MARQUES with Cr of 2.7. The Serum creatinine slowly improving towards her baseline. - Current Medication List Current Medications: Active Medications Acetaminophen (Tylenol -) 650 mg PO Q4H PRN PRN Reason: PAIN Last Admin: 10/20/17 08:38 Dose: 650 mg Amitriptyline HCl (Elavil -) 25 mg PO HS [facility] Last Admin: 10/19/17 22:08 Dose: Not Given Aspirin (Asa -) 81 mg PO DAILY [facility] Last Admin: 10/20/17 09:28 Dose: 81 mg Heparin Sodium (Porcine) (Heparin -) 5,000 unit SQ TID [facility] Last Admin: 10/20/17 13:27 Dose: 5,000 unit Piperacillin Sod/Tazobactam (Sod 2.25 gm/ Dextrose) 100 mls @ 200 mls/hr IVPB Q6H-IV [facility] Last Admin: 10/20/17 15:06 Dose: 200 mls/hr Iron Sucrose 200 mg/ Sodium (Chloride) 100 mls @ 100 mls/hr IVPB DAILY@0800 [facility] Stop: 10/22/17 12:59 Last Admin: 10/20/17 11:21 Dose: 100 mls/hr Insulin Aspart (Novolog Vial Sliding Scale -) 1 vial SQ TIDAC [facility] PRN Reason: Protocol Last Admin: 10/20/17 11:10 Dose: Not Given Metoprolol Succinate (Toprol Xl -) 50 mg PO DAILY [facility] Pantoprazole Sodium (Protonix -) 40 mg PO DAILY [facility] Last Admin: 10/20/17 09:28 Dose: 40 mg Senna/Docusate Sodium (Pericolace -) 2 tablet PO [facility] - Objective Vital Signs: Vital Signs Temperature 98.2 F 10/20/17 15:08 Pulse Rate 82 10/20/17 15:08 Respiratory Rate 18 10/20/17 15:08 Blood Pressure 156/89 10/20/17 15:08 O2 Sat by Pulse Oximetry (%) 100 10/20/17 09:00 Constitutional: Yes: Well Nourished, Calm Eyes: Yes: Conjunctiva Clear HENT: Yes: Normocephalic Neck: Yes: Trachea Midline Cardiovascular: Yes: S1, S2 Respiratory: Yes: CTA Bilaterally, Diminished Gastrointestinal: Yes: Normal Bowel Sounds, Soft Genitourinary: No: CVA Tenderness - Left, CVA Tenderness - Right, Hematuria Musculoskeletal: No: Joint Stiffness Labs: CBC, BMP 10/20/17 07:00 10/20/17 07:00 INR, PTT INR 1.28 (0.82-1.09) H 10/16/17 06:05 Fibrinogen 486.0 mg/dL (238-498) 10/15/17 08:10 Problem List - Problems (1) Chronic kidney disease Code(s): N18.9 - CHRONIC KIDNEY DISEASE, UNSPECIFIED (2) Acute renal failure superimposed on chronic kidney disease Code(s): N17.9 - ACUTE KIDNEY FAILURE, UNSPECIFIED; N18.9 - CHRONIC KIDNEY DISEASE, UNSPECIFIED (3) Anemia Code(s): D64.9 - ANEMIA, UNSPECIFIED Qualifiers: Qualified Code(s): D64.9 - Anemia, unspecified (4) CHF (congestive heart failure) Code(s): I50.9 - HEART FAILURE, UNSPECIFIED Qualifiers: Qualified Code(s): I50.9 - Heart failure, unspecified (5) Diabetes mellitus Code(s): E11.9 - TYPE 2 DIABETES MELLITUS WITHOUT COMPLICATIONS Qualifiers: Qualified Code(s): E11.9 - Type 2 diabetes mellitus without complications (6) Hypertension Code(s): I10 - ESSENTIAL (PRIMARY) HYPERTENSION Qualifiers: Qualified Code(s): I10 - Essential (primary) hypertension Assessment/Plan 67 year old woman with PMhx of CKD , Hypertension, DM, Chronic anemia who presented with complaints of sob and found to have severe anemia, metabolic acidosis and MARQUES with Cr of 2.7. The patient's renal functions have improved significantly. The Serum Cr is 1.4 Anion gap metabolic acidosis. Resolved Severe anemia... continue PRBC transfusion as needed. Hematolgy services following. Hyperuricemia..improved. Last uric acid 5.3. IV Abx as per the ID services. Thank you. Will follow with you. Mary Oviedo MD
[2017-10-20] MEDS: AMITRIPTYLINE HCL 25 MG TABLET (FP) PO SCH (21:31)
[2017-10-20] MEDS ORDERED: SENNOSIDES/DOCUSATE COMBO (SENNA PLUS) TABLET (UD) PO SCH (22:00)
[2017-10-21] MEDS: PIPERACILLIN/TAZOB 2.25 GM 2.25 GM in DEXTROSE 5%-WATER - 100 ML IVPB SCH (02:24)
[2017-10-21] MEDS: HEPARIN NA (PORCINE) 5,000 UNITS/ML 1ML VIAL SQ SCH ×2 (06:19→15:31)
[2017-10-21] MEDS: INSULIN SLIDING SCALE (NOVOLOG) 1 VIAL SQ SCH ×3 (06:29→17:03)
[2017-10-21 08:09] LABS: HEMATOCRIT 26.2 % (32.4-45.2); HEMOGLOBIN 7.9 GM/dL (10.7-15.3); MCH 23.6 pg (25.7-33.7); MCHC 30.1 g/dl (32.0-36.0); MEAN CELL VOLUME 78.5 fl (80-96); MEAN PLT VOLUME 7.9 fl (7.5-11.1); PLATELET COUNT 546 K/MM3 (134-434); RBC 3.33 M/mm3 (3.60-5.2); RDW 20.8 % (11.6-15.6); WHITE BLOOD COUNT 14.2 K/mm3 (4.0-10.0)
[2017-10-21 08:32] LABS: ADD RBC MORPHOLOGY YES
[2017-10-21 08:46] LABS: CHLORIDE 106 mmol/L (98-107); POTASSIUM 4.2 mmol/L (3.5-5.1); SODIUM 138 mmol/L (136-145)
[2017-10-21 08:57] LABS: ALBUMIN 2.2 g/dl (3.4-5.0); ALK PHOS 171 U/L (45-117); ANION GAP 9 (8-16); BILIRUBIN,TOTAL 0.2 mg/dL (0.2-1.0); BLOOD UREA NITROGEN 14 mg/dL (7-18); CALCIUM 8.1 mg/dL (8.5-10.1); CO2 23 mmol/L (21-32); CREATININE 1.4 mg/dL (0.55-1.02); GLUCOSE,RANDOM 93 mg/dL (74-106); SGOT/AST 31 U/L (15-37); SGPT/ALT 90 U/L (12-78); TOT PROT 6.1 g/dl (6.4-8.2)
[2017-10-21 09:07] VITALS: BP 154/80
[2017-10-21 10:19] LABS: MACROCYTOSIS 1+
[2017-10-21 10:20] LABS: OVALOCYTE 1+
[2017-10-21] MEDS ORDERED: PT OWN MED DRAWER 7, Y5N ONE (10:25)
[2017-10-21] MEDS: ASPIRIN 81 MG CHEWABLE TABLETS PO SCH (10:47)
[2017-10-21] MEDS: PANTOPRAZOLE 40 MG TABLET (FP) PO SCH (10:47)
[2017-10-21] MEDS: IRON SUCROSE INJECTION 200 MG in SODIUM CHLORIDE 90 ML IVPB SCH (10:48)
--- NOTE | 2017-10-21 10:56 | PN ---
Progress Note, Physician Chief Complaint: ID Alert Matias improved Zosyn day 6 Afebrile - Current Medication List Current Medications: Active Medications Acetaminophen (Tylenol -) 650 mg PO Q4H PRN PRN Reason: PAIN Last Admin: 10/20/17 08:38 Dose: 650 mg Amitriptyline HCl (Elavil -) 25 mg PO HS [facility] Last Admin: 10/20/17 21:31 Dose: Not Given Aspirin (Asa -) 81 mg PO DAILY [facility] Last Admin: 10/20/17 09:28 Dose: 81 mg Heparin Sodium (Porcine) (Heparin -) 5,000 unit SQ TID [facility] Last Admin: 10/21/17 06:19 Dose: 5,000 unit Piperacillin Sod/Tazobactam (Sod 2.25 gm/ Dextrose) 100 mls @ 200 mls/hr IVPB Q6H-IV [facility] Last Admin: 10/21/17 02:24 Dose: 200 mls/hr Iron Sucrose 200 mg/ Sodium (Chloride) 100 mls @ 100 mls/hr IVPB DAILY@0800 [facility] Stop: 10/22/17 12:59 Last Admin: 10/20/17 11:21 Dose: 100 mls/hr Insulin Aspart (Novolog Vial Sliding Scale -) 1 vial SQ TIDAC [facility] PRN Reason: Protocol Last Admin: 10/21/17 06:29 Dose: Not Given Metoprolol Succinate (Toprol Xl -) 50 mg PO DAILY [facility] Pantoprazole Sodium (Protonix -) 40 mg PO DAILY [facility] Last Admin: 10/20/17 09:28 Dose: 40 mg Senna/Docusate Sodium (Pericolace -) 2 tablet PO [facility] Last Admin: 10/20/17 21:30 Dose: 2 tablet - Objective Vital Signs: Vital Signs Temperature 98.1 F 10/21/17 09:00 Pulse Rate 102 H 10/21/17 10:26 Respiratory Rate 20 10/21/17 09:00 Blood Pressure 154/80 10/21/17 09:00 O2 Sat by Pulse Oximetry (%) 95 10/21/17 10:26 Constitutional: Yes: Well Nourished, No Distress Cardiovascular: Yes: Regular Rate and Rhythm, S2 Respiratory: Yes: WNL, Regular, CTA Bilaterally Gastrointestinal: Yes: WNL, Normal Bowel Sounds, Soft. No: Tenderness, Tenderness, Rebound Edema: No Labs: CBC, BMP 02/12/18 07:51 10/21/17 07:51 INR, PTT INR 1.28 (0.82-1.09) H 10/16/17 06:05 Fibrinogen 486.0 mg/dL (238-498) 10/15/17 08:10 Assessment/Plan Microbiology 10/16/17 16:35 Sputum - Expectorated Gram Stain - Final 10/16/17 16:35 Sputum - Expectorated Sputum Culture - Final NORMAL RESPIRATORY UZAIR 10/15/17 12:22 Urine For Antigen Detection Legionella Antigen - Final 10/15/17 12:22 Urine For Antigen Detection Streptococcus pneumoniae Antigen (M - Final 10/15/17 10:31 Urine - Urine Clean Catch Urine Culture - Final NO GROWTH OBTAINED 10/15/17 06:27 Blood - Peripheral Venous Blood Culture - Final NO GROWTH AFTER 5 DAYS INCUBATION 10/15/17 06:27 Blood - Peripheral Venous Blood Culture - Final NO GROWTH AFTER 5 DAYS INCUBATION Laboratory Tests 10/21/17 10/21/17 07:51 07:51 WBC 14.2 H Hgb 7.9 L Hct 26.2 L Plt Count 546 H Creatinine 1.4 H Creat Clearance w eGFR 37.39 Assessment Resolving Pneumonia unspecified etiology Plan Substitute Augmentin 875 bid another day or 2 Still using O2 Ry RENO
[2017-10-21] MEDS ORDERED: BISACODYL 5 MG TABLET.DR (FP) PO ONE (11:23)
--- NOTE | 2017-10-21 11:23 | PN ---
Progress Note, Physician History of Present Illness: Clinically much better. on NC O2. No events to suggest ongoing GI bleeding - Current Medication List Current Medications: Active Medications Acetaminophen (Tylenol -) 650 mg PO Q4H PRN PRN Reason: PAIN Last Admin: 10/20/17 08:38 Dose: 650 mg Amitriptyline HCl (Elavil -) 25 mg PO HS [facility] Last Admin: 10/20/17 21:31 Dose: Not Given Amoxicillin/Clavulanate Potassium (Augmentin - 875mg Tablet) 1 tab PO BID@0800, 1730 [facility] Aspirin (Asa -) 81 mg PO DAILY [facility] Last Admin: 10/21/17 10:47 Dose: 81 mg Heparin Sodium (Porcine) (Heparin -) 5,000 unit SQ TID [facility] Last Admin: 10/21/17 06:19 Dose: 5,000 unit Iron Sucrose 200 mg/ Sodium (Chloride) 100 mls @ 100 mls/hr IVPB DAILY@0800 [facility] Stop: 10/22/17 12:59 Last Admin: 10/21/17 10:48 Dose: 100 mls/hr Insulin Aspart (Novolog Vial Sliding Scale -) 1 vial SQ TIDAC [facility] PRN Reason: Protocol Last Admin: 10/21/17 11:05 Dose: Not Given Metoprolol Succinate (Toprol Xl -) 50 mg PO DAILY [facility] Last Admin: 10/21/17 10:47 Dose: 50 mg Pantoprazole Sodium (Protonix -) 40 mg PO DAILY [facility] Last Admin: 10/21/17 10:47 Dose: 40 mg Senna/Docusate Sodium (Pericolace -) [address] [facility] Last Admin: 10/20/17 21:30 Dose: 2 tablet - Objective Vital Signs: Vital Signs Temperature 98.1 F 10/21/17 09:00 Pulse Rate 102 H 10/21/17 10:26 Respiratory Rate 20 10/21/17 09:00 Blood Pressure 154/80 10/21/17 09:00 O2 Sat by Pulse Oximetry (%) 95 10/21/17 10:26 Constitutional: Yes: Well Nourished, No Distress, Calm Eyes: Yes: Conjunctiva Clear HENT: Yes: Atraumatic Neck: Yes: Supple Cardiovascular: Yes: Regular Rate and Rhythm Respiratory: Yes: Regular, CTA Bilaterally Gastrointestinal: Yes: Soft Neurological: Yes: Alert, Oriented Labs: CBC, BMP 10/21/17 07:51 10/21/17 07:51 INR, PTT INR 1.28 (0.82-1.09) H 10/16/17 06:05 Fibrinogen 486.0 mg/dL (238-498) 10/15/17 08:10 Problem List - Problems (1) Iron deficiency anemia due to chronic blood loss Code(s): D50.0 - IRON DEFICIENCY ANEMIA SECONDARY TO BLOOD LOSS (CHRONIC) (2) Iron deficiency anemia Code(s): D50.9 - IRON DEFICIENCY ANEMIA, UNSPECIFIED (3) Abnormal abdominal exam Code(s): R19.8 - OTH SYMPTOMS AND SIGNS INVOLVING THE DGSTV SYS AND ABDOMEN (4) Acute renal failure superimposed on chronic kidney disease Code(s): N17.9 - ACUTE KIDNEY FAILURE, UNSPECIFIED; N18.9 - CHRONIC KIDNEY DISEASE, UNSPECIFIED Qualifiers: Chronic kidney disease stage: unspecified stage (5) CHF (congestive heart failure) Code(s): I50.9 - HEART FAILURE, UNSPECIFIED Qualifiers: Qualified Code(s): I50.9 - Heart failure, unspecified (6) Diabetes mellitus Code(s): E11.9 - TYPE 2 DIABETES MELLITUS WITHOUT COMPLICATIONS Qualifiers: Diabetes mellitus type: type 2 Diabetes mellitus complication status: without complication Diabetes mellitus director long term care insulin use: without director long term care use Qualified Code(s): E11.9 - Type 2 diabetes mellitus without complications (7) Hyponatremia Code(s): E87.1 - HYPO-OSMOLALITY AND HYPONATREMIA (8) Iron deficiency anemia Code(s): D50.9 - IRON DEFICIENCY ANEMIA, UNSPECIFIED (9) Lactic acidosis Code(s): E87.2 - ACIDOSIS (10) Leukocytosis Code(s): D72.829 - ELEVATED WHITE BLOOD CELL COUNT, UNSPECIFIED Qualifiers: Leukocytosis type: unspecified Qualified Code(s): D72.829 - Elevated white blood cell count, unspecified (11) Thrombocytosis Code(s): D47.3 - ESSENTIAL (HEMORRHAGIC) THROMBOCYTHEMIA Assessment/Plan As discussed with the patient, will plan endoscopic work up for iron deficiency anemia Pulmonary clearance if stable for EGD and colonoscopy tomorrow PPI po qam and close monitoring for signs of acute GI bleeding.
--- NOTE | 2017-10-21 11:59 | PN ---
Progress Note (short form) - Note Progress Note: alert,no complaints,-cough,-sob - Current Medication List Current Medications: Active Medications Acetaminophen (Tylenol -) 650 mg PO Q4H PRN PRN Reason: PAIN Last Admin: 10/20/17 08:38 Dose: 650 mg Amitriptyline HCl (Elavil -) 25 mg PO HS [facility] Last Admin: 10/19/17 22:08 Dose: Not Given Aspirin (Asa -) 81 mg PO DAILY [facility] Last Admin: 10/20/17 09:28 Dose: 81 mg Heparin Sodium (Porcine) (Heparin -) 5,000 unit SQ TID [facility] Last Admin: 10/20/17 13:27 Dose: 5,000 unit Piperacillin Sod/Tazobactam (Sod 2.25 gm/ Dextrose) 100 mls @ 200 mls/hr IVPB Q6H-IV [facility] Last Admin: 10/20/17 15:06 Dose: 200 mls/hr Iron Sucrose 200 mg/ Sodium (Chloride) 100 mls @ 100 mls/hr IVPB DAILY@0800 [facility] Stop: 10/22/17 12:59 Last Admin: 10/20/17 11:21 Dose: 100 mls/hr Insulin Aspart (Novolog Vial Sliding Scale -) 1 vial SQ TIDAC [facility] PRN Reason: Protocol Last Admin: 10/20/17 11:10 Dose: Not Given Metoprolol Succinate (Toprol Xl -) 25 mg PO DAILY [facility] Last Admin: 10/20/17 09:28 Dose: 25 mg Pantoprazole Sodium (Protonix -) 40 mg PO DAILY [facility] Last Admin: 10/20/17 09:28 Dose: 40 mg - Objective Vital Signs: Vital Signs Temperature 98.2 F 10/20/17 15:08 Pulse Rate 82 10/20/17 15:08 Respiratory Rate 18 10/20/17 15:08 Blood Pressure 156/89 10/20/17 15:08 O2 Sat by Pulse Oximetry (%) 100 10/20/17 09:00 Constitutional: Yes: Well Nourished, Calm Eyes: Yes: WNL HENT: Yes: WNL Neck: Yes: WNL Cardiovascular: Yes: Regular Rate and Rhythm, S1, S2 Respiratory: Yes: Rales (few craackles amelia) Gastrointestinal: Yes: Normal Bowel Sounds, Soft Extremities: Yes: WNL Edema: No Labs: CBC, BMP 10/20/17 07:00 10/20/17 07:00 INR, PTT INR 1.28 (0.82-1.09) H 10/16/17 06:05 Fibrinogen 486.0 mg/dL (238-498) 10/15/17 08:10 - ....Imaging Chest X-ray: Report Reviewed, Image Reviewed (no change) Problem List - Problems (1) Acute hypoxemic respiratory failure Code(s): J96.01 - ACUTE RESPIRATORY FAILURE WITH HYPOXIA (2) Anemia Code(s): D64.9 - ANEMIA, UNSPECIFIED Qualifiers: Anemia type: unspecified type Qualified Code(s): D64.9 - Anemia, unspecified (3) CHF (congestive heart failure) Code(s): I50.9 - HEART FAILURE, UNSPECIFIED Qualifiers: Congestive heart failure type: unspecified Congestive heart failure chronicity: unspecified Qualified Code(s): I50.9 - Heart failure, unspecified (4) Chronic kidney disease Code(s): N18.9 - CHRONIC KIDNEY DISEASE, UNSPECIFIED (5) Demand ischemia Code(s): I24.8 - OTHER FORMS OF ACUTE ISCHEMIC HEART DISEASE (6) Diabetes mellitus Code(s): E11.9 - TYPE 2 DIABETES MELLITUS WITHOUT COMPLICATIONS Qualifiers: Diabetes mellitus type: type 2 Diabetes mellitus complication status: without complication Diabetes mellitus intermediate accountant insulin use: without intermediate accountant use Qualified Code(s): E11.9 - Type 2 diabetes mellitus without complications (7) Lactic acidosis Code(s): E87.2 - ACIDOSIS (8) Pneumonia Code(s): J18.9 - PNEUMONIA, UNSPECIFIED ORGANISM Qualifiers: Laterality: bilateral Lung location: upper lobe of lung Assessment/Plan A/P Acute Hypoxic Respiratory Failure IMPROVING Severe Anemia s/p PRBC Transfusions r/o Myeloproliferative Disorder Pneumonia clinically improving Sepsis Lactic Acidosis +Troponins likely Demand Ischemia HTN DM CKD - antibiotics as per ID - inhaled bronchodilators - monitor H/H - transfuse as needed - O2 to keep SpO2 >90% - DVT prophylaxis DR JOY
--- NOTE | 2017-10-21 12:14 | PN ---
Progress Note (short form) - Note Progress Note: Overall feeling better. Reports that she was able to ambulate in the hallway with O2. Some dry cough persists. CXR: improving infiltrate Intake & Output 10/18/17 10/19/17 10/20/17 10/21/17 23:59 23:59 23:59 23:59 Intake Total 900 1660 1390 200 Balance 900 1660 1390 200 Weight 155 lb 155 lb 6.4 oz 149 lb 6.4 oz 149 lb Last Vital Signs Temp Pulse Resp BP Pulse Ox 98.1 F 102 H 20 154/80 95 10/21/17 09:00 10/21/17 10:26 10/21/17 09:00 10/21/17 09:00 10/21/17 10:26 Active Medications Acetaminophen (Tylenol -) 650 mg PO Q4H PRN PRN Reason: PAIN Last Admin: 10/20/17 08:38 Dose: 650 mg Amitriptyline HCl (Elavil -) 25 mg PO HS [facility] Last Admin: 10/20/17 21:31 Dose: Not Given Amoxicillin/Clavulanate Potassium (Augmentin - 875mg Tablet) 1 tab PO BID@0800, 1730 [facility] Aspirin (Asa -) 81 mg PO DAILY [facility] Last Admin: 10/21/17 10:47 Dose: 81 mg Bisacodyl (Dulcolax -) 20 mg PO ONCE ONE Stop: 10/21/17 11:24 Heparin Sodium (Porcine) (Heparin -) 5,000 unit SQ TID [facility] Last Admin: 10/21/17 06:19 Dose: 5,000 unit Iron Sucrose 200 mg/ Sodium (Chloride) 100 mls @ 100 mls/hr IVPB DAILY@0800 [facility] Stop: 10/22/17 12:59 Last Admin: 10/21/17 10:48 Dose: 100 mls/hr Insulin Aspart (Novolog Vial Sliding Scale -) 1 vial SQ TIDAC [facility] PRN Reason: Protocol Last Admin: 10/21/17 11:05 Dose: Not Given Metoprolol Succinate (Toprol Xl -) 50 mg PO DAILY [facility] Last Admin: 10/21/17 10:47 Dose: 50 mg Pantoprazole Sodium (Protonix -) 40 mg PO DAILY [facility] Last Admin: 10/21/17 10:47 Dose: 40 mg Polyethylene Glycol/Electrolytes (Golytely Solution -) 4,000 ml PO ONCE ONE Stop: 10/21/17 17:01 Senna/Docusate Sodium (Pericolace -) 2 tablet PO HS [facility] Last Admin: 10/20/17 21:30 Dose: 2 tablet Constitutional: Yes: NAD Eyes: Yes: WNL HENT: Yes: WNL Neck: Yes: WNL Cardiovascular: Yes: Regular Rate and Rhythm, S1, S2 Respiratory: Yes: few scattered rhonchi Gastrointestinal: Yes: Normal Bowel Sounds, Soft Extremities: Yes: WNL Edema: No Labs: Laboratory Results - last 24 hr 10/19/17 10/19/17 10/20/17 16:59 17:00 16:14 WBC RBC Hgb Hct MCV MCH MCHC RDW Plt Count MPV Hypochromia Polychromasia Microcytosis Macrocytosis Ovalocytes Sodium Potassium Chloride Carbon Dioxide Anion Gap BUN Creatinine Creat Clearance w eGFR POC Glucometer 135 127 150 Random Glucose Calcium Ferritin Total Bilirubin AST ALT Alkaline Phosphatase Total Protein Albumin 10/20/17 10/21/17 10/21/17 21:14 06:01 07:51 WBC RBC Hgb Hct MCV MCH MCHC RDW Plt Count MPV Hypochromia Polychromasia Microcytosis Macrocytosis Ovalocytes Sodium 138 Potassium 4.2 Chloride 106 Carbon Dioxide 23 Anion Gap 9 BUN 14 Creatinine 1.4 H Creat Clearance w eGFR 37.39 POC Glucometer 132 104 Random Glucose 93 Calcium 8.1 L Ferritin 285.019 H Total Bilirubin 0.2 AST 31 ALT 90 H Alkaline Phosphatase 171 H Total Protein 6.1 L Albumin 2.2 L 10/21/17 10/21/17 07:51 11:04 WBC 14.2 H RBC 3.33 L Hgb 7.9 L Hct 26.2 L MCV 78.5 L MCH 23.6 L MCHC 30.1 L RDW 20.8 H Plt Count 546 H MPV 7.9 Hypochromia 1+ Polychromasia 1+ Microcytosis 1+ Macrocytosis 1+ Ovalocytes 1+ Sodium Potassium Chloride Carbon Dioxide Anion Gap BUN Creatinine Creat Clearance w eGFR POC Glucometer 118 Random Glucose Calcium Ferritin Total Bilirubin AST ALT Alkaline Phosphatase Total Protein Albumin Problem List - Problems (1) Acute hypoxemic respiratory failure Code(s): J96.01 - ACUTE RESPIRATORY FAILURE WITH HYPOXIA (2) Anemia Code(s): D64.9 - ANEMIA, UNSPECIFIED Qualifiers: Anemia type: unspecified type Qualified Code(s): D64.9 - Anemia, unspecified (3) CHF (congestive heart failure) Code(s): I50.9 - HEART FAILURE, UNSPECIFIED Qualifiers: Congestive heart failure type: unspecified Congestive heart failure chronicity: unspecified Qualified Code(s): I50.9 - Heart failure, unspecified (4) Chronic kidney disease Code(s): N18.9 - CHRONIC KIDNEY DISEASE, UNSPECIFIED (5) Demand ischemia Code(s): I24.8 - OTHER FORMS OF ACUTE ISCHEMIC HEART DISEASE (6) Diabetes mellitus Code(s): E11.9 - TYPE 2 DIABETES MELLITUS WITHOUT COMPLICATIONS Qualifiers: Diabetes mellitus type: type 2 Diabetes mellitus complication status: without complication Diabetes mellitus intermediate insulin use: without intermediate use Qualified Code(s): E11.9 - Type 2 diabetes mellitus without complications (7) Lactic acidosis Code(s): E87.2 - ACIDOSIS (8) Pneumonia Code(s): J18.9 - PNEUMONIA, UNSPECIFIED ORGANISM Qualifiers: Laterality: bilateral Lung location: upper lobe of lung Assessment/Plan Acute Hypoxic Respiratory Failure IMPROVING Severe Anemia s/p PRBC Transfusions Pneumonia clinically/radiographically improving Sepsis Lactic Acidosis +Troponins likely Demand Ischemia HTN DM CKD - antibiotics as per ID - inhaled bronchodilators - monitor H/H - transfuse as needed - Taper NC O2 as tolerated - No need for daily CXR - VTE prophylaxis Dr Martínez
--- NOTE | 2017-10-21 13:42 | PN ---
Progress Note (short form) - Note Progress Note: . The patient expressed desire to have EGD and colonoscopy on outpatient basis. Problem List - Problems (1) Iron deficiency anemia due to chronic blood loss Code(s): D50.0 - IRON DEFICIENCY ANEMIA SECONDARY TO BLOOD LOSS (CHRONIC) (2) Iron deficiency anemia Code(s): D50.9 - IRON DEFICIENCY ANEMIA, UNSPECIFIED (3) Abnormal abdominal exam Code(s): R19.8 - OTH SYMPTOMS AND SIGNS INVOLVING THE DGSTV SYS AND ABDOMEN (4) Acute renal failure superimposed on chronic kidney disease Code(s): N17.9 - ACUTE KIDNEY FAILURE, UNSPECIFIED; N18.9 - CHRONIC KIDNEY DISEASE, UNSPECIFIED Qualifiers: Chronic kidney disease stage: unspecified stage (5) CHF (congestive heart failure) Code(s): I50.9 - HEART FAILURE, UNSPECIFIED Qualifiers: Qualified Code(s): I50.9 - Heart failure, unspecified (6) Diabetes mellitus Code(s): E11.9 - TYPE 2 DIABETES MELLITUS WITHOUT COMPLICATIONS Qualifiers: Diabetes mellitus type: type 2 Diabetes mellitus complication status: without complication Diabetes mellitus supervisor intermediates insulin use: without skilled nursing use Qualified Code(s): E11.9 - Type 2 diabetes mellitus without complications (7) Hyponatremia Code(s): E87.1 - HYPO-OSMOLALITY AND HYPONATREMIA (8) Iron deficiency anemia Code(s): D50.9 - IRON DEFICIENCY ANEMIA, UNSPECIFIED (9) Lactic acidosis Code(s): E87.2 - ACIDOSIS (10) Leukocytosis Code(s): D72.829 - ELEVATED WHITE BLOOD CELL COUNT, UNSPECIFIED Qualifiers: Leukocytosis type: unspecified Qualified Code(s): D72.829 - Elevated white blood cell count, unspecified (11) Thrombocytosis Code(s): D47.3 - ESSENTIAL (HEMORRHAGIC) THROMBOCYTHEMIA
[2017-10-21] MEDS ORDERED: FLUCONAZOLE 50 MG TABLET PO ONE (14:03)
--- NOTE | 2017-10-21 14:35 | PN ---
Teaching Attending Note Name of Resident: Sharif Gimenez ATTENDING PHYSICIAN STATEMENT I saw and evaluated the patient. I reviewed the resident's note and discussed the case with the resident. I agree with the resident's findings and plan as documented. SUBJECTIVE: No fever or chills, has no SOB. no cough , has burning in vaginal area , no discharge OBJECTIVE: NAD. CV: RRR, 3/6 SM at LUSB and LLSB with 2/6 SM at apex. JVD Lungs: clear lungs , minimal decrease in breath sounds at bases Ext: no edema , or erythema ASSESSMENT AND PLAN: 67 y/o lady with h/o chronic microcytic anemia, CKD 3, DM II, HTN, and other medical problems who presented with SOB and chest discomofrt x 10 days . She was found to have severe sepsis, hyponatremia, MARQUES, metabolic acidosis, and severe anemia 1- Severe sepsis: from b/l PNA. cont to improve - day 7 of abx . chnage to po augmentin x 2 more days . appreciate Id help - sputum cx and blood cx neg - mycoplasma igM Neg . - did not require o2 on pre-post 2-Severe microcytic anemia : she has h/o alpha Thalassemia , iron def a, folat and B12 def. also gastric ulcers - stable Hb . - s/p IV iron - No evidence of hemolysis - flow cytometry with no proliferative disorder or blasts - has h/o gastric ulcers per her junior legal secretary, pt chose to get EGD/[facility] as outpt. d/w GI 3- MARQUES: prerenal azotemia. - Cr at base line ( last admission ) 4- HTN: cont increased dose of BB . might need more adjustment as out pt 5- Demand ischemia: due to sepsis. -Trop trended down 6- - b/l LAP in axilla on exam breast exam with no masses , she understand the need for mammo and lymph node Bx to r/o breast cancer as out pt 7- LFTs abn: improved , ALk phos is still high, expect it form abx . script as out pt Dispo :dc home f/u with PCP, heme , GI , PULm., card
[2017-10-21 15:52] VITALS: PULSE 80; TEMP 99.3
[2017-10-21] MEDS ORDERED: PEG 3350/NA SULF BICARB CL/KCL 4000 ML SOLN.RECON PO ONE (17:00)
[2017-10-21] MEDS ORDERED: AMOX TR/POT CLAV 875MG/125MG TABLETS (FP) PO SCH (17:30)
--- NOTE | 2017-10-21 18:22 | DS ---
Physical Exam: SUBJECTIVE: Patient seen and examined at bedside. Patient walked with respiratory and did not desaturate off of oxygen. No acute complaints today. Denies SOB, chest pain, nausea, vomiting, diarrhea. States that she had a bowel movement today. OBJECTIVE: Vital Signs Period Temp Pulse Resp BP Sys/Rahman Pulse Ox Last 24 Hr 98.1 F-99.3 F 80-102 20-20 142-164/80-92 95-100 PHYSICAL EXAM GENERAL: The patient is awake, alert, and fully oriented, in no acute distress. NECK: Trachea midline, full range of motion, supple. LUNGS: Mild crackles. HEART: Regular rate and rhythm, S1 S2+, systolic murmur 2/6 best heard in aortic region ABDOMEN: soft and nontender, normoactive bowel sounds. EXTREMITIES: warm, well-perfused, no edema. NEUROLOGICAL: Normal speech, gait not observed. PSYCH: Normal mood, normal affect. SKIN: Warm, dry LABS Laboratory Results - last 24 hr 10/19/17 10/19/17 10/20/17 16:59 17:00 21:14 WBC RBC Hgb Hct MCV MCH MCHC RDW Plt Count MPV Hypochromia Polychromasia Microcytosis Macrocytosis Ovalocytes Sodium Potassium Chloride Carbon Dioxide Anion Gap BUN Creatinine Creat Clearance w eGFR POC Glucometer 135 127 132 Random Glucose Calcium Ferritin Total Bilirubin AST ALT Alkaline Phosphatase Total Protein Albumin 10/21/17 10/21/17 10/21/17 06:01 07:51 07:51 WBC 14.2 H RBC 3.33 L Hgb 7.9 L Hct 26.2 L MCV 78.5 L MCH 23.6 L MCHC 30.1 L RDW 20.8 H Plt Count 546 H MPV 7.9 Hypochromia 1+ Polychromasia 1+ Microcytosis 1+ Macrocytosis 1+ Ovalocytes 1+ Sodium 138 Potassium 4.2 Chloride 106 Carbon Dioxide 23 Anion Gap 9 BUN 14 Creatinine 1.4 H Creat Clearance w eGFR 37.39 POC Glucometer 104 Random Glucose 93 Calcium 8.1 L Ferritin 285.019 H Total Bilirubin 0.2 AST 31 ALT 90 H Alkaline Phosphatase 171 H Total Protein 6.1 L Albumin 2.2 L 10/21/17 10/21/17 11:04 17:01 WBC RBC Hgb Hct MCV MCH MCHC RDW Plt Count MPV Hypochromia Polychromasia Microcytosis Macrocytosis Ovalocytes Sodium Potassium Chloride Carbon Dioxide Anion Gap BUN Creatinine Creat Clearance w eGFR POC Glucometer 118 123 Random Glucose Calcium Ferritin Total Bilirubin AST ALT Alkaline Phosphatase Total Protein Albumin Microbiology Microbiology 10/16/17 12:56 Serum Mycoplasma Antibody - Final 10/16/17 16:35 Sputum - Expectorated Gram Stain - Final 10/16/17 16:35 Sputum - Expectorated Sputum Culture - Final NORMAL RESPIRATORY UZAIR 10/15/17 06:27 Blood - Peripheral Venous Blood Culture - Final NO GROWTH AFTER 5 DAYS INCUBATION 10/15/17 06:27 Blood - Peripheral Venous Blood Culture - Final NO GROWTH AFTER 5 DAYS INCUBATION 10/15/17 10:31 Urine - Urine Clean Catch Urine Culture - Final NO GROWTH OBTAINED 10/15/17 12:22 Urine For Antigen Detection Legionella Antigen - Final 10/15/17 12:22 Urine For Antigen Detection Streptococcus pneumoniae Antigen (M - Final 10/15/17 13:30 Nasopharyngeal Swab Influenza Types A,B Antigen (PRICE) - Final 10/15/17 13:30 Nasopharyngeal Swab - Final IMAGING: CXR 10/21: Improved congestive changes. Improved bibasilar infiltrates. Interval development of right upper lobe consolidation with air bronchogram. CXR 10/16: Improved congestive changes. Improved bibasilar infiltrates. Interval development of right upper lobe consolidation with air bronchogram. Duplex venous US b/l lower extremities: There is no evidence of deep venous thromboses in both lower extremities. Abd US: 1. Bilateral pleural effusions. 2. Thick-walled gallbladder without evidence of cholelithiasis or biliary ductal dilatation. 3. Small spleen with multiple calcifications. 4. Bilateral renal cysts with no evidence of hydronephrosis or acute pathology. CXR 10/15: Findings are most consistent with pulmonary edema, mildly asymmetric on the left. Inflammatory disease either alone or superimposed cannot be excluded. HOSPITAL COURSE: Date of Admission:10/15/17 This is a 67 year old female with a past medical history of chronic microcytic hypochromic anemia (treated by Dr Stone in the past with Fe infusions, baseline hgb 8), family history of anemia and stroke, CKD, diet controlled DM, HTN, presented to the ED for shortness of breath and chest discomfort for several days duration. Patient reported associated malaise, night sweats, several episodes of nonbloody emesis, anorexia, subjective fevers and mildly sore throat. Patient was in ED 2 days ago, at which time she was tested flu and was sent home with [facility]. On admission she was found to have severe anemia with a Hgb 3.6, a white blood cell count of 20.1k, platelets of 1257 and a chest xray that showed bilateral diffuse pulmonary edema vs bilateral pneumonia. Despite these findings, patient was afebrile and hemodynamically stable. Several hours into ED stay, patient was found unresponsive, with pulses intact and was witnessed to have seizure like activity with small jerking movements in extremities. She got an ABG that discovered her to be in acidosis. Patient was placed on BIPAP and regained baseline mental status AAOx3 and began saturating well. A dose of sodium bicarb was given. For the patient's anemia, she was transfused 2U pRBC with IV lasix in between units. Patient had elevated transaminases in the hospital. An abdominal ultrasound was performed and revealed the findings listed above (In the imaging section of this note). She was admitted to the floors for the treatment of severe anemia, acute respiratory failure 2/2 severe sepsis from pneumonia vs pulmonary edema, and acute kidney injury - which we attributed to pre-renal azotemia because the creatinine responded to fluid resuscitation. Blood cultures were drawn and patient was placed on antibiotic therapy with zosyn and fluid resuscitation appropriate for her severe sepsis. She was kept on bipap overnight. She needed a 3rd unit PRBCs in order to stabilize her hemoglobin. Patient received consultations from hematology, cardiology, nephrology, ICU/pulmonary, gastroenterology, and infectious diseases. Her assembler installer structures as an outpatient did workup on her in the past and found that she had iron deficiency, folate and B12 deficiency and had a thalassemia trait. She received iron infusions in the hospital. Patient continued to improve on zosyn and fluid resuscitation. After 1 day off bipap, patient saturated well on non-rebreather and subsequently on nasal cannula. She walked well with respiratory therapy and did not require O2 during the pre/post oxygen requirement test. She was discharged home with instructions to follow with gastroenterology for upper and lower endoscopy, cardiology, nephrology and her primary care physician within 1 week of discharge. She was sent home with a prescription for bloodwork to get CBC and CMP within 1 week of discharge Date of Discharge: 10/21/17 Minutes to complete discharge: 35 Discharge Summary Reason For Visit: CHF,ANEMIA,HYPONATREMIA,LEUKOCYTOSIS,THROMBOCYTHEM Current Active Problems Abnormal LFTs (Acute) Acute hypoxemic respiratory failure (Acute) Acute renal failure superimposed on chronic kidney disease (Acute) Anemia (Acute) CHF (congestive heart failure) (Acute) Demand ischemia (Acute) Hyponatremia (Acute) Iron deficiency anemia (Acute) Lactic acidosis (Acute) Leukocytosis (Acute) Paroxysmal supraventricular tachycardia (Acute) Pneumonia (Acute) Severe sepsis (Acute) Thrombocytosis (Acute) Chronic kidney disease (Chronic) Diabetes mellitus (Chronic) Hypertension (Chronic) Condition: Improved - Instructions Diet, Activity, Other Instructions: You were treated in the hospital for pneumonia and severe anemia. You received blood transfusions in the hospital to stabilize your blood counts. Based on our work up, your anemia appears to be due to a genetic red blood cell disorder "thalassemia", however, bleeding from the gastro-intestinal tract cant be ruled out, which is why it is very important for you to follow up with Dr Gastelum (Gastroenterology) for an endoscopy within 1 week. Management of Thalassemia blood disorder needs to be managed by hematology, so you need to see Dr Stone your assembler installer structures for further evaluation You completed 7 days of antibiotics in the hospital Medical Recommendations: -Continue taking Toprol XL 50mg once a day for hypertension -We will prescribe Clotrimazole cream for yeast infection -Please take augmentin 875mg twice a day for infection for 2 days. -We will prescribe iron pills, Ferrous Sulfate 325mg once a day increase to three times a day gradually as tolerated -Make an appointment with your primary care physician Dr. Gibbs within 1 week of discharge -Make an appointment with the advance agent Dr. Gastelum within 1 week of discharge to discuss upper endoscopy and colonoscopy -Make an appointment with the assembler installer structures Dr. stone within 1 month of discharge to discuss workup for your anemia -Please follow with cardiology Dr. Weaver in 1 week to evaluate you fluid status and your heart . it s very important . If you experience severe fevers, chills, chest pain, shortness of breath, please return to the emergency room immediately Referrals: Tanner Gastelum MD [Staff Physician] - 1 Week Jo Reynoso MD [Staff Physician] - 1 Month Marlon Weaver MD [Staff Physician] - Consuelo Gibbs MD [Primary Care Provider] - 1 Week Disposition: HOME - Home Medications Comprehensive Discharge Medication List: Ambulatory Orders Perphenazine/Amitriptyline HCl [Perphen-Amitrip 4 mg-25 mg Tab] 1 each PO DAILY 01/12/15 Albuterol Sulfate Inhaler - [Ventolin HFA Inhaler -] 2 inh PO Q4H #1 inh Amox-Tr/K Cl [Augmentin 875-125mg Tablet -] 1 tab PO BID@0800,1730 #4 tablet 08/26 Clotrimazole [Gyne-Lotrimin -] 1 applic VG HS #1 tube 10/21/17 Ferrous Sulfate [Iron] 325 mg PO DAILY #30 tablet 10/21/17 Metoprolol Succinate [Toprol XL -] 50 mg PO DAILY #30 tab.sr.24h 10/21/17 Miscellaneous Drug Not In Syst [Outpatient Lab Test] 1 each ASDIR #1 misc 08/26 This patient is new to me today: No Emergency Visit: No Critical Care patient: No - Discharge Referral Referred to [facility] No
--- NOTE | 2017-10-21 18:45 | PN ---
Progress Note (short form) - Note Progress Note: PAtient seen and examined Feels well. Denies any complaints Last Vital Signs Temp Pulse Resp BP Pulse Ox 99.3 F 80 20 154/80 95 10/21/17 15:51 10/21/17 15:51 10/21/17 15:51 10/21/17 15:51 10/21/17 10:26 Cor: RSR, No murmurs, No gallops Lungs: Clear to P&A Abd: Soft, Normal bowel sounds, No organomegaly Ext:No significant edema Abnormal Lab Results 10/21/17 10/21/17 07:51 07:51 WBC 14.2 H RBC 3.33 L Hgb 7.9 L Hct 26.2 L MCV 78.5 L MCH 23.6 L MCHC 30.1 L RDW 20.8 H Plt Count 546 H Creatinine 1.4 H Calcium 8.1 L Ferritin 285.019 H ALT 90 H Alkaline Phosphatase 171 H Total Protein 6.1 L Albumin 2.2 L Home Medication List Medication Instructions Recorded Confirmed Type Perphenazine/Amitriptyline HCl 1 each PO DAILY 01/12/15 10/15/17 History [Perphen-Amitrip 4 mg-25 mg Tab] A/P 67 y/o patient with Pneumonia, iron deficiency anemia, with thrombocytosis - likely reactive - today lower than yesterday. Iron deficiency is chronic, and has received IV iron in the past. Etiology not clear to me but assume she has been worked up in the past. Noted that she is seen by GI this admission, with endoscopy anticipated. In interim while admitted will offer IV repletion of iron - estimated deficit > 1.5g
[2017-10-21] MEDS ORDERED: CLOTRIMAZOLE 1% VAGINAL CREAM WITH APPLICATOR 45 GM TUBE VG SCH (22:00)
[2017-10-22 06:06] LABS: TRANSFERRIN 241 mg/dL (200-370)
== END 2017-10-21 18:39 | disposition home or self-care (01) | DRG 871 ==
LOC: JER 05:05 → JERBED 08:33 → J4W 10-16 15:32 → J6S 10-19 15:54
PROVIDERS: ADMIT Internal Medicine; ATTEND Internal Medicine
PROC: 30233N1 Transfusion of Nonautologous Red Blood Cells into Peripheral Vein, Percutaneous Approach (ICD-10-PCS; principal; 2017-10-15)
DX: A41.9 Sepsis, unspecified organism (principal); J96.01 Acute respiratory failure with hypoxia; J18.9 Pneumonia, unspecified organism; E87.2 Acidosis; E87.1 Hypo-osmolality and hyponatremia; I24.8 Other forms of acute ischemic heart disease; N17.9 Acute kidney failure, unspecified; M62.82 Rhabdomyolysis; I47.1 Supraventricular tachycardia; I13.0 Hypertensive heart and chronic kidney disease with heart failure and stage 1 through stage 4 chronic kidney disease, or unspecified chronic kidney disease; R65.20 Severe sepsis without septic shock; E78.5 Hyperlipidemia, unspecified; Z87.891 Personal history of nicotine dependence; D72.829 Elevated white blood cell count, unspecified; D47.3 Essential (hemorrhagic) thrombocythemia; D50.0 Iron deficiency anemia secondary to blood loss (chronic); E79.0 Hyperuricemia without signs of inflammatory arthritis and tophaceous disease; I27.20 Pulmonary hypertension, unspecified; E11.22 Type 2 diabetes mellitus with diabetic chronic kidney disease; N18.9 Chronic kidney disease, unspecified; I50.9 Heart failure, unspecified
CPT/HCPCS: 36415; 36430; 36600; 70450-TC; 71045-TC; 71046-TC-FY; 71250-TC; 74018-TC-FY; 74176-TC; 76700-TC; 80048; 80053; 80307; 81003; 81015; 82272; 82375; 82550; 82553; 82570; 82668; 82728; 82784; 82803; 82962; 83010; 83050; 83540; 83550; 83605; 83615; 83735; 83880; 83930; 84100; 84155; 84156; 84165; 84300; 84443; 84466; 84484; 84540; 84550; 85025; 85027; 85245; 85246; 85384; 85610; 85651; 85730; 86038; 86140; 86334; 86431; 86738; 86850; 86900; 86901; 86922; 87040; 87070; 87086; 87205; 87804; 87899; 88300-TC; 93005; 93010; 93306-TC; 93970-TC; 94660; 94761; 99285-25; J1644; J1756; J8999; P9038; P9058

== ENCOUNTER 2018-10-03 18:13 | Observation (INO) | payer OTHER ==
--- NOTE | 2018-10-03 18:45 | PDOC ---
Rapid Medical Evaluation Time Seen by Provider: 10/03/18 18:41 Medical Evaluation: Allergies Allergy/AdvReac Type Severity Reaction Status Date / Time codeine Allergy palpitation Verified 10/15/17 06:01 s oxycodone HCl [From Percocet] Allergy palpitation Verified 10/15/17 06:01 s 10/03/18 18:44 Pt c/o: sent by JOHANA moyer and was told she had a hgb of 4.0. c/o mild dizzy , sob on exertion Pt on brief exam: vss Patient ordered for: labs, ekg, cxr Pt to proceed to the ED Discharge Disposition - Diagnosis Iron deficiency anemia - Referrals Referrals: Consuelo Gibbs MD [Primary Care Provider] - - Patient Instructions - Post Discharge Activity
--- NOTE | 2018-10-03 20:05 | PDOC ---
Attending Attestation - Resident Resident Name: Lito Dan - ED Attending Attestation I have performed the following: I have examined & evaluated the patient, The case was reviewed & discussed with the resident, I agree w/resident's findings & plan, Exceptions are as noted - HPI HPI: 10/03/18 20:02 The patient is a 68 year old female, with a significant past medical history of HTN, HLD, GERD, and anemia (required blood transfusion) who presents to the emergency department complaining of lightheadedness and poor appetite for the last 3 weeks. Patient endorses 3-4 episodes of dark stools since last week. Patient was sent to the ED for further evaluations by her PCP, Dr. Gibbs.. The patient denies shortness of breath, CP, headaches, fevers, or chills. The patient denies focal weakness/numbess The patient denies frequency, urgency and hematuria. Allergies: Codeine, Oxycodone HCL Past surgical history: Social history: No reported PCP: Dr. Gibbs - Physicial Exam PE: 10/03/18 20:04 agree with resident exam - Medical Decision Making 10/03/18 20:04 68yo F with MMP including anemia requiring transfusion presents to the ED with reported outpt hgb level of 4 with assoicated lightheadedness. Vitals are stable. Pt is pale in appearance with pale conjunctiva. Plan to repeat labs, transfuse. Anticipate admission.
[2018-10-03 20:08] LABS: BASO % 0.5 % (0-2.0)
[2018-10-03 20:17] LABS: LYMPH % 17.4 % (8-40); MCH 27.6 pg (25.7-33.7); MCHC 32.3 g/dl (32.0-36.0); MEAN CELL VOLUME 85.2 fl (80-96); MEAN PLT VOLUME 7.7 fl (7.5-11.1); MONO % 5.4 % (3.8-10.2); NEUT % 75.7 % (42.8-82.8); PLATELET COUNT 1026 K/MM3 (134-434); RBC 1.81 M/mm3 (3.60-5.2); RDW 20.4 % (11.6-15.6); WHITE BLOOD COUNT 11.4 K/mm3 (4.0-10.0)
[2018-10-03 20:24] LABS: HEMATOCRIT 15.5 % (32.4-45.2)
[2018-10-03 20:26] LABS: INR 1.08 (0.83-1.09); PROTHROMBIN TIME (PATIENT) 12.7 SEC (9.7-13.0)
[2018-10-03 20:27] LABS: URINE APPEARANCE CLEAR; URINE BILIRUBIN NEGATIVE (<2.0 mg/dL); URINE COLOR STRAW; URINE GLUCOSE (UA) NEGATIVE (NEGATIVE); URINE KETONE NEGATIVE (NEGATIVE); URINE LEUK ESTERASE 2+ (NEGATIVE); URINE NITRITE NEGATIVE (NEGATIVE); URINE PROTEIN 2+ (NEGATIVE); URINE UROBILINOGEN NEGATIVE mg/dL (0.2-1.0)
[2018-10-03 20:31] LABS: EPI CELLS RARE /HPF (FEW); URINE MUCUS RARE
[2018-10-03 20:41] LABS: ALBUMIN 3.8 g/dl (3.4-5.0); ALK PHOS 130 U/L (45-117); ANION GAP 15 MMOL/L (8-16); BILIRUBIN,TOTAL < 0.1 mg/dL (0.2-1); BLOOD UREA NITROGEN 16 mg/dL (7-18); CALCIUM 8.1 mg/dL (8.5-10.1); CHLORIDE 101 mmol/L (98-107); CO2 20 mmol/L (21-32); CREATININE 2.3 mg/dL (0.55-1.3); GLUCOSE,RANDOM 138 mg/dL (74-106); POTASSIUM 3.1 mmol/L (3.5-5.1); SGOT/AST 20 U/L (15-37); SGPT/ALT 22 U/L (13-61); SODIUM 135 mmol/L (136-145); TOT PROT 7.7 g/dl (6.4-8.2)
[2018-10-03] MEDS ORDERED: hydrALAZINE HCL 20 MG/ML VIAL IVPUSH ONE (22:50)
[2018-10-03 22:56] LABS: ANISOCYTOSIS 1+; MACROCYTOSIS 1+
[2018-10-03 22:57] LABS: PLATELET ESTIMATE SIGNIFICANT INCREASE
[2018-10-03] MEDS ORDERED: hydrALAZINE HCL 20 MG/ML VIAL ONE (22:59)
[2018-10-03] MEDS ORDERED: PANTOPRAZOLE SODIUM 40 MG VIAL IVPUSH ONE (23:07)
[2018-10-03] MEDS ORDERED: POTASSIUM CHLORIDE TABS 20 MEQ TABLET.ER (FP) PO ONE ×2 (23:08)
[2018-10-03] MEDS ORDERED: PANTOPRAZOLE SODIUM 40 MG VIAL IVPUSH SCH (23:15)
--- NOTE | 2018-10-03 23:29 | HP ---
CHIEF COMPLAINT: Low hemoglobin per primary care physician PCP: Consuelo Dalton HISTORY OF PRESENT ILLNESS: Patient is a 68 year old female with history of microcytic anemia (baseline Hemoglobin approx. 8), alpha thalassemia, iron deficiency anemia, chronic kidney disease stage III, hypertension, diabetes mellitus (currently not on medication), presents after receiving call from primary care physician that her was hemoglobin 4.5 today. She endorses that she has been feeling lightheaded for past three weeks, with generalized weakness and associated diminished appetite. She denies trauma, acute bleeding, hematemesis, or bright red blood per rectum, however she does endorse melanotic stools this past week (1 bowel movement this past Saturday, , and Saturday). She denies recent NSAID use. She admits that she did not follow up with Dr. Gastelum for colonoscopy or endoscopy as outpatient after prior hospitalization last year. She endorses her last endoscopy 4 years ago with "healing ulcers", and last colonoscopy at same time which she reports was normal. Denies subjective fevers, chills, chest pain , palpitations, shortness of breath, abdominal pain, nausea, or vomiting, ER course was notable for: (1) Hb 5.0 Hct 15.5 Platelets 1026 (2) PRBC transfusion X2 units (3) Negative stool guiac PAST MEDICAL HISTORY: microcytic anemia (baseline Hemoglobin approx. 8), alpha thalassemia, iron deficiency anemia, chronic kidney disease stage III, hypertension, diabetes mellitus. PAST SURGICAL HISTORY: knee surgery, D&C Social History: Smoking: former smoker as a teenager. Quit smoking over 50 years ago Alcohol: denies Drugs: denies Family History: Mother: Colon cancer, hypertension, hyperlipidemia, diabetes mellitus. at 65 years old. Father: [place] at 35 years old. at 49 years old. Allergies codeine Allergy (Verified 10/03/18 18:44) palpitations oxycodone HCl [From Percocet] Allergy (Verified 10/03/18 18:44) palpitations HOME MEDICATIONS: Home Medications Medication Instructions Recorded Perphenazine/Amitriptyline HCl 1 each PO DAILY 01/12/15 [Perphen-Amitrip 4 mg-25 mg Tab] Ferrous Sulfate [Iron] 325 mg PO DAILY #30 tablet 10/21/17 Metoprolol Succinate [Toprol XL -] 50 mg PO DAILY #30 tab.sr.24h 10/21/17 Amlodipine Besylate [Norvasc -] 10 mg PO DAILY 10/03/18 Aspirin [ASA -] 81 mg PO DAILY 10/03/18 Folic Acid 0.8 mg PO DAILY 10/03/18 Furosemide [Lasix] 50 mg PO DAILY 10/03/18 Vit D3/Folic Acid/B2/B6/B12 1 each PO DAILY 10/03/18 [Folgard Tablet] REVIEW OF SYSTEMS CONSTITUTIONAL: Admits: Generalized weakness, malaise, loss of appetite. Absent: fever, chills, diaphoresis, weight change. HEENT: Absent: rhinorrhea, nasal congestion, throat pain, throat swelling, difficulty swallowing, mouth swelling, ear pain, eye pain, visual changes CARDIOVASCULAR: Absent: chest pain, syncope, palpitations, irregular heart rate, lightheadedness , peripheral edema RESPIRATORY: Absent: cough, shortness of breath, dyspnea with exertion, orthopnea, wheezing, stridor, hemoptysis GASTROINTESTINAL: Admits: nausea, melena (last week, resolved) Absent: abdominal pain, abdominal distension, vomiting, diarrhea, constipation, hematochezia. GENITOURINARY: Absent: dysuria, frequency, urgency, hesitancy, hematuria, flank pain, genital pain MUSCULOSKELETAL: Absent: myalgia, arthralgia, joint swelling, back pain, neck pain SKIN: Absent: rash, itching, pallor HEMATOLOGIC/IMMUNOLOGIC: Absent: easy bleeding, easy bruising, lymphadenopathy, frequent infections ENDOCRINE: Absent: unexplained weight gain, unexplained weight loss, heat intolerance, cold intolerance NEUROLOGIC: Absent: headache, focal weakness or paresthesias, dizziness, unsteady gait, seizure, mental status changes, bladder or bowel incontinence PSYCHIATRIC: Absent: anxiety, depression, suicidal or homicidal ideation, hallucinations. PHYSICAL EXAMINATION Vital Signs - 24 hr 10/03/18 10/03/18 10/03/18 18:44 20:35 22:15 Temperature 98.4 F 98.6 F 98 F Pulse Rate 89 Pulse Rate [ 96 H 84 Apical] Respiratory 20 18 18 Rate Blood Pressure 139/63 Blood Pressure 135/65 115/61 [Right Arm] O2 Sat by Pulse 100 99 100 Oximetry (%) 10/03/18 22:49 Temperature Pulse Rate Pulse Rate [ Apical] Respiratory Rate Blood Pressure Blood Pressure [Right Arm] O2 Sat by Pulse 99 Oximetry (%) GENERAL: Awake, alert, and fully oriented, in no acute distress. HEAD: Normocephalic, atraumatic EYES: Pupils equal, round and reactive to light, extraocular movements intact, sclera anicteric, conjunctiva pale, without injection. EARS, NOSE, THROAT: Oropharynx clear without exudates. Dry mucous membranes. NECK: Supple without lymphadenopathy, or masses. LUNGS: Breath sounds equal, clear to auscultation bilaterally. No wheezes, and no crackles. No accessory muscle use. HEART: Regular rate and rhythm, normal S1 and S2 without murmur, rub or gallop. ABDOMEN: Soft, nontender, not distended. Normoactive bowel sounds X4 quadrants, no guarding, no rebound tenderness. No hepatomegaly or splenomegaly palpated or percussed. RECTAL: Patient did not permit rectal examination upon my encounter. MUSCULOSKELETAL: Normal range of motion at all joints. No bony deformities or tenderness. No CVA tenderness. Strength 5/5 b/l upper and lower extremities. UPPER EXTREMITIES: 2+ radial pulses bilaterally, cool. No cyanosis. LOWER EXTREMITIES: 2+ dorsalis pedis pulses bilaterally, cool. No calf tenderness bilaterally, no peripheral edema bilateral lower extremities. NEUROLOGICAL: Cranial nerves II-XII intact. Normal speech. No gross focal neurological deficits. PSYCHIATRIC: Cooperative. Good eye contact. Appropriate mood and affect. SKIN: Warm, dry, normal turgor. Pale. Capillary refill 3 seconds bilaterally. Laboratory Results - last 24 hr 10/03/18 10/03/18 10/03/18 19:52 19:57 19:57 WBC 11.4 H RBC 1.81 L Hgb 5.0 L* Hct 15.5 L D MCV 85.2 MCH 27.6 D MCHC 32.3 RDW 20.4 H Plt Count 1026 H D MPV 7.7 Absolute Neuts (auto) 8.7 H Total Counted 100 Neutrophils % 75.7 Neutrophils % (Manual) 75.0 Lymphocytes % 17.4 D Lymphocytes % (Manual) 19.0 Monocytes % 5.4 Monocytes % (Manual) 6 Eosinophils % 1.0 Basophils % 0.5 Nucleated RBC % 0 Hypochromia 3+ Platelet Estimate Significant increase Polychromasia 1+ Poikilocytosis 1+ Anisocytosis 1+ Microcytosis 1+ Macrocytosis 1+ PT with INR 12.70 INR 1.08 Sodium Potassium Chloride Carbon Dioxide Anion Gap BUN Creatinine Creat Clearance w eGFR Random Glucose Calcium Total Bilirubin AST ALT Alkaline Phosphatase Creatine Kinase Creatine Kinase Index CK-MB (CK-2) Troponin I Total Protein Albumin Urine Color Urine Appearance Urine pH Ur Specific [place] Urine Protein Urine Glucose (UA) Urine Ketones Urine Blood Urine Nitrite Urine Bilirubin Urine Urobilinogen Ur Leukocyte Esterase Urine WBC (Auto) Urine RBC (Auto) Ur Epithelial Cells Urine Mucus Stool Occult Blood Blood Type Cancelled Antibody Screen Cancelled Crossmatch 10/03/18 10/03/18 10/03/18 19:57 20:00 20:53 WBC RBC Hgb Hct MCV MCH MCHC RDW Plt Count MPV Absolute Neuts (auto) Total Counted Neutrophils % Neutrophils % (Manual) Lymphocytes % Lymphocytes % (Manual) Monocytes % Monocytes % (Manual) Eosinophils % Basophils % Nucleated RBC % Hypochromia Platelet Estimate Polychromasia Poikilocytosis Anisocytosis Microcytosis Macrocytosis PT with INR INR Sodium 135 L Potassium 3.1 L Chloride 101 Carbon Dioxide 20 L Anion Gap 15 BUN 16 Creatinine 2.3 H Creat Clearance w eGFR 21.02 Random Glucose 138 H Calcium 8.1 L Total Bilirubin < 0.1 L AST 20 ALT 22 Alkaline Phosphatase 130 H Creatine Kinase 166 Creatine Kinase Index 0.7 CK-MB (CK-2) 1.3 Troponin I < 0.02 Total Protein 7.7 Albumin 3.8 Urine Color Straw Urine Appearance Clear Urine pH 5.0 Ur Specific [place] 1.021 Urine Protein 2+ H Urine Glucose (UA) Negative Urine Ketones Negative Urine Blood Negative Urine Nitrite Negative Urine Bilirubin Negative Urine Urobilinogen Negative Ur Leukocyte Esterase 2+ H Urine WBC (Auto) 21 Urine RBC (Auto) <1 Ur Epithelial Cells Rare Urine Mucus Rare Stool Occult Blood Blood Type B POSITIVE Antibody Screen Negative Crossmatch See Detail 10/03/18 20:59 WBC RBC Hgb Hct MCV MCH MCHC RDW Plt Count MPV Absolute Neuts (auto) Total Counted Neutrophils % Neutrophils % (Manual) Lymphocytes % Lymphocytes % (Manual) Monocytes % Monocytes % (Manual) Eosinophils % Basophils % Nucleated RBC % Hypochromia Platelet Estimate Polychromasia Poikilocytosis Anisocytosis Microcytosis Macrocytosis PT with INR INR Sodium Potassium Chloride Carbon Dioxide Anion Gap BUN Creatinine Creat Clearance w eGFR Random Glucose Calcium Total Bilirubin AST ALT Alkaline Phosphatase Creatine Kinase Creatine Kinase Index CK-MB (CK-2) Troponin I Total Protein Albumin Urine Color Urine Appearance Urine pH Ur Specific [place] Urine Protein Urine Glucose (UA) Urine Ketones Urine Blood Urine Nitrite Urine Bilirubin Urine Urobilinogen Ur Leukocyte Esterase Urine WBC (Auto) Urine RBC (Auto) Ur Epithelial Cells Urine Mucus Stool Occult Blood Negative Blood Type Antibody Screen Crossmatch ASSESSMENT/PLAN: Patient is a 68 year old female with history of microcytic anemia (baseline Hemoglobin approx. 8), alpha thalassemia, chronic kidney disease stage III, hypertension, diabetes mellitus (currently not on medication), presents after receiving call from primary care physician that her was hemoglobin 4.5. Acute on chronic microcytic anemia -Likely secondary to alhpa thalassemia. Currently no signs of acute bleeding. Stool negative for occult blood, however she endorses melanotic stools X3 bowel movements last week. -PRBC transfusion X2 units. Follow Hb 1 hour after second unit PRBC transfusion completed. -Protonix 80mg IV STAT. Will begin Protonix 40mg IV BID tomorrow morning. -Serial stool guiac studies. -Holding home Aspirin dose -Follow Iron studies, LDH (drawn before blood transfusion initiated) -Hematology consult (Dr. Fitzgerald) -Consider GI consult if repeat stool guiac returns positive. -Follow CBC closely. Thrombocytosis -Chronic, unclear etiology. -Follow CBC -Hematology consult (Dr. Fitzgerald) Leukocytosis -Currently patient afebrile. UA not impressive for UTI -ESR, and CRP -No antibiotics for now. Follow CBC, and monitor vital signs closely. MARQUES on CKD stage III -Will obtain urine sodium, creatinine to calculate FeNa -Renal and bladder ultrasound -Consider Nephrology consult Hypertension -Norvasc 10mg PO daily -Toprol XL 50mg PO daily Diabetes mellitus -Currently not on medication. -Follow HbA1c. -Fingerstick blood glucose monitoring ACHS -Insulin sliding scale ACHS FEN -Patient is receiving 2 units PRBC -Hypokalemia, repleted. Follow BMP -NPO Prophylaxis -No chemical anticoagulation due to anemia. SCDs B/L lower extremities Disposition -Telemetry observation Visit type - Emergency Visit Emergency Visit: Yes ED Registration Date: 10/03/18 Care time: The patient presented to the Emergency Department on the above date and was hospitalized for further evaluation of their emergent condition. - New Patient This patient is new to me today: Yes Date on this admission: 10/04/18 - Critical Care Critical Care patient: No
[2018-10-03 23:52] VITALS: BMI 23.2
--- NOTE | 2018-10-03 23:54 | PN ---
Teaching Attending Note Name of Resident: Robin Corrigan ATTENDING PHYSICIAN STATEMENT I saw and evaluated the patient. I reviewed the resident's note and discussed the case with the resident. I agree with the resident's findings and plan as documented. SUBJECTIVE: Seen and examined; please refer to resident note for further historical details. Briefly, this is a 68 y/o AAF with a PMH significant for thalasemia trait, gastric ulcers confirmed with EGD, CKD, DM, HTN. She presents after being told her blood counts were low; she endorses easy fatigue for the past month. She had a similar admission in 10/2017. She has, as stated, positive thalasemia trait and was found on OP workup in the past to have iron deficiency , folate and B12 deficiency, and a thalassemia trait. She recieved transfusions and iron infusions in the past and completed a course of venofer in February 2018. She is feeling well today aside from the fatigue and is in good spirits. She had flow cytometry done last admit with no proliferative disorder or blasts. She says she had melena last week but has no evidence of bleed with negative FOBT and normal HR. No hemetemasis, etc. She was seen by GI last time she was here; she was to have followup with GI for OP EGD and colonoscopy. 10 sys ROS done and negative aside from HPI PMH and PSH reviewed FH asked and nonocontibutory Social hx reviewed Medication list reviewed (ASA, folic acid, lasix 40 QD, Norvasc 10 QD, FESO4 325 , MS 50) OBJECTIVE: VS, labs, imaging reviewed NAD, AAO, resting comfortably in bed NC AT EOMI PERRLA Skin pale with pale MMs but moist; no rashes or abbrasions RRR s1/2 no mgr NT ND +BS Lungs CTAB w/ sym exp CN2-12 wnl, no fnd Labs show baseline leukocytosis improved from last year; baseline Hb in high 7s now 5.0; plts chronically elevated but now at 1026; unremarkable coags, hypokalemia to 3.1 which was replaced; Cr 2.3 with normal BUN. Alk phos 130 but chronically elevated. Negative troponin. Anemia studies pending. ASSESSMENT AND PLAN: Mrs. Hood presents at her PCPs urgance with symptomatic anemia; known transfusion dependent anemia. 1) Chronic transfusion-depedent microcytic anemia -Per Dr. Tapia's DC summary she has a history of alpha thal, iron deficiency, folate/B12 deficiency, and gastric ulcers. She follows with hematology as an outpatient. We will transfuse [address] the rest on hold. Checking labs for iron studies, B12/folate, peripheral smear, and reticulocyte count. IM B12, IV folate for now (resume PO if labs wnl); if low iron may need venofer. Consult hematology. 2) Melena -Negative FOBTx1; repeat. Monitor CBC BID. Hold home ASA. Keep NPO -BID IV Protonix 40 IV BID. If she has further melanotic stools or any evidence of GIB will consult GI. She has a history of gastric ulcers. Noted Dr. Gastelum's notes/prior endoscopy hx. 3) Thrombocytosis -Chronic but worse than it was in the past; trend CBC and followup hematology consultation. 4) MARQUES on CKD-III -Baseline in the mid-1s per last DC, but that was nearly 1 year ago. She could have had interval worsening of her baseline function but we have no recent labs to compare. Consider obtaining said labs; getting 2 units blood overnight so we will monitor BMP as this will provide some good volume. Check FeNa and LYNN. Consider nephrology consult in AM if needed. 5) HTN -Continue home meds 6) Leukocytosis -No urinary sx, pulm sx, GI sx. Only 11. Afebrile. Monitor for fever and clinical status, check ESR/CRP. No need for abx now but of course will cover if indicated. Appears somewhat chronic. 7) DM -Monitor glucose; not on home meds. SSI and A1c if needed. FENA -2 units PRBC -PRN replete -NPO -As tolerated Full Code
--- NOTE | 2018-10-04 01:21 | PDOC ---
History of Present Illness - General Chief Complaint: Weakness Stated Complaint: SENT BY PCP Time Seen by Provider: 10/03/18 18:41 History Source: Patient Exam Limitations: No Limitations - History of Present Illness Initial Comments: 10/04/18 01:16 Pt is a 68yo F with PMH of STEPHEN, HTN, HLD, PUD?, CKD? prediabetes presenting to ED from PMD office for Hgb of 4.5. Pt states she has been feeling lightheaded, weak, loss of appetite for the past 3 weeks. She went to PMD office and was found to have low hgb. Pt states her normal hgb is around 8. She endorses lightheadedness. She also states that she had 3 episodes of melenous stools last week. Denies syncope, palpitations, bloody stools, melena at this time, abdominal pain, vaginal bleeding, fevers, chills. PMD: Sai PMH: see hpi Meds: see med rec Allergies: Codeine Social: denies Past History - Past Medical History Allergies/Adverse Reactions: Allergies Allergy/AdvReac Type Severity Reaction Status Date / Time codeine Allergy palpitation Verified 10/03/18 18:44 s oxycodone HCl [From Percocet] Allergy palpitation Verified 10/03/18 18:44 s Home Medications: Ambulatory Orders Perphenazine/Amitriptyline HCl [Perphen-Amitrip 4 mg-25 mg Tab] 1 each PO DAILY 01/12/15 Ferrous Sulfate [Iron] 325 mg PO DAILY #30 tablet 10/21/17 Metoprolol Succinate [Toprol XL -] 50 mg PO DAILY #30 tab.sr.24h 10/21/17 Amlodipine Besylate [Norvasc -] 10 mg PO DAILY 10/03/18 Aspirin [ASA -] 81 mg PO DAILY 10/03/18 Folic Acid 0.8 mg PO DAILY 10/03/18 Furosemide [Lasix] 50 mg PO DAILY 10/03/18 Vit D3/Folic Acid/B2/B6/B12 [Folgard Tablet] 1 each PO DAILY 10/03/18 Anemia: Yes (IRON DEFICIENCY ANEMIA) Asthma: No Cancer: No Cardiac Disorders: Yes (Murmur) CVA: No COPD: No CHF: No Dementia: No Diabetes: Yes (not on meds) GI Disorders: Yes (healed ulcers) Disorders: No HTN: Yes Hypercholesterolemia: Yes Liver Disease: No 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) Thyroid Disease: No - Surgical History Abdominal Surgery: No Appendectomy: No Cardiac Surgery: No Cholecystectomy: No Lung Surgery: No Neurologic Surgery: No Orthopedic Surgery: Yes (pins inserted and removed from R femur) - Reproductive History Is Patient Now?: No - Immunization History Td Vaccination: Yes TDAP Vaccination: Yes Immunization Up to Date: Yes - Suicide/Smoking/Psychosocial Hx Smoking History: Never smoked Have you smoked in the past 12 months: No Number of Cigarettes Smoked Daily: 0 If you are a former smoker, when did you quit?: 50 years ago Information on smoking cessation initiated: No Hx Alcohol Use: No Drug/Substance Use Hx: No Substance Use Type: None Hx Substance Use Treatment: No Review of Systems - Review of Systems Constitutional: Yes: Loss of Appetite, Weakness. No: Chills, Fever HEENTM: No: Symptoms Reported Respiratory: No: Cough, Shortness of Breath, Hemoptysis Cardiac (ROS): Yes: Lightheadedness. No: Chest Pain, Palpitations, Syncope ABD/GI: No: Constipated, Diarrhea, Nausea, Rectal Bleeding, Vomiting, Abdominal cramping, Tarry Stools : No: Burning, Dysuria, Frequency Musculoskeletal: No: Back Pain, Neck Pain Integumentary: No: Erythema, Pallor, Pruritus Neurological: No: Headache, Numbness, Tingling Hematologic/Lymphatic: Yes: Anemia *Physical Exam - Vital Signs Last Vital Signs Temp Pulse Resp BP Pulse Ox 99.0 F 87 17 126/62 100 10/03/18 23:38 10/03/18 23:38 10/03/18 23:38 10/03/18 23:38 10/03/18 23:45 - Physical Exam General Appearance: Yes: Appropriately Dressed, Thin. No: Apparent Distress HEENT: positive: EOMI, YANN, Pharynx Normal, Pale Conjunctivae Neck: positive: Trachea midline, Supple. negative: Lymphadenopathy (R), Lymphadenopathy (L) Respiratory/Chest: positive: Lungs Clear, Normal Breath Sounds. negative: Crackles, Rales, Rhonchi, Wheezing Cardiovascular: positive: Regular Rhythm, Regular Rate, S1, S2, Murmur ( holosystolic). negative: Edema, JVD Vascular Pulses: Carotid (R): 2+, Carotid (L): 2+, Dorsalis-Pedis (R): 2+, Doralis-Pedis (L): 2+ Gastrointestinal/Abdominal: positive: Normal Bowel Sounds, Soft. negative: Distended, Guarding, Rebound, Tenderness Rectal Exam: positive: heme negative stool, normal rectal tone. negative: melena, hemorrhoids Musculoskeletal: negative: CVA Tenderness Extremity: positive: Normal Capillary Refill, Pelvis Stable. negative: Coldness , Pedal Edema, Swelling, Calf Tenderness Integumentary: positive: Dry, Warm, Pale Neurologic: positive: distillation operator II-XII NML intact, Fully Oriented, Alert, Normal Mood/ Affect, Normal Response, Motor Strength 5/5 Moderate Sedation - Procedure Monitoring Vital Signs: Procedure Monitoring Vital Signs Temperature 99.0 F 10/03/18 23:38 Pulse Rate 87 10/03/18 23:38 Respiratory Rate 17 10/03/18 23:38 Blood Pressure 126/62 10/03/18 23:38 O2 Sat by Pulse Oximetry (%) 100 10/03/18 23:45 ED Treatment Course - LABORATORY CBC & Chemistry Diagram: 10/03/18 19:57 10/03/18 19:57 - ADDITIONAL ORDERS Additional order review: Laboratory Results 10/03/18 10/03/18 10/03/18 20:53 20:00 19:57 PT with INR INR Sodium Potassium Chloride Carbon Dioxide Anion Gap BUN Creatinine Creat Clearance w eGFR Random Glucose Calcium Total Bilirubin AST ALT Alkaline Phosphatase LD Total Cancelled Creatine Kinase Creatine Kinase Index CK-MB (CK-2) Troponin I C-Reactive Protein Cancelled Total Protein Albumin Urine Color Straw Urine Appearance Clear Urine pH 5.0 Ur Specific [place] 1.021 Urine Protein 2+ H Urine Glucose (UA) Negative Urine Ketones Negative Urine Blood Negative Urine Nitrite Negative Urine Bilirubin Negative Urine Urobilinogen Negative Ur Leukocyte Esterase 2+ H Urine WBC (Auto) 21 Urine RBC (Auto) <1 Ur Epithelial Cells Rare Urine Mucus Rare Blood Type B POSITIVE Antibody Screen Negative Crossmatch See Detail 10/03/18 10/03/18 10/03/18 19:57 19:57 19:57 PT with INR 12.70 INR 1.08 Sodium 135 L Potassium 3.1 L Chloride 101 Carbon Dioxide 20 L Anion Gap 15 BUN 16 Creatinine 2.3 H Creat Clearance w eGFR 21.02 Random Glucose 138 H Calcium 8.1 L Total Bilirubin < 0.1 L AST 20 ALT 22 Alkaline Phosphatase 130 H LD Total Cancelled Creatine Kinase 166 Creatine Kinase Index 0.7 CK-MB (CK-2) 1.3 Troponin I < 0.02 C-Reactive Protein Total Protein 7.7 Albumin 3.8 Urine Color Urine Appearance Urine pH Ur Specific [place] Urine Protein Urine Glucose (UA) Urine Ketones Urine Blood Urine Nitrite Urine Bilirubin Urine Urobilinogen Ur Leukocyte Esterase Urine WBC (Auto) Urine RBC (Auto) Ur Epithelial Cells Urine Mucus Blood Type Antibody Screen Crossmatch 10/03/18 19:52 PT with INR INR Sodium Potassium Chloride Carbon Dioxide Anion Gap BUN Creatinine Creat Clearance w eGFR Random Glucose Calcium Total Bilirubin AST ALT Alkaline Phosphatase LD Total Creatine Kinase Creatine Kinase Index CK-MB (CK-2) Troponin I C-Reactive Protein Total Protein Albumin Urine Color Urine Appearance Urine pH Ur Specific [place] Urine Protein Urine Glucose (UA) Urine Ketones Urine Blood Urine Nitrite Urine Bilirubin Urine Urobilinogen Ur Leukocyte Esterase Urine WBC (Auto) Urine RBC (Auto) Ur Epithelial Cells Urine Mucus Blood Type Cancelled Antibody Screen Cancelled Crossmatch 10/03/18 19:57 RBC 1.81 L MCV 85.2 MCHC 32.3 RDW 20.4 H MPV 7.7 Neutrophils % 75.7 Lymphocytes % 17.4 D Monocytes % 5.4 Eosinophils % 1.0 Basophils % 0.5 - Medications Given in the ED: ED Medications Discontinued Medications Generic Name Dose Route Start Last Admin Trade Name Freq PRN Reason Stop Dose Admin Hydralazine HCl 10 mg 10/03/18 22:50 10/03/18 23:05 Apresoline Injection - IVPUSH 10/03/18 22:51 Not Given ONCE ONE Pantoprazole Sodium 80 mg 10/03/18 23:07 10/04/18 01:08 Protonix Iv IVPUSH 10/03/18 23:08 80 mg ONCE ONE Administration Potassium Chloride 20 meq 10/03/18 23:08 10/04/18 01:08 K-Dur - PO 10/03/18 23:09 20 meq ONCE ONE Administration Medical Decision Making - Medical Decision Making 10/04/18 01:22 Pt is a 68yo F with PMH of STEPHEN, HTN, HLD, PUD?, CKD? prediabetes presenting to ED from PMD office for Hgb of 4.5 Vitals: wnl PE: pale skin and conjunctiva. holosystolic murmur (has history of it) Pt sent for anemia. Possible GI bleed with history of black stool. Labs ordered by [facility]: cbc, cmp, t+s, coags, trop, ekg, cxr -stool occult Pt most likely will need admission and transfusion depending on hgb. EKG: S1st degree AV block, LVH, diffuse T wave flattening, no signs of acute ischemia. Labs significant for hgb 5, WBC 11.4, RDW 20, Plt 1026? Cr 2.3, K 3.1 Pt getting 1U blood. Will admit *DC/Admit/Observation/Transfer Diagnosis at time of Disposition: Iron deficiency anemia Qualifiers: Iron deficiency anemia type: unspecified iron deficiency Qualified Code(s): D50.9 - Iron deficiency anemia, unspecified - Discharge Dispostion Condition at time of disposition: Good Decision to Admit order: Yes - Referrals - Patient Instructions - Post Discharge Activity
[2018-10-04] MEDS ORDERED: PANTOPRAZOLE SODIUM 40 MG VIAL IVPUSH SCH (07:00)
[2018-10-04 08:23] LABS: HEMOGLOBIN 8.3 GM/dL (10.7-15.3); MCH 29.2 pg (25.7-33.7); MCHC 34.5 g/dl (32.0-36.0); MEAN CELL VOLUME 84.5 fl (80-96); MEAN PLT VOLUME 7.1 fl (7.5-11.1); PLATELET COUNT 867 K/MM3 (134-434); RBC 2.84 M/mm3 (3.60-5.2); RDW 16.9 % (11.6-15.6); WHITE BLOOD COUNT 10.6 K/mm3 (4.0-10.0)
[2018-10-04 08:59] LABS: ALBUMIN 3.6 g/dl (3.4-5.0); ALK PHOS 125 U/L (45-117); ANION GAP 12 MMOL/L (8-16); BILIRUBIN,TOTAL 0.6 mg/dL (0.2-1); BLOOD UREA NITROGEN 14 mg/dL (7-18); CALCIUM 8.4 mg/dL (8.5-10.1); CHLORIDE 108 mmol/L (98-107); CO2 20 mmol/L (21-32); GLUCOSE,RANDOM 105 mg/dL (74-106); MAGNESIUM 3.5 mg/dL (1.8-2.4); PHOSPHOROUS 2.3 mg/dL (2.5-4.9); POTASSIUM 3.4 mmol/L (3.5-5.1); SGOT/AST 12 U/L (15-37); SGPT/ALT 19 U/L (13-61); SODIUM 140 mmol/L (136-145); TOT PROT 7.2 g/dl (6.4-8.2)
[2018-10-04] MEDS: FERROUS SO4 325 MG TABLET (FP) PO SCH (09:13)
[2018-10-04] MEDS: amLODIPine BESYLATE 10 MG TABLET (FP) PO SCH (09:14)
[2018-10-04] MEDS ORDERED: PATIENT'S OWN MEDICATION (NON-FORMULARY) (Folic Acid [Folic Acid] 0.8 MG) PO SCH (10:00)
[2018-10-04] MEDS ORDERED: INSULIN (NOVOLOG) ASPART 100 UNITS/ML 10ML VIAL ONE (11:45)
[2018-10-04] MEDS: FOLIC ACID 1 MG TABLET (FP) PO SCH (11:50)
[2018-10-04] MEDS: INSULIN SLIDING SCALE (NOVOLOG) 1 VIAL SQ SCH ×3 (11:50→22:13)
--- NOTE | 2018-10-04 13:09 | EKG ---
Test Reason : Blood Pressure : / mmHG Vent. Rate : 077 BPM Atrial Rate : 077 BPM P-R Int : 216 ms QRS Dur : 092 ms QT Int : 388 ms P-R-T Axes : 066 001 127 degrees QTc Int : 439 ms SINUS RHYTHM WITH 1ST DEGREE A-V BLOCK MODERATE VOLTAGE CRITERIA FOR LVH, MAY BE NORMAL VARIANT NONSPECIFIC T WAVE ABNORMALITY ABNORMAL ECG Confirmed by MARLO INIGUEZ MD ([id number]) on 10/04/2018 1:09:23 PM Referred By: Confirmed By:MARLO INIGUEZ MD
--- NOTE | 2018-10-04 14:36 | CONSULT ---
Consult Consult Specialty:: hematology Referred by:: Dr. Melia Morse Reason for Consultation:: anemia, thrombocytosis - History of Present Illness Chief Complaint: lightheadedness History of Present Illness: 58F with reported hx of alpha thalassemia trait, iron deficiency, HTN, DM, CKD III sent for admission by PMD for Hgb 4.5. Also plt count 1026K. Ferritin 8. Responded appropriately to 2 u PRBC. Endorses lighheadedeness, generalized weakness, LEBLANC, and poor appetite in the last 3 weeks. Also notes black, loose, tarry stools in the past week and nausea. Lost about 10 lbs. Last EGD was approximately [address] Masterson at [facility] -- showed 5 small gastric ulcers, no H. pylori. Colonoscopy, around the same time, unremarkable, per pt. Denies ever having capsule endoscopy. Admitted in 10/2017 with sepsis and also STEPHEN. Was planned for outpatient EGD/colonoscopy but did not f/u. Denies scleral icterus, dark urine, vaginal bleeding, epistaxis. She has followed with material spreader, Dr. Liyah Nieto, and was managed with Venofer as PO iron caused severe constipation. - Past Medical History Cardio/Vascular: Yes: HTN Renal/: Yes: Other (ckd) ...: No Endocrine: Yes: Diabetes Mellitus - Alcohol/Substance Use Hx Alcohol Use: No - Smoking History Smoking history: Never smoked Have you smoked in the past 12 months: No Aproximately how many cigarettes per day: 0 If you are a former smoker, when did you quit?: 50 years ago - Social History Usual Living Arrangement: With Spouse ADL: Independent Occupation: retired History of Recent Travel: No Home Medications - Allergies Allergies/Adverse Reactions: Allergies Allergy/AdvReac Type Severity Reaction Status Date / Time codeine Allergy palpitation Verified 10/03/18 18:44 s oxycodone HCl [From Percocet] Allergy palpitation Verified 10/03/18 18:44 s - Home Medications Home Medications: Ambulatory Orders Perphenazine/Amitriptyline HCl [Perphen-Amitrip 4 mg-25 mg Tab] 1 each PO DAILY 01/12/15 Ferrous Sulfate [Iron] 325 mg PO DAILY #30 tablet 10/21/17 Metoprolol Succinate [Toprol XL -] 50 mg PO DAILY #30 tab.sr.24h 10/21/17 Amlodipine Besylate [Norvasc -] 10 mg PO DAILY 10/03/18 Aspirin [ASA -] 81 mg PO DAILY 10/03/18 Folic Acid 0.8 mg PO DAILY 10/03/18 Furosemide [Lasix] 50 mg PO DAILY 10/03/18 Vit D3/Folic Acid/B2/B6/B12 [Folgard Tablet] 1 each PO DAILY 10/03/18 Family Disease History - Family Disease History Family Disease History: CA: Mother (colon) Review of Systems - Review of Systems Constitutional: reports: Unintentional Wgt. Loss, Weakness Eyes: reports: No Symptoms Cardiovascular: denies: Chest Pain, Edema Respiratory: reports: SOB on Exertion Gastrointestinal: reports: Diarrhea, Melena. denies: Abdominal Pain Neurological: reports: No Symptoms Physical Exam Vital Signs: Vital Signs Temperature 98.8 F 10/04/18 06:28 Pulse Rate 80 10/04/18 10:00 Respiratory Rate 18 10/04/18 10:00 Blood Pressure 142/70 10/04/18 10:00 O2 Sat by Pulse Oximetry (%) 98 10/04/18 07:15 Constitutional: Yes: Well Nourished, Calm Eyes: No: Sclera Icterus Cardiovascular: Yes: WNL, Regular Rate and Rhythm, Murmur Respiratory: Yes: Regular, CTA Bilaterally Gastrointestinal: Yes: WNL, Soft. No: Splenomegaly Extremities: Yes: WNL Labs: CBC, BMP 10/04/18 08:00 10/04/18 08:00 Assessment/Plan 58F with HTN, DM, CKD III, ?alpha thalassemia trait, iron deficiency admitted with Hgb 4.5, plt count 1026K, ferritin 8. Responded well to PRBC transfusion. Recommend GI evaluation for EGD +/- colonoscopy given recurrent STEPHEN in postmenopausal woman, hx of gastric ulcers, and weight loss. Start Venofer 200 mg daily (ordered) Although thrombocytosis is likely primarily 2/2 iron deficiency, would check JAK2 as platelet count was elevated when iron replete as well, on review of prior records
--- NOTE | 2018-10-04 14:43 | PN ---
Physical Exam: SUBJECTIVE: Patient seen and examined. She feels better after receiving 2 units PRBCs. OBJECTIVE: Vital Signs Period Temp Pulse Resp BP Sys/Rahman Pulse Ox Last 24 Hr 98 F-99.0 F 80-96 17-20 115-142/61-79 98-100 GENERAL: The patient is awake, alert, and fully oriented, in no acute distress. LUNGS: Breath sounds equal, clear to auscultation bilaterally, no wheezes, no crackles, no accessory muscle use. HEART: Regular rate and rhythm, S1, S2 without murmur, rub or gallop. ABDOMEN: Soft, nontender, nondistended, normoactive bowel sounds, no guarding, no rebound, no hepatosplenomegaly, no masses. EXTREMITIES: 2+ pulses, warm, well-perfused, no edema. Laboratory Results - last 24 hr 10/03/18 10/03/18 10/03/18 19:52 19:57 19:57 WBC 11.4 H RBC 1.81 L Hgb 5.0 L* Hct 15.5 L D MCV 85.2 MCH 27.6 D MCHC 32.3 RDW 20.4 H Plt Count 1026 H D MPV 7.7 Absolute Neuts (auto) 8.7 H Total Counted 100 Neutrophils % 75.7 Neutrophils % (Manual) 75.0 Lymphocytes % 17.4 D Lymphocytes % (Manual) 19.0 Monocytes % 5.4 Monocytes % (Manual) 6 Eosinophils % 1.0 Basophils % 0.5 Nucleated RBC % 0 Hypochromia 3+ Platelet Estimate Significant increase Polychromasia 1+ Poikilocytosis 1+ Anisocytosis 1+ Microcytosis 1+ Macrocytosis 1+ ESR Retic Count PT with INR 12.70 INR 1.08 Sodium Potassium Chloride Carbon Dioxide Anion Gap BUN Creatinine Creat Clearance w eGFR POC Glucometer Random Glucose Hemoglobin A1c % Calcium Phosphorus Magnesium Ferritin Total Bilirubin AST ALT Alkaline Phosphatase LD Total Creatine Kinase Creatine Kinase Index CK-MB (CK-2) Troponin I C-Reactive Protein Total Protein Albumin Vitamin B12 Serum Folate Urine Color Urine Appearance Urine pH Ur Specific [place] Urine Protein Urine Glucose (UA) Urine Ketones Urine Blood Urine Nitrite Urine Bilirubin Urine Urobilinogen Ur Leukocyte Esterase Urine WBC (Auto) Urine RBC (Auto) Ur Epithelial Cells Urine Mucus Ur Random Sodium Urine Creatinine Stool Occult Blood Blood Type Cancelled Antibody Screen Cancelled Crossmatch 10/03/18 10/03/18 10/03/18 19:57 19:57 19:57 WBC RBC Hgb Hct MCV MCH MCHC RDW Plt Count MPV Absolute Neuts (auto) Total Counted Neutrophils % Neutrophils % (Manual) Lymphocytes % Lymphocytes % (Manual) Monocytes % Monocytes % (Manual) Eosinophils % Basophils % Nucleated RBC % Hypochromia Platelet Estimate Polychromasia Poikilocytosis Anisocytosis Microcytosis Macrocytosis ESR Retic Count PT with INR INR Sodium 135 L Potassium 3.1 L Chloride 101 Carbon Dioxide 20 L Anion Gap 15 BUN 16 Creatinine 2.3 H Creat Clearance w eGFR 21.02 POC Glucometer Random Glucose 138 H Hemoglobin A1c % Calcium 8.1 L Phosphorus Magnesium Ferritin 8.4 Total Bilirubin < 0.1 L AST 20 ALT 22 Alkaline Phosphatase 130 H LD Total 253 H Cancelled Creatine Kinase 166 Creatine Kinase Index 0.7 CK-MB (CK-2) 1.3 Troponin I < 0.02 C-Reactive Protein 0.8 H Total Protein 7.7 Albumin 3.8 Vitamin B12 2180 H Serum Folate 26 H Urine Color Urine Appearance Urine pH Ur Specific [place] Urine Protein Urine Glucose (UA) Urine Ketones Urine Blood Urine Nitrite Urine Bilirubin Urine Urobilinogen Ur Leukocyte Esterase Urine WBC (Auto) Urine RBC (Auto) Ur Epithelial Cells Urine Mucus Ur Random Sodium Urine Creatinine Stool Occult Blood Blood Type Antibody Screen Crossmatch 10/03/18 10/03/18 10/03/18 19:57 19:57 19:57 WBC RBC Hgb Hct MCV MCH MCHC RDW Plt Count MPV Absolute Neuts (auto) Total Counted Neutrophils % Neutrophils % (Manual) Lymphocytes % Lymphocytes % (Manual) Monocytes % Monocytes % (Manual) Eosinophils % Basophils % Nucleated RBC % Hypochromia Platelet Estimate Polychromasia Poikilocytosis Anisocytosis Microcytosis Macrocytosis ESR 120 H Retic Count 3.11 H PT with INR INR Sodium Potassium Chloride Carbon Dioxide Anion Gap BUN Creatinine Creat Clearance w eGFR POC Glucometer Random Glucose Hemoglobin A1c % Calcium Phosphorus Magnesium Ferritin Total Bilirubin AST ALT Alkaline Phosphatase LD Total Cancelled Creatine Kinase Creatine Kinase Index CK-MB (CK-2) Troponin I C-Reactive Protein Cancelled Total Protein Albumin Vitamin B12 Serum Folate Urine Color Urine Appearance Urine pH Ur Specific [place] Urine Protein Urine Glucose (UA) Urine Ketones Urine Blood Urine Nitrite Urine Bilirubin Urine Urobilinogen Ur Leukocyte Esterase Urine WBC (Auto) Urine RBC (Auto) Ur Epithelial Cells Urine Mucus Ur Random Sodium Urine Creatinine Stool Occult Blood Blood Type Antibody Screen Crossmatch 10/03/18 10/03/18 10/03/18 20:00 20:53 20:59 WBC RBC Hgb Hct MCV MCH MCHC RDW Plt Count MPV Absolute Neuts (auto) Total Counted Neutrophils % Neutrophils % (Manual) Lymphocytes % Lymphocytes % (Manual) Monocytes % Monocytes % (Manual) Eosinophils % Basophils % Nucleated RBC % Hypochromia Platelet Estimate Polychromasia Poikilocytosis Anisocytosis Microcytosis Macrocytosis ESR Retic Count PT with INR INR Sodium Potassium Chloride Carbon Dioxide Anion Gap BUN Creatinine Creat Clearance w eGFR POC Glucometer Random Glucose Hemoglobin A1c % Calcium Phosphorus Magnesium Ferritin Total Bilirubin AST ALT Alkaline Phosphatase LD Total Creatine Kinase Creatine Kinase Index CK-MB (CK-2) Troponin I C-Reactive Protein Total Protein Albumin Vitamin B12 Serum Folate Urine Color Straw Urine Appearance Clear Urine pH 5.0 Ur Specific [place] 1.021 Urine Protein 2+ H Urine Glucose (UA) Negative Urine Ketones Negative Urine Blood Negative Urine Nitrite Negative Urine Bilirubin Negative Urine Urobilinogen Negative Ur Leukocyte Esterase 2+ H Urine WBC (Auto) 21 Urine RBC (Auto) <1 Ur Epithelial Cells Rare Urine Mucus Rare Ur Random Sodium Urine Creatinine Stool Occult Blood Negative Blood Type B POSITIVE Antibody Screen Negative Crossmatch See Detail 10/04/18 10/04/18 10/04/18 00:30 00:30 06:31 WBC RBC Hgb Hct MCV MCH MCHC RDW Plt Count MPV Absolute Neuts (auto) Total Counted Neutrophils % Neutrophils % (Manual) Lymphocytes % Lymphocytes % (Manual) Monocytes % Monocytes % (Manual) Eosinophils % Basophils % Nucleated RBC % Hypochromia Platelet Estimate Polychromasia Poikilocytosis Anisocytosis Microcytosis Macrocytosis ESR Retic Count PT with INR INR Sodium Potassium Chloride Carbon Dioxide Anion Gap BUN Creatinine Creat Clearance w eGFR POC Glucometer 134 Random Glucose Hemoglobin A1c % Calcium Phosphorus Magnesium Ferritin Total Bilirubin AST ALT Alkaline Phosphatase LD Total Creatine Kinase Creatine Kinase Index CK-MB (CK-2) Troponin I C-Reactive Protein Total Protein Albumin Vitamin B12 Serum Folate Urine Color Urine Appearance Urine pH Ur Specific [place] Urine Protein Urine Glucose (UA) Urine Ketones Urine Blood Urine Nitrite Urine Bilirubin Urine Urobilinogen Ur Leukocyte Esterase Urine WBC (Auto) Urine RBC (Auto) Ur Epithelial Cells Urine Mucus Ur Random Sodium 21 L Urine Creatinine 63.0 Stool Occult Blood Blood Type Antibody Screen Crossmatch 10/04/18 10/04/18 10/04/18 08:00 08:00 08:00 WBC 10.6 H RBC 2.84 L Hgb 8.3 L Hct 24.0 L D MCV 84.5 MCH 29.2 MCHC 34.5 RDW 16.9 H Plt Count 867 H MPV 7.1 L Absolute Neuts (auto) Total Counted Neutrophils % Neutrophils % (Manual) Lymphocytes % Lymphocytes % (Manual) Monocytes % Monocytes % (Manual) Eosinophils % Basophils % Nucleated RBC % Hypochromia Platelet Estimate Polychromasia Poikilocytosis Anisocytosis Microcytosis Macrocytosis ESR Retic Count PT with INR INR Sodium 140 Potassium 3.4 L Chloride 108 H Carbon Dioxide 20 L Anion Gap 12 BUN 14 Creatinine 2.0 H Creat Clearance w eGFR 24.70 POC Glucometer Random Glucose 105 Hemoglobin A1c % 5.8 Calcium 8.4 L Phosphorus 2.3 L Magnesium 3.5 H Ferritin Total Bilirubin 0.6 AST 12 L ALT 19 Alkaline Phosphatase 125 H LD Total Creatine Kinase Creatine Kinase Index CK-MB (CK-2) Troponin I C-Reactive Protein Total Protein 7.2 Albumin 3.6 Vitamin B12 Serum Folate Urine Color Urine Appearance Urine pH Ur Specific [place] Urine Protein Urine Glucose (UA) Urine Ketones Urine Blood Urine Nitrite Urine Bilirubin Urine Urobilinogen Ur Leukocyte Esterase Urine WBC (Auto) Urine RBC (Auto) Ur Epithelial Cells Urine Mucus Ur Random Sodium Urine Creatinine Stool Occult Blood Blood Type Antibody Screen Crossmatch 10/04/18 11:43 WBC RBC Hgb Hct MCV MCH MCHC RDW Plt Count MPV Absolute Neuts (auto) Total Counted Neutrophils % Neutrophils % (Manual) Lymphocytes % Lymphocytes % (Manual) Monocytes % Monocytes % (Manual) Eosinophils % Basophils % Nucleated RBC % Hypochromia Platelet Estimate Polychromasia Poikilocytosis Anisocytosis Microcytosis Macrocytosis ESR Retic Count PT with INR INR Sodium Potassium Chloride Carbon Dioxide Anion Gap BUN Creatinine Creat Clearance w eGFR POC Glucometer 153 Random Glucose Hemoglobin A1c % Calcium Phosphorus Magnesium Ferritin Total Bilirubin AST ALT Alkaline Phosphatase LD Total Creatine Kinase Creatine Kinase Index CK-MB (CK-2) Troponin I C-Reactive Protein Total Protein Albumin Vitamin B12 Serum Folate Urine Color Urine Appearance Urine pH Ur Specific [place] Urine Protein Urine Glucose (UA) Urine Ketones Urine Blood Urine Nitrite Urine Bilirubin Urine Urobilinogen Ur Leukocyte Esterase Urine WBC (Auto) Urine RBC (Auto) Ur Epithelial Cells Urine Mucus Ur Random Sodium Urine Creatinine Stool Occult Blood Blood Type Antibody Screen Crossmatch Active Medications Generic Name Dose Route Start Last Admin Trade Name Daria PRN Reason Stop Dose Admin Amlodipine Besylate 10 mg 10/04/18 10:00 10/04/18 09:14 Norvasc - PO 10 mg DAILY HARPREET Administration Ferrous Sulfate 325 mg 10/04/18 10:00 10/04/18 09:13 Feosol - PO 325 mg DAILY HARPREET Administration Folic Acid 1 mg 10/04/18 10:00 10/04/18 11:50 Folic Acid - PO 1 mg DAILY HARPREET Administration Insulin Aspart 1 vial 10/04/18 11:00 10/04/18 11:50 Novolog Vial Sliding Scale - SQ 2 units ACHS HARPREET Administration Protocol Metoprolol Succinate 50 mg 10/04/18 10:00 10/04/18 09:14 Toprol Xl - PO 50 mg DAILY HARPREET Administration Pantoprazole Sodium 40 mg 10/05/18 10:00 Protonix - PO DAILY HARPREET ASSESSMENT/PLAN: This is a 68 year old woman with a history of anemia, alpha thalassemia, stage 3 CKD, HTN, type 2 DM who was sent to the ED because of anemia. 1. Acute on chronic microcytic anemia - Secondary to alpha thalassemia, iron deficiency - Transfused 2 units PRBCs with improvement - Ferritin is low. Iron, TIBC, iron sat pending - Stool occult blood (-) - Has history of gastric ulcers - Continue Protonix - Aspirin held - Continue ferrous sulfate - Venofer ordered - Will need EGD - She did not follow up with GI last year when it was recommended she have EGD and colonoscopy for iron deficiency anemia 2. Thrombocytosis - Chronic - Likely secondary to iron deficiency 3. Leukocytosis - Chronic - No signs of infection 4. Acute kidney injury on stage 3 CKD - Likely secondary to hypoperfusion from severe anemia - Renal US shows bilateral renal cysts, no hydronephrosis, small post void residual, fibroid uterus - Monitor creatinine 5. Hypertension - Continue Norvasc, Toprol XL 6. Type 2 DM - HgbA1c 5.8 - Continue Novolog sliding scale Visit type - Emergency Visit Emergency Visit: Yes ED Registration Date: 10/03/18 Care time: The patient presented to the Emergency Department on the above date and was hospitalized for further evaluation of their emergent condition. - New Patient This patient is new to me today: Yes Date on this admission: 10/04/18 - Critical Care Critical Care patient: No - Discharge Referral Referred to [facility] No
[2018-10-04 16:20] LABS: HEMATOCRIT 23.6 % (32.4-45.2); HEMOGLOBIN 8.3 GM/dL (10.7-15.3); MCH 29.4 pg (25.7-33.7); PLATELET COUNT 884 K/MM3 (134-434); RBC 2.81 M/mm3 (3.60-5.2); RDW 17.7 % (11.6-15.6); WHITE BLOOD COUNT 10.6 K/mm3 (4.0-10.0)
[2018-10-05] MEDS: INSULIN SLIDING SCALE (NOVOLOG) 1 VIAL SQ SCH ×2 (06:21→12:30)
[2018-10-05 08:16] LABS: HEMATOCRIT 24.9 % (32.4-45.2); HEMOGLOBIN 8.8 GM/dL (10.7-15.3); MCH 29.9 pg (25.7-33.7); MCHC 35.3 g/dl (32.0-36.0); MEAN CELL VOLUME 84.7 fl (80-96); PLATELET COUNT 884 K/MM3 (134-434); RBC 2.94 M/mm3 (3.60-5.2); RDW 18.2 % (11.6-15.6); WHITE BLOOD COUNT 8.6 K/mm3 (4.0-10.0)
[2018-10-05 08:31] LABS: ANION GAP 8 MMOL/L (8-16); BLOOD UREA NITROGEN 18 mg/dL (7-18); CALCIUM 8.6 mg/dL (8.5-10.1); CHLORIDE 106 mmol/L (98-107); CO2 23 mmol/L (21-32); CREATININE 1.9 mg/dL (0.55-1.3); GLUCOSE,RANDOM 114 mg/dL (74-106); POTASSIUM 3.1 mmol/L (3.5-5.1); SODIUM 137 mmol/L (136-145)
[2018-10-05 09:17] VITALS: BP 133/72; PULSE 85; TEMP 97.3
[2018-10-05] MEDS ORDERED: PT OWN MED DRAWER 7, Y5N ONE ×2 (09:22→11:23)
[2018-10-05] MEDS: FOLIC ACID 1 MG TABLET (FP) PO SCH (09:24)
[2018-10-05] MEDS: amLODIPine BESYLATE 10 MG TABLET (FP) PO SCH (09:24)
[2018-10-05] MEDS ORDERED: POTASSIUM CHLORIDE TABS 20 MEQ TABLET.ER (FP) PO ONE (09:37)
[2018-10-05] MEDS ORDERED: IRON SUCROSE INJECTION 200 MG in SODIUM CHLORIDE 90 ML IVPB SCH (10:00)
[2018-10-05] MEDS ORDERED: PANTOPRAZOLE 40 MG TABLET (FP) PO SCH (10:00)
[2018-10-05] MEDS: FERROUS SO4 325 MG TABLET (FP) PO SCH (11:40)
--- NOTE | 2018-10-05 11:58 | DS ---
Physical Exam: SUBJECTIVE: Patient seen and examined. No acute events overnight. Offers no complaints. Says she feels much better. OBJECTIVE: Vital Signs Period Temp Pulse Resp BP Sys/Rahman Pulse Ox Last 24 Hr 97.3 F-98.5 F 69-88 20-20 112-139/63-82 96-97 PHYSICAL EXAM GENERAL: The patient is awake, alert, and fully oriented, in no acute distress. HEAD: Normal with no signs of trauma. EYES: PERRL, extraocular movements intact, sclera anicteric, conjunctiva clear. ENT:oropharynx clear without exudates, moist mucous membranes. NECK: supple. LUNGS: Breath sounds equal, clear to auscultation bilaterally, no wheezes, no crackles, no accessory muscle use. HEART: Regular rate and rhythm, S1, S2 without murmur, rub or gallop. ABDOMEN: Soft, nontender, nondistended, normoactive bowel sounds EXTREMITIES: 2+ pulses, warm, well-perfused, no edema. NEUROLOGICAL: Cranial nerves II through XII grossly intact. Normal speech, gait not observed. LABS Laboratory Results - last 24 hr 10/04/18 10/04/18 10/04/18 11:43 16:05 16:39 WBC 10.6 H RBC 2.81 L Hgb 8.3 L Hct 23.6 L MCV 84.0 MCH 29.4 MCHC 35.0 RDW 17.7 H Plt Count 884 H MPV 7.0 L Platelet Comment Increased Sodium Potassium Chloride Carbon Dioxide Anion Gap BUN Creatinine Creat Clearance w eGFR POC Glucometer 153 135 Random Glucose Calcium 10/04/18 10/05/18 10/05/18 22:11 06:18 07:50 WBC 8.6 RBC 2.94 L Hgb 8.8 L Hct 24.9 L MCV 84.7 MCH 29.9 MCHC 35.3 RDW 18.2 H Plt Count 884 H MPV 7.0 L Platelet Comment Sodium Potassium Chloride Carbon Dioxide Anion Gap BUN Creatinine Creat Clearance w eGFR POC Glucometer 140 122 Random Glucose Calcium 10/05/18 07:50 WBC RBC Hgb Hct MCV MCH MCHC RDW Plt Count MPV Platelet Comment Sodium 137 Potassium 3.1 L Chloride 106 Carbon Dioxide 23 Anion Gap 8 BUN 18 Creatinine 1.9 H Creat Clearance w eGFR 26.21 POC Glucometer Random Glucose 114 H Calcium 8.6 HOSPITAL COURSE: Date of Admission:10/03/18 This is a 68 year old woman with a history of anemia, alpha thalassemia, stage 3 CKD, HTN, type 2 DM who was sent to the ED because of anemia. #Acute on chronic microcytic anemia -Improved. - Secondary to alpha thalassemia, iron deficiency - s/p 2 units PRBCs with improvement - Stool occult blood (-) - Has history of gastric ulcers - Protonix Daily - Aspirin held - Continue ferrous sulfate - Venofer x 2 days - Will need EGD - She did not follow up with GI last year when it was recommended she have EGD and colonoscopy for iron deficiency anemia -GI referral outpatient: Dr. Garcia #Thrombocytosis - Chronic - Likely secondary to iron deficiency #Acute kidney injury on stage 3 CKD - Likely secondary to hypoperfusion from severe anemia - Renal US shows bilateral renal cysts, no hydronephrosis, small post void residual, fibroid uterus #Hypertension - Continue Norvasc, Toprol XL #Type 2 DM - HgbA1c 5.8 -monitor outpatient Date of Discharge: 10/05/18 Discharge Summary Reason For Visit: ANEMIA Current Active Problems Iron deficiency anemia (Acute) Condition: Stable - Instructions Diet, Activity, Other Instructions: You were admitted because of anemia. Please follow up with your primary care physician in a few days to repeat blood work (CBC). Continue taking Iron pills. It may cause constipation and black stools. It is very important for you to make an appointment with a spare hand because of your anemia. If you have dizziness, chest pain, or shortness of breath, please go to your nearest emergency room. Referrals: Luis Felipe Garcia MD [Staff Physician] - Consuelo Gibbs MD [Primary Care Provider] - 1 Week Disposition: HOME - Home Medications Comprehensive Discharge Medication List: Ambulatory Orders Perphenazine/Amitriptyline HCl [Perphen-Amitrip 4 mg-25 mg Tab] 1 each PO DAILY 01/12/15 Ferrous Sulfate [Iron] 325 mg PO DAILY #30 tablet 10/21/17 Metoprolol Succinate [Toprol XL -] 50 mg PO DAILY #30 tab.sr.24h 10/21/17 Amlodipine Besylate [Norvasc -] 10 mg PO DAILY 10/03/18 Aspirin [ASA -] 81 mg PO DAILY 10/03/18 Folic Acid 0.8 mg PO DAILY 10/03/18 Furosemide [Lasix] 50 mg PO DAILY 10/03/18 Vit D3/Folic Acid/B2/B6/B12 [Folgard Tablet] 1 each PO DAILY 10/03/18 Pantoprazole Sodium [Protonix -] 40 mg PO DAILY #30 tablet.ec 10/05/18 - Discharge Referral Referred to [facility] No
--- NOTE | 2018-10-05 13:54 | DS ---
Physical Exam: SUBJECTIVE: Patient seen and examined. No acute events overnight. Offers no complaints. Says she feels much better. OBJECTIVE: Vital Signs Period Temp Pulse Resp BP Sys/Rahman Pulse Ox Last 24 Hr 97.3 F-98.5 F 69-88 20-20 112-139/63-82 96-97 PHYSICAL EXAM GENERAL: The patient is awake, alert, and fully oriented, in no acute distress. HEAD: Normal with no signs of trauma. EYES: PERRL, extraocular movements intact, sclera anicteric, conjunctiva clear. ENT:oropharynx clear without exudates, moist mucous membranes. NECK: supple. LUNGS: Breath sounds equal, clear to auscultation bilaterally, no wheezes, no crackles, no accessory muscle use. HEART: Regular rate and rhythm, S1, S2 without murmur, rub or gallop. ABDOMEN: Soft, nontender, nondistended, normoactive bowel sounds EXTREMITIES: 2+ pulses, warm, well-perfused, no edema. NEUROLOGICAL: Cranial nerves II through XII grossly intact. Normal speech, gait not observed. LABS Laboratory Results - last 24 hr 10/04/18 10/04/18 10/04/18 16:05 16:39 22:11 WBC 10.6 H RBC 2.81 L Hgb 8.3 L Hct 23.6 L MCV 84.0 MCH 29.4 MCHC 35.0 RDW 17.7 H Plt Count 884 H MPV 7.0 L Platelet Comment Increased Sodium Potassium Chloride Carbon Dioxide Anion Gap BUN Creatinine Creat Clearance w eGFR POC Glucometer 135 140 Random Glucose Calcium 10/05/18 10/05/18 10/05/18 06:18 07:50 07:50 WBC 8.6 RBC 2.94 L Hgb 8.8 L Hct 24.9 L MCV 84.7 MCH 29.9 MCHC 35.3 RDW 18.2 H Plt Count 884 H MPV 7.0 L Platelet Comment Sodium 137 Potassium 3.1 L Chloride 106 Carbon Dioxide 23 Anion Gap 8 BUN 18 Creatinine 1.9 H Creat Clearance w eGFR 26.21 POC Glucometer 122 Random Glucose 114 H Calcium 8.6 10/05/18 11:55 WBC RBC Hgb Hct MCV MCH MCHC RDW Plt Count MPV Platelet Comment Sodium Potassium Chloride Carbon Dioxide Anion Gap BUN Creatinine Creat Clearance w eGFR POC Glucometer 130 Random Glucose Calcium HOSPITAL COURSE: Date of Admission:10/03/18 This is a 68 year old woman with a history of anemia, alpha thalassemia, stage 3 CKD, HTN, type 2 DM who was sent to the ED because of anemia. #Acute on chronic microcytic anemia -Improved. - Secondary to alpha thalassemia, iron deficiency - s/p 2 units PRBCs with improvement - Stool occult blood (-) - Has history of gastric ulcers - Protonix Daily - Aspirin held - Continue ferrous sulfate - Venofer x 2 days - Will need EGD - She did not follow up with GI last year when it was recommended she have EGD and colonoscopy for iron deficiency anemia -GI referral outpatient: Dr. Garcia #Thrombocytosis - Chronic - Likely secondary to iron deficiency #Acute kidney injury on stage 3 CKD - Likely secondary to hypoperfusion from severe anemia - Renal US shows bilateral renal cysts, no hydronephrosis, small post void residual, fibroid uterus #Hypertension - Continue Norvasc, Toprol XL #Type 2 DM - HgbA1c 5.8 -monitor outpatient Date of Discharge: 10/05/18 Minutes to complete discharge: 35 Discharge Summary Reason For Visit: ANEMIA Current Active Problems Iron deficiency anemia (Acute) Condition: Stable - Instructions Diet, Activity, Other Instructions: You were admitted because of anemia. Because of how severe your Anemia was, you were given 2 Units of Blood and Iron through the IV. Please follow up with your primary care physician in a few days to repeat blood work (CBC). Continue taking Iron pills. It may cause constipation and black stools. We held your aspirin because of the anemia. Your primary care doctor will decide when to restart your aspirin. It is very important for you to make an appointment with a sleeve separator because of your anemia. If you have dizziness, chest pain, or shortness of breath, please go to your nearest emergency room. Referrals: Gerry Chavez DO [Staff Physician] - 1 Week Consuelo Gibbs MD [Primary Care Provider] - 1 Week Disposition: HOME - Home Medications Comprehensive Discharge Medication List: Ambulatory Orders Perphenazine/Amitriptyline HCl [Perphen-Amitrip 4 mg-25 mg Tab] 1 each PO DAILY 01/12/15 Ferrous Sulfate [Iron] 325 mg PO DAILY #30 tablet 10/21/17 Metoprolol Succinate [Toprol XL -] 50 mg PO DAILY #30 tab.sr.24h 10/21/17 Amlodipine Besylate [Norvasc -] 10 mg PO DAILY 10/03/18 Folic Acid 0.8 mg PO DAILY 10/03/18 Furosemide [Lasix] 50 mg PO DAILY 10/03/18 Vit D3/Folic Acid/B2/B6/B12 [Folgard Tablet] 1 each PO DAILY 10/03/18 Pantoprazole Sodium [Protonix -] 40 mg PO DAILY #30 tablet.ec 10/05/18 This patient is new to me today: Yes Date on this admission: 10/05/18 Emergency Visit: Yes ED Registration Date: 10/03/18 Care time: The patient presented to the Emergency Department on the above date and was hospitalized for further evaluation of their emergent condition. Critical Care patient: No - Discharge Referral Referred to [facility] Med [facility].C.: No
--- NOTE | 2018-10-05 17:44 | PN ---
Teaching Attending Note Name of Resident: Von Nevarez ATTENDING PHYSICIAN STATEMENT I saw and evaluated the patient. I reviewed the resident's note and discussed the case with the resident. I agree with the resident's findings and plan as documented. SUBJECTIVE: Patient has no complaints. OBJECTIVE: Vital Signs Period Temp Pulse Resp BP Sys/Rahman Pulse Ox Last 24 Hr 97.3 F-98.4 F 69-88 20-20 112-138/63-82 96-97 HEART: S1S2, RRR LUNGS: Clear ABDOMEN: Soft, non-tender, non-distended, normal BS EXTREMITIES: No edema Laboratory Results - last 24 hr 10/04/18 10/05/18 10/05/18 22:11 06:18 07:50 WBC 8.6 RBC 2.94 L Hgb 8.8 L Hct 24.9 L MCV 84.7 MCH 29.9 MCHC 35.3 RDW 18.2 H Plt Count 884 H MPV 7.0 L Sodium Potassium Chloride Carbon Dioxide Anion Gap BUN Creatinine Creat Clearance w eGFR POC Glucometer 140 122 Random Glucose Calcium 10/05/18 10/05/18 07:50 11:55 WBC RBC Hgb Hct MCV MCH MCHC RDW Plt Count MPV Sodium 137 Potassium 3.1 L Chloride 106 Carbon Dioxide 23 Anion Gap 8 BUN 18 Creatinine 1.9 H Creat Clearance w eGFR 26.21 POC Glucometer 130 Random Glucose 114 H Calcium 8.6 ASSESSMENT AND PLAN: This is a 68 year old woman with a history of anemia, alpha thalassemia, stage 3 CKD, HTN, type 2 DM who was sent to the ED because of anemia. 1. Acute on chronic microcytic anemia - Secondary to alpha thalassemia, iron deficiency - Transfused 2 units PRBCs with improvement - Hemoglobin is stable - Ferritin is low. Iron, TIBC, iron sat pending - Stool occult blood (-) - Has history of gastric ulcers - Continue Protonix - Aspirin held - Continue ferrous sulfate, iron sucrose - Will need EGD - She did not follow up with GI last year when it was recommended she have EGD and colonoscopy for iron deficiency anemia 2. Thrombocytosis - Chronic - Likely secondary to iron deficiency 3. Leukocytosis - Chronic - No signs of infection 4. Acute kidney injury on stage 3 CKD - Likely secondary to hypoperfusion from severe anemia - Renal US shows bilateral renal cysts, no hydronephrosis, small post void residual, fibroid uterus - Monitor creatinine 5. Hypertension - Continue Norvasc, Toprol XL 6. Type 2 DM - HgbA1c 5.8 - Continue Novolog sliding scale 7. Disposition - Ok for discharge home today to follow up with PCP, jennifer, GI this week
[2018-10-09 11:26] LABS: SERUM IRON SATURATION 4 % (15-55); TOTAL IRON BINDING CAPACITY 370 ug/dL (250-450); UIBC 354 ug/dL (118-369)
== END 2018-10-05 14:28 | disposition home or self-care (01) ==
LOC: JER 18:13 → JERBED 20:57 → INTOOBSV 20:57 → J5S 23:30
PROVIDERS: ADMIT Internal Medicine; ATTEND Internal Medicine
PROC: 30233N1 Transfusion of Nonautologous Red Blood Cells into Peripheral Vein, Percutaneous Approach (ICD-10-PCS; principal; 2018-10-03)
PROC: 3E033GC Introduction of Other Therapeutic Substance into Peripheral Vein, Percutaneous Approach (ICD-10-PCS; 2018-10-03)
DX: F50.9 Eating disorder, unspecified (principal); D47.3 Essential (hemorrhagic) thrombocythemia; D72.829 Elevated white blood cell count, unspecified; E11.22 Type 2 diabetes mellitus with diabetic chronic kidney disease; I12.9 Hypertensive chronic kidney disease with stage 1 through stage 4 chronic kidney disease, or unspecified chronic kidney disease; N18.3 Chronic kidney disease, stage 3 (moderate); N17.9 Acute kidney failure, unspecified; E78.5 Hyperlipidemia, unspecified; K21.9 Gastro-esophageal reflux disease without esophagitis; K92.1 Melena; Z88.6 Allergy status to analgesic agent; R01.1 Cardiac murmur, unspecified; Z86.69 Personal history of other diseases of the nervous system and sense organs
CPT/HCPCS: 36415; 36430; 71045-TC-FY; 76775-TC; 76856-TC; 80048; 80053; 81003; 81015; 82272; 82550; 82553; 82570; 82607; 82728; 82746; 82962; 83036; 83540; 83550; 83615; 83735; 84100; 84300; 84466; 84484; 85025; 85027; 85044; 85610; 85651; 86140; 86850; 86900; 86901; 86922; 93005; 93010; 96374; 96375; 96376; 99284-25; G0378; J1756; P9038; P9058

== ENCOUNTER 2018-12-14 06:16 | Emergency (ER) | payer OTHER ==
[2018-12-14 06:37] VITALS: TEMP 97.9; BMI 24.4
[2018-12-14] MEDS ORDERED: ACETAMINOPHEN 325 MG TABLET (FP) PO ONE (07:31)
--- NOTE | 2018-12-14 07:32 | PDOC ---
Attending Attestation - Resident Resident Name: Larry Anand - ED Attending Attestation I have performed the following: I have examined & evaluated the patient, The case was reviewed & discussed with the resident, I agree w/resident's findings & plan, Exceptions are as noted - HPI HPI: 12/14/18 07:33 68yo F hx HTN, anemia, CKD, heart murmur, CHF presents to the ED with 2 days of productive cough of white sputum, sore throat, runny nose, body aches, malaise. Pt reports had identical symptoms last week and was given a Z pack. This morning, pt began to experience CP while coughing on the right side of her chest as well as right upper back. Denies radiation posteriorly of chest pain. Reports pain occurs only with coughing. Denies SOB, headache, neck stiffness, abd pain, dysuria, hematuria, frequency, weakness/numbness, rashes, LE edema/pain. Pt requesting z-pack for her symptoms. - Physicial Exam PE: 12/14/18 11:27 GENERAL: Awake, alert, and fully oriented, in no acute distress. Non toxic EYES: PERRLA, EOMI, sclera anicteric, conjunctiva clear ENT: Auricles normal inspection, hearing grossly normal, +nasal congestion, oropharynx clear without exudates. Moist mucosa NECK: Normal ROM, supple, no lymphadenopathy, JVD, or masses LUNGS: Breath sounds equal, clear to auscultation bilaterally. No wheezes, and no crackles HEART: Regular rate and rhythm, normal S1 and S2, no murmurs, rubs or gallops ABDOMEN: Soft, nontender, normoactive bowel sounds. No guarding, no rebound. No masses EXTREMITIES: Normal range of motion, no edema. No cords, erythema, or tenderness NEUROLOGICAL: Normal speech, cranial nerves intact, equal strength and sensation b/l SKIN: Warm, Dry, normal turgor, no rashes or lesions noted. - Medical Decision Making 12/14/18 11:40 68yo F presents to the ED with viral syndrome and CP when coughing. Vitals initially with elevated BP, on my exam 142/80. Remaining vitals wnl. Exam with well appearing pt, non toxic. Lungs clear. Low concern for PNA, meningitis, or other bacterial infection. CP is atypical, occurs when coughing but due to some risk factors EKG and tropx2 were obtained which were unremarkable. CXR is clear. Labs are unremarkable. Discussed with pt that there is no indication for z-pack at this time as she likely has a viral syndrome, pt amenable to this. She states she will follow up with her PMD in 1-2 days. Return precautioons provided. I discussed the physical exam findings, ancillary test results and final diagnoses with the patient. I answered all of the patient's questions. The patient was satisfied with the care received and felt comfortable with the discharge plan and treatment plan. The patient will call their primary care physician within 24 hours to arrange follow-up and will return to the Emergency Department with any new, persistent or worsening symptoms.
--- NOTE | 2018-12-14 07:39 | PDOC ---
History of Present Illness - History of Present Illness Initial Comments: The pt is a 68F w/ a history of HTN, CKD, GERD, and anemia who presents for evaluation of 2 days of productive cough, generalized myalgias/malaise, and sore throat. Pt endorses her as a sick contact w/ similar symptoms. The pt also endorses R chest wall pain that she initially endorsed as during her cough but later reported as also while laying down. The pt is concerned that she may have PNA because she was Dx w/ PNA 1 year ago w / similar symptoms. She has taken Tylenol for her symptoms, with some relief. Denies fevers, LIANG, vision changes, SOB, abdominal pain, N/V/C/D, or changes in sensation PMD: Dr. Consuelo Salmeron @ [facility] PMH: HTN, pre-DM, CKD, GERD, anemia (requiring transfusions in the past) PSH: R knee replacement Meds: Amlodipine, Protonix, Amitriptyline, Lasix PRN, Folate, D3 SH: Denies x3 12/14/18 07:40 <Larry Anand - Last Filed: 12/14/18 11:27> <Hortensia Zapata - Last Filed: 12/14/18 11:48> - General Chief Complaint: Pain Stated Complaint: BODY ACHES/CHEST PAIN Time Seen by Provider: 12/14/18 07:25 Past History - Past Medical History Anemia: Yes (IRON DEFICIENCY ANEMIA) Asthma: No Cancer: No Cardiac Disorders: Yes (Murmur) CVA: No COPD: No CHF: No Dementia: No Diabetes: Yes (not on meds) GI Disorders: Yes (healed ulcers) Disorders: No HTN: Yes Hypercholesterolemia: Yes Liver Disease: No 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) Thyroid Disease: No - Surgical History Abdominal Surgery: No Appendectomy: No Cardiac Surgery: No Cholecystectomy: No Lung Surgery: No Neurologic Surgery: No Orthopedic Surgery: Yes (pins inserted and removed from R femur) - Immunization History Td Vaccination: Yes TDAP Vaccination: Yes Immunization Up to Date: Yes - Suicide/Smoking/Psychosocial Hx Smoking History: Never smoked Have you smoked in the past 12 months: No Number of Cigarettes Smoked Daily: 0 If you are a former smoker, when did you quit?: 50 years ago Information on smoking cessation initiated: No Hx Alcohol Use: No Drug/Substance Use Hx: No Substance Use Type: None Hx Substance Use Treatment: No <Larry Anand - Last Filed: 12/14/18 11:27> <Hortensia Zapata - Last Filed: 12/14/18 11:48> - Past Medical History Allergies/Adverse Reactions: Allergies Allergy/AdvReac Type Severity Reaction Status Date / Time codeine Allergy palpitation Verified 12/14/18 06:35 s oxycodone HCl [From Percocet] Allergy palpitation Verified 12/14/18 06:35 s Home Medications: Ambulatory Orders Perphenazine/Amitriptyline HCl [Perphen-Amitrip 4 mg-25 mg Tab] 1 each PO DAILY 01/12/15 Metoprolol Succinate [Toprol XL -] 50 mg PO DAILY #30 tab.sr.24h 10/21/17 Amlodipine Besylate [Norvasc -] 10 mg PO DAILY 10/03/18 Folic Acid 0.8 mg PO DAILY 10/03/18 Furosemide [Lasix] 50 mg PO DAILY 10/03/18 Vit D3/Folic Acid/B2/B6/B12 [Folgard Tablet] 1 each PO DAILY 10/03/18 Pantoprazole Sodium [Protonix -] 40 mg PO DAILY #30 tablet.ec 10/05/18 Review of Systems - Review of Systems Able to Perform ROS?: Yes Comments:: GENERAL/CONSTITUTIONAL: No fever or chills. No weakness HEAD, EYES, EARS, NOSE AND THROAT: No change in vision or hearing. Endorses sore throat CARDIOVASCULAR: No shortness of breath RESPIRATORY: Denies hemoptysis GASTROINTESTINAL: No nausea, vomiting, diarrhea or constipation GENITOURINARY: No dysuria, frequency, or change in urination MUSCULOSKELETAL: +generalized myalgias SKIN: No rash NEUROLOGIC: No vertigo, loss of consciousness, or change in strength/sensation ENDOCRINE: No increased thirst. No abnormal weight change HEMATOLOGIC/LYMPHATIC: No anemia, easy bleeding, or history of blood clots ALLERGIC/IMMUNOLOGIC: No hives or skin allergy 12/14/18 07:38 Is the patient limited [place] proficient: No <Larry Anand - Last Filed: 12/14/18 11:27> *Physical Exam - Vital Signs Last Vital Signs Temp Pulse Resp BP Pulse Ox 97.9 F 62 20 172/88 H 99 12/14/18 06:36 12/14/18 06:36 12/14/18 06:36 12/14/18 06:36 12/14/18 06:36 - Physical Exam Comments: GENERAL: Awake, alert, and oriented to person/place/time, in no acute distress HEAD: No signs of trauma, normocephalic, atraumatic EYES: PERRLA, EOMI, sclera anicteric, conjunctiva clear ENT: Hearing grossly normal, nares patent, oropharynx erythematous without exudates. No uvular deviation. Moist mucosa LUNGS: No distress, speaks full sentences, clear to auscultation bilaterally HEART: Regular rate and rhythm, normal S1 and S2, II/ systolic murmur appreciated, peripheral pulses normal and equal bilaterally ABDOMEN: Soft, nontender, normoactive bowel sounds. No guarding, no rebound EXTREMITIES: Normal inspection, Normal range of motion, no edema. No clubbing or cyanosis NEUROLOGICAL: Cranial nerves II through XII grossly intact. Normal speech, no focal sensorimotor deficits SKIN: Warm, Dry 12/14/18 07:39 <Larry Anand - Last Filed: 12/14/18 11:27> - Vital Signs Last Vital Signs Temp Pulse Resp BP Pulse Ox 97.9 F 62 20 172/88 H 99 12/14/18 06:36 12/14/18 06:36 12/14/18 06:36 12/14/18 06:36 12/14/18 06:36 <Hortensia Zapata - Last Filed: 12/14/18 11:48> Heart Score/ECG Review #1 12/14/18 11:47 Twelve-lead EKG was performed and reviewed by me. Sinus rhythm, rate 65. Normal axis. No ARIELLE or TWI <Hortensia Zapata - Last Filed: 12/14/18 11:48> ED Treatment Course - LABORATORY CBC & Chemistry Diagram: 12/14/18 07:53 12/14/18 07:53 - RADIOLOGY Radiology Studies Ordered: Category Date Time Status CHEST PA & LAT [RAD] Stat Radiology 12/14/18 07:30 Ordered <Larry Anand - Last Filed: 12/14/18 11:27> - LABORATORY CBC & Chemistry Diagram: 12/14/18 07:53 12/14/18 07:53 - ADDITIONAL ORDERS Additional order review: Laboratory Results 12/14/18 12/14/18 12/14/18 10:17 07:53 07:53 Sodium 135 L Potassium 3.8 Chloride 109 H Carbon Dioxide 14 L Anion Gap 13 BUN 16 Creatinine 1.7 H Creat Clearance w eGFR 29.80 Random Glucose 100 Calcium 8.5 Total Bilirubin 0.1 L AST 21 ALT 27 Alkaline Phosphatase 192 H Troponin I < 0.02 < 0.02 Total Protein 8.2 Albumin 4.0 12/14/18 07:53 RBC 3.60 MCV 93.0 D MCHC 31.5 L RDW 18.2 H MPV 8.2 D - Medications Given in the ED: ED Medications Discontinued Medications Generic Name Dose Route Start Last Admin Trade Name Freq PRN Reason Stop Dose Admin Acetaminophen 975 mg 12/14/18 07:31 12/14/18 08:20 Tylenol - PO 12/14/18 07:32 975 mg ONCE ONE Administration <Hortensia Zapata - Last Filed: 12/14/18 11:48> Medical Decision Making - Medical Decision Making The pt is a 68F w/ a history of HTN, CKD, GERD, and anemia who presents for evaluation of 2 days of URI symptoms. Ddx: viral syndrome/influenza, PNA, consider ED course 12/14/18 08:06 Initial Trop neg Influenza neg CXR w/o evidence of PNA ECG w/ 1st degree AV block, HR 65; QTc 397; no evidence of acute ischemia Cr 1.7 at baseline Chronic anemia, Hgb 10.5, no indication to transfuse, above baseline today 12/14/18 09:17 <Larry Anand - Last Filed: 12/14/18 11:27> *DC/Admit/Observation/Transfer - Discharge Dispostion Decision to Admit order: No <Larry Anand - Last Filed: 12/14/18 11:27> <Hortensia Zapata - Last Filed: 12/14/18 11:48> Diagnosis at time of Disposition: Viral syndrome - Discharge Dispostion Disposition: HOME Condition at time of disposition: Stable - Referrals Referrals: Consuelo Gibbs MD [Primary Care Provider] - - Patient Instructions Printed Discharge Instructions: DI for Viral Syndrome Additional Instructions: You were seen in the Emergency Department for evaluation of generalized muscle pain, cough, and chest pain. Your labs were unremarkable and your chest xray was negative for pneumonia. Review the handout provided at discharge. Follow up with your primary care provider within the next week. Return to the Emergency Department if you develop fevers/chills, trouble breathing, vomiting/diarrhea, change/worsening pain, or any new/concerning symptoms. - Post Discharge Activity
[2018-12-14] MEDS ORDERED: ACETAMINOPHEN 325 MG TABLET (FP) ONE (08:18)
[2018-12-14 08:31] LABS: ALK PHOS 192 U/L (45-117); ANION GAP 13 MMOL/L (8-16); BILIRUBIN,TOTAL 0.1 mg/dL (0.2-1); BLOOD UREA NITROGEN 16 mg/dL (7-18); CALCIUM 8.5 mg/dL (8.5-10.1); CHLORIDE 109 mmol/L (98-107); CO2 14 mmol/L (21-32); CREATININE 1.7 mg/dL (0.55-1.3); GLUCOSE,RANDOM 100 mg/dL (74-106); POTASSIUM 3.8 mmol/L (3.5-5.1); SGOT/AST 21 U/L (15-37); SGPT/ALT 27 U/L (13-61); SODIUM 135 mmol/L (136-145); TOT PROT 8.2 g/dl (6.4-8.2)
[2018-12-14 08:37] LABS: HEMATOCRIT 33.5 % (32.4-45.2); HEMOGLOBIN 10.5 GM/dL (10.7-15.3); MCH 29.3 pg (25.7-33.7); MCHC 31.5 g/dl (32.0-36.0); MEAN PLT VOLUME 8.2 fl (7.5-11.1); PLATELET COUNT 323 K/MM3 (134-434); RDW 18.2 % (11.6-15.6); WHITE BLOOD COUNT 6.3 K/mm3 (4.0-10.0)
[2018-12-14 12:04] VITALS: BP 160/75; PULSE 58
--- NOTE | 2018-12-14 17:57 | EKG ---
Test Reason : Blood Pressure : / mmHG Vent. Rate : 065 BPM Atrial Rate : 065 BPM P-R Int : 210 ms QRS Dur : 090 ms QT Int : 382 ms P-R-T Axes : 070 -03 030 degrees QTc Int : 397 ms SINUS RHYTHM WITH 1ST DEGREE A-V BLOCK MINIMAL VOLTAGE CRITERIA FOR LVH, MAY BE NORMAL VARIANT BORDERLINE ECG WHEN COMPARED WITH ECG OF 03-OCT-2018 21:32, NONSPECIFIC T WAVE ABNORMALITY NO LONGER EVIDENT IN ANTEROLATERAL LEADS Confirmed by TRIPP MEDELLIN MD ([id number]) on 12/14/2018 5:56:51 PM Referred By: Confirmed By:TRIPP MEDELLIN MD
== END 2018-12-14 12:06 | disposition home or self-care (01) ==
LOC: JER 06:16
DX: B34.9 Viral infection, unspecified (principal); I12.9 Hypertensive chronic kidney disease with stage 1 through stage 4 chronic kidney disease, or unspecified chronic kidney disease; E11.22 Type 2 diabetes mellitus with diabetic chronic kidney disease; N18.9 Chronic kidney disease, unspecified; K21.9 Gastro-esophageal reflux disease without esophagitis; D64.9 Anemia, unspecified
CPT/HCPCS: 36415; 71046-TC-FY; 80053; 84484; 85027; 87804; 93005; 93010; 99285-25

== ENCOUNTER 2019-04-13 21:01 | Inpatient (IN) | payer OTHER ==
--- NOTE | 2019-04-13 21:06 | PDOC ---
Rapid Medical Evaluation Medical Evaluation: Allergies Allergy/AdvReac Type Severity Reaction Status Date / Time codeine Allergy palpitation Verified 12/14/18 06:35 s oxycodone HCl [From Percocet] Allergy palpitation Verified 12/14/18 06:35 s I have performed a brief in-person evaluation of this patient. The patient presents with a chief complaint of: PCP told to come to hospital for worsening kidney function; history of HTN, CKD, GERD, and anemia Pertinent physical exam findings: In NAD I have ordered the following: labs The patient will proceed to the ED for further evaluation. 04/13/19 21:05
[2019-04-13 21:09] VITALS: BMI 20.5
--- NOTE | 2019-04-13 23:46 | PDOC ---
History of Present Illness - General Chief Complaint: Weakness Stated Complaint: SENT BY DOCTOR Time Seen by Provider: 04/13/19 21:04 - History of Present Illness Initial Comments: 04/13/19 23:12 68 y/o F with hx of CKD III, HTN , anemia, alpha thalessemia, DM and blood transfusion presents to the ED with 2 wks of persistent weakness. 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 Her weakness did not resolve and she was asked to see her PCP who asked her to come to the hospital due to poor kidney function.She denies dizzyness, vertigo, headache, nausea,vomiting, numbness or tingling. 04/13/19 23:52 04/20/19 23:46 Past History - Past Medical History Allergies/Adverse Reactions: Allergies Allergy/AdvReac Type Severity Reaction Status Date / Time codeine Allergy palpitation Verified 04/13/19 21:08 s oxycodone HCl [From Percocet] Allergy palpitation Verified 04/13/19 21:08 s Home Medications: Ambulatory Orders Perphenazine/Amitriptyline HCl [Perphen-Amitrip 4 mg-25 mg Tab] 1 each PO DAILY 01/12/15 Metoprolol Succinate [Toprol XL -] 50 mg PO DAILY #30 tab.sr.24h 10/21/17 Amlodipine Besylate [Norvasc -] 10 mg PO DAILY 10/03/18 Folic Acid 0.8 mg PO DAILY 10/03/18 Vit D3/Folic Acid/B2/B6/B12 [Folgard Tablet] 1 each PO DAILY 10/03/18 Pantoprazole Sodium [Protonix -] 40 mg PO DAILY #30 tablet.ec 10/05/18 Nystatin Oral Suspension - [Nystatin Oral Susp 439774 Units/5 ML -] 500,000 units PO Q6HPO 7 Days #7 cup 04/17/19 Sodium Bicarbonate - 650 mg PO BID 7 Days #14 tablet 04/17/19 Walker [Ultra-Light Rollator] 1 each MC DAILY #1 each 04/17/19 Anemia: Yes (IRON DEFICIENCY ANEMIA) Asthma: No Cancer: No Cardiac Disorders: Yes (Murmur) CVA: No COPD: No CHF: No Dementia: No Diabetes: Yes (not on meds) GI Disorders: Yes (healed ulcers) Disorders: No HTN: Yes Hypercholesterolemia: Yes Liver Disease: No 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) Thyroid Disease: No - Surgical History Abdominal Surgery: No Appendectomy: No Cardiac Surgery: No Cholecystectomy: No Lung Surgery: No Neurologic Surgery: No Orthopedic Surgery: Yes (pins inserted and removed from R femur) - Immunization History Td Vaccination: Yes TDAP Vaccination: Yes Immunization Up to Date: Yes - Suicide/Smoking/Psychosocial Hx Smoking History: Never smoked Have you smoked in the past 12 months: No Number of Cigarettes Smoked Daily: 0 If you are a former smoker, when did you quit?: 50 years ago Hx Alcohol Use: No Drug/Substance Use Hx: No Substance Use Type: None Hx Substance Use Treatment: No Review of Systems - Review of Systems All Other Systems: Reviewed and Negative *Physical Exam - Vital Signs Last Vital Signs Temp Pulse Resp BP Pulse Ox 98 F 82 18 116/71 100 04/13/19 21:07 04/13/19 21:07 04/13/19 21:07 04/13/19 21:07 04/13/19 21:07 - Physical Exam General Appearance: Yes: Appropriately Dressed, Thin. No: Apparent Distress HEENT: positive: Normal Voice. negative: Scleral Icterus (R), Tonsillar Exudate Neck: positive: Trachea midline. negative: Tender Respiratory/Chest: positive: Lungs Clear, Normal Breath Sounds. negative: Chest Tender, Respiratory Distress, Accessory Muscle Use, Labored Respiration, Rales, Wheezing Cardiovascular: positive: Regular Rhythm, Regular Rate, S1, S2. negative: Edema , JVD Gastrointestinal/Abdominal: positive: Normal Bowel Sounds, Flat. negative: Soft , Pulsatile Mass Musculoskeletal: positive: Normal Inspection. negative: CVA Tenderness Extremity: positive: Normal Capillary Refill, Normal Inspection, Normal Range of Motion Integumentary: positive: Normal Color, Dry, Warm Neurologic: positive: Fully Oriented, Alert, Normal Mood/Affect, Normal Response ED Treatment Course - LABORATORY CBC & Chemistry Diagram: 04/17/19 05:45 04/17/19 15:00 Medical Decision Making - Medical Decision Making 04/14/19 02:[address] Reed. Pt admitted to Dr. Moeller's service. *DC/Admit/Observation/Transfer Diagnosis at time of Disposition: Chronic kidney disease Qualifiers: Chronic kidney disease stage: stage 3 (moderate) Qualified Code(s): N18.3 - Chronic kidney disease, stage 3 (moderate) - Discharge Dispostion Disposition: VNS/HOME HEALTH CARE Condition at time of disposition: Improved - Referrals - Patient Instructions - Post Discharge Activity
[2019-04-14 00:52] LABS: BASO % 0.3 % (0-2.0); HEMATOCRIT 28.4 % (32.4-45.2); LYMPH % 1.5 % (8-40); MCHC 31.6 g/dl (32.0-36.0); MEAN PLT VOLUME 8.1 fl (7.5-11.1); MONO % 4.6 % (3.8-10.2); NEUT % 93.6 % (42.8-82.8); PLATELET COUNT 643 K/MM3 (134-434); RBC 2.99 M/mm3 (3.60-5.2); RDW 19.2 % (11.6-15.6); WHITE BLOOD COUNT 18.9 K/mm3 (4.0-10.0)
[2019-04-14 01:10] LABS: INR 1.12 (0.83-1.09); PROTHROMBIN TIME (PATIENT) 13.2 SEC (9.7-13.0)
--- NOTE | 2019-04-14 01:15 | PDOC ---
Documentation entered by Ghassan Wesley SCRIBE, acting as scribe for Loni Mcarthur MD. Loni Mcarthur MD: This documentation has been prepared by the Maryjane fam Elijah, SCRIBE, under my direction and personally reviewed by me in its entirety. I confirm that the documentation accurately reflects all work, treatment, procedures, and medical decision making performed by me. Attending Attestation - Resident Resident Name: Virginia Tubbs - ED Attending Attestation I have performed the following: I have examined & evaluated the patient, The case was reviewed & discussed with the resident, I agree w/resident's findings & plan - HPI HPI: 04/13/19 23:54 Patient is a 68 year old female with a significant past medical history KD III, HTN , anemia, alpha thalessemia, DM who presents to the ED with weakness lasting for x2 weeks. Patient notes that she was seen by her PCP today and was told to come into the ED due to her creatinine being high and her weakness. Patient notes her weakness as made it hard to wlak without support. Allergies: Codeine, Oxycodone HCL PCP: Dr. Gibbs - Physicial Exam PE: 04/13/19 23:59 GENERAL: +Thin appearing. Awake, alert, and fully oriented, in no acute distress HEAD: No signs of trauma EYES: PERRLA, EOMI, sclera anicteric, conjunctiva clear ENT: Auricles normal inspection, hearing grossly normal, nares patent, oropharynx clear without exudates. Moist mucosa NECK: Normal ROM, supple, no lymphadenopathy, JVD, or masses LUNGS: Breath sounds equal, clear to auscultation bilaterally. No wheezes, and no crackles HEART: Regular rate and rhythm, normal S1 and S2, no murmurs, rubs or gallops ABDOMEN: Soft, nontender, normoactive bowel sounds. No guarding, no rebound. No masses EXTREMITIES: Normal range of motion, no edema. No clubbing or cyanosis. No cords, erythema, or tenderness NEUROLOGICAL: Cranial nerves II through XII grossly intact. Normal speech SKIN: Warm, Dry, normal turgor, no rashes or lesions noted. - Medical Decision Making 04/14/19 01:14 8-year-old female with a history of chronic kidney disease stage III, anemia, blood transfusions states she was sent in because of worsening renal function and increased weakness. She denied shortness of breath or chest pain, fever, cough or nausea or vomiting hemoglobin = 9.8, which is good for this patient In reviewing her old charts back in September 2018 Her creatinine was 1.9 but today it is 4.6 with bun=60 She does have leukocytosis of 18,000, and UA, urine cultures and chest x-ray PA and lateral are pending 04/14/19 01:35 hypokalemia=2.8, [id number] -she had a renal ultrasound on October [id number] that showed bilateral renal cysts, but no hydronephrosis or masses pt will be admitted for acute failure failure 04/14/19 01:42
[2019-04-14 01:23] LABS: ALBUMIN 3.9 g/dl (3.4-5.0); BILIRUBIN,TOTAL 0.3 mg/dL (0.2-1); BLOOD UREA NITROGEN 60.5 mg/dL (7-18); CALCIUM 8.6 mg/dL (8.5-10.1); CREATININE 4.6 mg/dL (0.55-1.3)
[2019-04-14 01:25] LABS: POTASSIUM 2.8 mmol/L (3.5-5.1)
[2019-04-14] MEDS ORDERED: POTASSIUM CHLORIDE TABS 10 MEQ TABLET.ER (FP) PO ONE ×3 (01:33→15:28)
[2019-04-14 01:53] LABS: EPI CELLS 4.5 /HPF (0-5/HPF); HYALINE CASTS 4 /lpf (0-8); URINE APPEARANCE CLEAR; URINE BACTERIA 29.8 /hpf (NEGATIVE); URINE BILIRUBIN NEGATIVE (NEGATIVE); URINE COLOR YELLOW; URINE GLUCOSE (UA) NEGATIVE (NEGATIVE); URINE KETONE NEGATIVE (NEGATIVE); URINE LEUK ESTERASE 1+ (NEGATIVE); URINE NITRITE NEGATIVE (NEGATIVE); URINE PROTEIN 2+ (NEGATIVE); URINE RBC 1 /hpf (0-4); URINE UROBILINOGEN 0.2 mg/dL (0.2-1.0); URINE WBC 9 /hpf (0-5)
[2019-04-14 02:11] LABS: YEAST NONE SEEN (NEGATIVE)
--- NOTE | 2019-04-14 02:23 | HP ---
CHIEF COMPLAINT: Weakness PCP: Dr. Corcoran Hem/onc: Dr. Cruz HISTORY OF PRESENT ILLNESS: Patient is a 68 year old female with PMH of CKD Stage III, anemia, alpha- thalassemia, HTN, and diet-controlled DM who presents with 3 weeks of weakness. Patient reports that she has been feeling fatigued and weak, which she thought was due to her anemia. She went to see her hem/onc doctor, Dr. Cruz, 2 weeks ago and her Hgb was 7 so she was given 1x transfusion PRBCs. Symptoms persisted , so she received Venofer last week. She still was not feeling better, so she was advised to f/u with her PCP, Dr. Corcoran, who told her to come to the ED due to poor kidney function. Pt also complains of LEBLANC and decreased appetite over the last few weeks. She had been on lasix for about 5 years because her legs swell when she drinks soda, but she stopped taking it last month because it was making her lose too much weight. Pt reports she may be urinating less frequently but denies any dysuria, urgency, or hematuria. She also denies any recent illnesses or any dizziness, vertigo, headache, nausea, vomiting, palpitations, chest pain, numbness or tingling. ER course was notable for: (1) H/H: 9.0, 28.4, WBC: 18.9 (2) Na: 130, K: 2.8, BUN/Cr: 60.5, 4.6 (3) UA: 2+ protein, 3+ blood, 1+ LE Recent Travel: Denies PAST MEDICAL HISTORY: CKD Stage III Anemia Alpha-thalassemia HTN DM (diet controlled) PAST SURGICAL HISTORY: Open reduction in lower extremity Rectal tube obstruction Social History: Smoking: denies Alcohol: denies Drugs: denies Family History: CHD, DM, HTN in mother and father's sides Allergies codeine Allergy (Verified 04/13/19 21:08) palpitations oxycodone HCl [From Percocet] Allergy (Verified 04/13/19 21:08) palpitations HOME MEDICATIONS: Home Medications Medication Instructions Recorded Perphenazine/Amitriptyline HCl 1 each PO DAILY 01/12/15 [Perphen-Amitrip 4 mg-25 mg Tab] Metoprolol Succinate [Toprol XL -] 50 mg PO DAILY #30 tab.sr.24h 10/21/17 Amlodipine Besylate [Norvasc -] 10 mg PO DAILY 10/03/18 Folic Acid 0.8 mg PO DAILY 10/03/18 Vit D3/Folic Acid/B2/B6/B12 1 each PO DAILY 10/03/18 [Folgard Tablet] Pantoprazole Sodium [Protonix -] 40 mg PO DAILY #30 tablet.ec 10/05/18 REVIEW OF SYSTEMS CONSTITUTIONAL: generalized weakness, malaise, loss of appetite Absent: fever, chills, diaphoresis, weight change HEENT: Absent: rhinorrhea, nasal congestion, throat pain, throat swelling, difficulty swallowing, mouth swelling, ear pain, eye pain, visual changes CARDIOVASCULAR: Absent: chest pain, syncope, palpitations, irregular heart rate, lightheadedness , peripheral edema RESPIRATORY: dyspnea with exertion Absent: cough, shortness of breath, orthopnea, wheezing, stridor, hemoptysis GASTROINTESTINAL: Absent: abdominal pain, abdominal distension, nausea, vomiting, diarrhea, constipation, melena, hematochezia GENITOURINARY: Absent: dysuria, frequency, urgency, hesitancy, hematuria, flank pain, genital pain MUSCULOSKELETAL: Absent: myalgia, arthralgia, joint swelling, back pain, neck pain SKIN: Absent: rash, itching, pallor HEMATOLOGIC/IMMUNOLOGIC: Absent: easy bleeding, easy bruising, lymphadenopathy, frequent infections ENDOCRINE: Absent: unexplained weight gain, unexplained weight loss, heat intolerance, cold intolerance NEUROLOGIC: Absent: headache, focal weakness or paresthesias, dizziness, unsteady gait, seizure, mental status changes, bladder or bowel incontinence PSYCHIATRIC: Absent: anxiety, depression, suicidal or homicidal ideation, hallucinations. PHYSICAL EXAMINATION Vital Signs - 24 hr 04/13/19 21:07 Temperature 98 F Pulse Rate 82 Respiratory 18 Rate Blood Pressure 116/71 O2 Sat by Pulse 100 Oximetry (%) GENERAL: Awake, alert, and fully oriented, in no acute distress. HEAD: Normal with no signs of trauma. EYES: Pupils equal, round and reactive to light, extraocular movements intact, sclera anicteric, conjunctiva clear. No lid lag. EARS, NOSE, THROAT: Ears normal, nares patent, oropharynx clear without exudates. Moist mucous membranes. NECK: Normal range of motion, supple without lymphadenopathy, JVD, or masses. LUNGS: Breath sounds equal, clear to auscultation bilaterally. No wheezes, and no crackles. No accessory muscle use. HEART: Regular rate and rhythm, normal S1 and S2. 2/6 systolic murmur at LUSB ABDOMEN: Soft, nontender, not distended, normoactive bowel sounds, no guarding, no rebound, no masses. No hepatomegaly or splenomegaly. MUSCULOSKELETAL: Normal range of motion at all joints. No bony deformities or tenderness. No CVA tenderness. UPPER EXTREMITIES: 2+ pulses, warm, well-perfused. No cyanosis. No clubbing. No peripheral edema. LOWER EXTREMITIES: 2+ pulses, warm, well-perfused. No calf tenderness. No peripheral edema. NEUROLOGICAL: Cranial nerves II-XII intact. Normal speech. Gait not observed. PSYCHIATRIC: Cooperative. Good eye contact. Appropriate mood and affect. SKIN: Warm, dry, normal turgor, no rashes or lesions noted, normal capillary refill. Laboratory Results - last 24 hr WBC 18.9 K/mm3 (4.0-10.0) H RBC 2.99 M/mm3 (3.60-5.2) L Hgb 9.0 GM/dL (10.7-15.3) L Hct 28.4 % (32.4-45.2) L D MCV 95.0 fl (80-96) MCH 30.0 pg (25.7-33.7) MCHC 31.6 g/dl (32.0-36.0) L RDW 19.2 % (11.6-15.6) H Plt Count 643 K/MM3 (134-434) H D MPV 8.1 fl (7.5-11.1) Absolute Neuts (auto) 17.7 K/mm3 (1.5-8.0) H Neutrophils % 93.6 % (42.8-82.8) H D Lymphocytes % 1.5 % (8-40) L D Monocytes % 4.6 % (3.8-10.2) Eosinophils % 0.0 % (0-4.5) D Basophils % 0.3 % (0-2.0) Nucleated RBC % 0 % (0-0) Sodium 130 mmol/L (136-145) L Potassium 2.8 mmol/L (3.5-5.1) L* Chloride 101 mmol/L (98-107) Carbon Dioxide 7 mmol/L (21-32) L Anion Gap 22 MMOL/L (8-16) H BUN 60.5 mg/dL (7-18) H Creatinine 4.6 mg/dL (0.55-1.3) H Est GFR (CKD-EPI)AfAm 10.52 Est GFR (CKD-EPI)NonAf 9.08 Random Glucose 81 mg/dL (74-106) Calcium 8.6 mg/dL (8.5-10.1) Total Bilirubin 0.3 mg/dL (0.2-1) AST 27 U/L (15-37) ALT 21 U/L (13-61) Alkaline Phosphatase 175 U/L (45-117) H Creatine Kinase 580 U/L (26-192) H Creatine Kinase Index 1.0 % (0.0-5.0) CK-MB (CK-2) 5.9 ng/mL (0.5-3.6) H Troponin I 0.06 ng/ml (0.00-0.05) H Total Protein 8.0 g/dl (6.4-8.2) Albumin 3.9 g/dl (3.4-5.0) ASSESSMENT/PLAN: Patient is a 8 year old female with PMH of CKD Stage III, anemia, alpha- thalassemia, HTN, and diet-controlled DM who presents with 3 weeks of weakness. #MARQUES on CKD Stage III 2/2 to PMH of HTN, DM vs hypoperfusion in setting of chronic anemia Will f/u urine osm, serum osm, and lytes to determine pre vs intra vs post- renal etiology Will f/u lactic acid due to high AG Renal/kidney and bladder US pending Nephro (Dr. Reed) consultation Immunology w/u done in Oct 2017, essentially normal Baseline Cr: 1.7-2.7 (1.9 on d/c in December 2018) Renal US (10/04/18): BL renal cysts, no hydronephrosis or masses #Elevated troponin (0.06) Likely 2/2 decreased kidney function vs ischemia EKG shows ST & T wave abnormality unchanged from prior, but possible new ischemia in lateral leads. F/u official read Pt denies chest pain Monitor on tele #LEBLANC s/p dc'ed lasix Echo (10/15/17): LV normal, mild L atria dilatation, mild MR, RV normal, mild pulmonary HTN Will f/u new echo for changes #UTI Leukocytosis of 18.9, UA 1+ LE, pt afebrile and denies urinary sx Will empirically treat with 1gm ceftriaxone F/u urine cx #Chronic anemia 2/2 alpha-thalassemia and likely CKD Baseline Hgb: 7.7-8.8 Cont to trend H/H #HTN Cont home meds: metoprolol succinate 50mg daily, norvasc 10mg daily #DM Pt stopped taking meds 4-5 years ago, has since been well controlled with diet Hgb A1C (10/04/18): 5.8% #GERD Cont home meds: protonix 40mg daily #Anxiety Cont home meds: perphenazine/amitryptaline 4-25mg daily #FEN Hyponatremia: 130 and hypokalemia: 2.8 on admission Replete K with only 40meq K-dur for now due to decreased renal function IVF NS @ 75ml/hr Sodium-controlled diet #DVT ppx Heparin SQ BID #Dispo Monitor on tele Visit type - Emergency Visit Emergency Visit: Yes Care time: The patient presented to the Emergency Department on the above date and was hospitalized for further evaluation of their emergent condition. - New Patient This patient is new to me today: Yes Date on this admission: 04/14/19 - Critical Care Critical Care patient: No ATTENDING PHYSICIAN STATEMENT I saw and evaluated the patient. I reviewed the resident's note and discussed the case with the resident. I agree with the resident's findings and plan as documented. SUBJECTIVE: OBJECTIVE: ASSESSMENT AND PLAN:
[2019-04-14] MEDS ORDERED: POTASSIUM CHLORIDE TABS 20 MEQ TABLET.ER (FP) PO ONE ×5 (02:47→16:42)
[2019-04-14 03:42] LABS: ANISOCYTOSIS 2+; MACROCYTOSIS 2+; PLATELET ESTIMATE INCREASED; TEAR DROP CELLS 1+
[2019-04-14] MEDS ORDERED: SODIUM CHLORIDE 1,000 ML IV SCH (04:00)
--- NOTE | 2019-04-14 04:26 | PN ---
Teaching Attending Note Name of Resident: Eve Muñoz ATTENDING PHYSICIAN STATEMENT I saw and evaluated the patient. I reviewed the resident's note and discussed the case with the resident. I agree with the resident's findings and plan as documented. SUBJECTIVE: This is a 68 year old woman with a history of stage 3 CKD, anemia, alpha thalassemia, HTN, type 2 DM who was advised to come to the ED because of fatigue, weakness, and worsening renal function. She reports gradual onset of fatigue and weakness associated with SOBOE over the last 3 weeks. She saw her flight/transport nurse and because her hemoglobin was around 7, she was transfused 1 unit PRBCs about 2 weeks ago. She did not feel any better after the transfusion and so she then received Venofer x 1 last week. Since she still wasn't feeling better, she saw her PCP who advised her to come to the ED because of worsening renal function. She thinks she is urinating less than usual and denies hematuria , dysuria, frequency. She denies recent illnesses. She says she had been on Lasix for several years because her legs swell when she drinks soda. She stopped taking Lasix about 5 weeks ago when she decided to stop drinking soda. OBJECTIVE: Vital Signs Period Temp Pulse Resp BP Sys/Rahman Pulse Ox Last 24 Hr 98 F 82 18 116/71 100 HEART: S1S2, RRR, (+) 2/6 SM LUNGS: Clear ABDOMEN: Soft, non-tender, non-distended, normal BS EXTREMITIES: No edema Laboratory Tests 04/14/19 04/14/19 04/14/19 00:20 00:20 00:20 WBC 18.9 H RBC 2.99 L Hgb 9.0 L Hct 28.4 L D MCV 95.0 MCH 30.0 MCHC 31.6 L RDW 19.2 H Plt Count 643 H D MPV 8.1 Absolute Neuts (auto) 17.7 H Neutrophils % 93.6 H D Neutrophils % (Manual) 97.0 H Band Neutrophils % 0.0 Lymphocytes % 1.5 L D Lymphocytes % (Manual) 2.0 L D Monocytes % 4.6 Monocytes % (Manual) 0 L D Eosinophils % 0.0 D Eosinophils % (Manual) 0.0 Basophils % 0.3 Basophils % (Manual) 0.0 Myelocytes % (Man) 0 Promyelocytes % (Man) 0 Blast Cells % (Manual) 0 Nucleated RBC % 0 Metamyelocytes 0 Hypochromia 2+ Platelet Estimate Increased Polychromasia 1+ Poikilocytosis 2+ Anisocytosis 2+ Microcytosis 0 Macrocytosis 2+ Spherocytes 1+ Tear Drop Cells 1+ PT with INR INR PTT (Actin FS) 31.6 Sodium Cancelled Potassium Cancelled Chloride Cancelled Carbon Dioxide Cancelled Anion Gap Cancelled BUN Cancelled Creatinine Cancelled Est GFR (CKD-EPI)AfAm Cancelled Est GFR (CKD-EPI)NonAf Cancelled Random Glucose Cancelled Calcium Cancelled Total Bilirubin Cancelled AST Cancelled ALT Cancelled Alkaline Phosphatase Cancelled Creatine Kinase Creatine Kinase Index CK-MB (CK-2) Troponin I Total Protein Cancelled Albumin Cancelled Urine Color Urine Appearance Urine pH Ur Specific [place] Urine Protein Urine Glucose (UA) Urine Ketones Urine Blood Urine Nitrite Urine Bilirubin Urine Urobilinogen Ur Leukocyte Esterase Urine WBC (Auto) Urine RBC (Auto) Urine Casts (Auto) U Epithel Cells (Auto) Urine Bacteria (Auto) Urine Yeast (Auto) Blood Type Antibody Screen 04/14/19 04/14/19 04/14/19 00:20 00:20 00:20 WBC RBC Hgb Hct MCV MCH MCHC RDW Plt Count MPV Absolute Neuts (auto) Neutrophils % Neutrophils % (Manual) Band Neutrophils % Lymphocytes % Lymphocytes % (Manual) Monocytes % Monocytes % (Manual) Eosinophils % Eosinophils % (Manual) Basophils % Basophils % (Manual) Myelocytes % (Man) Promyelocytes % (Man) Blast Cells % (Manual) Nucleated RBC % Metamyelocytes Hypochromia Platelet Estimate Polychromasia Poikilocytosis Anisocytosis Microcytosis Macrocytosis Spherocytes Tear Drop Cells PT with INR 13.20 H INR 1.12 H PTT (Actin FS) Sodium 130 L Potassium 2.8 L* Chloride 101 Carbon Dioxide 7 L Anion Gap 22 H BUN 60.5 H Creatinine 4.6 H Est GFR (CKD-EPI)AfAm 10.52 Est GFR (CKD-EPI)NonAf 9.08 Random Glucose 81 Calcium 8.6 Total Bilirubin 0.3 AST 27 ALT 21 Alkaline Phosphatase 175 H Creatine Kinase 580 H Creatine Kinase Index 1.0 CK-MB (CK-2) 5.9 H Troponin I 0.06 H Total Protein 8.0 Albumin 3.9 Urine Color Urine Appearance Urine pH Ur Specific [place] Urine Protein Urine Glucose (UA) Urine Ketones Urine Blood Urine Nitrite Urine Bilirubin Urine Urobilinogen Ur Leukocyte Esterase Urine WBC (Auto) Urine RBC (Auto) Urine Casts (Auto) U Epithel Cells (Auto) Urine Bacteria (Auto) Urine Yeast (Auto) Blood Type B POSITIVE Antibody Screen Negative 04/14/19 01:31 WBC RBC Hgb Hct MCV MCH MCHC RDW Plt Count MPV Absolute Neuts (auto) Neutrophils % Neutrophils % (Manual) Band Neutrophils % Lymphocytes % Lymphocytes % (Manual) Monocytes % Monocytes % (Manual) Eosinophils % Eosinophils % (Manual) Basophils % Basophils % (Manual) Myelocytes % (Man) Promyelocytes % (Man) Blast Cells % (Manual) Nucleated RBC % Metamyelocytes Hypochromia Platelet Estimate Polychromasia Poikilocytosis Anisocytosis Microcytosis Macrocytosis Spherocytes Tear Drop Cells PT with INR INR PTT (Actin FS) Sodium Potassium Chloride Carbon Dioxide Anion Gap BUN Creatinine Est GFR (CKD-EPI)AfAm Est GFR (CKD-EPI)NonAf Random Glucose Calcium Total Bilirubin AST ALT Alkaline Phosphatase Creatine Kinase Creatine Kinase Index CK-MB (CK-2) Troponin I Total Protein Albumin Urine Color Yellow Urine Appearance Clear Urine pH 5.0 Ur Specific [place] 1.020 Urine Protein 2+ H Urine Glucose (UA) Negative Urine Ketones Negative Urine Blood 3+ H Urine Nitrite Negative Urine Bilirubin Negative Urine Urobilinogen 0.2 Ur Leukocyte Esterase 1+ H Urine WBC (Auto) 9 Urine RBC (Auto) 1 Urine Casts (Auto) 4 U Epithel Cells (Auto) 4.5 Urine Bacteria (Auto) 29.8 Urine Yeast (Auto) None seen Blood Type Antibody Screen Home Medications Medication Instructions Recorded Perphenazine/Amitriptyline HCl 1 each PO DAILY 01/12/15 [Perphen-Amitrip 4 mg-25 mg Tab] Metoprolol Succinate [Toprol XL -] 50 mg PO DAILY #30 tab.sr.24h 10/21/17 Amlodipine Besylate [Norvasc -] 10 mg PO DAILY 10/03/18 Folic Acid 0.8 mg PO DAILY 10/03/18 Furosemide [Lasix] 50 mg PO DAILY 10/03/18 Vit D3/Folic Acid/B2/B6/B12 1 each PO DAILY 10/03/18 [Folgard Tablet] Pantoprazole Sodium [Protonix -] 40 mg PO DAILY #30 tablet.ec 10/05/18 ASSESSMENT AND PLAN: This is a 68 year old woman with a history of stage 3 CKD, anemia, alpha thalassemia, HTN, type 2 DM who presented to the ED with fatigue, weakness, SOB with exertion, and worsening renal function. 1. Acute kidney injury on stage 3 CKD - UA shows 2+ protein, 3+ blood, 1+ leuk est, 9 WBC, 1 RBC, 4.5 epithelial cells, 4 casts with normal serum protein and albumin - ? multifactorial - HTN/DM nephropathy, ? rhabdo with CK 580, ? pre-renal from diuretic use - Previous workup has included (-) SPEP, (-) RF, (-) SHELIA, normal kidneys with cysts on US - Repeat renal US - Continue to hold Lasix - Cautious hydration - Check urine studies, FENa - Nephrology consult 2. Hyponatremia - IV NS - Monitor electrolytes 3. Hypokalemia - Replete potassium 4. Anion gap metabolic acidosis - Likely secondary to MARQUES/CKD 5. Shortness of breath with exertion - Possibly secondary to anemia - Symptoms started after she discontinued Lasix - she does not appear to be fluid overloaded - Check echocardiogram 5. Anemia secondary to alpha thalassemia and likely CKD/chronic illness - Hemoglobin is stable - will monitor 6. Hypertension - Continue Norvasc, Toprol XL 7. Type 2 DM - Fingersticks with Novolog sliding scale
[2019-04-14] MEDS ORDERED: CEFTRIAXONE 1 GM/50 ML BAG ONE (06:27)
[2019-04-14] MEDS: CEFTRIAXONE 1 GM in DEXTROSE 5%-WATER - 50 ML IVPB SCH (06:30)
[2019-04-14 07:06] LABS: BASO % 0.6 % (0-2.0); HEMATOCRIT 28.5 % (32.4-45.2); HEMOGLOBIN 8.9 GM/dL (10.7-15.3); LYMPH % 1.2 % (8-40); MCH 30.2 pg (25.7-33.7); MCHC 31.2 g/dl (32.0-36.0); MEAN CELL VOLUME 96.9 fl (80-96); MEAN PLT VOLUME 7.6 fl (7.5-11.1); MONO % 4.5 % (3.8-10.2); NEUT % 93.7 % (42.8-82.8); PLATELET COUNT 599 K/MM3 (134-434); RBC 2.94 M/mm3 (3.60-5.2); RDW 19.7 % (11.6-15.6); WHITE BLOOD COUNT 25.9 K/mm3 (4.0-10.0)
[2019-04-14 07:47] LABS: ALBUMIN 3.8 g/dl (3.4-5.0); BILIRUBIN,TOTAL 0.2 mg/dL (0.2-1); BLOOD UREA NITROGEN 63.8 mg/dL (7-18); CALCIUM 8.5 mg/dL (8.5-10.1); CREATININE 4.8 mg/dL (0.55-1.3); MAGNESIUM 4.1 mg/dL (1.8-2.4); PHOSPHOROUS 5.2 mg/dL (2.5-4.9); TOT PROT 7.7 g/dl (6.4-8.2)
[2019-04-14 07:49] LABS: POTASSIUM 2.9 mmol/L (3.5-5.1)
[2019-04-14] MEDS ORDERED: SODIUM CHLORIDE 0.9%/KCL 20 MEQ/1,000 ML INFUS.BAG IV SCH (08:24)
[2019-04-14] MEDS ORDERED: KCL 10 MEQ IVPB 10 MEQ/100 ML INFUS.BAG IVPB ONE (09:11)
--- NOTE | 2019-04-14 09:13 | ECHO ---
Version: 1 Name: JOLIE PRAKASH Exam: Adult Echocardiogram Study Date: 04/14/2019, 8:21 AM Age: 68 Years MMode/2D Measurements & Calculations IVSd: 0.98 cm LVIDs: 1.73 cm LVIDd: 2.44 cm LVPWd: 1.11 cm ACS: 1.83 cm LVOT diam: 1.86 cm Doppler Measurements & Calculations MV E max spencer: 75.0 cm/sec Med E/e': 5.8 MV A max spencer: 113.5 cm/sec Med Peak E' Spencer: 13.0 cm/sec MV E/A: 0.66 Lat E/e': 3.4 Lat Peak E' Spencer: 22.0 cm/sec Ao max P.8 mmHg RUDDY(I,D): 1.26 cm Ao mean P.2 mmHg LV V1 mean: 83.5 cm/sec Ao V2 max: 222.6 cm/sec LV V1 mean P.1 mmHg TR max spencer: 271.5 cm/sec TR max P.5 mmHg Left Ventricle The left ventricular size, thickness and function are normal. Right Ventricle The right ventricle is normal in size and function. Atria Normal left and right atrial size and function. Mitral Valve The mitral valve is normal in structure and function. Tricuspid Valve The tricuspid valve is normal in structure and function. There is mild tricuspid regurgitation. Aortic Valve Fibrocalcific changes to the AV with minimal aortic stenosis. The RUDDY is 1.3 cm. Pulmonic Valve The pulmonic valve is not well seen, but is grossly normal. Great Vessels The aortic root is normal size. Pericardium/Pleura There is no pericardial effusion. Summary Statements The left ventricular size, thickness and function are normal The right ventricle is normal in size and function. Normal left and right atrial size and function. The mitral valve is normal in structure and function. The tricuspid valve is normal in structure and function. There is mild tricuspid regurgitation. Fibrocalcific changes to the AV with minimal aortic stenosis. The RUDDY is 1.3 cm EF 58% PASP 35 mmHg MD Keanu Farias 04/14/2019, 8:13 AM Ordering Physician: Eve Muñoz Performed By: Ani Beasley
[2019-04-14] MEDS: KCL 10 MEQ IVPB 10 MEQ/100 ML INFUS.BAG IVPB SCH ×6 (09:40→18:36)
[2019-04-14] MEDS ORDERED: PATIENT'S OWN MEDICATION (NON-FORMULARY) (Vit D3/Folic Acid/B2/B6/B12 [Folgard Tablet] 1 E PO SCH (10:00)
[2019-04-14] MEDS ORDERED: PATIENT'S OWN MEDICATION (NON-FORMULARY) (Folic Acid [Folic Acid] 0.8 MG) PO SCH (10:00)
[2019-04-14 10:15] LABS: POTASSIUM 2.9 mmol/L (3.5-5.1)
[2019-04-14] MEDS: HEPARIN NA (PORCINE) 5,000 UNITS/ML 1ML VIAL SQ SCH ×2 (11:09→21:24)
[2019-04-14] MEDS: amLODIPine BESYLATE 10 MG TABLET (FP) PO SCH (11:09)
[2019-04-14] MEDS: AMITRIPTYLINE HCL 25 MG TABLET (FP) PO SCH (11:09)
[2019-04-14] MEDS: PANTOPRAZOLE 40 MG TABLET (FP) PO SCH (11:09)
[2019-04-14] MEDS: PERPHENAZINE 4 MG TABLET PO SCH (11:10)
[2019-04-14 11:30] LABS: ANISOCYTOSIS 1+; MACROCYTOSIS 1+; PLATELET ESTIMATE INCREASED
--- NOTE | 2019-04-14 12:44 | CONSULT ---
Consult - text type - Consultation Consultation Note: Renal consult for MARQUES on CKD This is a 68 year old woman with history of CKD stage 3 ( baseline Cr 1.7-2.1). hypertension, DM, alpha thalasemia/anemia presents with weakness and found to have MARQUES on CKD. Pt states that he has leg weakness and has had a poor appetite. Discontinued her lasix last week due to 10lb weight loss and lack of leg edema. She does report a remote ( >1 month ago) history of ibuprofen. Denies any recent contrast exposure. Denies any flank pain, dysuria, frequency or urgency. Denies any leg swelling. No diarrhea or vomiting. Denies any confusion or lethargy. Making urine normally now as per patient. PMhx: as above Allergies: NKDA Family Hx: NC Social Hx: no T/A/D ROS: as per HPI, all other pertinent ros negative Home Medications Medication Instructions Recorded Perphenazine/Amitriptyline HCl 1 each PO DAILY 01/12/15 [Perphen-Amitrip 4 mg-25 mg Tab] Metoprolol Succinate [Toprol XL -] 50 mg PO DAILY #30 tab.sr.24h 10/21/17 Amlodipine Besylate [Norvasc -] 10 mg PO DAILY 10/03/18 Folic Acid 0.8 mg PO DAILY 10/03/18 Furosemide [Lasix] 40 mg PO DAILY 10/03/18 Vit D3/Folic Acid/B2/B6/B12 1 each PO DAILY 10/03/18 [Folgard Tablet] Pantoprazole Sodium [Protonix -] 40 mg PO DAILY #30 tablet.ec 10/05/18 Vital Signs Temperature 98.0 F 04/14/19 08:00 Pulse Rate 88 04/14/19 08:00 Respiratory Rate 20 04/14/19 04:15 Blood Pressure 139/80 04/14/19 08:00 O2 Sat by Pulse Oximetry (%) 99 04/14/19 08:00 Intake & Output 04/11/19 04/12/19 04/13/19 04/14/19 23:59 23:59 23:59 23:59 Weight 52.617 kg NAD awake and alert neck supple, no JVD RRR, no M/R CTA soft NT/ND no LE edema, clubbing or cyanosis CBC, BMP 04/14/19 06:22 04/14/19 09:15 Current Medications Amitriptyline HCl (Elavil -) 25 mg PO DAILY [facility] Last Admin: 04/14/19 11:09 Dose: Not Given Amlodipine Besylate (Norvasc -) 10 mg PO DAILY [facility] Last Admin: 04/14/19 11:09 Dose: 10 mg Heparin Sodium (Porcine) (Heparin -) 5,000 unit SQ BID [facility] Last Admin: 04/14/19 11:09 Dose: 5,000 unit Ceftriaxone Sodium 1 gm/ (Dextrose) 50 mls @ 100 mls/hr IVPB DAILY [facility]; Protocol Last Admin: 04/14/19 06:30 Dose: 100 mls/hr Potassium Chloride/Sodium Chloride (Ns+20 Meq Kcl -) 20 meq in 1,000 mls @ 75 mls/hr IV ASDIR [facility] Last Admin: 04/14/19 09:40 Dose: 75 mls/hr Metoprolol Succinate (Toprol Xl -) 50 mg PO DAILY [facility] Last Admin: 04/14/19 11:09 Dose: 50 mg Non-Formulary Medication (Folic Acid [Folic Acid]) 0.8 mg PO DAILY [facility] Non-Formulary Medication (Vit D3/Folic Acid/B2/B6/B12 [Folgard Tablet]) 1 each PO DAILY [facility] Pantoprazole Sodium (Protonix -) 40 mg PO DAILY [facility] Last Admin: 04/14/19 11:09 Dose: 40 mg Perphenazine (Trilafon) 4 mg PO DAILY [facility] Last Admin: 04/14/19 11:10 Dose: Not Given 68 year old woman with history of CKD stage 3 (baseline Cr 1.7- 2.1). hypertension, DM, alpha thalasemia/anemia presents with weakness and found to have MARQUES on CKD. #MARQUES on CKD secondary to volume depletion vs ATN vs. AIN vs obstruction #metabolic acidosis (serum bicarb 5 -anion gap acidosis) #Hypokalemia #Chronic anemia #Hypertension #Leukocytoiss Check urine studies for FeNa, FeUrea, UPCR, UA and urine eosinphils Renal US to r/o obstruction as cause of injury check ABG to to accurately access acid base disturbance Start isotonic IVF: D5W with 150meq of sodium bicarb continue amlodipine for hypertension hold Lasix would not start any ACEi/ARB at this time Dose all meds for CrCl < 15 no emergent indication for [employer] Thank you Tc Reed DO
[2019-04-14] MEDS ORDERED: SODIUM BICARBONATE 8.4% - 150 MEQ in DEXTROSE 5%-WATER - 1,000 ML IV SCH (13:00)
[2019-04-14 14:52] LABS: BLOOD UREA NITROGEN 56.3 mg/dL (7-18); CALCIUM 8.5 mg/dL (8.5-10.1); CREATININE 4.5 mg/dL (0.55-1.3); POTASSIUM 3.1 mmol/L (3.5-5.1)
--- NOTE | 2019-04-14 15:10 | PN ---
Physical Exam: SUBJECTIVE: Patient seen and examined at bedside. Pt states that for the past 2 weeks she has been feeling weakness, nausea, and 10 lb weight loss. Pt went to [facility] 2 weeks ago and got pRBCs ( usually goes 2x/yr for transfusion and several times for venofer. ) pt did not have relief and went back to hematology 1 week ago and got venofer. Yesterday, after still no relief she went to PMD who noted the MARQUES and suggest her to come to ED. Pt recently developed oral thrush. OBJECTIVE: Vital Signs Period Temp Pulse Resp BP Sys/Rahman Pulse Ox Last 24 Hr 97.2 F-98.5 F 74-96 16-20 116-139/64-85 97-100 GENERAL: The patient is awake, alert, and fully oriented, in no acute distress. HEAD: Normal with no signs of trauma. EYES: PERRL, extraocular movements intact, sclera anicteric, conjunctiva clear. No ptosis. ENT: oral thrush, no lesions, no tonsillar erythema LUNGS: Breath sounds equal, clear to auscultation bilaterally, no wheezes, no crackles, no accessory muscle use. HEART: Regular rate and rhythm, S1, S2 without murmur, rub or gallop. ABDOMEN: Soft, nontender, nondistended, normoactive bowel sounds, no guarding, no hepatosplenomegaly, no masses. EXTREMITIES: 2+ pulses, warm, well-perfused, no edema. SKIN: Warm, dry, normal turgor, no rashes or lesions noted Laboratory Last Values WBC 25.9 K/mm3 (4.0-10.0) H 04/14/19 06:22 RBC 2.94 M/mm3 (3.60-5.2) L 04/14/19 06:22 Hgb 8.9 GM/dL (10.7-15.3) L 04/14/19 06:22 Hct 28.5 % (32.4-45.2) L 04/14/19 06:22 MCV 96.9 fl (80-96) H 04/14/19 06:22 MCH 30.2 pg (25.7-33.7) 04/14/19 06:22 MCHC 31.2 g/dl (32.0-36.0) L 04/14/19 06:22 RDW 19.7 % (11.6-15.6) H 04/14/19 06:22 Plt Count 599 K/MM3 (134-434) H 04/14/19 06:22 MPV 7.6 fl (7.5-11.1) 04/14/19 06:22 Absolute Neuts (auto) 24.2 K/mm3 (1.5-8.0) H 04/14/19 06:22 Neutrophils % 93.7 % (42.8-82.8) H 04/14/19 06:22 Neutrophils % (Manual) 92.3 % (42.8-82.8) H 04/14/19 06:22 Band Neutrophils % 0.0 % 04/14/19 06:22 Lymphocytes % 1.2 % (8-40) L 04/14/19 06:22 Lymphocytes % (Manual) 3.9 % (8-40) L D 04/14/19 06:22 Monocytes % 4.5 % (3.8-10.2) 04/14/19 06:22 Monocytes % (Manual) 4 % (3.8-10.2) D 04/14/19 06:22 Eosinophils % 0.0 % (0-4.5) 04/14/19 06:22 Eosinophils % (Manual) 0.0 % (0-4.5) 04/14/19 06:22 Basophils % 0.6 % (0-2.0) 04/14/19 06:22 Basophils % (Manual) 0.0 % (0-2.0) 04/14/19 06:22 Myelocytes % (Man) 0 % (0-2) 04/14/19 06:22 Promyelocytes % (Man) 0 % (0-2) 04/14/19 06:22 Blast Cells % (Manual) 0 % (0-0) 04/14/19 06:22 Nucleated RBC % 0 % (0-0) 04/14/19 06:22 Metamyelocytes 0 % (0-2) 04/14/19 06:22 Hypochromia 0 04/14/19 06:22 Platelet Estimate Increased 04/14/19 06:22 Polychromasia 0 04/14/19 06:22 Poikilocytosis 0 04/14/19 06:22 Anisocytosis 1+ 04/14/19 06:22 Microcytosis 0 04/14/19 06:22 Macrocytosis 1+ 04/14/19 06:22 Spherocytes 1+ 04/14/19 00:20 Tear Drop Cells 1+ 04/14/19 00:20 PT with INR 13.20 SEC (9.7-13.0) H 04/14/19 00:20 INR 1.12 (0.83-1.09) H 04/14/19 00:20 PTT (Actin FS) 31.6 SECONDS (25.2-36.5) 04/14/19 00:20 Sodium 133 mmol/L (136-145) L 04/14/19 13:45 Potassium 3.1 mmol/L (3.5-5.1) L 04/14/19 13:45 Chloride 108 mmol/L (98-107) H 04/14/19 13:45 Carbon Dioxide 7 mmol/L (21-32) L 04/14/19 13:45 Anion Gap 18 MMOL/L (8-16) H 04/14/19 13:45 BUN 56.3 mg/dL (7-18) H 04/14/19 13:45 Creatinine 4.5 mg/dL (0.55-1.3) H 04/14/19 13:45 Est GFR (CKD-EPI)AfAm 10.80 04/14/19 13:45 Est GFR (CKD-EPI)NonAf 9.32 04/14/19 13:45 Random Glucose 166 mg/dL (74-106) H 04/14/19 13:45 Serum Osmolality 300 mosm/kg (278-305) 04/14/19 09:15 Lactic Acid 1.0 mmol/L (0.4-2.0) 04/14/19 09:15 Calcium 8.5 mg/dL (8.5-10.1) 04/14/19 13:45 Phosphorus 5.2 mg/dL (2.5-4.9) H 04/14/19 06:22 Magnesium 4.1 mg/dL (1.8-2.4) H 04/14/19 06:22 Total Bilirubin 0.2 mg/dL (0.2-1) 04/14/19 06:22 AST 24 U/L (15-37) 04/14/19 06:22 ALT 19 U/L (13-61) 04/14/19 06:22 Alkaline Phosphatase 171 U/L (45-117) H 04/14/19 06:22 Creatine Kinase 580 U/L (26-192) H 04/14/19 00:20 Creatine Kinase Index 1.0 % (0.0-5.0) 04/14/19 00:20 CK-MB (CK-2) 5.9 ng/mL (0.5-3.6) H 04/14/19 00:20 Troponin I 0.04 ng/ml (0.00-0.05) 04/14/19 06:22 Total Protein 7.7 g/dl (6.4-8.2) 04/14/19 06:22 Albumin 3.8 g/dl (3.4-5.0) 04/14/19 06:22 Urine Color Yellow 04/14/19 01:31 Urine Appearance Clear 04/14/19 01:31 Urine pH 5.0 (5.0-8.0) 04/14/19 01:31 Ur Specific [place] 1.020 (1.010-1.035) 04/14/19 01:31 Urine Protein 2+ (NEGATIVE) H 04/14/19 01:31 Urine Glucose (UA) Negative (NEGATIVE) 04/14/19 01:31 Urine Ketones Negative (NEGATIVE) 04/14/19 01:31 Urine Blood 3+ (NEGATIVE) H 04/14/19 01:31 Urine Nitrite Negative (NEGATIVE) 04/14/19 01:31 Urine Bilirubin Negative (NEGATIVE) 04/14/19 01:31 Urine Urobilinogen 0.2 mg/dL (0.2-1.0) 04/14/19 01:31 Ur Leukocyte Esterase 1+ (NEGATIVE) H 04/14/19 01:31 Urine WBC (Auto) 9 /hpf (0-5) 04/14/19 01:31 Urine RBC (Auto) 1 /hpf (0-4) 04/14/19 01:31 Urine Casts (Auto) 4 /lpf (0-8) 04/14/19 01:31 U Epithel Cells (Auto) 4.5 /HPF (0-5/HPF) 04/14/19 01:31 Urine Bacteria (Auto) 29.8 /hpf (NEGATIVE) 08/06/19 01:31 Urine Yeast (Auto) None seen (NEGATIVE) 04/14/19 01:31 Blood Type B POSITIVE 04/14/19 00:20 Antibody Screen Negative 04/14/19 00:20 Current Medications Amitriptyline HCl (Elavil -) 25 mg PO DAILY [facility] Last Admin: 04/14/19 11:09 Dose: Not Given Amlodipine Besylate (Norvasc -) 10 mg PO DAILY [facility] Last Admin: 04/14/19 11:09 Dose: 10 mg Heparin Sodium (Porcine) (Heparin -) 5,000 unit SQ BID [facility] Last Admin: 04/14/19 11:09 Dose: 5,000 unit Ceftriaxone Sodium 1 gm/ (Dextrose) 50 mls @ 100 mls/hr IVPB DAILY [facility]; Protocol Last Admin: 04/14/19 06:30 Dose: 100 mls/hr Sodium Bicarbonate 150 meq/ (Dextrose) 1,150 mls @ 100 mls/hr IV Q11H [facility] Last Admin: 04/14/19 14:27 Dose: 100 mls/hr Metoprolol Succinate (Toprol Xl -) 50 mg PO DAILY [facility] Last Admin: 04/14/19 11:09 Dose: 50 mg Non-Formulary Medication (Folic Acid [Folic Acid]) 0.8 mg PO DAILY [facility] Non-Formulary Medication (Vit D3/Folic Acid/B2/B6/B12 [Folgard Tablet]) 1 each PO DAILY [facility] Nystatin (Nystatin Oral Suspension -) 500,000 units PO Q6HPO [facility] Pantoprazole Sodium (Protonix -) 40 mg PO DAILY [facility] Last Admin: 04/14/19 11:09 Dose: 40 mg Perphenazine (Trilafon) 4 mg PO DAILY [facility] Last Admin: 04/14/19 11:10 Dose: Not Given Kidney/ Renal U/S 04/2019 IMPRESSION: Increased bilateral renal cortical echogenicity suggestive of medical renal disease. No hydronephrosis. Large simple appearing renal cysts as described above. Hydropic gallbladder. Correlate clinically and with LFTs for acute cholecystitis. No gallstones or sludge seen. If clinically indicated HIDA scan may be obtained for further evaluation. Bladder U/S 04/2019: IMPRESSION: Post void urinary residual of 1 76 cc. Anterior calcified uterine mass and posterior uterine soft tissue mass statistically likely fibroids. If the patient is postmenopausal continued close follow-up is recommended. 10/2017 CT Abdomen / Pelvis Impression: 1. Bilateral upper lobe and lower lobe consolidative opacities are most compatible with multifocal pneumonia. Correlate clinically and follow-up chest x-ray is recommended after completion of therapy to exclude other processes. 2. Small bilateral layering pleural effusions with subsegmental compressive atelectasis in both lung bases. 3. Enlarged right axillary lymph node is similar in size to 03/04/[address] However, there is new right axillary fat stranding which could inflammatory or related to lymphadenopathy. Please correlate clinically with physical exam. 4. Leiomyomatous uterus as described above with multiple subserosal pedunculated leiomyomas. 5. No evidence of bowel obstruction. No definite bowel wall thickening. 6. No obstructive uropathy. No evidence of urinary tract calculi. ASSESSMENT/PLAN: 68 yo F w/ PMH of alpha thallassemia, HTN, DM, CKD presented to the ED with nausea, weakness, SOB, and worsening renal fxn. Anion Gap metabolic acidosis 2/2 Uremia 2/2 Acute on Chronic Renal Failure -pt able to urinate, but does note she is urinating less -(+)UA -awaiting UCx, BCx -baseline Cr based off of prior admission is 1.7. Cr is currently downtrending 4.8-->4.5 -AG 25-->18 -Renal U/S see above -Bladder U/S see above -Nephrology recommendations appreciated -awaiting urine studies -Isotonic IVF, D5W w/ 150 mEq of Sodium bicarb as per nephro recs -avoid nephrotoxic agents -CT from 2018 reviewed, results above Leukocytosis -rpt CBC -CXRAY reviewed by me, no acute changes -awaiting BCx, Ucx -c/w rocephin(day 2) -HIV testing requested -pt states she is up to date with colonoscopy, mammo, and pap smear- pt reports all wnl Anemia -no signs of acute bleed -likely chronic, 2/2 thalassemia and CKD -continue to monitor HTN -c/w Norvasc, toprol -Echo normal LV fxn, minimal DM -C/w BGM & ISS Oral Thrush -Nystatin F/E/N -D5W w/ 150 mEq of Sodium bicarb Hypokalemia -replete 40mg PO KDur, IV KCl -diabetic/ sodium controlled diet -improving DVT ppx: Heparin Sq GI ppx: protonix Dispo:monitor on medical floor until medically optimized Visit type - Emergency Visit Emergency Visit: Yes ED Registration Date: 04/14/19 Care time: The patient presented to the Emergency Department on the above date and was hospitalized for further evaluation of their emergent condition. - New Patient This patient is new to me today: Yes Date on this admission: 04/14/19 - Critical Care Critical Care patient: No - Discharge Referral Referred to [facility] No ATTENDING PHYSICIAN STATEMENT I saw and evaluated the patient. I reviewed the resident's note and discussed the case with the resident. I agree with the resident's findings and plan as documented. SUBJECTIVE: OBJECTIVE: ASSESSMENT AND PLAN:
--- NOTE | 2019-04-14 15:37 | EKG ---
Test Reason : Blood Pressure : / mmHG Vent. Rate : 069 BPM Atrial Rate : 069 BPM P-R Int : 196 ms QRS Dur : 082 ms QT Int : 404 ms P-R-T Axes : 037 006 078 degrees QTc Int : 432 ms POOR DATA QUALITY, INTERPRETATION MAY BE ADVERSELY AFFECTED NORMAL SINUS RHYTHM SEPTAL INFARCT , AGE UNDETERMINED ABNORMAL ECG WHEN COMPARED WITH ECG OF 14-DEC-2018 06:40, T WAVE INVERSION NOW EVIDENT IN ANTERIOR LEADS Confirmed by MD MAUREEN, SHAY ([id number]) on 04/14/2019 3:36:46 PM Referred By: Confirmed By:SHAY REDDY MD
--- NOTE | 2019-04-14 17:13 | PN ---
Teaching Attending Note Name of Resident: Nancy Arevalo ATTENDING PHYSICIAN STATEMENT I saw and evaluated the patient. I reviewed the resident's note and discussed the case with the resident. I agree with the resident's findings and plan as documented. SUBJECTIVE:c/o generalized lethargy. no improvement since arrival. no improvement after 1 unit PRBC and venofer x1 at her hematology office and saw her PMD who told her she had thrush. admits 10 lb weight loss over past few months. poor appetite. had normal colonoscopy about 5 years ago. normal mammo and pap 1 year ago. father of colon cancer in 80's and materal grandmother of lung cancer in 70's. denies CP, SOB, fever, chills, hemoptysis, odynophaiga, dysphagia, difficulty urinating. never smoked OBJECTIVE: Last Vital Signs Temp Pulse Resp BP Pulse Ox 97.5 F L 90 18 121/67 100 04/14/19 15:26 04/14/19 15:26 04/14/19 15:26 04/14/19 15:26 04/14/19 13:37 general NAD HEENT +oral thrush, no oral ulcers, no submental/ant cervical chain/clavicular/ axillary LN CV S1 s2 RRR no murmur/rub/gallop Lungs CTA B/L no wheezing/rales/rhonchi Abdomen soft NT/ND no rebound or guarding no suprapuib distention or tenderness no CVA tenderness Extremities no pedal edema ASSESSMENT AND PLAN: 68 year old woman with a history of stage 3 CKD, anemia, alpha thalassemia, HTN , type 2 DM who presented to the ED with fatigue, weakness, SOB with exertion, and worsening renal function. 1. Acute kidney injury on stage 3 CKD- unclear etiology, obstruction vs medication induced. still awaiting renal u/s to be done. can do bladder scan to evaluate if retaining. start IVF with bicarb. strict I&O. urine studies sent. nephrology consulted 2. AGMA- due to uremia. start bicarb. pt refusing abg. LA normal. trend labs 3. Hyponatremia- due to dehydration. IVF. repeat. no indication for hypertonic saline 4. Hypokalemia- Kcl 03cpqt2 and then repeat. caution with replacement given renal dysfunction 5. leukocytosis- possible due to UTI if complicated. will check CXR and blood Cx to r/o alternative source. 6. UTI- on ceftriaxone. check Ucx. 7. Oral thrush- start nystatin swish and swallow. 8. +weight loss- assoc with oral thrush. states she had routine cancer screening. check HIV 9. Anemia- due to alpha thalsemmia. hgb stable. no indication for transfusion at this time 10. HTN- hold diuretic. cont home medication 11. DM- hold oral agents. iss and bgm 12. DVT ppx- hep sq 13. spoke with present at bedside. all questions answered. verbalized understanding and agreement
[2019-04-14 17:17] LABS: ARTERIAL BLD GAS O2 SATURATION 96.9 % (95-98); ARTERIAL BLOOD GAS BASE EXCESS -21.5 meq/l (-2-2); ARTERIAL BLOOD GAS PCO2 16.4 mmHg (35-45); ARTERIAL BLOOD GAS PO2 99.4 mmHg (80-105)
[2019-04-14 17:19] LABS: ALLENS TEST POSITIVE
[2019-04-14 17:21] LABS: ARTERIAL BLOOD GAS pH 7.17 (7.35-7.45)
[2019-04-14] MEDS: SODIUM BICARBONATE 8.4% - 150 MEQ in DEXTROSE 5%-WATER - 1,000 ML IV SCH (17:46)
[2019-04-14] MEDS: NYSTATIN 500,000 UNITS/5 ML SUSPENSION PO SCH (18:37)
--- NOTE | 2019-04-14 18:45 | PN ---
Progress Note (short form) - Note Progress Note: ABG reviewed, pt with metabolic acidosis with respiratory compensation. Will increase bicarb gtt to 150ml per hour. Monitor BMP Q8h. Tc Serrano DO
[2019-04-14 20:10] LABS: EPI CELLS 3.2 /HPF (0-5/HPF); HYALINE CASTS 6 /lpf (0-8); URINE APPEARANCE CLEAR; URINE BACTERIA 6.4 /hpf (NEGATIVE); URINE BILIRUBIN NEGATIVE (NEGATIVE); URINE COLOR YELLOW; URINE GLUCOSE (UA) NEGATIVE (NEGATIVE); URINE KETONE NEGATIVE (NEGATIVE); URINE LEUK ESTERASE 1+ (NEGATIVE); URINE NITRITE NEGATIVE (NEGATIVE); URINE PROTEIN 1+ (NEGATIVE); URINE RBC 1 /hpf (0-4); URINE UROBILINOGEN 0.2 mg/dL (0.2-1.0); URINE WBC 7 /hpf (0-5)
[2019-04-15] MEDS: NYSTATIN 500,000 UNITS/5 ML SUSPENSION PO SCH ×4 (00:32→17:03)
[2019-04-15] MEDS: SODIUM BICARBONATE 8.4% - 150 MEQ in DEXTROSE 5%-WATER - 1,000 ML IV SCH ×5 (01:00→17:06)
[2019-04-15] MEDS ORDERED: cefTRIAXone SODIUM 1 GM VIAL ONE (09:03)
[2019-04-15] MEDS ORDERED: DEXTROSE 5%-WATER - 50 ML IVPB ONE (09:04)
[2019-04-15 09:06] LABS: BILIRUBIN,TOTAL 0.2 mg/dL (0.2-1); CALCIUM 7.8 mg/dL (8.5-10.1); CREATININE 3.6 mg/dL (0.55-1.3); MAGNESIUM 3.1 mg/dL (1.8-2.4); PHOSPHOROUS 1.2 mg/dL (2.5-4.9); TOT PROT 6.4 g/dl (6.4-8.2)
[2019-04-15 09:45] LABS: POTASSIUM 2.7 mmol/L (3.5-5.1)
[2019-04-15 10:09] LABS: HEMATOCRIT 22.7 % (32.4-45.2); HEMOGLOBIN 7.4 GM/dL (10.7-15.3); MCH 30.2 pg (25.7-33.7); MCHC 32.8 g/dl (32.0-36.0); MEAN CELL VOLUME 92.3 fl (80-96); MEAN PLT VOLUME 7.9 fl (7.5-11.1); PLATELET COUNT 460 K/MM3 (134-434); RBC 2.46 M/mm3 (3.60-5.2); RDW 19.5 % (11.6-15.6); WHITE BLOOD COUNT 17.7 K/mm3 (4.0-10.0)
[2019-04-15] MEDS: PANTOPRAZOLE 40 MG TABLET (FP) PO SCH (10:32)
[2019-04-15] MEDS: CEFTRIAXONE 1 GM in DEXTROSE 5%-WATER - 50 ML IVPB SCH (10:32)
[2019-04-15] MEDS: amLODIPine BESYLATE 10 MG TABLET (FP) PO SCH (10:33)
[2019-04-15] MEDS: HEPARIN NA (PORCINE) 5,000 UNITS/ML 1ML VIAL SQ SCH ×2 (10:33→22:06)
[2019-04-15] MEDS: AMITRIPTYLINE HCL 25 MG TABLET (FP) PO SCH (10:34)
[2019-04-15] MEDS: PERPHENAZINE 4 MG TABLET PO SCH (10:34)
[2019-04-15] MEDS ORDERED: POTASSIUM CHLORIDE TABS 20 MEQ TABLET.ER (FP) PO ONE (11:24)
[2019-04-15] MEDS ORDERED: KCL 10 MEQ IVPB 10 MEQ/100 ML INFUS.BAG IVPB SCH (11:30)
--- NOTE | 2019-04-15 11:45 | PN ---
Physical Exam: SUBJECTIVE: Patient seen and examined at bedside. Pt states she is feeling better than yesterday. her weakness is improving. OBJECTIVE: Vital Signs Period Temp Pulse Resp BP Sys/Rahman Pulse Ox Last 24 Hr 97.3 F-98.7 F 85-109 17-20 118-139/61-74 96-100 GENERAL: The patient is awake, alert, and fully oriented, in no acute distress. LUNGS: Breath sounds equal, clear to auscultation bilaterally, no wheezes, no crackles, no accessory muscle use. HEART: Regular rate and rhythm, S1, S2 + systolic murmur ABDOMEN: Soft, nontender, nondistended, normoactive bowel sounds, no guarding EXTREMITIES: 2+ pulses, warm, well-perfused, no edema. SKIN: Warm, dry, normal turgor, no rashes or lesions noted Laboratory Last Values WBC 17.7 K/mm3 (4.0-10.0) H 04/15/19 09:43 RBC 2.46 M/mm3 (3.60-5.2) L 04/15/19 09:43 Hgb 7.4 GM/dL (10.7-15.3) L 04/15/19 09:43 Hct 22.7 % (32.4-45.2) L D 04/15/19 09:43 MCV 92.3 fl (80-96) 04/15/19 09:43 MCH 30.2 pg (25.7-33.7) 04/15/19 09:43 MCHC 32.8 g/dl (32.0-36.0) 04/15/19 09:43 RDW 19.5 % (11.6-15.6) H 04/15/19 09:43 Plt Count 460 K/MM3 (134-434) H D 04/15/19 09:43 MPV 7.9 fl (7.5-11.1) 04/15/19 09:43 Absolute Neuts (auto) 24.2 K/mm3 (1.5-8.0) H 04/14/19 06:22 Neutrophils % 93.7 % (42.8-82.8) H 04/14/19 06:22 Neutrophils % (Manual) 92.3 % (42.8-82.8) H 04/14/19 06:22 Band Neutrophils % 0.0 % 08/06/19 06:22 Lymphocytes % 1.2 % (8-40) L 04/14/19 06:22 Lymphocytes % (Manual) 3.9 % (8-40) L D 04/14/19 06:22 Monocytes % 4.5 % (3.8-10.2) 04/14/19 06:22 Monocytes % (Manual) 4 % (3.8-10.2) D 04/14/19 06:22 Eosinophils % 0.0 % (0-4.5) 04/14/19 06:22 Eosinophils % (Manual) 0.0 % (0-4.5) 04/14/19 06:22 Basophils % 0.6 % (0-2.0) 04/14/19 06:22 Basophils % (Manual) 0.0 % (0-2.0) 04/14/19 06:22 Myelocytes % (Man) 0 % (0-2) 04/14/19 06:22 Promyelocytes % (Man) 0 % (0-2) 04/14/19 06:22 Blast Cells % (Manual) 0 % (0-0) 04/14/19 06:22 Nucleated RBC % 0 % (0-0) 04/14/19 06:22 Metamyelocytes 0 % (0-2) 04/14/19 06:22 Hypochromia 0 04/14/19 06:22 Platelet Estimate Increased 04/14/19 06:22 Polychromasia 0 04/14/19 06:22 Poikilocytosis 0 04/14/19 06:22 Anisocytosis 1+ 04/14/19 06:22 Microcytosis 0 04/14/19 06:22 Macrocytosis 1+ 04/14/19 06:22 Spherocytes 1+ 04/14/19 00:20 Tear Drop Cells 1+ 04/14/19 00:20 PT with INR 13.20 SEC (9.7-13.0) H 04/14/19 00:20 INR 1.12 (0.83-1.09) H 04/14/19 00:20 PTT (Actin FS) 31.6 SECONDS (25.2-36.5) 04/14/19 00:20 Anticoagulation Therapy No Result Required. 04/14/19 16:55 Puncture Site Right radial 04/14/19 16:55 ABG pH 7.17 (7.35-7.45) L* 04/14/19 16:55 ABG pCO2 at Pt Temp 16.4 mmHg (35-45) L 04/14/19 16:55 ABG pO2 at Pt Temp 99.4 mmHg (80-105) 04/14/19 16:55 ABG HCO3 5.7 mmol/L (22-27) L 04/14/19 16:55 ABG O2 Sat (Measured) 96.9 % (95-98) 04/14/19 16:55 ABG O2 Content 10.6 % vol (15-22) L 04/14/19 16:55 ABG Base Excess -21.5 meq/l (-2-2) L 04/14/19 16:55 [place] Test Positive 04/14/19 16:55 O2 Delivery Device No Result Required. 04/14/19 16:55 Oxygen Flow Rate No Result Required. 04/14/19 16:55 Vent Mode Room air 04/14/19 16:55 Vent Rate No Result Required. 04/14/19 16:55 Mechanical Rate No Result Required. 04/14/19 16:55 Pressure Support Vent No Result Required. 04/14/19 16:55 Sodium 137 mmol/L (136-145) 04/15/19 06:33 Potassium 2.7 mmol/L (3.5-5.1) L* 04/15/19 06:33 Chloride 107 mmol/L (98-107) 04/15/19 06:33 Carbon Dioxide 14 mmol/L (21-32) L 04/15/19 06:33 Anion Gap 16 MMOL/L (8-16) 04/15/19 06:33 BUN 46.0 mg/dL (7-18) H 04/15/19 06:33 Creatinine 3.6 mg/dL (0.55-1.3) H 04/15/19 06:33 Est GFR (CKD-EPI)AfAm 14.15 04/15/19 06:33 Est GFR (CKD-EPI)NonAf 12.21 04/15/19 06:33 POC Glucometer 128 UNITS (80-120) 04/15/19 12:17 Random Glucose 125 mg/dL (74-106) H 04/15/19 06:33 Serum Osmolality 300 mosm/kg (278-305) 04/14/19 09:15 Lactic Acid 1.0 mmol/L (0.4-2.0) 04/14/19 09:15 Calcium 7.8 mg/dL (8.5-10.1) L 04/15/19 06:33 Phosphorus 1.2 mg/dL (2.5-4.9) L 04/15/19 06:33 Magnesium 3.1 mg/dL (1.8-2.4) H 04/15/19 06:33 Total Bilirubin 0.2 mg/dL (0.2-1) 04/15/19 06:33 AST 18 U/L (15-37) 04/15/19 06:33 ALT 17 U/L (13-61) 04/15/19 06:33 Alkaline Phosphatase 133 U/L (45-117) H 04/15/19 06:33 Creatine Kinase 580 U/L (26-192) H 04/14/19 00:20 Creatine Kinase Index 1.0 % (0.0-5.0) 04/14/19 00:20 CK-MB (CK-2) 5.9 ng/mL (0.5-3.6) H 04/14/19 00:20 Troponin I 0.04 ng/ml (0.00-0.05) 04/14/19 06:22 Total Protein 6.4 g/dl (6.4-8.2) 04/15/19 06:33 Albumin 3.0 g/dl (3.4-5.0) L 04/15/19 06:33 Urine Color Yellow 04/14/19 18:00 Urine Appearance Clear 04/14/19 18:00 Urine pH 5.0 (5.0-8.0) 04/14/19 18:00 Ur Specific [place] 1.015 (1.010-1.035) 04/14/19 18:00 Urine Protein 1+ (NEGATIVE) H 04/14/19 18:00 Urine Glucose (UA) Negative (NEGATIVE) 04/14/19 18:00 Urine Ketones Negative (NEGATIVE) 04/14/19 18:00 Urine Blood 2+ (NEGATIVE) H 04/14/19 18:00 Urine Nitrite Negative (NEGATIVE) 04/14/19 18:00 Urine Bilirubin Negative (NEGATIVE) 04/14/19 18:00 Urine Urobilinogen 0.2 mg/dL (0.2-1.0) 04/14/19 18:00 Ur Leukocyte Esterase 1+ (NEGATIVE) H 04/14/19 18:00 Urine WBC (Auto) 7 /hpf (0-5) 04/14/19 18:00 Urine RBC (Auto) 1 /hpf (0-4) 04/14/19 18:00 Urine Casts (Auto) 6 /lpf (0-8) 04/14/19 18:00 U Epithel Cells (Auto) 3.2 /HPF (0-5/HPF) 04/14/19 18:00 Urine Bacteria (Auto) 6.4 /hpf (NEGATIVE) 04/14/19 18:00 Urine Yeast (Auto) None seen (NEGATIVE) 04/14/19 01:31 Urine Osmolality 274 mosm/kg (300-900) L 04/14/19 18:00 Ur Random Creatinine 39.0 mg/dL (30-150) 04/14/19 18:00 U Random Total Protein 80.9 mg/dl (0-11.9) H 04/14/19 18:00 Ur Random Sodium 40 MMOL/L (40-220) 04/14/19 18:00 Ur Random Potassium 20.0 MMOL/L (25-125) L 04/14/19 18:00 Ur Random Chloride 52 MMOL/L (110-250) L 04/14/19 18:00 Ur Random Urea Nitrogn 303 mg/dL (350-1000) L 04/14/19 18:00 Blood Type B POSITIVE 04/14/19 00:20 Antibody Screen Negative 04/14/19 00:20 Current Medications Amitriptyline HCl (Elavil -) 25 mg PO DAILY [facility] Last Admin: 04/15/19 10:34 Dose: 25 mg Amlodipine Besylate (Norvasc -) 10 mg PO DAILY [facility] Last Admin: 04/15/19 10:33 Dose: 10 mg Heparin Sodium (Porcine) (Heparin -) 5,000 unit SQ BID [facility] Last Admin: 04/15/19 10:33 Dose: 5,000 unit Ceftriaxone Sodium 1 gm/ (Dextrose) 50 mls @ 100 mls/hr IVPB DAILY [facility]; Protocol Last Admin: 04/15/19 10:32 Dose: 100 mls/hr Sodium Bicarbonate 150 meq/ (Dextrose) 1,150 mls @ 150 mls/hr IV Q8H [facility] Last Admin: 04/15/19 10:33 Dose: 150 mls/hr Metoprolol Succinate (Toprol Xl -) 50 mg PO DAILY [facility] Last Admin: 04/15/19 10:33 Dose: 50 mg Non-Formulary Medication (Folic Acid [Folic Acid]) 0.8 mg PO DAILY [facility] Non-Formulary Medication (Vit D3/Folic Acid/B2/B6/B12 [Folgard Tablet]) 1 each PO DAILY [facility] Nystatin (Nystatin Oral Suspension -) 500,000 units PO Q6HPO [facility] Last Admin: 04/15/19 12:31 Dose: 500,000 units Pantoprazole Sodium (Protonix -) 40 mg PO DAILY [facility] Last Admin: 04/15/19 10:32 Dose: 40 mg Perphenazine (Trilafon) 4 mg PO DAILY [facility] Last Admin: 04/15/19 10:34 Dose: 4 mg Kidney/ Renal U/S 04/2019 IMPRESSION: Increased bilateral renal cortical echogenicity suggestive of medical renal disease. No hydronephrosis. Large simple appearing renal cysts as described above. Hydropic gallbladder. Correlate clinically and with LFTs for acute cholecystitis. No gallstones or sludge seen. If clinically indicated HIDA scan may be obtained for further evaluation. Bladder U/S 04/2019: IMPRESSION: Post void urinary residual of 1 76 cc. Anterior calcified uterine mass and posterior uterine soft tissue mass statistically likely fibroids. If the patient is postmenopausal continued close follow-up is recommended. 10/2017 CT Abdomen / Pelvis Impression: 1. Bilateral upper lobe and lower lobe consolidative opacities are most compatible with multifocal pneumonia. Correlate clinically and follow-up chest x-ray is recommended after completion of therapy to exclude other processes. 2. Small bilateral layering pleural effusions with subsegmental compressive atelectasis in both lung bases. 3. Enlarged right axillary lymph node is similar in size to 03/04/[address] However, there is new right axillary fat stranding which could inflammatory or related to lymphadenopathy. Please correlate clinically with physical exam. 4. Leiomyomatous uterus as described above with multiple subserosal pedunculated leiomyomas. 5. No evidence of bowel obstruction. No definite bowel wall thickening. 6. No obstructive uropathy. No evidence of urinary tract calculi. ASSESSMENT/PLAN: 68 yo F w/ PMH of alpha thallassemia, HTN, DM, CKD presented to the ED with nausea, weakness, SOB, and worsening renal fxn. Anion Gap metabolic acidosis 2/2 Uremia 2/2 Acute on Chronic Renal Failure -pt able to urinate, but does note she is urinating less -(+)UA - UCx negative, discontinue ceftriaxone -awaiting BCx -Cr is currently downtrending 4.8-->4.5--> 3.6 -AG 25-->18-->16 -Renal U/S see above -Bladder U/S see above -Nephrology recom mendations appreciated - urine studies reviewed -Isotonic IVF, D5W w/ 150 mEq of Sodium bicarb as per nephro recs -avoid nephrotoxic agents -CT from 2018 reviewed, results above -spoke with PCP Dr Gibbs, the Cr is usually around 1.5-2. Over the past 3 weeks the Cr have been 3.2 and 3.9. Leukocytosis -rpt CBC, leukocytosis improving -CXRAY reviewed by me, no acute changes - BCx, Ucx negative to date -HIV results pending -pt states she is up to date with colonoscopy, mammo, and pap smear- pt reports all wnl Anemia -no signs of acute bleed -likely chronic, 2/2 thalassemia and CKD. Pt has hx of requiring transfusions -continue to monitor HTN -c/w Norvasc, toprol -Echo normal LV fxn, minimal DM -C/w BGM & ISS Oral Thrush -Nystatin -pt also endorses recent unintentional wt loss, but states that recent colonoscopy, mammo and pap are utd and wnl F/E/N -D5W w/ 150 mEq of Sodium bicarb Hypokalemia -continue to replete 40mg PO KDur, IV KCl -on cardiac monitoring -diabetic/ sodium controlled diet -improving DVT ppx: Heparin Sq GI ppx: protonix Dispo:monitor on medical floor until medically optimized Visit type - Emergency Visit Emergency Visit: No - New Patient This patient is new to me today: No - Critical Care Critical Care patient: No - Discharge Referral Referred to [facility] Med [facility].C[facility] No ATTENDING PHYSICIAN STATEMENT I saw and evaluated the patient. I reviewed the resident's note and discussed the case with the resident. I agree with the resident's findings and plan as documented. SUBJECTIVE: OBJECTIVE: ASSESSMENT AND PLAN:
--- NOTE | 2019-04-15 12:16 | PN ---
Teaching Attending Note Name of Resident: Nancy Arevalo ATTENDING PHYSICIAN STATEMENT I saw and evaluated the patient. I reviewed the resident's note and discussed the case with the resident. I agree with the resident's findings and plan as documented. SUBJECTIVE:overall improved but still very tired. staes urine output improved dramatically. denies Cp, SOB,f ever, chills, N/v/C/D, dysuria or odynophagia OBJECTIVE: Last Vital Signs Temp Pulse Resp BP Pulse Ox 98.7 F 89 20 132/67 98 04/15/19 08:35 04/15/19 08:35 04/15/19 08:37 04/15/19 08:35 04/15/19 08:37 general NAD HEENT +oral thrush with anterior clearing, no oral ulcers, CV S1 s2 RRR no murmur/rub/gallop Lungs CTA B/L no wheezing/rales/rhonchi Abdomen soft NT/ND no rebound or guarding no suprapuib distention or tenderness no CVA tenderness Extremities no pedal edema ASSESSMENT AND PLAN: 68 year old woman with a history of stage 3 CKD, anemia, alpha thalassemia, HTN , type 2 DM who presented to the ED with fatigue, weakness, SOB with exertion, and worsening renal function. 1. Acute kidney injury on stage 3 CKD- unclear etiology, obstruction vs medication induced. u/s not showing any obstruction but shows medical renal disease. will call PMD to obtain baseline values. cont to monitor I&O, bicarb IV , renal on board. f/u labs sent. may require renal bx. 2. AGMA- due to uremia. agreed to ABG in the evening showing acidemia. bicarb improved on AM labs. refusing repeat ABG. cont bicarb. 3. Hyponatremia- due to dehydration. resolved 4. Hypokalemia- Kcl [id number] and then repeat. caution with replacement given renal dysfunction 5. leukocytosis- trending down. Ucx negative. will d/c abx and monitor off abx 6. UTI- ucx negative. d/c abx 7. Oral thrush- improved. cont nystatin swish and swallow. 8. +weight loss- assoc with oral thrush. states she had routine cancer screening. HIV pending 9. Anemia- due to alpha thalsemmia. slight drop in hgb. likely some dilutional component. will monitor. txn for hgb <7 10. HTN- hold diuretic. cont home medication 11. DM- hold oral agents. iss and bgm 12. DVT ppx- hep sq 13. spoke with present at bedside. all questions answered. verbalized understanding and agreement
[2019-04-15 15:42] LABS: BLOOD UREA NITROGEN 43.8 mg/dL (7-18); CALCIUM 8.1 mg/dL (8.5-10.1); CREATININE 3.4 mg/dL (0.55-1.3); POTASSIUM 3.1 mmol/L (3.5-5.1)
--- NOTE | 2019-04-15 16:29 | PN ---
Progress Note (short form) - Note Progress Note: Renal follow up for MARQUES on CKD and metabolic acidosis Pt seen and examined at the bedside reports feeling better denies any sob, cp, abd pain, fever or chills making urine on IV fluids Vital Signs Temperature 98.9 F 04/15/19 15:10 Pulse Rate 105 H 04/15/19 15:10 Respiratory Rate 20 04/15/19 15:10 Blood Pressure 127/74 04/15/19 15:10 O2 Sat by Pulse Oximetry (%) 98 04/15/19 08:37 Intake & Output 04/12/19 04/13/19 04/14/19 04/15/19 23:59 23:59 23:59 23:59 Intake Total 260 2160 Balance 260 2160 Weight 52.617 kg 52.617 kg 52.617 kg NAD RRR, no M/R CTA soft NT/ND no LE edema, clubbing or cyanosis CBC, BMP 04/15/19 09:43 04/15/19 14:45 Current Medications Amitriptyline HCl (Elavil -) 25 mg PO DAILY [facility] Last Admin: 04/15/19 10:34 Dose: 25 mg Amlodipine Besylate (Norvasc -) 10 mg PO DAILY [facility] Last Admin: 04/15/19 10:33 Dose: 10 mg Heparin Sodium (Porcine) (Heparin -) 5,000 unit SQ BID [facility] Last Admin: 04/15/19 10:33 Dose: 5,000 unit Ceftriaxone Sodium 1 gm/ (Dextrose) 50 mls @ 100 mls/hr IVPB DAILY [facility]; Protocol Last Admin: 04/15/19 10:32 Dose: 100 mls/hr Sodium Bicarbonate 150 meq/ (Dextrose) 1,150 mls @ 150 mls/hr IV Q8H [facility] Last Admin: 04/15/19 16:05 Dose: 150 mls/hr Metoprolol Succinate (Toprol Xl -) 50 mg PO DAILY [facility] Last Admin: 04/15/19 10:33 Dose: 50 mg Non-Formulary Medication (Folic Acid [Folic Acid]) 0.8 mg PO DAILY [facility] Non-Formulary Medication (Vit D3/Folic Acid/B2/B6/B12 [Folgard Tablet]) 1 each PO DAILY [facility] Nystatin (Nystatin Oral Suspension -) 500,000 units PO Q6HPO [facility] Last Admin: 04/15/19 12:31 Dose: 500,000 units Pantoprazole Sodium (Protonix -) 40 mg PO DAILY [facility] Last Admin: 04/15/19 10:32 Dose: 40 mg Perphenazine (Trilafon) 4 mg PO DAILY [facility] Last Admin: 04/15/19 10:34 Dose: 4 mg 68 year old woman with history of CKD stage 3 (baseline Cr 1.7- 2.1). hypertension, DM, alpha thalasemia/anemia presents with weakness and found to have MARQUES on CKD. #MARQUES on CKD secondary to volume depletion vs ATN vs. AIN vs obstruction #metabolic acidosis (serum bicarb 5 -anion gap acidosis) #Hypokalemia #Chronic anemia #Hypertension #Leukocytoiss Urine studies showed UPCR of 2, FeNa of 3.5%, FeUrea of 62.4 indicating tubular injury Renal US showed increased echogenicty but no signs of obstruction Renal function and serum bicarbonate improving with bicarb gtt. Pt denies excessive aspirin use, toxic alcohol ingestion. Does use about 2g of acetaminophen daily at home. Continue bicarb gtt for next 16 hours. continue amlodipine for hypertension hold Lasix supplement K would not start any ACEi/ARB at this time Dose all meds for CrCl < 15 no emergent indication for [employer] Thank you Tc Reed DO
[2019-04-15] MEDS: POTASSIUM CHLORIDE TABS 20 MEQ TABLET.ER (FP) PO SCH ×2 (17:03→17:30)
[2019-04-15 22:37] LABS: BLOOD UREA NITROGEN 40.9 mg/dL (7-18); CALCIUM 7.9 mg/dL (8.5-10.1); CREATININE 3.1 mg/dL (0.55-1.3); POTASSIUM 4.7 mmol/L (3.5-5.1)
[2019-04-16] MEDS: NYSTATIN 500,000 UNITS/5 ML SUSPENSION PO SCH ×5 (00:24→23:27)
[2019-04-16] MEDS: SODIUM BICARBONATE 8.4% - 150 MEQ in DEXTROSE 5%-WATER - 1,000 ML IV SCH ×3 (03:22→23:08)
[2019-04-16] MEDS ORDERED: DEXTROSE 5%-WATER - 50 ML IVPB ONE (07:57)
[2019-04-16] MEDS ORDERED: cefTRIAXone SODIUM 1 GM VIAL ONE (07:57)
[2019-04-16 08:19] LABS: BASO % 0.5 % (0-2.0); EOS % 1.4 % (0-4.5); MCH 30.8 pg (25.7-33.7); MCHC 33.6 g/dl (32.0-36.0); MEAN CELL VOLUME 91.6 fl (80-96); MEAN PLT VOLUME 8.8 fl (7.5-11.1); MONO % 6.4 % (3.8-10.2); NEUT % 85.7 % (42.8-82.8); PLATELET COUNT 375 K/MM3 (134-434); RBC 2.07 M/mm3 (3.60-5.2); RDW 19.5 % (11.6-15.6); WHITE BLOOD COUNT 12.1 K/mm3 (4.0-10.0)
[2019-04-16 08:34] LABS: ALBUMIN 2.7 g/dl (3.4-5.0); BILIRUBIN,TOTAL 0.3 mg/dL (0.2-1); CALCIUM 7.9 mg/dL (8.5-10.1); CREATININE 2.7 mg/dL (0.55-1.3); MAGNESIUM 2.6 mg/dL (1.8-2.4); POTASSIUM 3.2 mmol/L (3.5-5.1)
[2019-04-16 08:35] LABS: PHOSPHOROUS 0.9 mg/dL (2.5-4.9)
[2019-04-16 08:37] LABS: HEMOGLOBIN 6.4 GM/dL (10.7-15.3)
[2019-04-16] MEDS: CEFTRIAXONE 1 GM in DEXTROSE 5%-WATER - 50 ML IVPB SCH (09:26)
[2019-04-16] MEDS: amLODIPine BESYLATE 10 MG TABLET (FP) PO SCH (09:26)
[2019-04-16] MEDS: PANTOPRAZOLE 40 MG TABLET (FP) PO SCH (09:26)
[2019-04-16] MEDS: PERPHENAZINE 4 MG TABLET PO SCH (09:27)
[2019-04-16] MEDS: AMITRIPTYLINE HCL 25 MG TABLET (FP) PO SCH (09:27)
[2019-04-16] MEDS: HEPARIN NA (PORCINE) 5,000 UNITS/ML 1ML VIAL SQ SCH ×2 (09:28→21:52)
[2019-04-16] MEDS ORDERED: NAPH,MB-DB/K PH,MBDB POWDER PACKET PO ONE (09:45)
[2019-04-16] MEDS ORDERED: POTASSIUM PHOSPHATE 30 MM in DEXTROSE 5%-WATER - 500 ML IVPB ONE (10:00)
[2019-04-16] MEDS ORDERED: PT OWN MED DRAWER 7, Y5N ONE (11:58)
--- NOTE | 2019-04-16 13:40 | PN ---
Progress Note (short form) - Note Progress Note: Renal follow up for MARQUES on CKD and metabolic acidosis Pt seen and examined at the bedside no sob, cp, abd pain eating a little amount making urine on IV Fluids Vital Signs Temperature 97.8 F 04/16/19 11:55 Pulse Rate 84 04/16/19 11:55 Respiratory Rate 18 04/16/19 11:55 Blood Pressure 108/68 04/16/19 11:55 O2 Sat by Pulse Oximetry (%) 100 04/16/19 10:00 Intake & Output 04/13/19 04/14/19 04/15/19 04/16/19 23:59 23:59 23:59 23:59 Intake Total 260 2160 1440 Balance 260 2160 1440 Weight 52.617 kg 52.617 kg 52.617 kg 53.705 kg NAD RRR, no M/R CTA soft NT/ND no LE edema, clubbing or cyanosis CBC, BMP 04/16/19 06:48 04/16/19 06:48 Current Medications Amitriptyline HCl (Elavil -) 25 mg PO DAILY [facility] Last Admin: 04/16/19 09:27 Dose: 25 mg Amlodipine Besylate (Norvasc -) 10 mg PO DAILY [facility] Last Admin: 04/16/19 09:26 Dose: 10 mg Heparin Sodium (Porcine) (Heparin -) 5,000 unit SQ BID [facility] Last Admin: 04/16/19 09:28 Dose: 5,000 unit Ceftriaxone Sodium 1 gm/ (Dextrose) 50 mls @ 100 mls/hr IVPB DAILY [facility]; Protocol Last Admin: 04/16/19 09:26 Dose: 100 mls/hr Potassium Phosphate 30 mm/ (Dextrose) 510 mls @ 63.75 mls/hr IVPB ONCE ONE Stop: 04/16/19 17:59 Last Admin: 04/16/19 11:49 Dose: 63.75 mls/hr Sodium Bicarbonate 150 meq/ (Dextrose) 1,150 mls @ 75 mls/hr IV Q11H [facility] Stop: 04/16/19 08:35 Metoprolol Succinate (Toprol Xl -) 50 mg PO DAILY [facility] Last Admin: 04/16/19 09:26 Dose: 50 mg Non-Formulary Medication (Folic Acid [Folic Acid]) 0.8 mg PO DAILY [facility] Non-Formulary Medication (Vit D3/Folic Acid/B2/B6/B12 [Folgard Tablet]) 1 each PO DAILY [facility] Nystatin (Nystatin Oral Suspension -) 500,000 units PO Q6HPO [facility] Last Admin: 04/16/19 11:48 Dose: 500,000 units Pantoprazole Sodium (Protonix -) 40 mg PO DAILY [facility] Last Admin: 04/16/19 09:26 Dose: 40 mg Perphenazine (Trilafon) 4 mg PO DAILY [facility] Last Admin: 04/16/19 09:27 Dose: 4 mg 68 year old woman with history of CKD stage 3 (baseline Cr 1.7- 2.1). hypertension, DM, alpha thalasemia/anemia presents with weakness and found to have MARQUES on CKD. #MARQUES on CKD secondary to volume depletion + ATN #metabolic acidosis (serum bicarb 5 -anion gap acidosis) now resolved s/p bicarb gtt #Hypokalemia #Chronic anemia #Hypertension #Leukocytoiss #Hypophosphtaemia Renal function improved with IV Fluids, will decreae rate to 75cc per with plan to discontinue in the AM Urine studies showed UPCR of 2, FeNa of 3.5%, FeUrea of 62.4 indicating tubular injury Renal US showed increased echogenicty but no signs of obstruction Acidosis now improved, d/c drip in AM Pt denies excessive aspirin use, toxic alcohol ingestion. Does use about 2g of acetaminophen daily at home. continue amlodipine for hypertension Will give IV potassium phosphate would not start any ACEi/ARB at this time Dose all meds for CrCl < 15 no emergent indication for EELER Thank you Tc Reed DO
--- NOTE | 2019-04-16 14:00 | PN ---
Physical Exam: SUBJECTIVE: Patient seen and examined at bedside. Pt states she feels much better than she was on admission. OBJECTIVE: Vital Signs Period Temp Pulse Resp BP Sys/Rahman Pulse Ox Last 24 Hr 97.8 F-98.9 F 77-105 18-20 108-129/58-74 100-100 GENERAL: The patient is awake, alert, and fully oriented, in no acute distress. LUNGS: Breath sounds equal, clear to auscultation bilaterally, no wheezes, no crackles, no accessory muscle use. HEART: Regular rate and rhythm, S1, S2 without murmur, rub or gallop. ABDOMEN: Soft, nontender, nondistended, normoactive bowel sounds, no guarding EXTREMITIES: 2+ pulses, warm, well-perfused, no edema. SKIN: Warm, dry, normal turgor, no rashes or lesions noted Laboratory Last Values WBC 12.1 K/mm3 (4.0-10.0) H 04/16/19 06:48 RBC 2.07 M/mm3 (3.60-5.2) L 04/16/19 06:48 Hgb 6.4 GM/dL (10.7-15.3) L* 04/16/19 06:48 Hct 19.0 % (32.4-45.2) L D 04/16/19 06:48 MCV 91.6 fl (80-96) 04/16/19 06:48 MCH 30.8 pg (25.7-33.7) 04/16/19 06:48 MCHC 33.6 g/dl (32.0-36.0) 04/16/19 06:48 RDW 19.5 % (11.6-15.6) H 04/16/19 06:48 Plt Count 375 K/MM3 (134-434) 04/16/19 06:48 MPV 8.8 fl (7.5-11.1) D 04/16/19 06:48 Absolute Neuts (auto) 10.4 K/mm3 (1.5-8.0) H 04/16/19 06:48 Neutrophils % 85.7 % (42.8-82.8) H 04/16/19 06:48 Neutrophils % (Manual) 92.3 % (42.8-82.8) H 04/14/19 06:22 Band Neutrophils % 0.0 % 04/14/19 06:22 Lymphocytes % 6.0 % (8-40) L D 04/16/19 06:48 Lymphocytes % (Manual) 3.9 % (8-40) L D 04/14/19 06:22 Monocytes % 6.4 % (3.8-10.2) 04/16/19 06:48 Monocytes % (Manual) 4 % (3.8-10.2) D 04/14/19 06:22 Eosinophils % 1.4 % (0-4.5) D 04/16/19 06:48 Eosinophils % (Manual) 0.0 % (0-4.5) 04/14/19 06:22 Basophils % 0.5 % (0-2.0) 04/16/19 06:48 Basophils % (Manual) 0.0 % (0-2.0) 04/14/19 06:22 Myelocytes % (Man) 0 % (0-2) 04/14/19 06:22 Promyelocytes % (Man) 0 % (0-2) 04/14/19 06:22 Blast Cells % (Manual) 0 % (0-0) 04/14/19 06:22 Nucleated RBC % 0 % (0-0) 04/16/19 06:48 Metamyelocytes 0 % (0-2) 04/14/19 06:22 Hypochromia 0 04/14/19 06:22 Platelet Estimate Increased 04/14/19 06:22 Polychromasia 0 04/14/19 06:22 Poikilocytosis 0 04/14/19 06:22 Anisocytosis 1+ 04/14/19 06:22 Microcytosis 0 04/14/19 06:22 Macrocytosis 1+ 04/14/19 06:22 Spherocytes 1+ 04/14/19 00:20 Tear Drop Cells 1+ 04/14/19 00:20 PT with INR 13.20 SEC (9.7-13.0) H 04/14/19 00:20 INR 1.12 (0.83-1.09) H 04/14/19 00:20 PTT (Actin FS) 31.6 SECONDS (25.2-36.5) 04/14/19 00:20 Anticoagulation Therapy No Result Required. 04/14/19 16:55 Puncture Site Right radial 04/14/19 16:55 ABG pH 7.17 (7.35-7.45) L* 04/14/19 16:55 ABG pCO2 at Pt Temp 16.4 mmHg (35-45) L 04/14/19 16:55 ABG pO2 at Pt Temp 99.4 mmHg (80-105) 04/14/19 16:55 ABG HCO3 5.7 mmol/L (22-27) L 04/14/19 16:55 ABG O2 Sat (Measured) 96.9 % (95-98) 04/14/19 16:55 ABG O2 Content 10.6 % vol (15-22) L 04/14/19 16:55 ABG Base Excess -21.5 meq/l (-2-2) L 04/14/19 16:55 Roosevelt Test Positive 04/14/19 16:55 O2 Delivery Device No Result Required. 04/14/19 16:55 Oxygen Flow Rate No Result Required. 04/14/19 16:55 Vent Mode Room air 04/14/19 16:55 Vent Rate No Result Required. 04/14/19 16:55 Mechanical Rate No Result Required. 04/14/19 16:55 Pressure Support Vent No Result Required. 04/14/19 16:55 Sodium 141 mmol/L (136-145) 04/16/19 06:48 Potassium 3.2 mmol/L (3.5-5.1) L 04/16/19 06:48 Chloride 108 mmol/L (98-107) H 04/16/19 06:48 Carbon Dioxide 21 mmol/L (21-32) 04/16/19 06:48 Anion Gap 11 MMOL/L (8-16) 04/16/19 06:48 BUN 36.0 mg/dL (7-18) H 04/16/19 06:48 Creatinine 2.7 mg/dL (0.55-1.3) H 04/16/19 06:48 Est GFR (CKD-EPI)AfAm 20.03 04/16/19 06:48 Est GFR (CKD-EPI)NonAf 17.29 04/16/19 06:48 POC Glucometer 123 UNITS (80-120) 04/15/19 22:05 Random Glucose 101 mg/dL (74-106) 04/16/19 06:48 Serum Osmolality 300 mosm/kg (278-305) 04/14/19 09:15 Lactic Acid 1.0 mmol/L (0.4-2.0) 04/14/19 09:15 Calcium 7.9 mg/dL (8.5-10.1) L 04/16/19 06:48 Phosphorus 0.9 mg/dL (2.5-4.9) L* 04/16/19 06:48 Magnesium 2.6 mg/dL (1.8-2.4) H 04/16/19 06:48 Total Bilirubin 0.3 mg/dL (0.2-1) 04/16/19 06:48 AST 24 U/L (15-37) 04/16/19 06:48 ALT 17 U/L (13-61) 04/16/19 06:48 Alkaline Phosphatase 115 U/L (45-117) 04/16/19 06:48 Creatine Kinase 580 U/L (26-192) H 04/14/19 00:20 Creatine Kinase Index 1.0 % (0.0-5.0) 04/14/19 00:20 CK-MB (CK-2) 5.9 ng/mL (0.5-3.6) H 04/14/19 00:20 Troponin I 0.04 ng/ml (0.00-0.05) 04/14/19 06:22 Total Protein 6.0 g/dl (6.4-8.2) L 04/16/19 06:48 Albumin 2.7 g/dl (3.4-5.0) L 04/16/19 06:48 Urine Color Yellow 04/14/19 18:00 Urine Appearance Clear 04/14/19 18:00 Urine pH 5.0 (5.0-8.0) 04/14/19 18:00 Ur Specific Dana 1.015 (1.010-1.035) 04/14/19 18:00 Urine Protein 1+ (NEGATIVE) H 04/14/19 18:00 Urine Glucose (UA) Negative (NEGATIVE) 04/14/19 18:00 Urine Ketones Negative (NEGATIVE) 04/14/19 18:00 Urine Blood 2+ (NEGATIVE) H 04/14/19 18:00 Urine Nitrite Negative (NEGATIVE) 04/14/19 18:00 Urine Bilirubin Negative (NEGATIVE) 04/14/19 18:00 Urine Urobilinogen 0.2 mg/dL (0.2-1.0) 04/14/19 18:00 Ur Leukocyte Esterase 1+ (NEGATIVE) H 04/14/19 18:00 Urine WBC (Auto) 7 /hpf (0-5) 04/14/19 18:00 Urine RBC (Auto) 1 /hpf (0-4) 04/14/19 18:00 Urine Casts (Auto) 6 /lpf (0-8) 04/14/19 18:00 U Epithel Cells (Auto) 3.2 /HPF (0-5/HPF) 04/14/19 18:00 Urine Bacteria (Auto) 6.4 /hpf (NEGATIVE) 04/14/19 18:00 Urine Yeast (Auto) None seen (NEGATIVE) 04/14/19 01:31 Urine Osmolality 274 mosm/kg (300-900) L 04/14/19 18:00 Ur Random Creatinine 39.0 mg/dL (30-150) 04/14/19 18:00 U Random Total Protein 80.9 mg/dl (0-11.9) H 04/14/19 18:00 Ur Random Sodium 40 MMOL/L (40-220) 04/14/19 18:00 Ur Random Potassium 20.0 MMOL/L (25-125) L 04/14/19 18:00 Ur Random Chloride 52 MMOL/L (110-250) L 04/14/19 18:00 Ur Random Urea Nitrogn 303 mg/dL (350-1000) L 04/14/19 18:00 HIV 1&2 Ag/Ab, 4th Gen Non reactive (Non Reactive) 04/15/19 06:00 HIV 1&2 Antibody Screen Cancelled 04/15/19 06:33 HIV P24 Antigen Cancelled 04/15/19 06:33 Blood Type B POSITIVE 04/16/19 10:25 Antibody Screen Negative 04/16/19 10:25 Crossmatch See Detail 04/14/19 00:20 Current Medications Amitriptyline HCl (Elavil -) 25 mg PO DAILY [facility] Last Admin: 04/16/19 09:27 Dose: 25 mg Amlodipine Besylate (Norvasc -) 10 mg PO DAILY [facility] Last Admin: 04/16/19 09:26 Dose: 10 mg Heparin Sodium (Porcine) (Heparin -) 5,000 unit SQ BID [facility] Last Admin: 04/16/19 09:28 Dose: 5,000 unit Ceftriaxone Sodium 1 gm/ (Dextrose) 50 mls @ 100 mls/hr IVPB DAILY [facility]; Protocol Last Admin: 04/16/19 09:26 Dose: 100 mls/hr Potassium Phosphate 30 mm/ (Dextrose) 510 mls @ 63.75 mls/hr IVPB ONCE ONE Stop: 04/16/19 17:59 Last Admin: 04/16/19 11:49 Dose: 63.75 mls/hr Sodium Bicarbonate 150 meq/ (Dextrose) 1,150 mls @ 75 mls/hr IV Q11H [facility] Stop: 04/16/19 08:35 Metoprolol Succinate (Toprol Xl -) 50 mg PO DAILY [facility] Last Admin: 04/16/19 09:26 Dose: 50 mg Non-Formulary Medication (Folic Acid [Folic Acid]) 0.8 mg PO DAILY [facility] Non-Formulary Medication (Vit D3/Folic Acid/B2/B6/B12 [Folgard Tablet]) 1 each PO DAILY [facility] Nystatin (Nystatin Oral Suspension -) 500,000 units PO Q6HPO [facility] Last Admin: 04/16/19 11:48 Dose: 500,000 units Pantoprazole Sodium (Protonix -) 40 mg PO DAILY [facility] Last Admin: 04/16/19 09:26 Dose: 40 mg Perphenazine (Trilafon) 4 mg PO DAILY [facility] Last Admin: 04/16/19 09:27 Dose: 4 mg Kidney/ Renal U/S 04/2019 IMPRESSION: Increased bilateral renal cortical echogenicity suggestive of medical renal disease. No hydronephrosis. Large simple appearing renal cysts as described above. Hydropic gallbladder. Correlate clinically and with LFTs for acute cholecystitis. No gallstones or sludge seen. If clinically indicated HIDA scan may be obtained for further evaluation. Bladder U/S 04/2019: IMPRESSION: Post void urinary residual of 1 76 cc. Anterior calcified uterine mass and posterior uterine soft tissue mass statistically likely fibroids. If the patient is postmenopausal continued close follow-up is recommended. 10/2017 CT Abdomen / Pelvis Impression: 1. Bilateral upper lobe and lower lobe consolidative opacities are most compatible with multifocal pneumonia. Correlate clinically and follow-up chest x-ray is recommended after completion of therapy to exclude other processes. 2. Small bilateral layering pleural effusions with subsegmental compressive atelectasis in both lung bases. 3. Enlarged right axillary lymph node is similar in size to 03/04/[address] However, there is new right axillary fat stranding which could inflammatory or related to lymphadenopathy. Please correlate clinically with physical exam. 4. Leiomyomatous uterus as described above with multiple subserosal pedunculated leiomyomas. 5. No evidence of bowel obstruction. No definite bowel wall thickening. 6. No obstructive uropathy. No evidence of urinary tract calculi. ASSESSMENT/PLAN: 68 yo F w/ PMH of alpha thallassemia, HTN, DM, CKD presented to the ED with nausea, weakness, SOB, and worsening renal fxn. Anion Gap metabolic acidosis 2/2 Uremia 2/2 Acute on Chronic Renal Failure -pt able to urinate, but does note she is urinating less. Since she has been admitted, pt claims increased urine output. -(+)UA - UCx negative, discontinue ceftriaxone - BCx negative -Cr is currently downtrending 4.8-> 2.7 -AG 25-->18-->16 -Renal U/S see above -Bladder U/S see above -Nephrology recommendations appreciated - urine studies reviewed -Isotonic IVF, D5W w/ 150 mEq of Sodium bicarb completed today as per nephro recs -avoid nephrotoxic agents -CT from 2018 reviewed, results above -spoke with PCP Dr Gibbs, the Cr is usually around 1.5-2. Over the past 3 weeks the Cr have been 3.2 and 3.9. Leukocytosis -rpt CBC, leukocytosis improving -CXRAY reviewed by me, no acute changes - BCx, Ucx negative to date -HIV results pending -pt states she is up to date with colonoscopy, mammo, and pap smear- pt reports all wnl Anemia -no signs of acute bleed -likely chronic, 2/2 thalassemia and CKD. Pt has hx of requiring transfusions -type and screen -s/p 1 unit prbc today -continue to monitor HTN -c/w Norvasc, toprol -Echo normal LV fxn, minimal DM -C/w BGM & ISS Oral Thrush -improving -Nystatin -pt also endorses recent unintentional wt loss, but states that recent colonoscopy, mammo and pap are utd and wnl F/E/N Hypophosphatemia -IV KPhos -rpt BMP Hypokalemia -continue to replete 40mg PO KDur, IV KCl -on cardiac monitoring -diabetic/ sodium controlled diet -improving DVT ppx: Heparin Sq GI ppx: protonix Dispo:monitor on medical floor until medically optimized Visit type - Emergency Visit Emergency Visit: No - New Patient This patient is new to me today: No - Critical Care Critical Care patient: No - Discharge Referral Referred to [facility] Med P.C.: No ATTENDING PHYSICIAN STATEMENT I saw and evaluated the patient. I reviewed the resident's note and discussed the case with the resident. I agree with the resident's findings and plan as documented. SUBJECTIVE: OBJECTIVE: ASSESSMENT AND PLAN:
--- NOTE | 2019-04-16 17:07 | PN ---
Teaching Attending Note Name of Resident: Nancy Arevalo ATTENDING PHYSICIAN STATEMENT I saw and evaluated the patient. I reviewed the resident's note and discussed the case with the resident. I agree with the resident's findings and plan as documented. SUBJECTIVE:was very weak and lethargic this AM. but feeling much better since blood transfusion. denies Cp, SOB, fever, chills, N/V/C/D, no melena, BRBPR or hematuria had colonoscopy 3 years ago and reports it as normal OBJECTIVE: Last Vital Signs Temp Pulse Resp BP Pulse Ox 98.1 F 80 18 122/72 100 04/16/19 14:54 04/16/19 14:54 04/16/19 11:55 04/16/19 14:54 04/16/19 10:00 general NAD ASSESSMENT AND PLAN: 68 year old woman with a history of stage 3 CKD, anemia, alpha thalassemia, HTN , type 2 DM who presented to the ED with fatigue, weakness, SOB with exertion, and worsening renal function. 1. Acute kidney injury on stage 3 CKD- unclear etiology, obstruction vs medication induced. baseline Cr from this year 1.5-2. but last 2 labs were 3.1 and 3.5. this month. now at baseline. bicarb ggt was reduced. may need renal bx. nephro on board. f/u labs sent. 2. AGMA- due to uremia. resolved. refused repeat ABG 3. Hyponatremia- due to dehydration. resolved 4. Hypokalemia- resolved 5. severe hypophosphatemia- Kphos and neutraphos. will repeat later today 6. leukocytosis- trending down. Ucx negative. afebrile 7. UTI- ucx negative. off abx 8. Oral thrush- improved. cont nystatin swish and swallow. 9. +weight loss- assoc with oral thrush. states she had routine cancer screening. HIV negative 10. Anemia- due to alpha thalsemmia. acute Hgb drop. no signs of bleeding. known to get periodic transfusion but did haev one recently by hematology. will give 1 unit PRBC and repeat. will need to f/u with hematology and consider repeat colonoscopy. 11. HTN- hold diuretic. cont home medication 12. DM- hold oral agents. iss and bgm 13. DVT ppx- hep sq 14. spoke with present at bedside. all questions answered. verbalized understanding and agreement
[2019-04-16 21:49] LABS: BASO % 0.3 % (0-2.0); EOS % 1.3 % (0-4.5); HEMATOCRIT 24.2 % (32.4-45.2); LYMPH % 11.6 % (8-40); MCH 30.6 pg (25.7-33.7); MCHC 33.1 g/dl (32.0-36.0); MEAN CELL VOLUME 92.5 fl (80-96); MEAN PLT VOLUME 9.1 fl (7.5-11.1); MONO % 7.8 % (3.8-10.2); PLATELET COUNT 318 K/MM3 (134-434); RBC 2.62 M/mm3 (3.60-5.2); RDW 18.7 % (11.6-15.6); WHITE BLOOD COUNT 11.2 K/mm3 (4.0-10.0)
[2019-04-16 22:14] LABS: BLOOD UREA NITROGEN 29.6 mg/dL (7-18); CALCIUM 7.5 mg/dL (8.5-10.1); CREATININE 2.4 mg/dL (0.55-1.3); MAGNESIUM 2.4 mg/dL (1.8-2.4); PHOSPHOROUS 3.3 mg/dL (2.5-4.9); POTASSIUM 3.4 mmol/L (3.5-5.1)
[2019-04-17] MEDS ORDERED: ONDANSETRON 4 MG TABLET PO ONE (03:46)
[2019-04-17] MEDS: NYSTATIN 500,000 UNITS/5 ML SUSPENSION PO SCH ×3 (05:08→17:40)
[2019-04-17 07:17] LABS: HEMATOCRIT 23.3 % (32.4-45.2); MCH 30.9 pg (25.7-33.7); MCHC 34.2 g/dl (32.0-36.0); MEAN CELL VOLUME 90.5 fl (80-96); MEAN PLT VOLUME 9.1 fl (7.5-11.1); PLATELET COUNT 367 K/MM3 (134-434); RBC 2.57 M/mm3 (3.60-5.2); RDW 18.8 % (11.6-15.6); WHITE BLOOD COUNT 10.2 K/mm3 (4.0-10.0)
[2019-04-17 07:18] LABS: BLOOD UREA NITROGEN 23.7 mg/dL (7-18); CALCIUM 7.3 mg/dL (8.5-10.1); CREATININE 2.1 mg/dL (0.55-1.3); MAGNESIUM 1.9 mg/dL (1.8-2.4); PHOSPHOROUS 2.7 mg/dL (2.5-4.9)
[2019-04-17 07:38] LABS: POTASSIUM 2.9 mmol/L (3.5-5.1)
[2019-04-17] MEDS ORDERED: POTASSIUM CHLORIDE TABS 20 MEQ TABLET.ER (FP) PO ONE ×2 (08:51→13:00)
[2019-04-17] MEDS ORDERED: KCL 10 MEQ IVPB 10 MEQ/100 ML INFUS.BAG IVPB SCH (09:30)
[2019-04-17] MEDS ORDERED: DEXTROSE 5%-WATER - 50 ML IVPB ONE (10:03)
[2019-04-17] MEDS ORDERED: cefTRIAXone SODIUM 1 GM VIAL ONE (10:03)
[2019-04-17] MEDS: CEFTRIAXONE 1 GM in DEXTROSE 5%-WATER - 50 ML IVPB SCH (10:11)
[2019-04-17] MEDS: HEPARIN NA (PORCINE) 5,000 UNITS/ML 1ML VIAL SQ SCH (10:14)
[2019-04-17] MEDS: PANTOPRAZOLE 40 MG TABLET (FP) PO SCH (10:14)
[2019-04-17] MEDS: amLODIPine BESYLATE 10 MG TABLET (FP) PO SCH (10:15)
[2019-04-17] MEDS: PERPHENAZINE 4 MG TABLET PO SCH ×2 (10:15→16:03)
[2019-04-17] MEDS: AMITRIPTYLINE HCL 25 MG TABLET (FP) PO SCH ×2 (10:15→16:03)
--- NOTE | 2019-04-17 12:26 | PN ---
Teaching Attending Note Name of Resident: Nancy Arevalo ATTENDING PHYSICIAN STATEMENT I saw and evaluated the patient. I reviewed the resident's note and discussed the case with the resident. I agree with the resident's findings and plan as documented. SUBJECTIVE:asymptomatic. feels great today. deneis CP, SOB, fever, chills, N/V/C /D OBJECTIVE: Last Vital Signs Temp Pulse Resp BP Pulse Ox 98.4 F 82 18 122/72 98 04/17/19 05:20 04/17/19 05:20 04/17/19 05:20 04/17/19 05:20 04/16/19 22:00 general NAD ASSESSMENT AND PLAN: 68 year old woman with a history of stage 3 CKD, anemia, alpha thalassemia, HTN , type 2 DM who presented to the ED with fatigue, weakness, SOB with exertion, and worsening renal function. 1. Acute kidney injury on stage 3 CKD- unclear etiology, obstruction vs medication induced. baseline Cr from this year 1.5-2. but last 2 labs were 3.1 and 3.5. bicarb ggt turned off. will d/c on sodium bicarb BID and will need to f /u with nephro as outpatient. 2. AGMA- due to uremia. resolved. refused repeat ABG 3. Hyponatremia- due to dehydration. resolved 4. Hypokalemia-low again liekly due to bicarb. will give po and IV and repeat 5. severe hypophosphatemia-resolved 6. leukocytosis-resolved 7. UTI- ucx negative. off abx 8. Oral thrush- improved. cont nystatin swish and swallow. 9. +weight loss- assoc with oral thrush. states she had routine cancer screening. HIV negative 10. Anemia- due to alpha thalsemmia. s/p 1 unit PRBC with good response. will need to f/u with hematology as requiring blood more frequently, Will need to f/ u with hematology and consider repeat colonoscopy. 11. HTN- hold diuretic. cont home medication 12. DM- hold oral agents. iss and bgm 13. DVT ppx- hep sq 14. PT recommending [facility]. Patient would prefer to go home. is going to discuss with options. will repeat K later today if normal can d/c home vs [facility]. spoke with present at bedside.
--- NOTE | 2019-04-17 12:31 | PN ---
Progress Note (short form) - Note Progress Note: Renal follow up for MARQUES on CKD and metabolic acidosis Pt seen and examined at the bedside awake and alert feels well tolerating oral diet no N/V/D, sob, cp, abd pain making urine on IVF Vital Signs Temperature 98.4 F 04/17/19 05:20 Pulse Rate 82 04/17/19 05:20 Respiratory Rate 18 04/17/19 05:20 Blood Pressure 122/72 04/17/19 05:20 O2 Sat by Pulse Oximetry (%) 98 04/16/19 22:00 Intake & Output 04/14/19 04/15/19 04/16/19 04/17/19 23:59 23:59 23:59 23:59 Intake Total 260 2160 3940 750 Balance 260 2160 3940 750 Weight 52.617 kg 52.617 kg 53.705 kg NAD RRR, no M/R CTA soft NT/ND no LE edema, clubbing or cyanosis CBC, BMP 04/17/19 05:45 04/17/19 05:45 Current Medications Amitriptyline HCl (Elavil -) 25 mg PO DAILY [facility] Last Admin: 04/17/19 10:15 Dose: 25 mg Amlodipine Besylate (Norvasc -) 10 mg PO DAILY [facility] Last Admin: 04/17/19 10:15 Dose: 10 mg Heparin Sodium (Porcine) (Heparin -) 5,000 unit SQ BID [facility] Last Admin: 04/17/19 10:14 Dose: 5,000 unit Metoprolol Succinate (Toprol Xl -) 50 mg PO DAILY [facility] Last Admin: 04/17/19 10:14 Dose: 50 mg Non-Formulary Medication (Folic Acid [Folic Acid]) 0.8 mg PO DAILY [facility] Non-Formulary Medication (Vit D3/Folic Acid/B2/B6/B12 [Folgard Tablet]) 1 each PO DAILY [facility] Nystatin (Nystatin Oral Suspension -) 500,000 units PO Q6HPO [facility] Last Admin: 04/17/19 05:08 Dose: 500,000 units Pantoprazole Sodium (Protonix -) 40 mg PO DAILY [facility] Last Admin: 04/17/19 10:14 Dose: 40 mg Perphenazine (Trilafon) 4 mg PO DAILY [facility] Last Admin: 04/17/19 10:15 Dose: 4 mg 68 year old woman with history of CKD stage 3 (baseline Cr 1.7- 2.1). hypertension, DM, alpha thalasemia/anemia presents with weakness and found to have MARQUES on CKD. #MARQUES on CKD secondary to volume depletion + ATN #metabolic acidosis (serum bicarb 5 -anion gap acidosis) now resolved s/p bicarb gtt #Hypokalemia #Chronic anemia #Hypertension #Leukocytoiss #Hypophosphtaemia Renal function improved and at baseline Urine studies showed UPCR of 2, FeNa of 3.5%, FeUrea of 62.4 indicating tubular injury Renal US showed increased echogenicty but no signs of obstruction Acidosis now resolved, start oral sodium bicarb 650mg BID as outpatient continue amlodipine for hypertension supplement K would not start any ACEi/ARB at this time stable for discharge, advised pt to follow up in our office within 2 weeks of discharge. Contact information provided. Thank you Tc Reed DO
[2019-04-17 15:46] LABS: BLOOD UREA NITROGEN 20.1 mg/dL (7-18); CALCIUM 7.3 mg/dL (8.5-10.1); MAGNESIUM 1.9 mg/dL (1.8-2.4); PHOSPHOROUS 2.2 mg/dL (2.5-4.9); POTASSIUM 3.2 mmol/L (3.5-5.1)
[2019-04-17 18:29] VITALS: BP 134/74; PULSE 84; TEMP 98.2
== END 2019-04-17 19:19 | disposition home health service (06) | DRG 683 ==
LOC: JER 21:01 → JERBED 04-14 01:34 → J4W 04-14 15:09
PROVIDERS: ADMIT Internal Medicine; ATTEND Internal Medicine
DX: N17.9 Acute kidney failure, unspecified (principal); E87.1 Hypo-osmolality and hyponatremia; E87.2 Acidosis; B37.0 Candidal stomatitis; N39.0 Urinary tract infection, site not specified; D64.9 Anemia, unspecified; E11.22 Type 2 diabetes mellitus with diabetic chronic kidney disease; I12.9 Hypertensive chronic kidney disease with stage 1 through stage 4 chronic kidney disease, or unspecified chronic kidney disease; N18.3 Chronic kidney disease, stage 3 (moderate); E87.6 Hypokalemia; N28.1 Cyst of kidney, acquired; D56.0 Alpha thalassemia; K21.9 Gastro-esophageal reflux disease without esophagitis; F41.9 Anxiety disorder, unspecified; D63.1 Anemia in chronic kidney disease; D72.829 Elevated white blood cell count, unspecified; R63.4 Abnormal weight loss; E83.39 Other disorders of phosphorus metabolism
CPT/HCPCS: 36415; 36430; 36511; 36600; 71046-TC-FY; 76775-TC; 76856-TC; 80048; 80051; 80053; 81003; 82436; 82550; 82553; 82565; 82803; 82962; 83605; 83735; 83930; 83935; 84100; 84133; 84156; 84300; 84484; 84540; 85025; 85027; 85610; 85730; 86850; 86900; 86901; 86922; 87040; 87086; 87205; 87389; 93005; 93010; 93306-TC; 97116-GP; 97162-GP; 99284-25; J1644; J7030; P9038; P9058

== ENCOUNTER 2019-09-11 08:14 | Inpatient (IN) | payer OTHER ==
[2019-09-11 08:37] VITALS: BMI 21.7
--- NOTE | 2019-09-11 08:56 | PDOC ---
History of Present Illness - General Chief Complaint: Weakness Stated Complaint: WEAKNESS Time Seen by Provider: 09/11/19 08:23 - History of Present Illness Initial Comments: 09/12/19 23:43 69F PMH CHF, NIDDM, STEPHEN, CKD not on HD BIBEMS for SOB, nausea, generalized fatigue, and poor PO intake x4 days. Pt states symptoms all started at the same time on Saturday but has not progressed. EMS called today bc at bedside was concerned about pt breathing. Pt states loss of appetite 2/2 nausea with poor intake of solids, has been drinking minimal fluids. SOB worse w/ laying down, endorses occasional wheezing. Endorses lightheadedness. Denies h/o asthma. Denies cp/palpitations, f/c, cough/runny nose/sore throat. Denies numbness, tingling, focal weakness. last BM yesterday. has a productive cough. Pt unable to list medical conditions when asked about PMH at bedside brought pt home medications to ED Pt denies allergies to meds; on chart review pt listed as allergic to codeine and oxycodone. Denies smoking hx, etoh,and drug use. Past History - Past Medical History Allergies/Adverse Reactions: Allergies Allergy/AdvReac Type Severity Reaction Status Date / Time codeine Allergy palpitation Verified 09/11/19 08:37 s oxycodone HCl [From Percocet] Allergy palpitation Verified 09/11/19 08:37 s Home Medications: Ambulatory Orders Metoprolol Succinate [Toprol XL -] 50 mg PO DAILY #30 tab.sr.24h 10/21/17 Amlodipine Besylate [Norvasc -] 10 mg PO DAILY 10/03/18 Folic Acid 0.8 mg PO DAILY 10/03/18 Pantoprazole Sodium [Protonix -] 40 mg PO DAILY #30 tablet.ec 10/05/18 Amitriptyline HCl 25 mg PO HS 09/11/19 Furosemide 20 mg PO DAILY 09/11/19 Linaclotide [Linzess] 72 mcg PO DAILY 09/11/19 Anemia: Yes (IRON DEFICIENCY ANEMIA) Asthma: No Cancer: No Cardiac Disorders: Yes (Murmur) CVA: No COPD: No CHF: No Dementia: No Diabetes: Yes (not on meds) GI Disorders: Yes (healed ulcers) Disorders: Yes (dyalisis Fri-Mon-Wed) HTN: Yes Hypercholesterolemia: Yes Liver Disease: No 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) Thyroid Disease: No - Surgical History Abdominal Surgery: No Appendectomy: No Cardiac Surgery: No Cholecystectomy: No Lung Surgery: No Neurologic Surgery: No Orthopedic Surgery: Yes (pins inserted and removed from R femur) - Immunization History Td Vaccination: Yes TDAP Vaccination: Yes Immunization Up to Date: Yes - Psycho Social/Smoking Cessation Hx Smoking History: Unknown if ever smoked Have you smoked in the past 12 months: No Number of Cigarettes Smoked Daily: 0 If you are a former smoker, when did you quit?: 50 years ago Information on smoking cessation initiated: No Hx Alcohol Use: No Drug/Substance Use Hx: No Substance Use Type: None Hx Substance Use Treatment: No Review of Systems - Review of Systems Able to Perform ROS?: Yes Comments:: 09/12/19 23:44 CONSTITUTIONAL: Endorses generalized weakness. Denies F / C HEENT: Endorses lightheadedness. Denies changes in vision / hearing, sore throat , rhinorrhea RESP: Endorses orthopnea, SOB. Denies cough CARD: Denies chest pain, palpitations GI: Endorses nausea. Denies V / D, abdominal pain : Denies dysuria, frequency SKIN: Denies rashes NEURO: Denies numbness, tingling, focal weakness *Physical Exam - Vital Signs Last Vital Signs Temp Pulse Resp BP Pulse Ox 97.3 F L 79 16 142/56 L 100 09/11/19 08:14 09/11/19 08:14 09/11/19 08:14 09/11/19 08:14 09/11/19 08:50 - Physical Exam Temp Pulse Resp BP Pulse Ox 97.3 F L 79 16 142/56 L 100 09/11/19 08:14 09/11/19 08:14 09/11/19 08:14 09/11/19 08:14 09/11/19 08:50 GEN: Increased work of breathing. AAOx3 HEENT: NC/AT. No facial asymmetry. Normal voice. Supple neck w/ FROM. CV: S1/S2, RRR, no m/r/g LUNG: Abdominal breathing, increased work of breathing. Dyspnic with speech. CTAB, no wheezes, crackles, rales, rhonchi. GI: soft, ndnt, +BS, no guarding, no rebound. EXTREMITIES: Trace pitting edema of the b/l LEs. No obvious deformities of all extremities. SKIN: warm, dry, normal turgor PSYCH: normal mood and affect NEURO: Moving all extremities ED Treatment Course - LABORATORY CBC & Chemistry Diagram: 09/11/19 21:15 09/11/19 21:15 - ADDITIONAL ORDERS Additional order review: Laboratory Results 09/11/19 08:35 POC Glucometer 114 09/11/19 08:35 POC Glucometer 114 - RADIOLOGY Radiology Studies Ordered: Category Date Time Status CHEST X-RAY PORTABLE* [RAD] Stat Radiology 09/11/19 08:54 Ordered Medical Decision Making - Critical Care Time Total Critical Care Time (minutes): 120 Critical Care Statement: The care of this patient involved high complexity decision making to prevent further life threatening deterioration of the patient 's condition and/or to evaluate & treat vital organ system(s) failure or risk of failure. - Medical Decision Making 09/11/19 08:55 69F PMH CHF, NIDDM, STEPHEN, CKD not on HD BIBEMS for SOB, nausea, poor po intake, and generalized malaise x4 days. Increased work of breathing with clear lung exam. Trace pitting edema b/l. Pt has very poor medical insight. DDx - likely CHF exacerbation vs anemia vs lytes abnormality; considering ACS, PNA. - BiPaP - CBC, CMP, Cardiac, BNP - UA, UC - CXR - EKG 09/11/19 10:22 Pt unable to tolerate BiPaP; became very anxious 09/11/19 10:25 VBG results read back over the phone. Metabolic acidosis. 09/11/19 11:46 states pt is different - more confused and tired than normal; though she is AAOx3. Labs reviewed Very elevated LFTs Cr elevated above baseline Elevated Anion Gap Sent off ammonia, acetaminophen, coags, and hepatitis panel Lactic Acid 2.7 d/w GI Dr. Chavez - elevated LFTs could be 2/2 infarct, not necessarily causitive for acidosis ICU c/s 09/11/19 11:55 Spoke to ICU resident. There is ICU bed availability. 09/11/19 12:07 ICU requesting Renal C/S and recs first Renal c/s 09/11/19 12:33 d/w Dr. Reed - ICU admit, metabolic acidosis likely 2/2 MARQUES and lactic acidosis , 2amp bicarb, 2L NS; he will see and assess for dialysis and will order for a bicarb drip. Tenuous respiratory status. CXR report and image reviewed d/w ICU team, will come down and see. 09/11/19 12:42 Tylenol level elevated 150, per nomogram probable toxicity at this level will start NAC ED team f/u w/ pt - she states she has been taking 6-8 tylenol ES daily for the past couple weeks; last ingestion was Saturday. ED team d/w Dr. Martínez and Dr. Reed - admit to ICU for dialysis Discharge - Discharge Information Problems reviewed: Yes Clinical Impression/Diagnosis: MARQUES (acute kidney injury), Metabolic acidosis, increased anion gap (IAG) Acetaminophen toxicity Qualifiers: Encounter type: initial encounter Injury intent: accidental or unintentional Qualified Code(s): T39.1X1A - Poisoning by 4-Aminophenol derivatives, accidental (unintentional), initial encounter Condition: Guarded Disposition: TRANSFER ACUTE CARE/OTHER HOSP - Admission Yes - Follow up/Referral - Patient Discharge Instructions - Post Discharge Activity
--- NOTE | 2019-09-11 10:17 | PDOC ---
Documentation entered by Keanu Bryson SCRIBE, acting as scribe for Bello Wynn MD. Bello Wynn MD: This documentation has been prepared by the Braydon fam Daniel, SCRIBE, under my direction and personally reviewed by me in its entirety. I confirm that the documentation accurately reflects all work, treatment, procedures, and medical decision making performed by me. Attending Attestation - Resident Resident Name: [email or web address] - ED Attending Attestation I have performed the following: I have examined & evaluated the patient, The case was reviewed & discussed with the resident, I agree w/resident's findings & plan, Exceptions are as noted - HPI HPI: 09/11/19 09:59 The patient is a 69 year old female with a past medical history of CHF, diabetes , iron deficiency anemia, and CKD brought in today by EMS for evaluation of shortness of breath, nausea, and fatigue. The patient reports that her symptoms of shortness of breath, nausea, generalized fatigue, and poor PO intake began 4 days ago all at the same time. She endorses orthopnea with occasional wheezing. She also notes lightheadedness. + sick contact at home, has cough. Patient denies headache. Denies fever, chills. Denies chest pain. Denies vomiting, diarrhea, abdominal pain. Allergies: codeine, oxycodone HCL (per chart review but patient denies any allergies) PCP: Consuelo Gibbs - Physicial Exam PE: 09/11/19 10:19 "GENERAL: Awake, alert, and fully oriented, in moderate respiratory distress. HEAD: No signs of trauma EYES: PERRLA, EOMI, sclera anicteric, conjunctiva clear ENT: Auricles normal inspection, hearing grossly normal, nares patent, oropharynx clear without exudates. Moist mucosa NECK: Nontender, no stepoffs, Normal ROM, supple, no lymphadenopathy, JVD, or masses LUNGS: Breath sounds equal, clear to auscultation bilaterally. No wheezes, and no crackles HEART: Regular rate and rhythm, normal S1 and S2, no murmurs, rubs or gallops ABDOMEN: Soft, nontender, normoactive bowel sounds. No guarding, no rebound. No masses EXTREMITIES: Normal range of motion, no edema. No clubbing or cyanosis. No cords, erythema, or tenderness NEUROLOGICAL: Cranial nerves II through XII intact. 5/5 strength and sensation in all extremities, Normal speech, normal gait, normal cerebellar function SKIN: Warm, Dry, normal turgor, no rashes or lesions noted. - Critical Care Time Total Critical Care Time: 120 Critical Care Statement: The care of this patient involved high complexity decision making to prevent further life threatening deterioration of the patient 's condition and/or to evaluate & treat vital organ system(s) failure or risk of failure. - Medical Decision Making 09/11/19 10:20 69 F with SOB and weakness. Will evaluate for infectious process such as PNA. Also consider CHF flare. Pt with no wheezing to suggest asthma/COPD. - Labs, VBG - CXR 09/11/19 11:15 Labs notable for severe acidosis pH 7.01 Pt with transaminitis suggestive of liver failure Hep panel and tylenol level ordered Dr. Chavez consulted 09/11/19 12:45 Tylenol level 150 Pt reports taking 6-8 tabs of extra strength tylenol daily (last dose reportedly Saturday) Nac initiated Dr. Reed in ED to evaluate pt, likely needs HD Discussed with Dr. Martínez. Pt will likely need txfer to tertiary care center , but will plan to admit to ICU here until for emergent HD and stabilization prior to xfer.
[2019-09-11 10:23] LABS: VENOUS PO2 67.2 mmHg (28-48)
[2019-09-11 10:24] LABS: VENOUS PC02 11.8 mmHg (38-52); VENOUS PH 7.01 (7.31-7.41)
[2019-09-11 10:55] LABS: HEMATOCRIT 36.2 % (32.4-45.2); HEMOGLOBIN 11.1 GM/dL (10.7-15.3); MCH 29.9 pg (25.7-33.7); MCHC 30.5 g/dl (32.0-36.0); MEAN PLT VOLUME 7.7 fl (7.5-11.1); PLATELET COUNT 792 K/MM3 (134-434)
[2019-09-11 11:11] LABS: ALBUMIN 3.4 g/dl (3.4-5.0); ALK PHOS 237 U/L (45-117); ANION GAP 31 MMOL/L (8-16); BILIRUBIN,TOTAL 0.6 mg/dL (0.2-1); BLOOD UREA NITROGEN 70.9 mg/dL (7-18); CALCIUM 8.3 mg/dL (8.5-10.1); CHLORIDE 94 mmol/L (98-107); CO2 4 mmol/L (21-32); CREATININE 5.1 mg/dL (0.55-1.3); GLUCOSE,RANDOM 145 mg/dL (74-106); LIPASE 6492 U/L (73-393); N-TERMINAL BNP 1541.2 pg/ml (5-125); PHOSPHOROUS 8.4 mg/dL (2.5-4.9); POTASSIUM 4.5 mmol/L (3.5-5.1); SGOT/AST 1005 U/L (15-37); SGPT/ALT 1658 U/L (13-61); SODIUM 129 mmol/L (136-145); TOT PROT 7.6 g/dl (6.4-8.2)
[2019-09-11 12:10] LABS: INR 1.37 (0.83-1.09); PROTHROMBIN TIME (PATIENT) 16.2 SEC (9.7-13.0)
[2019-09-11 12:12] LABS: ACTIVATED PTT 45.1 SECONDS (25.2-36.5)
[2019-09-11] MEDS ORDERED: SODIUM CHLORIDE 0.9% 1000 ML INFUS.BAG IV ONE ×2 (12:26→12:32)
[2019-09-11] MEDS ORDERED: SODIUM BICARBONATE 4.2% 5 MEQ/10 ML DISP.SYRIN IVPUSH ONE ×3 (12:26→12:36)
[2019-09-11] MEDS ORDERED: ACETYLCYSTEINE 20% 200MG/ML 30ML VIAL *FOR INJECTION USE ONLY IVPB ONE ×5 (12:38→19:51)
[2019-09-11 12:44] LABS: ARTERIAL BLD GAS O2 SATURATION 97.5 % (95-98); CARBOXYHEMOGLOBIN 0.5 % (0-2)
[2019-09-11 12:45] LABS: ARTERIAL BLOOD GAS PO2 136 mmHg (80-100)
[2019-09-11 12:46] LABS: ALLENS TEST POSITIVE
[2019-09-11 12:47] LABS: ARTERIAL BLOOD GAS PCO2 < 9.0 mmHg (35-45); ARTERIAL BLOOD GAS pH 7.05 (7.35-7.45)
--- NOTE | 2019-09-11 12:57 | CONSULT ---
Consult - text type - Consultation Consultation Note: Renal consult for Acute renal failure with metabolic acidosis This is a 69 year old -[place] woman with history of CKD stage 3/4, alpha thalasemia, DM and hypertension presents with generalized weakness and rapid respiratory rate and found to have acute on chronic renal failure with severe metabolic acidosis. Seen in the ED, pt is awake and alert. Reports using large volume of Tylenol and Advil for burning and discomfort in her feet. Reports poor oral intake. Reports poor oral intake. Denies any chest pain, shortness of breath, abdominal pain, N/V/D. No flank pain. PMhx: as above Allergies: Codine, oxycodone Family Hx: NC Social Hx: No T/A/D ROS: as per HPI, all other pertinent ros negative. Home Medications Medication Instructions Recorded Perphenazine/Amitriptyline HCl 1 each PO DAILY 01/12/15 [Perphen-Amitrip 4 mg-25 mg Tab] Metoprolol Succinate [Toprol XL -] 50 mg PO DAILY #30 tab.sr.24h 10/21/17 Amlodipine Besylate [Norvasc -] 10 mg PO DAILY 10/03/18 Folic Acid 0.8 mg PO DAILY 10/03/18 Pantoprazole Sodium [Protonix -] 40 mg PO DAILY #30 tablet.ec 10/05/18 Furosemide 20 mg PO DAILY 09/11/19 Linaclotide [Linzess] 72 mcg PO DAILY 09/11/19 Vital Signs Temperature 97.3 F L 09/11/19 08:14 Pulse Rate 79 09/11/19 08:14 Respiratory Rate 16 09/11/19 08:14 Blood Pressure 142/56 L 09/11/19 08:14 O2 Sat by Pulse Oximetry (%) 100 09/11/19 12:38 Intake & Output 09/08/19 09/09/19 09/10/19 09/11/19 23:59 23:59 23:59 23:59 Weight 55.792 kg Mild distress from increased respiratory rate awake and alert neck supple, no JVD RRR CTA, no rales soft NT/ND, no guarding no LE edema, clubbing or cyanosis no bladder distension CBC, BMP 09/11/19 09:10 09/11/19 09:10 69 year old woman with history of CKD stage 3/4, alpha thalasemia, DM and hypertension presents with generalized weakness and rapid respiratory rate and found to have acute on chronic renal failure with severe metabolic acidosis. 1. Acute kidney injury 2. Chronic kidney disease 3. Severe metabolic acidosis (Anion gap secondary to renal failure and lactic acidosis) 4. Hyponatremia in setting of hyponatremia 5. Sepsis syndrome 6. Acetaminophen toxicity 7. Liver injury Given severe degree of metabolic acidosis will warrant urgent dialysis to normalize pH Need for urgent dialysis discussed discussed with patient and she expressed understanding. Pt agreeable to dialysis for her acute medical condition. In the interim will need IV sodium bicarbonate push x 2 Give NS 2L bolous and then start sodium bicarbonate gtt at @150cc per hour ICU admission Would consider empiric antibiotics for suspected sepsis NAC as per ED/ICU Trend chemistry and ABG Q12h Thank you Tc Reed DO
--- NOTE | 2019-09-11 13:16 | CONSULT ---
Consultation: REQUESTING PROVIDER: CONSULT REQUEST: We have been asked to medically evaluate this patient for ( specify). metabolic acidosis + MARQUES on CKD HISTORY OF PRESENT ILLNESS: 69 y/o F hx of asthma, CHF, NIDDM, CKD stage III (not on HD) baseline Creatinine usually between 1.7-2.1,gastric ulcers was brought in by EMS for shortness of breath, generalized fatigue and poor PO intake for 4 days. She reports having increased pain in her hands and feet . Denies any precipitating incident. She has been taking 6-7 pills of extra strength tylenol for increased pain in her hands and feet. She has also been taking NSAIDS (advil) though contraindicated by her speech coach Dr. Reed. She lives at home and called EMS today because she has been unable to sleep and pain. She denies any fevers, chills, nausea, vomiting, diarrhea, bloody stools, coughing ED course -was put on BIPAP initially for respiratory distress did not tolerate and took it off -now on room air saturations at 100% - vbg PH 7.01, bicarb 4, BUN 70.9, Cr 5.1, lactic acid 2.7 elevated LFT's -acetaminophen level 150 - 2L of NS ordered at time of HPI as well as IV bicarb. REVIEW OF SYSTEMS: CONSTITUTIONAL: Absent: fever, chills, diaphoresis, generalized weakness, malaise, loss of appetite, weight change HEENT: Absent: rhinorrhea, nasal congestion, throat pain, throat swelling, difficulty swallowing, mouth swelling, ear pain, eye pain, visual changes CARDIOVASCULAR: Absent: chest pain, syncope, palpitations, irregular heart rate, lightheadedness , peripheral edema RESPIRATORY: Absent: cough, shortness of breath, dyspnea with exertion, orthopnea, wheezing, stridor, hemoptysis GASTROINTESTINAL: Absent: abdominal pain, abdominal distension, nausea, vomiting, diarrhea, constipation, melena, hematochezia GENITOURINARY: Absent: dysuria, frequency, urgency, hesitancy, hematuria, flank pain, genital pain MUSCULOSKELETAL: Absent: myalgia, arthralgia, joint swelling, back pain, neck pain SKIN: Absent: rash, itching, pallor HEMATOLOGIC/IMMUNOLOGIC: Absent: easy bleeding, easy bruising, lymphadenopathy, frequent infections ENDOCRINE: Absent: unexplained weight gain, unexplained weight loss, heat intolerance, cold intolerance NEUROLOGIC: Absent: headache, focal weakness or paresthesias, dizziness, unsteady gait, seizure, mental status changes, bladder or bowel incontinence PSYCHIATRIC: Absent: anxiety, depression, suicidal or homicidal ideation, hallucinations. PHYSICAL EXAMINATION Vital Signs - 24 hr 09/11/19 09/11/19 09/11/19 08:14 08:50 12:38 Temperature 97.3 F L Pulse Rate 79 Respiratory 16 Rate Blood Pressure 142/56 L O2 Sat by Pulse 100 100 100 Oximetry (%) GENERAL: Awake, alert, and fully oriented, HEAD: Normal with no signs of trauma. EYES: Pupils equal, round and reactive to light, extraocular movements intact, sclera anicteric, conjunctiva clear. No lid lag. EARS, NOSE, THROAT: Ears normal, nares patent, white exudate from mouth. seems dry NECK: Normal range of motion, JVD, LUNGS: Breath sounds equal, clear to auscultation bilaterally. No wheezes, and no crackles. Pt using accessory muscles. HEART: Regular rate and rhythm, normal S1 and S2 without murmur, rub or gallop. ABDOMEN: Soft, nontender, not distended, normoactive bowel sounds, no guarding, no rebound, no masses. MUSCULOSKELETAL: Normal range of motion at all joints. No bony deformities or tenderness. No CVA tenderness. LOWER EXTREMITIES: 2+ pulses, warm, well-perfused. No calf tenderness. No peripheral edema. NEUROLOGICAL: Cranial nerves II-XII intact. Normal speech.gait not observed PSYCHIATRIC: Cooperative. Good eye contact. Appropriate mood and affect. SKIN: Warm, dry, normal turgor, no rashes or lesions noted. Laboratory Results - last 24 hr 09/11/19 09/11/19 09/11/19 08:35 09:10 09:10 WBC 15.0 H RBC 3.70 Hgb 11.1 Hct 36.2 D MCV 98.0 H MCH 29.9 MCHC 30.5 L RDW 18.0 H Plt Count 792 H D MPV 7.7 D Absolute Neuts (auto) 10.7 H Neutrophils % No Result Required. Lymphocytes % No Result Required. Nucleated RBC % 1 H PT with INR INR PTT (Actin FS) Anticoagulation Therapy Puncture Site ABG pH ABG pCO2 at Pt Temp ABG pO2 at Pt Temp ABG HCO3 ABG O2 Sat (Measured) ABG O2 Content ABG Base Excess [place] Test VBG pH POC VBG pCO2 POC VBG pO2 VBG HCO3 VBG O2 Sat (Scot) VBG Base Excess Carboxyhemoglobin Methemoglobin O2 Delivery Device Oxygen Flow Rate Vent Mode Vent Rate Mechanical Rate Pressure Support Vent Sodium 129 L Potassium 4.5 Chloride 94 L Carbon Dioxide 4 L Anion Gap 31 H BUN 70.9 H Creatinine 5.1 H Est GFR (CKD-EPI)AfAm 9.22 Est GFR (CKD-EPI)NonAf 7.96 POC Glucometer 114 Random Glucose 145 H Lactic Acid Calcium 8.3 L Phosphorus Magnesium Total Bilirubin 0.6 AST 1005 H ALT 1658 H Alkaline Phosphatase 237 H Ammonia Creatine Kinase 126 Troponin I < 0.02 B-Natriuretic Peptide Total Protein 7.6 Albumin 3.4 Lipase 6492 H Acetaminophen Influenza A (Rapid) Influenza B (Rapid) 09/11/19 09/11/19 09/11/19 09:10 09:10 09:10 WBC RBC Hgb Hct MCV MCH MCHC RDW Plt Count MPV Absolute Neuts (auto) Neutrophils % Lymphocytes % Nucleated RBC % PT with INR INR PTT (Actin FS) Anticoagulation Therapy Puncture Site ABG pH ABG pCO2 at Pt Temp ABG pO2 at Pt Temp ABG HCO3 ABG O2 Sat (Measured) ABG O2 Content ABG Base Excess [place] Test VBG pH 7.01 L* POC VBG pCO2 11.8 L* POC VBG pO2 67.2 H VBG HCO3 2.9 L VBG O2 Sat (Scot) 86.7 H VBG Base Excess -28.4 L Carboxyhemoglobin Methemoglobin O2 Delivery Device Oxygen Flow Rate Vent Mode Vent Rate Mechanical Rate Pressure Support Vent Sodium Potassium Chloride Carbon Dioxide Anion Gap BUN Creatinine Est GFR (CKD-EPI)AfAm Est GFR (CKD-EPI)NonAf POC Glucometer Random Glucose Lactic Acid Calcium Phosphorus 8.4 H Magnesium 5.2 H Total Bilirubin AST ALT Alkaline Phosphatase Ammonia Creatine Kinase Troponin I B-Natriuretic Peptide 1541.2 H Total Protein Albumin Lipase Acetaminophen Influenza A (Rapid) Influenza B (Rapid) 09/11/19 09/11/19 09/11/19 09:10 10:45 11:33 WBC RBC Hgb Hct MCV MCH MCHC RDW Plt Count MPV Absolute Neuts (auto) Neutrophils % Lymphocytes % Nucleated RBC % PT with INR INR PTT (Actin FS) Anticoagulation Therapy Puncture Site ABG pH ABG pCO2 at Pt Temp ABG pO2 at Pt Temp ABG HCO3 ABG O2 Sat (Measured) ABG O2 Content ABG Base Excess [place] Test VBG pH POC VBG pCO2 POC VBG pO2 VBG HCO3 VBG O2 Sat (Scot) VBG Base Excess Carboxyhemoglobin Methemoglobin O2 Delivery Device Oxygen Flow Rate Vent Mode Vent Rate Mechanical Rate Pressure Support Vent Sodium Potassium Chloride Carbon Dioxide Anion Gap BUN Creatinine Est GFR (CKD-EPI)AfAm Est GFR (CKD-EPI)NonAf POC Glucometer Random Glucose Lactic Acid 2.7 H* Calcium Phosphorus Magnesium Total Bilirubin AST ALT Alkaline Phosphatase Ammonia Creatine Kinase Troponin I B-Natriuretic Peptide Total Protein Albumin Lipase Acetaminophen 153.7 Influenza A (Rapid) Negative Influenza B (Rapid) Negative 09/11/19 09/11/19 09/11/19 11:33 11:35 12:28 WBC RBC Hgb Hct MCV MCH MCHC RDW Plt Count MPV Absolute Neuts (auto) Neutrophils % Lymphocytes % Nucleated RBC % PT with INR 16.20 H INR 1.37 H PTT (Actin FS) 45.1 H Anticoagulation Therapy No Result Required. Puncture Site Right brachial ABG pH 7.05 L* ABG pCO2 at Pt Temp < 9.0 L* ABG pO2 at Pt Temp 136 H ABG HCO3 No Result Required. ABG O2 Sat (Measured) 97.5 ABG O2 Content 15.9 ABG Base Excess No Result Required. Roosevelt Test Positive VBG pH POC VBG pCO2 POC VBG pO2 VBG HCO3 VBG O2 Sat (Scot) VBG Base Excess Carboxyhemoglobin 0.5 Methemoglobin < 1.0 O2 Delivery Device No Result Required. Oxygen Flow Rate N0 Vent Mode No Result Required. Vent Rate No Result Required. Mechanical Rate No Result Required. Pressure Support Vent No Result Required. Sodium Potassium Chloride Carbon Dioxide Anion Gap BUN Creatinine Est GFR (CKD-EPI)AfAm Est GFR (CKD-EPI)NonAf POC Glucometer Random Glucose Lactic Acid Calcium Phosphorus Magnesium Total Bilirubin AST ALT Alkaline Phosphatase Ammonia < 10.00 L Creatine Kinase Troponin I B-Natriuretic Peptide Total Protein Albumin Lipase Acetaminophen Influenza A (Rapid) Influenza B (Rapid) Active Medications Generic Name Dose Route Start Last Admin Trade Name Freq PRN Reason Stop Dose Admin Albumin Human 12.5 gm 09/11/19 13:15 Albumin Human 25% IVPB Q30M HARPREET Sodium Chloride 250 mls @ 3,000 mls/hr 09/11/19 13:06 Normal Saline - IV 09/12/19 13:06 PRN PRN Hypotension during Dialysis ASSESSMENT/PLAN: Neuro alert and oriented x3 CV -EKG normal sinus rhythm, septal infart age undetermined -QTC 449, QRS duration 90ms, WA interval 160ms, vent rate 80bpm Renal -MARQUES on CKD -possibly pre-renal with intra-renal from medications -anion gap metabolic acidosis, gap of 31 pH by Vbg 7.01 -Pt reports high dose tylenol and Advil use over past 4 days -Renal consulted (Dr. Reed) -iv bicarb start fluid boluses. Maintenance at 125. pt may require dialysis -trialysis catheter to be inserted stat. GI possible shock liver (DiGiorno) due to acetaminophen toxicity abdominal u/s with doppler evaluate liver hepatitis serologies monitor LFT's primary team discussed the following with poison control center -currently s/p loading dose bag of NAC (bag 1) -Bag 2: NAC 50mg/kg dose in 500 cc d5w to run over 4 hours to continue immediately after (ordered) if patient is being dialyzed while receiving 2nd bag NAC, must double amount of infusion to 100mg /kg only during the dialysis session -Bag3: NAC 100mg/kg in 1L D5w to run over 16 hours (if patient is being dialyzed, same as above, during that time frame, must double amount) -Pt must continue to receive dose of Bag3 indefinitely until transfer* -psych consult: Dr. Duque; in case 2/2 OD -though not stable for transfer (to tertiary care facility), per poison control , should reach out to transplant facility now FEN sodium bicarb 150 cc/hr continue to follow lytes NPO; aspiration risk #PPX DVT: SCD's #Dispo admit to ICU poison control to be updated ATTENDING PHYSICIAN STATEMENT I saw and evaluated the patient. I reviewed the resident's note and discussed the case with the resident. I agree with the resident's findings and plan as documented. SUBJECTIVE: OBJECTIVE: ASSESSMENT AND PLAN:
--- NOTE | 2019-09-11 13:21 | EKG ---
Test Reason : Blood Pressure : / mmHG Vent. Rate : 080 BPM Atrial Rate : 080 BPM P-R Int : 160 ms QRS Dur : 090 ms QT Int : 390 ms P-R-T Axes : 084 035 091 degrees QTc Int : 449 ms NORMAL SINUS RHYTHM SEPTAL INFARCT (CITED ON OR BEFORE 14-APR-2019) ABNORMAL ECG WHEN COMPARED WITH ECG OF 14-APR-2019 00:01, NONSPECIFIC T WAVE ABNORMALITY NO LONGER EVIDENT IN INFERIOR LEADS T WAVE INVERSION LESS EVIDENT IN ANTERIOR LEADS Confirmed by PANCHO RUIZ MD ([id number]) on 09/11/2019 1:20:25 PM Referred By: Confirmed By:PANCHO RUIZ MD
--- NOTE | 2019-09-11 13:50 | CON.GI ---
Consult Consult Specialty:: GI Referred by:: Hospitalist Service Reason for Consultation:: Abnormal liver chemistries - History of Present Illness Chief Complaint: Weakness, shortness of breath, foot pain History of Present Illness: History from chart as patient currently confused. 69 y/o F BIBEMS for shortness of breath, generalized fatigue and poor PO intake for 4 days. She reports having increased pain in her hands and feet and due to this, has been taking advil and tylonol for about 2 weeks. She describes upwards of 6-8 extra strength tylenol per day and per the chart the last time she took was saturday. She does have an acetaminophen level today, however. She denies abdominal pain , nausea, vomiting, prior history of liver disease, blood transfusions, recent travel, diarrhea or change in dietary patterns. She was evaluated in [address] Tanner Gastelum, however, it does not appear as though EGD/ Colonoscopy were performed at that time as she wanted to pursue outpatient work- up. Per the chart, she has also been taking NSAIDS (advil, stated by patient as well). She lives at home and called EMS today because she has been unable to sleep and pain. - History Source History Provided By: Patient, Medical Record Limitations to Obtaining History: Poor Historian - Past Medical History Cardio/Vascular: Yes: HTN Renal/: Yes: Other (ckd S III) Endocrine: Yes: Diabetes Mellitus - Past Surgical History Additional Surgical History: Denies - Alcohol/Substance Use Hx Alcohol Use: No History of Substance Use: reports: None - Smoking History Smoking history: Never smoked Have you smoked in the past 12 months: No Aproximately how many cigarettes per day: 0 If you are a former smoker, when did you quit?: 50 years ago - Social History Usual Living Arrangement: With Spouse ADL: Independent Occupation: retired Place of : [facility] History of Recent Travel: No Home Medications - Allergies Allergies/Adverse Reactions: Allergies Allergy/AdvReac Type Severity Reaction Status Date / Time codeine Allergy palpitation Verified 09/11/19 08:37 s oxycodone HCl [From Percocet] Allergy palpitation Verified 09/11/19 08:37 s - Home Medications Home Medications: Ambulatory Orders Metoprolol Succinate [Toprol XL -] 50 mg PO DAILY #30 tab.sr.24h 10/21/17 Amlodipine Besylate [Norvasc -] 10 mg PO DAILY 10/03/18 Folic Acid 0.8 mg PO DAILY 10/03/18 Pantoprazole Sodium [Protonix -] 40 mg PO DAILY #30 tablet.ec 10/05/18 Amitriptyline HCl 25 mg PO HS 09/11/19 Furosemide 20 mg PO DAILY 09/11/19 Linaclotide [Linzess] 72 mcg PO DAILY 09/11/19 Family Medical History Other Family History: Unclear of her family's medical history Review of Systems - Review of Systems Constitutional: reports: Loss of Appetite, Weakness. denies: Chills Cardiovascular: denies: Chest Pain Respiratory: denies: Cough Gastrointestinal: denies: Abdominal Pain, Diarrhea, Nausea, Rectal Bleeding, Vomiting Physical Exam-GI Vital Signs: Vital Signs: Taken by myself at 1330 Temperature 97.3 F L 09/11/19 Pulse Rate 84 09/11/19 Respiratory Rate 22 09/11/19 Blood Pressure 132/54 L 09/11/19 O2 Sat by Pulse Oximetry (%) 98% RA 09/11/19 Constitutional: Yes: Calm Eyes: Yes: PERRL. No: Sclera Icterus Cardiovascular: Yes: Regular Rate and Rhythm. No: Murmur Respiratory: Yes: CTA Bilaterally Gastrointestinal Inspection: No: Scars ...Auscultate: Yes: Normoactive Bowel Sounds ...Palpate: Yes: Soft. No: Hepatomegaly, Splenomegaly, Tenderness ...Percussion: No: Tympanitic Edema: No (No LE edema) Neurological: Yes: Alert, Asterixis, Confusion Labs: CBC, BMP 09/11/19 09:10 09/11/19 09:10 INR, PTT INR 1.37 (0.83-1.09) H 09/11/19 11:33 Hepatic Panel Total Bilirubin 0.6 mg/dL (0.2-1) 09/11/19 09:10 AST 1005 U/L (15-37) H 09/11/19 09:10 ALT 1658 U/L (13-61) H 09/11/19 09:10 Alkaline Phosphatase 237 U/L (45-117) H 09/11/19 09:10 Albumin 3.4 g/dl (3.4-5.0) 09/11/19 09:10 Problem List - Problems (1) Abnormal LFTs Assessment/Plan: Patient with elevated INR and encephalopathy, raising concern for acute liver failure. + tylenol level despite patient stating that last dose was this past saturday. Tylenol toxicity needs to be considered higher in differential and likely contributing to worsened renal function and metabolic acidosis as well. It was felt as though she was too unstable for transfer at this time and needs emergent dialysis. Advise: NAC treatment being initiated by ER ICU admission Acute hepatitis A/B/C serologies have been ordered in ER Lactulose 30g BID Needs abdominal imaging: US of the abdomen with doppler to evaluate hepatobiliary anatomy, portal/hepatic veins ID evaluation Close monitoring of mental status Monitor LFT's / INR IV hydration per renal When clinically stable, transfer to tertiary care liver center Code(s): R94.5 - ABNORMAL RESULTS OF LIVER FUNCTION STUDIES
--- NOTE | 2019-09-11 13:57 | PN ---
Teaching Attending Note Name of Resident: Virginia Tubbs ATTENDING PHYSICIAN STATEMENT I saw and evaluated the patient. I reviewed the resident's note and discussed the case with the resident. I agree with the resident's findings and plan as documented. SUBJECTIVE: Patient seen and examined in the ICU. 69 F, CKD stage 3/4, alpha thalasemia, DM and hypertension. Admitted via the ER due to generalized weakness. Reports chronically taking Tylenol and NSAIDs. No travel history or sock contacts. No fever or chills. Denies SOB or CP. Noted to be in Severe Metabolic Acidosis with MARQUES and indications of liver injury. Of noted Acetaminophen level is 156. Intake & Output 09/08/19 09/09/19 09/10/19 09/11/19 23:59 23:59 23:59 23:59 Output Total 250 Balance -250 Weight 123 lb Last Vital Signs Temp Pulse Resp BP Pulse Ox 97.3 F L 79 20 138/78 100 09/11/19 08:14 09/11/19 13:51 09/11/19 13:51 09/11/19 13:51 09/11/19 13:51 Active Medications Albumin Human (Albumin Human 25%) 12.5 gm IVPB Q30M HARPREET Stop: 09/11/19 14:46 Sodium Chloride (Normal Saline -) 250 mls @ 3,000 mls/hr IV PRN PRN PRN Reason: Hypotension during Dialysis Stop: 09/12/19 13:06 Constitutional: Yes: Awake and alert, Mildly tachypneic at rest Eyes: No: Sclera Icterus Cardiovascular: Yes: Regular Rate and Rhythm. No: Murmur Respiratory: Yes: CTA Bilaterally Gastrointestinal Inspection: No: Scars ...Auscultate: Yes: Normoactive Bowel Sounds ...Palpate: Yes: Soft. No: Hepatomegaly, Splenomegaly, Tenderness ...Percussion: No: Tympanitic Edema: No (No LE edema) Neurological: Yes: Alert, mild confusion Labs: Laboratory Results - last 24 hr 09/11/19 09/11/19 09/11/19 08:35 09:10 09:10 WBC 15.0 H RBC 3.70 Hgb 11.1 Hct 36.2 D MCV 98.0 H MCH 29.9 MCHC 30.5 L RDW 18.0 H Plt Count 792 H D MPV 7.7 D Absolute Neuts (auto) 10.7 H Neutrophils % No Result Required. Lymphocytes % No Result Required. Nucleated RBC % 1 H PT with INR INR PTT (Actin FS) Anticoagulation Therapy Puncture Site ABG pH ABG pCO2 at Pt Temp ABG pO2 at Pt Temp ABG HCO3 ABG O2 Sat (Measured) ABG O2 Content ABG Base Excess [place] Test VBG pH POC VBG pCO2 POC VBG pO2 VBG HCO3 VBG O2 Sat (Scot) VBG Base Excess Carboxyhemoglobin Methemoglobin O2 Delivery Device Oxygen Flow Rate Vent Mode Vent Rate Mechanical Rate Pressure Support Vent Sodium 129 L Potassium 4.5 Chloride 94 L Carbon Dioxide 4 L Anion Gap 31 H BUN 70.9 H Creatinine 5.1 H Est GFR (CKD-EPI)AfAm 9.22 Est GFR (CKD-EPI)NonAf 7.96 POC Glucometer 114 Random Glucose 145 H Lactic Acid Calcium 8.3 L Phosphorus Magnesium Total Bilirubin 0.6 AST 1005 H ALT 1658 H Alkaline Phosphatase 237 H Ammonia Creatine Kinase 126 Troponin I < 0.02 B-Natriuretic Peptide Total Protein 7.6 Albumin 3.4 Lipase 6492 H Acetaminophen Influenza A (Rapid) Influenza B (Rapid) 09/11/19 09/11/19 09/11/19 09:10 09:10 09:10 WBC RBC Hgb Hct MCV MCH MCHC RDW Plt Count MPV Absolute Neuts (auto) Neutrophils % Lymphocytes % Nucleated RBC % PT with INR INR PTT (Actin FS) Anticoagulation Therapy Puncture Site ABG pH ABG pCO2 at Pt Temp ABG pO2 at Pt Temp ABG HCO3 ABG O2 Sat (Measured) ABG O2 Content ABG Base Excess [place] Test VBG pH 7.01 L* POC VBG pCO2 11.8 L* POC VBG pO2 67.2 H VBG HCO3 2.9 L VBG O2 Sat (Scot) 86.7 H VBG Base Excess -28.4 L Carboxyhemoglobin Methemoglobin O2 Delivery Device Oxygen Flow Rate Vent Mode Vent Rate Mechanical Rate Pressure Support Vent Sodium Potassium Chloride Carbon Dioxide Anion Gap BUN Creatinine Est GFR (CKD-EPI)AfAm Est GFR (CKD-EPI)NonAf POC Glucometer Random Glucose Lactic Acid Calcium Phosphorus 8.4 H Magnesium 5.2 H Total Bilirubin AST ALT Alkaline Phosphatase Ammonia Creatine Kinase Troponin I B-Natriuretic Peptide 1541.2 H Total Protein Albumin Lipase Acetaminophen Influenza A (Rapid) Influenza B (Rapid) 09/11/19 09/11/19 09/11/19 09:10 10:45 11:33 WBC RBC Hgb Hct MCV MCH MCHC RDW Plt Count MPV Absolute Neuts (auto) Neutrophils % Lymphocytes % Nucleated RBC % PT with INR INR PTT (Actin FS) Anticoagulation Therapy Puncture Site ABG pH ABG pCO2 at Pt Temp ABG pO2 at Pt Temp ABG HCO3 ABG O2 Sat (Measured) ABG O2 Content ABG Base Excess [place] Test VBG pH POC VBG pCO2 POC VBG pO2 VBG HCO3 VBG O2 Sat (Scot) VBG Base Excess Carboxyhemoglobin Methemoglobin O2 Delivery Device Oxygen Flow Rate Vent Mode Vent Rate Mechanical Rate Pressure Support Vent Sodium Potassium Chloride Carbon Dioxide Anion Gap BUN Creatinine Est GFR (CKD-EPI)AfAm Est GFR (CKD-EPI)NonAf POC Glucometer Random Glucose Lactic Acid 2.7 H* Calcium Phosphorus Magnesium Total Bilirubin AST ALT Alkaline Phosphatase Ammonia Creatine Kinase Troponin I B-Natriuretic Peptide Total Protein Albumin Lipase Acetaminophen 153.7 Influenza A (Rapid) Negative Influenza B (Rapid) Negative 09/11/19 09/11/19 09/11/19 11:33 11:35 12:14 WBC RBC Hgb Hct MCV MCH MCHC RDW Plt Count MPV Absolute Neuts (auto) Neutrophils % Lymphocytes % Nucleated RBC % PT with INR 16.20 H INR 1.37 H PTT (Actin FS) 45.1 H Anticoagulation Therapy Puncture Site ABG pH ABG pCO2 at Pt Temp ABG pO2 at Pt Temp ABG HCO3 ABG O2 Sat (Measured) ABG O2 Content ABG Base Excess [place] Test VBG pH POC VBG pCO2 POC VBG pO2 VBG HCO3 VBG O2 Sat (Scot) VBG Base Excess Carboxyhemoglobin Methemoglobin O2 Delivery Device Oxygen Flow Rate Vent Mode Vent Rate Mechanical Rate Pressure Support Vent Sodium Potassium Chloride Carbon Dioxide Anion Gap BUN Creatinine Est GFR (CKD-EPI)AfAm Est GFR (CKD-EPI)NonAf POC Glucometer Random Glucose Lactic Acid 2.9 H* Calcium Phosphorus Magnesium Total Bilirubin AST ALT Alkaline Phosphatase Ammonia < 10.00 L Creatine Kinase Troponin I B-Natriuretic Peptide Total Protein Albumin Lipase Acetaminophen Influenza A (Rapid) Influenza B (Rapid) 09/11/19 12:28 WBC RBC Hgb Hct MCV MCH MCHC RDW Plt Count MPV Absolute Neuts (auto) Neutrophils % Lymphocytes % Nucleated RBC % PT with INR INR PTT (Actin FS) Anticoagulation Therapy No Result Required. Puncture Site Right brachial ABG pH 7.05 L* ABG pCO2 at Pt Temp < 9.0 L* ABG pO2 at Pt Temp 136 H ABG HCO3 No Result Required. ABG O2 Sat (Measured) 97.5 ABG O2 Content 15.9 ABG Base Excess No Result Required. Roosevelt Test Positive VBG pH POC VBG pCO2 POC VBG pO2 VBG HCO3 VBG O2 Sat (Scot) VBG Base Excess Carboxyhemoglobin 0.5 Methemoglobin < 1.0 O2 Delivery Device No Result Required. Oxygen Flow Rate N0 Vent Mode No Result Required. Vent Rate No Result Required. Mechanical Rate No Result Required. Pressure Support Vent No Result Required. Sodium Potassium Chloride Carbon Dioxide Anion Gap BUN Creatinine Est GFR (CKD-EPI)AfAm Est GFR (CKD-EPI)NonAf POC Glucometer Random Glucose Lactic Acid Calcium Phosphorus Magnesium Total Bilirubin AST ALT Alkaline Phosphatase Ammonia Creatine Kinase Troponin I B-Natriuretic Peptide Total Protein Albumin Lipase Acetaminophen Influenza A (Rapid) Influenza B (Rapid) IMP: Acute kidney injury with Severe Metabolic acidosis Chronic kidney disease Hyponatremia Low clinical suspicion of Sepsis Acetaminophen toxicity Acute liver injury PLAN: Will need access for acute HD per Renal Sodium bicarbonate pushes and infusion Would monitor off ABX for now: Low threshold to provide broad spectrum O2 as needed Strict I & O House staff to reach out to poison control Noted NAC was ordered in the ER Follow Chemistry May need transfer to tertiary center Requires ICU monitoring Dr Martínez Critical care time spent in reviewing chart, evaluating patient and formulating plan - 36 minutes.
[2019-09-11 14:19] LABS: EPI CELLS 9.1 /HPF (0-5/HPF); HYALINE CASTS 30 /lpf (0-8); URINE APPEARANCE CLOUDY; URINE BACTERIA 2.6 /hpf (NEGATIVE); URINE BILIRUBIN NEGATIVE (NEGATIVE); URINE COLOR YELLOW; URINE GLUCOSE (UA) TRACE (NEGATIVE); URINE KETONE NEGATIVE (NEGATIVE); URINE LEUK ESTERASE NEGATIVE (NEGATIVE); URINE NITRITE NEGATIVE (NEGATIVE); URINE PROTEIN 2+ (NEGATIVE); URINE RBC 1 /hpf (0-4); URINE UROBILINOGEN 0.2 mg/dL (0.2-1.0); URINE WBC 2 /hpf (0-5)
[2019-09-11 14:30] LABS: COCAINE, UR NEGATIVE ng/ml (CUTOFF=300); METHADONE, UR NEGATIVE ng/ml (CUTOFF=300); OPIATES, URI NEGATIVE ng/ml (CUTOFF=300); PHENCYCLIDINE,URINE NEGATIVE ng/ml (CUTOFF=25); URINE AMPHETAMINES NEGATIVE ng/ml (CUTOFF=500); URINE BARBITURATES NEGATIVE ng/ml (CUTOFF=200); URINE BENZODIAZEPINES NEGATIVE ng/ml (CUTOFF=200)
--- NOTE | 2019-09-11 14:56 | HP ---
Hospitalist Medicine Admission 69 y/o old F with PMH of CKD stage 3/4, alpha thalassemia, DM and HTN, who presented with generalized weakness and tachypnea. Was found to have acute on chronic renal failure with severe metabolic acidosis. Also found to be in acute liver failure, with shock liver. Pt endorses worsening symptoms over the last 3- 4 days during which she has had decreased PO intake and weakness. Pt was ingesting 6-8 tylenol pills daily. Found to be in severe metabolic acidosis. History limited, as pt with encephalopathy during admission. In ER, pt given na bicarb pushes, albumin, and received 1st bag of NAC. 2nd bag of NAC ordered while pt in ICU. Trialysis placed by ICU team. Poison control was contacted as below. PMH: as above PsxH: Open reduction in lower extremity, Rectal tube obstruction meds: as in chart; verified by ICU team allergies: codeine, oxycodone FH: CHF, DM, HTN- both sides of family SH: denies smoking, alcohol and drug use Allergies codeine Allergy (Verified 09/11/19 08:37) palpitations oxycodone HCl [From Percocet] Allergy (Verified 09/11/19 08:37) palpitations HOME MEDICATIONS: Home Medications Medication Instructions Recorded Metoprolol Succinate [Toprol XL -] 50 mg PO DAILY #30 tab.sr.24h 10/21/17 Amlodipine Besylate [Norvasc -] 10 mg PO DAILY 10/03/18 Folic Acid 0.8 mg PO DAILY 10/03/18 Pantoprazole Sodium [Protonix -] 40 mg PO DAILY #30 tablet.ec 10/05/18 Amitriptyline HCl 25 mg PO HS 09/11/19 Furosemide 20 mg PO DAILY 09/11/19 Linaclotide [Linzess] 72 mcg PO DAILY 09/11/19 Vital Signs - 24 hr 09/11/19 13:51 Temperature Pulse Rate Pulse Rate [ 79 Apical] Respiratory 20 Rate Blood Pressure Blood Pressure 138/78 [Right Arm] O2 Sat by Pulse 100 Oximetry (%) Physical Exam general: resting in bed, tachypneic , in mild distress HEENT: NCAT, PERRLA neck: supple cardio: +tachycardic rate. no r/m/g pulm: +tachypneic. otherwise CTA b/l, but poor resp effort, no rhonchi, or crackles abdomen: nontender, nondistended. neuro: +confused. 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 moving UE, LE independently. LE: 2+ pulses, no edema Laboratory Tests 09/11/19 09/11/19 09/11/19 08:35 09:10 09:10 WBC 15.0 H Hgb 11.1 Hct 36.2 D Plt Count 792 H D Puncture Site ABG pH VBG Base Excess Sodium 129 L Potassium 4.5 Chloride 94 L Carbon Dioxide 4 L Anion Gap 31 H BUN 70.9 H Creatinine 5.1 H Est GFR (CKD-EPI)AfAm 9.22 Est GFR (CKD-EPI)NonAf 7.96 POC Glucometer 114 Random Glucose 145 H Lactic Acid Calcium 8.3 L Phosphorus Magnesium Total Bilirubin 0.6 AST 1005 H ALT 1658 H Alkaline Phosphatase 237 H Ammonia Creatine Kinase 126 Troponin I < 0.02 B-Natriuretic Peptide Total Protein 7.6 Albumin 3.4 Lipase 6492 H Urine Protein Hep B Core IgM Ab Influenza B (Rapid) 09/11/19 09/11/19 09/11/19 09:10 10:45 12:14 ABG pH ABG pCO2 at Pt Temp ABG pO2 at Pt Temp ABG O2 Sat (Measured) ABG O2 Content Sodium 129 L Potassium 4.5 Chloride 94 L Carbon Dioxide 4 L Anion Gap 31 H BUN 70.9 H Creatinine 5.1 H Lactic Acid 2.7 H* 2.9 H* 09/11/19 12:28 ABG pH 7.05 L* ABG pCO2 at Pt Temp < 9.0 L* ABG pO2 at Pt Temp 136 H ABG O2 Sat (Measured) 97.5 ABG O2 Content 15.9 Sodium Potassium Chloride Carbon Dioxide Anion Gap BUN Creatinine Lactic Acid 09/11/19 09/11/19 09/11/19 09:10 09:10 11:35 AST 1005 H ALT 1658 H Alkaline Phosphatase 237 H Ammonia < 10.00 L Creatine Kinase 126 Troponin I < 0.02 B-Natriuretic Peptide 1541.2 H 09/11/19 09/11/19 09:10 09:10 Hep A IgM Ab Confirm Pending Hep Bs Antigen Pending Hep B Core IgM Ab Pending Hepatitis C Ab (EIA) Pending Influenza A (Rapid) Negative Influenza B (Rapid) Negative Imaging 09/11/19: CXR: prominent mediastinum, slight increase in central vascular markings , no sign of peripheral infiltrate or failure 09/11/19: EKG: NSR, FL 160ms, TWI I, V1,V2. qtc 449ms, poor quality ekg ASSESSMENT/PLAN: 69 y/o old F with PMH of CKD stage 3/4, alpha thalassemia, DM and HTN, who presented with generalized weakness and tachypnea. Was found to have acute on chronic renal failure with severe metabolic acidosis, as well as shock liver. #Acute toxic metabolic encephalopathy 2/2 acetaminophen toxicity -acetaminophen level 153.7 -f/u salicylate level, stat repeat LFTs -guarded prognosis, given hyperphosphatemia -if pt able to tolerate PO (and not aspiration risk), can give activated charcoal 1mg/kg dose x once to reduce pill burden -d/w poison control center: -currently s/p loading dose bag of NAC (bag 1) -Bag 2: NAC 50mg/kg dose in 500 cc d5w to run over 4 hours to continue immediately after (ordered) if patient is being dialyzed while receiving 2nd bag NAC, must double amount of infusion to 100mg /kg only during the dialysis session -Bag3: NAC 100mg/kg in 1L D5w to run over 16 hours (if patient is being dialyzed, same as above, during that time frame, must double amount) -Pt must continue to receive dose of Bag3 indefinitely until transfer* -psych consult: Dr. Duque; in case 2/2 OD -though not stable for transfer, per poison control, should reach out to transplant facility now #severe metabolic acidosis #acute on chronic renal failure -s/p NS 2L bolus. started on sodium bicarb gtt at 150 cc/hr -trend chem, ABG q8hr -f/u ethylene glycol, isopropyl, methanol studies -s/p trialysis (09/11/19); to start emergent dialysis -nephro: Dr. Reed #Acute liver failure/ shock liver 2/2 acetaminophen toxicity -f/u hep serologies -needs transfer to transplant center once more stable -c/w lactulose 30g BID -f/u abd US, portal/hepatic vein anatomy -f/u ID evaluation, r/o infectious etiology -GI: Dr. C DiGiorno -ID: Dr. Joseph #F/E/N sodium bicarb 150 cc/hr continue to follow lytes NPO; aspiration risk #PPX DVT: SCD's #Dispo admit to ICU poison control to be updated Visit type - Emergency Visit Emergency Visit: Yes ED Registration Date: 09/11/19 Care time: The patient presented to the Emergency Department on the above date and was hospitalized for further evaluation of their emergent condition. - New Patient This patient is new to me today: Yes Date on this admission: 09/11/19 - Critical Care Critical Care patient: Yes Total Critical Care Time (in minutes): 45 Critical Care Statement: The care of this patient involved high complexity decision making to prevent further life threatening deterioration of the patient 's condition and/or to evaluate & treat vital organ system(s) failure or risk of failure.
--- NOTE | 2019-09-11 16:07 | PROC ---
Central Line Insertion Indication: Other (Hemodialysis (MARQUES on CKD)) Risks and Benefits Explained: Yes Consent on Chart: Yes Central Line: Dialysis Cath, Tri Lumen Anesthesia: 1% Lidocaine Sterile Technique: Yes Ultrasound Guided Assistance: Yes Position: Right Internal Jugular Post Insertion: Yes: Chest X-Ray Ordered Sterile Dressing Applied: Yes
[2019-09-11] MEDS ORDERED: SODIUM CHLORIDE 0.9% 500 ML INFUS.BAG IV ONE (16:25)
--- NOTE | 2019-09-11 16:44 | PN ---
Progress Note (short form) - Note Progress Note: Called [facility] transfer Center to transfer Pt for tylenol poisoning with pH of 7.05. Spoke to Dr Clarke who wants for pateint to get dialysis first and have me call back the transfer center with post dialysis abg as pt needs PH improved prior to transfer. CXR after R trialysis insertion was read with Dr Martínez and noted to be at the junction of the R atrium. No pneumothorax noted. Line can be used for dialysis
[2019-09-11] MEDS: DEXTROSE 5%-WATER - 1,000 ML with SODIUM BICARBONATE 8.4% - 150 MEQ IV SCH (16:52)
[2019-09-11 17:00] LABS: ARTERIAL BLD GAS O2 SATURATION 98.1 % (95-98)
[2019-09-11 17:08] LABS: ARTERIAL BLOOD GAS PCO2 < 9.0 mmHg (35-45); ARTERIAL BLOOD GAS PO2 152 mmHg (80-100); ARTERIAL BLOOD GAS pH 7.09 (7.35-7.45)
[2019-09-11 17:14] LABS: ALLENS TEST POSITIVE
[2019-09-11 17:14] LABS: ANISOCYTOSIS 2+
[2019-09-11 17:15] LABS: PLATELET ESTIMATE INCREASED; TARGET CELLS 1+
[2019-09-11 18:58] LABS: ALBUMIN 2.8 g/dl (3.4-5.0); BILIRUBIN,DIRECT 0.3 mg/dL (0.0-0.2); BILIRUBIN,TOTAL 0.5 mg/dL (0.2-1); TOT PROT 6.1 g/dl (6.4-8.2)
--- NOTE | 2019-09-11 19:08 | PN ---
Teaching Attending Note Name of Resident: Mercedes Barr ATTENDING PHYSICIAN STATEMENT I saw and evaluated the patient. I reviewed the resident's note and discussed the case with the resident. I agree with the resident's findings and plan as documented. 69 y.o. AA F w/ h/o CKD 4, alpha thalassemia, T2DM, HTN, presents w/ generalized weakness and tachypnea. In ED pt. was found to be in overt renal failure, requiring aggressive diuresis, supplemental oxygen, and ICU evaluation. Patient was given pushes of bicarbonate due to severe HAGMA. Patient endorses ingesting 6-8 pills of Tylenol per day due to generalized aches and pains. She also c/o decreased PO intake, lethargy, and weakness. In ED pt. started on bicarbonate, albumin, NAC, pending emergent HD. GA: resting in bed, tachypneic , in mild distress HEENT: NCAT, PERRLA Neck: supple CVS: S1, S2+, sinus tachycardia, no m/r/g Chest: +tachypneic. otherwise CTA b/l, but poor resp effort, no rhonchi, or crackles Abd: nontender, nondistended. no guarding Neuro: +confused. 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 moving UE, LE independently. LE: 2+ pulses, no edema Vital Signs - 24 hr 09/11/19 09/11/19 09/11/19 08:14 08:50 12:38 Temperature 97.3 F L Pulse Rate 79 Pulse Rate [ Apical] Respiratory 16 Rate Blood Pressure 142/56 L Blood Pressure [Right Arm] O2 Sat by Pulse 100 100 100 Oximetry (%) 09/11/19 09/11/19 09/11/19 12:47 13:51 17:00 Temperature 97.6 F 97.1 F L Pulse Rate 72 76 Pulse Rate [ 79 Apical] Respiratory 20 20 21 H Rate Blood Pressure 118/44 L 109/54 L Blood Pressure 138/78 [Right Arm] O2 Sat by Pulse 100 100 Oximetry (%) Laboratory Results - last 24 hr 09/11/19 09/11/19 09/11/19 08:35 09:10 09:10 WBC 15.0 H RBC 3.70 Hgb 11.1 Hct 36.2 D MCV 98.0 H MCH 29.9 MCHC 30.5 L RDW 18.0 H Plt Count 792 H D MPV 7.7 D Absolute Neuts (auto) 10.7 H Neutrophils % No Result Required. Neutrophils % (Manual) 91.0 H Band Neutrophils % 1.0 Lymphocytes % No Result Required. Lymphocytes % (Manual) 4.0 L Monocytes % (Manual) 4 Eosinophils % (Manual) 0.0 Basophils % (Manual) 0.0 Nucleated RBC % 1 H Hypochromia 1+ Platelet Estimate Increased Platelet Comment No clumping noted Poikilocytosis 2+ Anisocytosis 2+ Target Cells 1+ Acanthocytes (Spur) 2+ PT with INR INR PTT (Actin FS) Anticoagulation Therapy Puncture Site ABG pH ABG pCO2 at Pt Temp ABG pO2 at Pt Temp ABG HCO3 ABG O2 Sat (Measured) ABG O2 Content ABG Base Excess [place] Test VBG pH POC VBG pCO2 POC VBG pO2 VBG HCO3 VBG O2 Sat (Scot) VBG Base Excess Carboxyhemoglobin Methemoglobin O2 Delivery Device Oxygen Flow Rate Vent Mode Vent Rate Mechanical Rate Pressure Support Vent Sodium 129 L Potassium 4.5 Chloride 94 L Carbon Dioxide 4 L Anion Gap 31 H BUN 70.9 H Creatinine 5.1 H Est GFR (CKD-EPI)AfAm 9.22 Est GFR (CKD-EPI)NonAf 7.96 POC Glucometer 114 Random Glucose 145 H Lactic Acid Calcium 8.3 L Phosphorus Magnesium Total Bilirubin 0.6 Direct Bilirubin AST 1005 H ALT 1658 H Alkaline Phosphatase 237 H Ammonia Creatine Kinase 126 Troponin I < 0.02 B-Natriuretic Peptide Total Protein 7.6 Albumin 3.4 Lipase 6492 H Urine Color Urine Appearance Urine pH Ur Specific [place] Urine Protein Urine Glucose (UA) Urine Ketones Urine Blood Urine Nitrite Urine Bilirubin Urine Urobilinogen Ur Leukocyte Esterase Urine WBC (Auto) Urine RBC (Auto) Urine Casts (Auto) U Pathogenic Cast Auto U Epithel Cells (Auto) Urine Bacteria (Auto) Salicylates Opiates Screen Methadone Screen Acetaminophen Barbiturate Screen Phencyclidine Screen Ur Amphetamines Screen MDMA (Ecstasy) Screen Benzodiazepines Screen Cocaine Screen U Marijuana (THC) Screen Influenza A (Rapid) Influenza B (Rapid) 09/11/19 09/11/19 09/11/19 09:10 09:10 09:10 WBC RBC Hgb Hct MCV MCH MCHC RDW Plt Count MPV Absolute Neuts (auto) Neutrophils % Neutrophils % (Manual) Band Neutrophils % Lymphocytes % Lymphocytes % (Manual) Monocytes % (Manual) Eosinophils % (Manual) Basophils % (Manual) Nucleated RBC % Hypochromia Platelet Estimate Platelet Comment Poikilocytosis Anisocytosis Target Cells Acanthocytes (Spur) PT with INR INR PTT (Actin FS) Anticoagulation Therapy Puncture Site ABG pH ABG pCO2 at Pt Temp ABG pO2 at Pt Temp ABG HCO3 ABG O2 Sat (Measured) ABG O2 Content ABG Base Excess [place] Test VBG pH 7.01 L* POC VBG pCO2 11.8 L* POC VBG pO2 67.2 H VBG HCO3 2.9 L VBG O2 Sat (Scot) 86.7 H VBG Base Excess -28.4 L Carboxyhemoglobin Methemoglobin O2 Delivery Device Oxygen Flow Rate Vent Mode Vent Rate Mechanical Rate Pressure Support Vent Sodium Potassium Chloride Carbon Dioxide Anion Gap BUN Creatinine Est GFR (CKD-EPI)AfAm Est GFR (CKD-EPI)NonAf POC Glucometer Random Glucose Lactic Acid Calcium Phosphorus 8.4 H Magnesium 5.2 H Total Bilirubin Direct Bilirubin AST ALT Alkaline Phosphatase Ammonia Creatine Kinase Troponin I B-Natriuretic Peptide 1541.2 H Total Protein Albumin Lipase Urine Color Urine Appearance Urine pH Ur Specific [place] Urine Protein Urine Glucose (UA) Urine Ketones Urine Blood Urine Nitrite Urine Bilirubin Urine Urobilinogen Ur Leukocyte Esterase Urine WBC (Auto) Urine RBC (Auto) Urine Casts (Auto) U Pathogenic Cast Auto U Epithel Cells (Auto) Urine Bacteria (Auto) Salicylates Opiates Screen Methadone Screen Acetaminophen Barbiturate Screen Phencyclidine Screen Ur Amphetamines Screen MDMA (Ecstasy) Screen Benzodiazepines Screen Cocaine Screen U Marijuana (THC) Screen Influenza A (Rapid) Influenza B (Rapid) 09/11/19 09/11/19 09/11/19 09:10 10:45 11:33 WBC RBC Hgb Hct MCV MCH MCHC RDW Plt Count MPV Absolute Neuts (auto) Neutrophils % Neutrophils % (Manual) Band Neutrophils % Lymphocytes % Lymphocytes % (Manual) Monocytes % (Manual) Eosinophils % (Manual) Basophils % (Manual) Nucleated RBC % Hypochromia Platelet Estimate Platelet Comment Poikilocytosis Anisocytosis Target Cells Acanthocytes (Spur) PT with INR INR PTT (Actin FS) Anticoagulation Therapy Puncture Site ABG pH ABG pCO2 at Pt Temp ABG pO2 at Pt Temp ABG HCO3 ABG O2 Sat (Measured) ABG O2 Content ABG Base Excess [place] Test VBG pH POC VBG pCO2 POC VBG pO2 VBG HCO3 VBG O2 Sat (Scot) VBG Base Excess Carboxyhemoglobin Methemoglobin O2 Delivery Device Oxygen Flow Rate Vent Mode Vent Rate Mechanical Rate Pressure Support Vent Sodium Potassium Chloride Carbon Dioxide Anion Gap BUN Creatinine Est GFR (CKD-EPI)AfAm Est GFR (CKD-EPI)NonAf POC Glucometer Random Glucose Lactic Acid 2.7 H* Calcium Phosphorus Magnesium Total Bilirubin Direct Bilirubin AST ALT Alkaline Phosphatase Ammonia Creatine Kinase Troponin I B-Natriuretic Peptide Total Protein Albumin Lipase Urine Color Urine Appearance Urine pH Ur Specific [place] Urine Protein Urine Glucose (UA) Urine Ketones Urine Blood Urine Nitrite Urine Bilirubin Urine Urobilinogen Ur Leukocyte Esterase Urine WBC (Auto) Urine RBC (Auto) Urine Casts (Auto) U Pathogenic Cast Auto U Epithel Cells (Auto) Urine Bacteria (Auto) Salicylates Opiates Screen Methadone Screen Acetaminophen 153.7 Barbiturate Screen Phencyclidine Screen Ur Amphetamines Screen MDMA (Ecstasy) Screen Benzodiazepines Screen Cocaine Screen U Marijuana (THC) Screen Influenza A (Rapid) Negative Influenza B (Rapid) Negative 09/11/19 09/11/19 09/11/19 11:33 11:35 12:14 WBC RBC Hgb Hct MCV MCH MCHC RDW Plt Count MPV Absolute Neuts (auto) Neutrophils % Neutrophils % (Manual) Band Neutrophils % Lymphocytes % Lymphocytes % (Manual) Monocytes % (Manual) Eosinophils % (Manual) Basophils % (Manual) Nucleated RBC % Hypochromia Platelet Estimate Platelet Comment Poikilocytosis Anisocytosis Target Cells Acanthocytes (Spur) PT with INR 16.20 H INR 1.37 H PTT (Actin FS) 45.1 H Anticoagulation Therapy Puncture Site ABG pH ABG pCO2 at Pt Temp ABG pO2 at Pt Temp ABG HCO3 ABG O2 Sat (Measured) ABG O2 Content ABG Base Excess [place] Test VBG pH POC VBG pCO2 POC VBG pO2 VBG HCO3 VBG O2 Sat (Scot) VBG Base Excess Carboxyhemoglobin Methemoglobin O2 Delivery Device Oxygen Flow Rate Vent Mode Vent Rate Mechanical Rate Pressure Support Vent Sodium Potassium Chloride Carbon Dioxide Anion Gap BUN Creatinine Est GFR (CKD-EPI)AfAm Est GFR (CKD-EPI)NonAf POC Glucometer Random Glucose Lactic Acid 2.9 H* Calcium Phosphorus Magnesium Total Bilirubin Direct Bilirubin AST ALT Alkaline Phosphatase Ammonia < 10.00 L Creatine Kinase Troponin I B-Natriuretic Peptide Total Protein Albumin Lipase Urine Color Urine Appearance Urine pH Ur Specific [place] Urine Protein Urine Glucose (UA) Urine Ketones Urine Blood Urine Nitrite Urine Bilirubin Urine Urobilinogen Ur Leukocyte Esterase Urine WBC (Auto) Urine RBC (Auto) Urine Casts (Auto) U Pathogenic Cast Auto U Epithel Cells (Auto) Urine Bacteria (Auto) Salicylates Opiates Screen Methadone Screen Acetaminophen Barbiturate Screen Phencyclidine Screen Ur Amphetamines Screen MDMA (Ecstasy) Screen Benzodiazepines Screen Cocaine Screen U Marijuana (THC) Screen Influenza A (Rapid) Influenza B (Rapid) 09/11/19 09/11/19 09/11/19 12:28 13:59 13:59 WBC RBC Hgb Hct MCV MCH MCHC RDW Plt Count MPV Absolute Neuts (auto) Neutrophils % Neutrophils % (Manual) Band Neutrophils % Lymphocytes % Lymphocytes % (Manual) Monocytes % (Manual) Eosinophils % (Manual) Basophils % (Manual) Nucleated RBC % Hypochromia Platelet Estimate Platelet Comment Poikilocytosis Anisocytosis Target Cells Acanthocytes (Spur) PT with INR INR PTT (Actin FS) Anticoagulation Therapy No Result Required. Puncture Site Right brachial ABG pH 7.05 L* ABG pCO2 at Pt Temp < 9.0 L* ABG pO2 at Pt Temp 136 H ABG HCO3 No Result Required. ABG O2 Sat (Measured) 97.5 ABG O2 Content 15.9 ABG Base Excess No Result Required. [place] Test Positive VBG pH POC VBG pCO2 POC VBG pO2 VBG HCO3 VBG O2 Sat (Scot) VBG Base Excess Carboxyhemoglobin 0.5 Methemoglobin < 1.0 O2 Delivery Device No Result Required. Oxygen Flow Rate N0 Vent Mode No Result Required. Vent Rate No Result Required. Mechanical Rate No Result Required. Pressure Support Vent No Result Required. Sodium Potassium Chloride Carbon Dioxide Anion Gap BUN Creatinine Est GFR (CKD-EPI)AfAm Est GFR (CKD-EPI)NonAf POC Glucometer Random Glucose Lactic Acid Calcium Phosphorus Magnesium Total Bilirubin Direct Bilirubin AST ALT Alkaline Phosphatase Ammonia Creatine Kinase Troponin I B-Natriuretic Peptide Total Protein Albumin Lipase Urine Color Yellow Urine Appearance Cloudy Urine pH 5.0 Ur Specific [place] 1.021 Urine Protein 2+ H Urine Glucose (UA) Trace Urine Ketones Negative Urine Blood Negative Urine Nitrite Negative Urine Bilirubin Negative Urine Urobilinogen 0.2 Ur Leukocyte Esterase Negative Urine WBC (Auto) 2 Urine RBC (Auto) 1 Urine Casts (Auto) 30 U Pathogenic Cast Auto None seen U Epithel Cells (Auto) 9.1 Urine Bacteria (Auto) 2.6 Salicylates Opiates Screen Negative Methadone Screen Negative Acetaminophen Barbiturate Screen Negative Phencyclidine Screen Negative Ur Amphetamines Screen Negative MDMA (Ecstasy) Screen Negative Benzodiazepines Screen Negative Cocaine Screen Negative U Marijuana (THC) Screen Negative Influenza A (Rapid) Influenza B (Rapid) 09/11/19 09/11/19 09/11/19 15:40 15:40 16:20 WBC RBC Hgb Hct MCV MCH MCHC RDW Plt Count MPV Absolute Neuts (auto) Neutrophils % Neutrophils % (Manual) Band Neutrophils % Lymphocytes % Lymphocytes % (Manual) Monocytes % (Manual) Eosinophils % (Manual) Basophils % (Manual) Nucleated RBC % Hypochromia Platelet Estimate Platelet Comment Poikilocytosis Anisocytosis Target Cells Acanthocytes (Spur) PT with INR INR PTT (Actin FS) Anticoagulation Therapy No Result Required. Puncture Site Right radial ABG pH 7.09 L* ABG pCO2 at Pt Temp < 9.0 L* ABG pO2 at Pt Temp 152 H ABG HCO3 No Result Required. ABG O2 Sat (Measured) 98.1 H ABG O2 Content 14.0 ABG Base Excess No Result Required. [place] Test Positive VBG pH POC VBG pCO2 POC VBG pO2 VBG HCO3 VBG O2 Sat (Scot) VBG Base Excess Carboxyhemoglobin Methemoglobin O2 Delivery Device N/c Oxygen Flow Rate Yes Vent Mode No Result Required. Vent Rate No Result Required. Mechanical Rate No Result Required. Pressure Support Vent No Result Required. Sodium Potassium Chloride Carbon Dioxide Anion Gap BUN Creatinine Est GFR (CKD-EPI)AfAm Est GFR (CKD-EPI)NonAf POC Glucometer Random Glucose Lactic Acid Calcium Phosphorus Magnesium Total Bilirubin 0.5 Direct Bilirubin 0.3 H AST 606 H ALT 1234 H Alkaline Phosphatase 199 H Ammonia Creatine Kinase Troponin I B-Natriuretic Peptide Total Protein 6.1 L Albumin 2.8 L Lipase Urine Color Urine Appearance Urine pH Ur Specific [place] Urine Protein Urine Glucose (UA) Urine Ketones Urine Blood Urine Nitrite Urine Bilirubin Urine Urobilinogen Ur Leukocyte Esterase Urine WBC (Auto) Urine RBC (Auto) Urine Casts (Auto) U Pathogenic Cast Auto U Epithel Cells (Auto) Urine Bacteria (Auto) Salicylates 2.1 L Opiates Screen Methadone Screen Acetaminophen Barbiturate Screen Phencyclidine Screen Ur Amphetamines Screen MDMA (Ecstasy) Screen Benzodiazepines Screen Cocaine Screen U Marijuana (THC) Screen Influenza A (Rapid) Influenza B (Rapid) Current Medications Generic Name Dose Route Start Last Admin Trade Name Freq PRN Reason Stop Dose Admin Albumin Human 12.5 gm 09/11/19 13:15 Albumin Human 25% IVPB 09/11/19 14:46 Q30M HARPREET Sodium Chloride 250 mls @ 3,000 mls/hr 09/11/19 13:06 Normal Saline - IV 09/12/19 13:06 PRN PRN Hypotension during Dialysis Sodium Bicarbonate 150 meq/ 1,150 mls @ 150 mls/hr 09/11/19 15:30 09/11/19 16 :52 Dextrose IV 150 mls/hr Q8H HARPREET Administration A/P: 69 F h./o CKD 4 now in acute renal failure requiring HD for refractory acidemia with impending respiratory failure. Patient also found to have transaminitis w/ LFTs in the thousands. Patient transferred to ICU for shiley placement, HD and further care. Acute on chronic renal failure CKD 4 now in acute renal failure requiring HD/[employer], awaiting shiley placement for immediate HD due to refractory acidemia with HAGMA Send toxicology workup Supplement bicarb PRN, follow w/ serial ABGs, low threshold for intubation correct electrolytes aggressively awaiting HD Transfuse PRN ICU consult: Dr Martínez Renal consult: Dr. Reed Massive transaminitis due to hepatic injury, shock liver v.s. acetaminophen toxicity NAC started, IV hydration, trend LFTs, if LFTs cont. to rise transfer to liver transplant center Lactulose, full ABD US ID consult: Dr Joseph GI: Dr Chavez DVT PPX: SCD for now GI PPX: PPI FEN IVF/daily chem/NPO for now rest of care as per ICU team
[2019-09-11] MEDS ORDERED: SODIUM CHLORIDE 250 ML IV PRN (19:23)
[2019-09-11] MEDS ORDERED: WATER IVPB ONE ×2 (20:20→21:35)
[2019-09-11] MEDS ORDERED: DEXTROSE 5% IVPB ONE ×2 (20:20→21:35)
[2019-09-11] MEDS ORDERED: ACETYLCYSTEINE IVPB ONE ×2 (20:20→21:35)
[2019-09-11] MEDS: ALBUMIN HUMAN 25% 12.5 GM/50 ML VIAL IVPB SCH ×3 (20:21→21:06)
[2019-09-11 21:54] LABS: ARTERIAL BLD GAS O2 SATURATION 99.4 % (95-98); ARTERIAL BLOOD GAS BASE EXCESS -0.3 meq/l (-2-2); ARTERIAL BLOOD GAS PCO2 29.4 mmHg (35-45); ARTERIAL BLOOD GAS PO2 139 mmHg (80-100); ARTERIAL BLOOD GAS pH 7.49 (7.35-7.45)
[2019-09-11 21:55] LABS: ALLENS TEST POSITIVE
[2019-09-11 22:02] LABS: BASO % 0.2 % (0-2.0); EOS % 0.1 % (0-4.5); HEMATOCRIT 28.8 % (32.4-45.2); HEMOGLOBIN 9.7 GM/dL (10.7-15.3); LYMPH % 18.8 % (8-40); MCH 30.6 pg (25.7-33.7); MCHC 33.5 g/dl (32.0-36.0); MEAN CELL VOLUME 91.2 fl (80-96); MEAN PLT VOLUME 7.5 fl (7.5-11.1); MONO % 3.4 % (3.8-10.2); NEUT % 77.5 % (42.8-82.8); PLATELET COUNT 488 K/MM3 (134-434); RBC 3.16 M/mm3 (3.60-5.2); RDW 16.8 % (11.6-15.6); WHITE BLOOD COUNT 10.9 K/mm3 (4.0-10.0)
[2019-09-11 22:40] LABS: ALBUMIN 2.8 g/dl (3.4-5.0); ALK PHOS 197 U/L (45-117); ANION GAP 15 MMOL/L (8-16); BILIRUBIN,TOTAL 0.7 mg/dL (0.2-1); BLOOD UREA NITROGEN 26.1 mg/dL (7-18); CALCIUM 7.3 mg/dL (8.5-10.1); CHLORIDE 99 mmol/L (98-107); CO2 25 mmol/L (21-32); CREATININE 1.9 mg/dL (0.55-1.3); GLUCOSE,RANDOM 204 mg/dL (74-106); SGOT/AST 554 U/L (15-37); SGPT/ALT 1179 U/L (13-61); SODIUM 138 mmol/L (136-145)
[2019-09-11 22:42] LABS: POTASSIUM 2.9 mmol/L (3.5-5.1)
[2019-09-11] MEDS ORDERED: POTASSIUM CHLORIDE 20 MEQ PREMIX IVPB 100 ML IVPB ONE (22:45)
[2019-09-11] MEDS ORDERED: POTASSIUM CHLORIDE ORAL LIQUID 20 MEQ/15 ML PO ONE (22:45)
[2019-09-12] MEDS: DEXTROSE 5%-WATER - 1,000 ML with SODIUM BICARBONATE 8.4% - 150 MEQ IV SCH (01:07)
[2019-09-12 02:42] VITALS: BP 140/69; PULSE 94; TEMP 99.9
[2019-09-14 15:08] LABS: METHANOL, BLOOD Negative % (0.000-0.010)
== END 2019-09-12 03:59 | disposition short-term general hospital (02) | DRG 917 ==
LOC: JER 08:14 → JERBED 12:47 → JICU 14:18
PROC: 05HM33Z Insertion of Infusion Device into Right Internal Jugular Vein, Percutaneous Approach (ICD-10-PCS; principal; 2019-09-11)
PROC: B513ZZA Fluoroscopy of Right Jugular Veins, Guidance (ICD-10-PCS; 2019-09-11)
DX: T39.1X1A Poisoning by 4-Aminophenol derivatives, accidental (unintentional), initial encounter (principal); K72.00 Acute and subacute hepatic failure without coma; G92 Toxic encephalopathy; E87.2 Acidosis; N17.9 Acute kidney failure, unspecified; E87.1 Hypo-osmolality and hyponatremia; S36.119A Unspecified injury of liver, initial encounter; I13.0 Hypertensive heart and chronic kidney disease with heart failure and stage 1 through stage 4 chronic kidney disease, or unspecified chronic kidney disease; N18.4 Chronic kidney disease, stage 4 (severe); R53.83 Other fatigue; Y92.098 Other place in other non-institutional residence as the place of occurrence of the external cause; D56.0 Alpha thalassemia; I50.9 Heart failure, unspecified; E11.22 Type 2 diabetes mellitus with diabetic chronic kidney disease; R94.5 Abnormal results of liver function studies; E83.39 Other disorders of phosphorus metabolism
CPT/HCPCS: 36415; 36600; 71045-TC-FY; 76705-TC; 80053; 80074; 80076; 80307; 81003; 82140; 82375; 82550; 82693; 82803; 82962; 83050; 83605; 83690; 83735; 83880; 84100; 84484; 85025; 85610; 85730; 87086; 87804; 93005; 93010; 93976; 94660; 99285-25; G0480; J7030

== ENCOUNTER 2020-08-06 03:30 | Inpatient (IN) | payer OTHER ==
[2020-08-06] MEDS ORDERED: FUROSEMIDE 40 MG/4 ML INJECTABLE VIAL IVPUSH ONE (04:21)
[2020-08-06] MEDS ORDERED: FUROSEMIDE 40 MG/4 ML INJECTABLE VIAL ONE ×2 (04:26→13:26)
[2020-08-06 05:08] LABS: EOS % 3.9 % (0-4.5); HEMATOCRIT 35.9 % (32.4-45.2); HEMOGLOBIN 11.6 GM/dL (10.7-15.3); LYMPH % 27.6 % (8-40); MCH 26.8 pg (25.7-33.7); MCHC 32.3 g/dl (32.0-36.0); MEAN CELL VOLUME 83.1 fl (80-96); MEAN PLT VOLUME 9.6 fl (7.5-11.1); MONO % 9.3 % (3.8-10.2); NEUT % 58.2 % (42.8-82.8); PLATELET COUNT 395 K/MM3 (134-434); RBC 4.32 M/mm3 (3.60-5.2); RDW 15.2 % (11.6-15.6); WHITE BLOOD COUNT 5.6 K/mm3 (4.0-10.0)
[2020-08-06 05:32] LABS: ALBUMIN 3.3 g/dl (3.4-5.0)
[2020-08-06 05:34] LABS: BLOOD UREA NITROGEN 22.8 mg/dL (7-18); CALCIUM 8.7 mg/dL (8.5-10.1)
[2020-08-06 05:37] LABS: CREATININE 1.7 mg/dL (0.55-1.3)
[2020-08-06 05:39] LABS: BILIRUBIN,TOTAL 0.3 mg/dL (0.2-1); TOT PROT 7.9 g/dl (6.4-8.2)
[2020-08-06] MEDS ORDERED: HEPARIN NA (PORCINE) 5,000 UNITS/ML 1ML VIAL IVPUSH PRN ×2 (06:01)
[2020-08-06] MEDS ORDERED: HEPARIN INFUSION - 25,000 UNITS/500 ML INFUS.BAG IVPB ONE (06:14)
[2020-08-06] MEDS ORDERED: HEPARIN NA (PORCINE) 5,000 UNITS/ML 1ML VIAL ONE (06:15)
[2020-08-06 06:59] LABS: ERYTHROCYTE SEDIMENTATION RATE 86 mm/hr (0-30)
[2020-08-06] MEDS: HEPARIN - 25,000 UNIT in SODIUM CHLORIDE 495 ML IV SCH ×2 (07:17→12:45)
[2020-08-06 09:06] LABS: ACTIVATED PTT > 400.0 SECONDS (25.2-36.5)
[2020-08-06 10:02] LABS: INR 0.97 (0.83-1.09); PROTHROMBIN TIME (PATIENT) 11.7 SEC (9.7-13.0)
[2020-08-06 10:05] LABS: ACTIVATED PTT 101.9 SECONDS (25.2-36.5)
[2020-08-06] MEDS ORDERED: GABAPENTIN 100 MG CAPSULE ONE ×2 (13:26→21:18)
[2020-08-06] MEDS: FUROSEMIDE 40 MG/4 ML INJECTABLE VIAL IVPUSH SCH (13:43)
[2020-08-06] MEDS: GABAPENTIN 100 MG CAPSULE PO SCH ×2 (13:43→21:36)
[2020-08-06] MEDS: INSULIN SLIDING SCALE (NOVOLOG) 1 VIAL SQ SCH ×2 (17:49→21:02)
[2020-08-06] MEDS ORDERED: LIDOCAINE 5% TOPICAL PATCH TP ONE (19:53)
[2020-08-06] MEDS ORDERED: LIDOCAINE 5% TOPICAL PATCH ONE (20:24)
[2020-08-06] MEDS: LIDOCAINE PATCH REMOVAL MC SCH (21:02)
[2020-08-07 03:52] VITALS: BMI 26.5
[2020-08-07] MEDS: HEPARIN NA (PORCINE) 5,000 UNITS/ML 1ML VIAL SQ SCH ×3 (06:48→21:27)
[2020-08-07] MEDS: FUROSEMIDE 40 MG/4 ML INJECTABLE VIAL IVPUSH SCH ×2 (06:48→14:59)
[2020-08-07] MEDS: GABAPENTIN 100 MG CAPSULE PO SCH ×3 (06:48→21:27)
[2020-08-07] MEDS: INSULIN SLIDING SCALE (NOVOLOG) 1 VIAL SQ SCH ×2 (06:49→11:42)
[2020-08-07 07:07] LABS: BASO % 1.1 % (0-2.0); HEMATOCRIT 37.7 % (32.4-45.2); LYMPH % 27.8 % (8-40); MCH 26.6 pg (25.7-33.7); MCHC 31.8 g/dl (32.0-36.0); MEAN CELL VOLUME 83.5 fl (80-96); MEAN PLT VOLUME 9.1 fl (7.5-11.1); MONO % 9.8 % (3.8-10.2); NEUT % 57.3 % (42.8-82.8); PLATELET COUNT 314 K/MM3 (134-434); RBC 4.51 M/mm3 (3.60-5.2); WHITE BLOOD COUNT 5.4 K/mm3 (4.0-10.0)
[2020-08-07 07:44] LABS: CALCIUM 8.9 mg/dL (8.5-10.1)
[2020-08-07 07:45] LABS: ALBUMIN 3.1 g/dl (3.4-5.0); BLOOD UREA NITROGEN 22.3 mg/dL (7-18); MAGNESIUM 3.1 mg/dL (1.8-2.4)
[2020-08-07 07:48] LABS: CREATININE 1.8 mg/dL (0.55-1.3); PHOSPHOROUS 4.5 mg/dL (2.5-4.9)
[2020-08-07 07:49] LABS: BILIRUBIN,TOTAL 0.8 mg/dL (0.2-1); TOT PROT 7.3 g/dl (6.4-8.2)
[2020-08-07 09:27] LABS: INR 0.94 (0.83-1.09); PROTHROMBIN TIME (PATIENT) 11.6 SEC (9.7-13.0)
[2020-08-07] MEDS: PANTOPRAZOLE 40 MG TABLET PO SCH (09:41)
[2020-08-07] MEDS ORDERED: ACETAMINOPHEN 325 MG TABLET (FP) PO PRN (09:50)
[2020-08-07] MEDS ORDERED: amLODIPine BESYLATE 10 MG TABLET (FP) PO SCH (10:00)
[2020-08-07] MEDS: amLODIPine BESYLATE 10 MG TABLET (FP) PO SCH (11:39)
[2020-08-07 18:38] LABS: N-TERMINAL BNP 57.3 pg/ml (5-125)
[2020-08-07] MEDS: LIDOCAINE PATCH REMOVAL MC SCH (21:27)
[2020-08-08] MEDS: FUROSEMIDE 40 MG/4 ML INJECTABLE VIAL IVPUSH SCH (05:53)
[2020-08-08] MEDS: HEPARIN NA (PORCINE) 5,000 UNITS/ML 1ML VIAL SQ SCH ×2 (05:53→13:29)
[2020-08-08] MEDS: GABAPENTIN 100 MG CAPSULE PO SCH ×2 (05:53→13:29)
[2020-08-08 08:20] LABS: CALCIUM 9.5 mg/dL (8.5-10.1)
[2020-08-08 08:21] LABS: BLOOD UREA NITROGEN 26.9 mg/dL (7-18); MAGNESIUM 3.6 mg/dL (1.8-2.4)
[2020-08-08 08:24] LABS: CREATININE 1.9 mg/dL (0.55-1.3)
[2020-08-08 08:25] LABS: PHOSPHOROUS 4.7 mg/dL (2.5-4.9)
[2020-08-08] MEDS ORDERED: PT OWN MED DRAWER 7, Y5N ONE (10:16)
[2020-08-08] MEDS: amLODIPine BESYLATE 10 MG TABLET (FP) PO SCH (10:26)
[2020-08-08] MEDS: PANTOPRAZOLE 40 MG TABLET PO SCH (10:26)
[2020-08-08 13:40] VITALS: BP 140/76; PULSE 68; TEMP 98.2
[2020-08-08] MEDS ORDERED: ROSUVASTATIN CA 20 MG TABLET PO SCH (22:00)
[2020-08-09] MEDS ORDERED: FUROSEMIDE 40 MG TABLET (FP) PO SCH (10:00)
== END 2020-08-08 15:00 | disposition home or self-care (01) | DRG 291 ==
LOC: JER 03:30 → JERBED 08:40 → J4W 08-07 01:43
PROVIDERS: ADMIT Internal Medicine; ATTEND Internal Medicine
DX: I13.0 Hypertensive heart and chronic kidney disease with heart failure and stage 1 through stage 4 chronic kidney disease, or unspecified chronic kidney disease (principal); I50.33 Acute on chronic diastolic (congestive) heart failure; D50.9 Iron deficiency anemia, unspecified; E11.22 Type 2 diabetes mellitus with diabetic chronic kidney disease; N18.30 Chronic kidney disease, stage 3 unspecified; D56.0 Alpha thalassemia; M25.571 Pain in right ankle and joints of right foot; R74.01 Elevation of levels of liver transaminase levels; E78.2 Mixed hyperlipidemia; I34.0 Nonrheumatic mitral (valve) insufficiency
CPT/HCPCS: 36415; 80048; 80053; 80061; 82962; 83036; 83721; 83735; 83880; 84100; 84443; 85025; 85379; 85610; 85651; 85730; 93005; 93010; 93306-TC; 93971-TC; 97116-GP; 97162-GP; 99285-25; C9803; J1644; U0003

== ENCOUNTER 2020-11-23 16:56 | Emergency (ER) | payer OTHER ==
[2020-11-23] MEDS ORDERED: FUROSEMIDE 40 MG/4 ML INJECTABLE VIAL IVPUSH ONE (18:10)
[2020-11-23 18:20] VITALS: BP 131/68; PULSE 86; TEMP 98.8; BMI 26.5
[2020-11-23 19:27] LABS: EOS % 2.4 % (0-4.5); HEMATOCRIT 34.6 % (32.4-45.2); HEMOGLOBIN 10.9 GM/dL (10.7-15.3); LYMPH % 20.7 % (8-40); MCH 25.9 pg (25.7-33.7); MCHC 31.4 g/dl (32.0-36.0); MEAN CELL VOLUME 82.5 fl (80-96); MEAN PLT VOLUME 9.1 fl (7.5-11.1); MONO % 9.5 % (3.8-10.2); NEUT % 66.4 % (42.8-82.8); PLATELET COUNT 355 K/MM3 (134-434); RBC 4.19 M/mm3 (3.60-5.2); WHITE BLOOD COUNT 8.9 K/mm3 (4.0-10.0)
[2020-11-23 19:28] LABS: CHLORIDE 101 mmol/L (98-107); POTASSIUM 4.1 mmol/L (3.5-5.1); SODIUM 135 mmol/L (136-145)
[2020-11-23 19:31] LABS: ALBUMIN 3.3 g/dl (3.4-5.0); ANION GAP 6 MMOL/L (8-16); BLOOD UREA NITROGEN 22.5 mg/dL (7-18); CALCIUM 9.1 mg/dL (8.5-10.1); CO2 28 mmol/L (21-32); GLUCOSE,RANDOM 109 mg/dL (74-106)
[2020-11-23 19:34] LABS: SGOT/AST 33 U/L (15-37); SGPT/ALT 23 U/L (13-61)
[2020-11-23 19:36] LABS: BILIRUBIN,TOTAL 0.3 mg/dL (0.2-1); TOT PROT 8.1 g/dl (6.4-8.2)
[2020-11-23 19:37] LABS: ALK PHOS 102 U/L (45-117)
== END 2020-11-23 20:45 ==
LOC: JER 16:56
DX: R22.43 Localized swelling, mass and lump, lower limb, bilateral (principal)
CPT/HCPCS: 36415; 71045-TC-FY; 73523-TC-FY; 80053; 82550; 82553; 83880; 84484; 85025; 93005; 93010; 93970-TC; 99285-25

== ENCOUNTER 2021-01-03 18:00 | Inpatient (IN) | payer OTHER ==
[2021-01-03 20:35] LABS: BASO % 1.1 % (0-2.0); EOS % 3.4 % (0-4.5); HEMATOCRIT 32.2 % (32.4-45.2); HEMOGLOBIN 10.2 GM/dL (10.7-15.3); LYMPH % 23.3 % (8-40); MCH 25.9 pg (25.7-33.7); MCHC 31.8 g/dl (32.0-36.0); MEAN CELL VOLUME 81.5 fl (80-96); MONO % 9.9 % (3.8-10.2); NEUT % 62.3 % (42.8-82.8); PLATELET COUNT 312 K/MM3 (134-434); RBC 3.95 M/mm3 (3.60-5.2); RDW 15.7 % (11.6-15.6); WHITE BLOOD COUNT 7.6 K/mm3 (4.0-10.0)
[2021-01-03 21:00] LABS: BLOOD UREA NITROGEN 24.9 mg/dL (7-18); CALCIUM 8.6 mg/dL (8.5-10.1)
[2021-01-03 21:03] LABS: CREATININE 2.1 mg/dL (0.55-1.3); PHOSPHOROUS 4.5 mg/dL (2.5-4.9)
[2021-01-03 21:05] LABS: BILIRUBIN,TOTAL 0.2 mg/dL (0.2-1)
[2021-01-03 21:08] LABS: N-TERMINAL BNP 204.9 pg/ml (5-125)
[2021-01-03] MEDS ORDERED: FUROSEMIDE 40 MG/4 ML INJECTABLE VIAL IVPUSH ONE (21:23)
[2021-01-03] MEDS ORDERED: FUROSEMIDE 40 MG/4 ML INJECTABLE VIAL ONE (21:52)
[2021-01-03 23:05] LABS: EPI CELLS 27 /uL (0-25.1); HYALINE CASTS 0 /uL (0-3.1); PH,URINE 7.5 (5.0-8.0); URINE APPEARANCE CLEAR; URINE BACTERIA 119 /uL (0-1359); URINE BILIRUBIN NEGATIVE (NEGATIVE); URINE COLOR YELLOW; URINE GLUCOSE (UA) NEGATIVE (NEGATIVE); URINE KETONE NEGATIVE (NEGATIVE); URINE LEUK ESTERASE 1+ (NEGATIVE); URINE NITRITE NEGATIVE (NEGATIVE); URINE PROTEIN 3+ (NEGATIVE); URINE RBC 6 /uL (0-23.9); URINE UROBILINOGEN 0.2 mg/dL (0.2-1.0); URINE WBC 55 /uL (0-25.8)
[2021-01-04] MEDS ORDERED: HEPARIN NA (PORCINE) 5,000 UNITS/ML 1ML VIAL ONE (01:34)
[2021-01-04] MEDS ORDERED: GABAPENTIN 100 MG CAPSULE ONE (01:34)
[2021-01-04] MEDS: GABAPENTIN 100 MG CAPSULE PO SCH ×3 (01:44→18:37)
[2021-01-04 03:15] LABS: URIC ACID 6.3 mg/dL (2.6-7.2)
[2021-01-04] MEDS: HEPARIN NA (PORCINE) 5,000 UNITS/ML 1ML VIAL SQ SCH ×3 (05:51→22:06)
[2021-01-04 08:39] LABS: HEMATOCRIT 33.6 % (32.4-45.2); HEMOGLOBIN 10.9 GM/dL (10.7-15.3); MCH 26.3 pg (25.7-33.7); MCHC 32.4 g/dl (32.0-36.0); MEAN CELL VOLUME 81.2 fl (80-96); PLATELET COUNT 345 K/MM3 (134-434); RBC 4.13 M/mm3 (3.60-5.2); RDW 15.6 % (11.6-15.6); WHITE BLOOD COUNT 7.3 K/mm3 (4.0-10.0)
[2021-01-04 09:02] LABS: BLOOD UREA NITROGEN 24.3 mg/dL (7-18); CALCIUM 8.9 mg/dL (8.5-10.1); MAGNESIUM 2.6 mg/dL (1.8-2.4)
[2021-01-04 09:04] LABS: URIC ACID 6.4 mg/dL (2.6-7.2)
[2021-01-04 09:05] LABS: PHOSPHOROUS 4.6 mg/dL (2.5-4.9)
[2021-01-04] MEDS ORDERED: POTASSIUM CHLORIDE TABS 20 MEQ TABLET.ER (FP) PO ONE (09:15)
[2021-01-04] MEDS ORDERED: POTASSIUM CHLORIDE ORAL LIQUID 20 MEQ/15 ML PO ONE (09:20)
[2021-01-04 09:44] LABS: IRON SERUM 38 ug/dL (50-175); TOTAL IRON BINDING CAPACITY 365 ug/dL (250-450)
[2021-01-04] MEDS: EZETIMIBE 10 MG TABLET (FP) PO SCH (10:09)
[2021-01-04] MEDS: PATIENT'S OWN MEDICATION (NON-FORMULARY) (Linaclotide [Linzess] 72 MCG Capsule) PO SCH (11:20)
[2021-01-04] MEDS: PANTOPRAZOLE 40 MG TABLET PO SCH (12:41)
[2021-01-04 13:02] VITALS: BMI 33.0
[2021-01-04] MEDS ORDERED: FUROSEMIDE 100 MG/10 ML INJECTABLE VIAL IVPB SCH (14:00)
[2021-01-04] MEDS ORDERED: PATIENT'S OWN MEDICATION (NON-FORMULARY) (Linaclotide [Linzess] 72 MCG Capsule) PO SCH (15:00)
[2021-01-04] MEDS ORDERED: BISACODYL 5 MG TABLET.DR (FP) PO PRN (16:11)
[2021-01-04] MEDS ORDERED: PT OWN MED DRAWER 7, Y5N ONE (16:23)
[2021-01-04 18:13] LABS: CREATININE, URINE RANDOM < 13.0 mg/dL (30-150)
[2021-01-04] MEDS ORDERED: ROSUVASTATIN CA 20 MG TABLET (FP) PO SCH (22:00)
[2021-01-05] MEDS: GABAPENTIN 100 MG CAPSULE PO SCH ×2 (00:37→10:08)
[2021-01-05] MEDS ORDERED: FUROSEMIDE 40 MG/4 ML INJECTABLE VIAL IVPB SCH (06:00)
[2021-01-05] MEDS: HEPARIN NA (PORCINE) 5,000 UNITS/ML 1ML VIAL SQ SCH ×2 (06:33→14:10)
[2021-01-05 08:46] LABS: BLOOD UREA NITROGEN 27.3 mg/dL (7-18)
[2021-01-05 08:48] LABS: CREATININE 1.8 mg/dL (0.55-1.3)
[2021-01-05] MEDS ORDERED: PT OWN MED DRAWER 7, Y5N ONE (10:01)
[2021-01-05] MEDS: EZETIMIBE 10 MG TABLET (FP) PO SCH (10:08)
[2021-01-05] MEDS: PANTOPRAZOLE 40 MG TABLET PO SCH (10:08)
[2021-01-05] MEDS: PATIENT'S OWN MEDICATION (NON-FORMULARY) (Linaclotide [Linzess] 72 MCG Capsule) PO SCH (12:34)
[2021-01-05] MEDS ORDERED: FUROSEMIDE 100 MG/10 ML INJECTABLE VIAL IVPB ONE (13:00)
[2021-01-05] MEDS ORDERED: FUROSEMIDE 40 MG TABLET (FP) PO SCH (14:00)
[2021-01-05] MEDS ORDERED: FUROSEMIDE 40 MG/4 ML INJECTABLE VIAL IVPB ONE (14:15)
[2021-01-05 15:14] VITALS: BP 128/68; PULSE 66; TEMP 98.8
[2021-01-05] MEDS ORDERED: TORSEMIDE 20 MG TABLET (FP) PO ONE (15:16)
[2021-01-06] MEDS ORDERED: FUROSEMIDE 40 MG TABLET (FP) PO SCH (06:00)
== END 2021-01-05 15:43 | disposition home health service (06) | DRG 291 ==
LOC: JER 18:00 → JERBED 21:22 → J5S 01-04 03:05
PROVIDERS: ADMIT Internal Medicine; ATTEND Internal Medicine
DX: I13.0 Hypertensive heart and chronic kidney disease with heart failure and stage 1 through stage 4 chronic kidney disease, or unspecified chronic kidney disease (principal); I50.33 Acute on chronic diastolic (congestive) heart failure; N18.4 Chronic kidney disease, stage 4 (severe); E11.9 Type 2 diabetes mellitus without complications; K21.9 Gastro-esophageal reflux disease without esophagitis; E78.5 Hyperlipidemia, unspecified; E87.70 Fluid overload, unspecified; D63.1 Anemia in chronic kidney disease
CPT/HCPCS: 36415; 71046-TC-FY; 73700-TC-RT; 74176-TC; 80048; 80053; 81003; 82570; 82962; 83540; 83550; 83735; 83880; 83935; 84100; 84156; 84300; 84466; 84550; 85025; 85027; 85045; 93005; 93010; 93971-TC; 97116-GP; 97161-GP; 99285-25; C9803; J1644; U0003; U0005

== ENCOUNTER 2021-08-18 18:53 | Emergency (ER) | payer OTHER ==
[2021-08-18 19:15] VITALS: BMI 24.7
[2021-08-18 21:40] LABS: BASO % 1.3 % (0-2.0); EOS % 4.7 % (0-4.5); HEMATOCRIT 31.2 % (32.4-45.2); HEMOGLOBIN 10.3 GM/dL (10.7-15.3); LYMPH % 31.3 % (8-40); MCH 26.7 pg (25.7-33.7); MCHC 32.9 g/dl (32.0-36.0); MEAN CELL VOLUME 81.1 fl (80-96); MONO % 8.9 % (3.8-10.2); NEUT % 53.8 % (42.8-82.8); PLATELET COUNT 362 10^3/uL (134-434); RBC 3.84 M/mm3 (3.60-5.2); RDW 20.3 % (11.6-15.6); WHITE BLOOD COUNT 6.8 K/mm3 (4.0-10.0)
[2021-08-18 21:44] LABS: EPI CELLS 9 /uL (0-25.1); HYALINE CASTS 0 /uL (0-3.1); PH,URINE 6.5 (5.0-8.0); URINE APPEARANCE CLEAR; URINE BACTERIA 26 /uL (0-1359); URINE BILIRUBIN NEGATIVE (NEGATIVE); URINE COLOR YELLOW; URINE GLUCOSE (UA) NEGATIVE (NEGATIVE); URINE KETONE NEGATIVE (NEGATIVE); URINE LEUK ESTERASE TRACE (NEGATIVE); URINE NITRITE NEGATIVE (NEGATIVE); URINE PROTEIN 3+ (NEGATIVE); URINE RBC 6 /uL (0-23.9); URINE UROBILINOGEN 0.2 mg/dL (0.2-1.0); URINE WBC 11 /uL (0-25.8)
[2021-08-18 22:01] LABS: CHLORIDE 108 mmol/L (98-107); SODIUM 140 mmol/L (136-145)
[2021-08-18 22:03] LABS: ALBUMIN 2.8 g/dl (3.4-5.0); ANION GAP 7 MMOL/L (8-16); BLOOD UREA NITROGEN 28.9 mg/dL (7-18); CALCIUM 8.4 mg/dL (8.5-10.1); CO2 25 mmol/L (21-32); GLUCOSE,RANDOM 110 mg/dL (74-106)
[2021-08-18 22:06] LABS: CREATININE 2.2 mg/dL (0.55-1.3); SGOT/AST 34 U/L (15-37)
[2021-08-18 22:08] LABS: BILIRUBIN,TOTAL 0.2 mg/dL (0.2-1); TOT PROT 7.3 g/dl (6.4-8.2)
[2021-08-18 22:09] LABS: ALK PHOS 86 U/L (45-117)
[2021-08-18 22:11] LABS: N-TERMINAL BNP 132.3 pg/ml (5-125)
[2021-08-18 22:29] LABS: SGPT/ALT 26 U/L (13-61)
[2021-08-19 01:03] VITALS: BP 142/75; PULSE 63; TEMP 97.7
== END 2021-08-19 01:03 | disposition home or self-care (01) ==
LOC: JER 18:53
DX: R60.9 Edema, unspecified (principal); N18.9 Chronic kidney disease, unspecified
CPT/HCPCS: 36415; 71046-TC-FY; 80053; 81003; 82550; 82553; 83880; 84484; 85025; 87086; 93005; 93010; 93970-TC; 99284-25

== ENCOUNTER 2021-11-14 06:39 | Day surgery (SDC) | payer OTHER ==
[2021-11-08 15:19] VITALS: BMI 28.0
[2021-11-14] MEDS ORDERED: TRANEXAMIC ACID 1000 MG/10 ML VIAL IVPUSH ONE (07:11)
[2021-11-14] MEDS ORDERED: CELECOXIB 200 MG CAPSULE PO ONE ×2 (07:11→07:50)
[2021-11-14] MEDS ORDERED: CEFAZOLIN 2 GM in DEXTROSE 5%-WATER - 50 ML IVPB ONE (07:11)
[2021-11-14] MEDS ORDERED: CELECOXIB 200 MG CAPSULE ONE (07:49)
[2021-11-14] MEDS ORDERED: MAG HYDROX/AL HYDROX/SIMETH 30 ML UNIT-DOSE CUP PO PRN (08:07)
[2021-11-14] MEDS ORDERED: ONDANSETRON 4 MG/2 ML VIAL IVPUSH PRN ×2 (08:07→11:24)
[2021-11-14] MEDS ORDERED: MIDAZOLAM HCL 2 MG/2 ML SINGLE DOSE VIAL ONE (08:08)
[2021-11-14] MEDS ORDERED: BUPIVACAINE LIPOSOME/PF (EXPAREL) 266 MG/20 ML VIAL ONE (08:08)
[2021-11-14] MEDS ORDERED: BUPIVACAINE HCL 50 ML ONE (08:08)
[2021-11-14] MEDS ORDERED: SODIUM CHLORIDE 0.9% P/F 10 ML VIAL IJ ONE (08:08)
[2021-11-14] MEDS ORDERED: LACTATED RINGERS SOLUTION 1,000 ML IV SCH (08:15)
[2021-11-14] MEDS ORDERED: PROPOFOL 20 ML ONE ×4 (08:46→10:29)
[2021-11-14] MEDS ORDERED: ceFAZolin SODIUM 1 GM VIAL ONE ×2 (09:02→15:53)
[2021-11-14] MEDS ORDERED: FUROSEMIDE 20 MG TABLET (FP) PO SCH ×3 (10:00→12:29)
[2021-11-14] MEDS ORDERED: VANCOMYCIN 1,000 MG VIAL (RESTRICTED TO ID ONLY) ONE (10:22)
[2021-11-14] MEDS ORDERED: VANCOMYCIN 1,000 MG VIAL (RESTRICTED TO ID ONLY) IVPB ONE (10:54)
[2021-11-14] MEDS ORDERED: oxyCODONE HCL 5 MG TABLET PO PRN (11:24)
[2021-11-14] MEDS ORDERED: traMADol HCL 50 MG TABLET PO PRN (11:27)
[2021-11-14] MEDS: ACETAMINOPHEN 1000 MG/100 ML BAG IVPB ONE ×2 (11:30→13:34)
[2021-11-14] MEDS: GABAPENTIN 100 MG CAPSULE PO SCH ×3 (12:15→15:59)
[2021-11-14] MEDS ORDERED: FUROSEMIDE 40 MG TABLET (FP) PO SCH ×2 (12:30→14:00)
[2021-11-14] MEDS: amLODIPine BESYLATE 10 MG TABLET (FP) PO SCH (13:33)
[2021-11-14] MEDS: hydrALAZINE HCL 25 MG TABLET (FP) PO SCH ×2 (13:33→21:37)
[2021-11-14] MEDS: PANTOPRAZOLE 40 MG TABLET PO SCH (13:33)
[2021-11-14] MEDS: POTASSIUM CHLORIDE TABS 20 MEQ TABLET.ER (FP) PO SCH (13:33)
[2021-11-14] MEDS: SENNOSIDES/DOCUSATE COMBO (SENNA PLUS) TABLET (UD) PO SCH ×2 (13:33→21:37)
[2021-11-14] MEDS: ALLOPURINOL 100 MG TABLET (FP) PO SCH (13:34)
[2021-11-14] MEDS: EZETIMIBE 10 MG TABLET (FP) PO SCH (13:34)
[2021-11-14] MEDS: MULTIVITAMINS (DAILY MVI) TABLET (FP) PO SCH (13:34)
[2021-11-14] MEDS ORDERED: DEXTROSE 5%-WATER - 50 ML IVPB ONE (15:54)
[2021-11-14] MEDS: CEFAZOLIN 2 GM in DEXTROSE 5%-WATER - 50 ML IVPB SCH (15:58)
[2021-11-14] MEDS: traMADol HCL 50 MG TABLET PO PRN ×2 (16:05→21:37)
[2021-11-14] MEDS: ACETAMINOPHEN 1000 MG/100 ML BAG IVPB PRN (19:46)
[2021-11-14] MEDS ORDERED: HYDROmorphone HCl 2 MG/ML VIAL IVPB PRN (23:52)
[2021-11-15] MEDS: GABAPENTIN 100 MG CAPSULE PO SCH ×2 (00:56→08:33)
[2021-11-15] MEDS: CEFAZOLIN 2 GM in DEXTROSE 5%-WATER - 50 ML IVPB SCH (00:57)
[2021-11-15] MEDS: ACETAMINOPHEN 1000 MG/100 ML BAG IVPB PRN (05:42)
[2021-11-15] MEDS ORDERED: ASPIRIN 325 MG TABLET PO SCH (08:00)
[2021-11-15] MEDS: POTASSIUM CHLORIDE TABS 20 MEQ TABLET.ER (FP) PO SCH (10:18)
[2021-11-15] MEDS: amLODIPine BESYLATE 10 MG TABLET (FP) PO SCH (10:18)
[2021-11-15] MEDS: SENNOSIDES/DOCUSATE COMBO (SENNA PLUS) TABLET (UD) PO SCH (10:18)
[2021-11-15] MEDS: EZETIMIBE 10 MG TABLET (FP) PO SCH (10:18)
[2021-11-15] MEDS: hydrALAZINE HCL 25 MG TABLET (FP) PO SCH (10:18)
[2021-11-15] MEDS: PANTOPRAZOLE 40 MG TABLET PO SCH (10:18)
[2021-11-15] MEDS: ALLOPURINOL 100 MG TABLET (FP) PO SCH (10:18)
[2021-11-15] MEDS: MULTIVITAMINS (DAILY MVI) TABLET (FP) PO SCH (10:18)
[2021-11-15 10:26] VITALS: BP 136/52; PULSE 82; TEMP 98.2
[2021-11-15 10:38] LABS: HEMATOCRIT 25.4 % (32.4-45.2); HEMOGLOBIN 8.2 GM/dL (10.7-15.3); MCH 25.9 pg (25.7-33.7); MCHC 32.4 g/dl (32.0-36.0); MEAN CELL VOLUME 80.1 fl (80-96); MEAN PLT VOLUME 9.5 fl (7.5-11.1); PLATELET COUNT 275 10^3/uL (134-434); RBC 3.17 M/mm3 (3.60-5.2); RDW 17.5 % (11.6-15.6); WHITE BLOOD COUNT 9.6 K/mm3 (4.0-10.0)
== END 2021-11-15 12:16 | disposition home health service (06) ==
LOC: FASUSAT 06:39 → EDSTATUS 08:00 → FM/S 12:50 → FASUSAT 11-15 12:16
PROVIDERS: ATTEND Orthopaedic Surgery
PROC: 8E0YXBZ Computer Assisted Procedure of Lower Extremity (ICD-10-PCS; 2021-11-14)
PROC: 8E0Y0CZ Robotic Assisted Procedure of Lower Extremity, Open Approach (ICD-10-PCS; 2021-11-14)
PROC: 0SRC0J9 Replacement of Right Knee Joint with Synthetic Substitute, Cemented, Open Approach (ICD-10-PCS; principal; 2021-11-14 09:30)
DX: M17.11 Unilateral primary osteoarthritis, right knee (principal)
CPT/HCPCS: 20985; 27447; C1776; S2900; 36415; 73560-TC-RT-FY; 85027; 94010; 94760; 97010-GP; 97116-GP; 97163-GP

== ENCOUNTER 2022-03-13 10:55 | Emergency (ER) | payer OTHER ==
[2022-03-13 11:29] VITALS: BP 125/69; PULSE 85; TEMP 98.5; BMI 26.5
[2022-03-13] MEDS ORDERED: METHOCARBAMOL 500 MG TABLET PO ONE (12:00)
[2022-03-13] MEDS ORDERED: METHOCARBAMOL 500 MG TABLET ONE (12:15)
== END 2022-03-13 12:51 | disposition home or self-care (01) ==
LOC: JERFT 10:55
DX: S16.1XXA Strain of muscle, fascia and tendon at neck level, initial encounter (principal); X50.0XXA Overexertion from strenuous movement or load, initial encounter
CPT/HCPCS: 99283-25

== ENCOUNTER 2022-06-12 05:55 | Day surgery (SDC) | payer OTHER ==
[2022-06-06 12:03] VITALS: BMI 25.7
[2022-06-12] MEDS ORDERED: CELECOXIB 200 MG CAPSULE PO ONE (06:33)
[2022-06-12] MEDS ORDERED: CEFAZOLIN 2 GM in DEXTROSE 5%-WATER - 50 ML IVPB ONE (06:33)
[2022-06-12] MEDS ORDERED: TRANEXAMIC ACID 1000 MG/10 ML VIAL IVPUSH ONE (06:33)
[2022-06-12] MEDS ORDERED: CELECOXIB 200 MG CAPSULE ONE (06:59)
[2022-06-12] MEDS ORDERED: ceFAZolin SODIUM 1 GM VIAL ONE (07:09)
[2022-06-12] MEDS ORDERED: VANCOMYCIN 1,000 MG VIAL (RESTRICTED TO ID ONLY) ONE (07:09)
[2022-06-12] MEDS ORDERED: SUCCINYLCHOLINE CHLORIDE 200 MG/10 ML SYRINGE ONE (07:30)
[2022-06-12] MEDS ORDERED: PROPOFOL 60 ML ONE (07:30)
[2022-06-12] MEDS ORDERED: MIDAZOLAM HCL 2 MG/2 ML SINGLE DOSE VIAL ONE ×2 (07:31→08:40)
[2022-06-12] MEDS ORDERED: BUPIVACAINE HCL/PF 2.5 MG/ML - 30 ML VIAL IJ ONE (07:42)
[2022-06-12] MEDS ORDERED: ONDANSETRON 4 MG/2 ML VIAL IVPUSH PRN (08:03)
[2022-06-12] MEDS ORDERED: MAG HYDROX/AL HYDROX/SIMETH 30 ML UNIT-DOSE CUP PO PRN (08:03)
[2022-06-12] MEDS ORDERED: LACTATED RINGERS SOLUTION 1,000 ML IV SCH (08:15)
[2022-06-12] MEDS ORDERED: HYDROmorphone HCL 2 MG TABLET PO PRN (10:30)
[2022-06-12] MEDS: ACETAMINOPHEN 500 MG TABLET (FP) PO SCH ×2 (10:45→17:25)
[2022-06-12] MEDS: POTASSIUM CHLORIDE TABS 20 MEQ TABLET.ER (FP) PO SCH (11:19)
[2022-06-12] MEDS: PANTOPRAZOLE 40 MG TABLET PO SCH (11:19)
[2022-06-12] MEDS: SENNOSIDES/DOCUSATE COMBO (SENNA PLUS) TABLET (UD) PO SCH ×2 (11:19→21:04)
[2022-06-12] MEDS: FERROUS SO4 325 MG TABLET (FP) PO SCH (11:19)
[2022-06-12] MEDS: MULTIVITAMINS (DAILY MVI) TABLET (FP) PO SCH (11:20)
[2022-06-12] MEDS: EZETIMIBE 10 MG TABLET (FP) PO SCH (11:20)
[2022-06-12] MEDS: ALLOPURINOL 100 MG TABLET (FP) PO SCH (11:20)
[2022-06-12] MEDS: KETOROLAC TROMETHAMINE 30 MG/1 ML VIAL IVPUSH SCH ×2 (12:07→17:26)
[2022-06-12] MEDS: GABAPENTIN 100 MG CAPSULE PO SCH ×3 (12:08→21:04)
[2022-06-12] MEDS ORDERED: FUROSEMIDE 40 MG TABLET (FP) PO SCH ×2 (14:00)
[2022-06-12] MEDS: hydrALAZINE HCL 25 MG TABLET (FP) PO SCH ×2 (15:36→21:04)
[2022-06-12] MEDS ORDERED: CEFAZOLIN SODIUM 2 GM in DEXTROSE 5%-WATER 100 ML IVPB SCH (16:00)
[2022-06-12] MEDS ORDERED: ROSUVASTATIN CA 10 MG TABLET PO SCH (22:00)
[2022-06-13] MEDS ORDERED: CEFAZOLIN SODIUM 2 GM in DEXTROSE 5%-WATER 100 ML IVPB SCH
[2022-06-13] MEDS: ACETAMINOPHEN 500 MG TABLET (FP) PO SCH ×3 (00:20→12:57)
[2022-06-13] MEDS: hydrALAZINE HCL 25 MG TABLET (FP) PO SCH (06:23)
[2022-06-13] MEDS: GABAPENTIN 100 MG CAPSULE PO SCH (06:24)
[2022-06-13] MEDS ORDERED: ASPIRIN 325 MG TABLET PO SCH (08:00)
[2022-06-13 08:14] LABS: HEMATOCRIT 25.4 % (32.4-45.2); HEMOGLOBIN 8.3 G/dL (10.7-15.3); MCH 26.1 pg (25.7-33.7); MCHC 32.7 g/dl (32.0-36.0); MEAN CELL VOLUME 79.9 fl (80-96); PLATELET COUNT 331.9 10^3/uL (134-434); RBC 3.18 10^6/uL (3.60-5.2); RDW 17.8 % (11.6-15.6); WHITE BLOOD COUNT 8.3 10^3/uL (4.0-10.8)
[2022-06-13 08:21] LABS: ALBUMIN 2.7 g/dl (3.4-5.0); BILIRUBIN,TOTAL 0.5 mg/dl (0.2-1); CALCIUM 8.1 mg/dl (8.5-10); CREATININE 1.7 mg/dl (0.55-1.3); TOT PROT 5.9 g/dl (6.4-8.2)
[2022-06-13 09:48] VITALS: BP 155/60; PULSE 84; RESP 18; TEMP 98.9
[2022-06-13] MEDS: ALLOPURINOL 100 MG TABLET (FP) PO SCH (09:49)
[2022-06-13] MEDS: EZETIMIBE 10 MG TABLET (FP) PO SCH (09:50)
[2022-06-13] MEDS: FERROUS SO4 325 MG TABLET (FP) PO SCH (09:50)
[2022-06-13] MEDS: SENNOSIDES/DOCUSATE COMBO (SENNA PLUS) TABLET (UD) PO SCH (09:50)
[2022-06-13] MEDS: PANTOPRAZOLE 40 MG TABLET PO SCH (09:50)
[2022-06-13] MEDS: MULTIVITAMINS (DAILY MVI) TABLET (FP) PO SCH (09:50)
[2022-06-13] MEDS: POTASSIUM CHLORIDE TABS 20 MEQ TABLET.ER (FP) PO SCH (09:50)
[2022-06-13] MEDS ORDERED: amLODIPine BESYLATE 10 MG TABLET (FP) PO SCH (10:00)
== END 2022-06-13 13:42 | disposition home or self-care (01) ==
LOC: FASU 05:55 → FASUSAT 05:55 → FM/S 11:11 → FASUSAT 06-13 13:42
PROVIDERS: ATTEND Orthopaedic Surgery
PROC: 8E0Y0CZ Robotic Assisted Procedure of Lower Extremity, Open Approach (ICD-10-PCS; 2022-06-12)
PROC: 0SRB0JA Replacement of Left Hip Joint with Synthetic Substitute, Uncemented, Open Approach (ICD-10-PCS; principal; 2022-06-12 08:28)
DX: M16.12 Unilateral primary osteoarthritis, left hip (principal)
CPT/HCPCS: 20985; 27130; C1776; S2900; 36415; 73502-TC-LT-FY; 80053; 85027; 88305-TC; 88311-TC; 94760; 97010-GP; 97116-GP; 97162-GP

== ENCOUNTER 2023-03-29 10:18 | Observation (INO) | payer OTHER ==
[2023-03-29 10:24] VITALS: BMI 26.9
[2023-03-29 12:10] LABS: BASO % 1.2 % (0-2.0); EOS % 3.3 % (0-4.5); HEMATOCRIT 27.2 % (32.4-45.2); HEMOGLOBIN 8.9 GM/dL (10.7-15.3); LYMPH % 23.6 % (8-40); MCH 25.3 pg (25.7-33.7); MCHC 32.8 g/dl (32.0-36.0); MEAN CELL VOLUME 77.3 fl (80-96); MEAN PLT VOLUME 8.6 fl (7.5-11.1); MONO % 6.6 % (3.8-10.2); NEUT % 65.3 % (42.8-82.8); PLATELET COUNT 387 10^3/uL (134-434); RBC 3.52 M/mm3 (3.60-5.2); RDW 16.8 % (11.6-15.6); WHITE BLOOD COUNT 7.8 K/mm3 (4.0-10.0)
[2023-03-29 12:14] LABS: CHLORIDE 101 mmol/L (98-107); POTASSIUM 3.8 mmol/L (3.5-5.1); SODIUM 139 mmol/L (136-145)
[2023-03-29 12:16] LABS: ANION GAP 9 MMOL/L (8-16); CALCIUM 8.6 mg/dL (8.5-10.1); CO2 29 mmol/L (21-32); GLUCOSE,RANDOM 129 mg/dL (74-106); MAGNESIUM 3.8 mg/dL (1.8-2.4)
[2023-03-29 12:19] LABS: PHOSPHOROUS 4.2 mg/dL (2.5-4.9); SGPT/ALT 25 U/L (13-61)
[2023-03-29 12:20] LABS: CREATININE 2.3 mg/dL (0.55-1.3); SGOT/AST 28 U/L (15-37)
[2023-03-29 12:21] LABS: BILIRUBIN,TOTAL < 0.1 mg/dL (0.2-1); TOT PROT 7.4 g/dl (6.4-8.2)
[2023-03-29 12:22] LABS: ALK PHOS 105 U/L (45-117)
[2023-03-29] MEDS ORDERED: SODIUM CHLORIDE 0.9% 500 ML INFUS.BAG IV ONE (12:44)
[2023-03-29] MEDS ORDERED: LACTATED RINGERS SOLUTION 1,000 ML/1,000 ML INFUS.BAG IV SCH (12:45)
[2023-03-29 17:09] LABS: POTASSIUM 3.8 mmol/L (3.5-5.1)
[2023-03-29 17:13] LABS: BLOOD UREA NITROGEN 31.2 mg/dL (7-18); CALCIUM 8.5 mg/dL (8.5-10.1); MAGNESIUM 3.4 mg/dL (1.8-2.4)
[2023-03-29 17:15] LABS: CREATININE 2.2 mg/dL (0.55-1.3)
[2023-03-29 17:17] LABS: BILIRUBIN,TOTAL 0.4 mg/dL (0.2-1); TOT PROT 6.8 g/dl (6.4-8.2)
[2023-03-29 17:37] LABS: ALBUMIN 2.7 g/dl (3.4-5.0)
[2023-03-29] MEDS: LACTATED RINGERS SOLUTION 1,000 ML/1,000 ML INFUS.BAG IV SCH (18:55)
[2023-03-29] MEDS: HEPARIN NA (PORCINE) 5,000 UNITS/ML 1ML VIAL SQ SCH (21:34)
[2023-03-29] MEDS: GABAPENTIN 100 MG CAPSULE PO SCH (22:47)
[2023-03-30] MEDS: GABAPENTIN 100 MG CAPSULE PO SCH ×2 (06:10→13:39)
[2023-03-30] MEDS: HEPARIN NA (PORCINE) 5,000 UNITS/ML 1ML VIAL SQ SCH ×2 (06:10→13:39)
[2023-03-30] MEDS: LACTATED RINGERS SOLUTION 1,000 ML/1,000 ML INFUS.BAG IV SCH (08:06)
[2023-03-30 09:46] VITALS: BP 166/72; PULSE 62; RESP 20; TEMP 98.2
[2023-03-30] MEDS ORDERED: hydrALAZINE HCL 50 MG TABLET (FP) PO SCH ×2 (09:59→14:00)
[2023-03-30] MEDS ORDERED: ALLOPURINOL 100 MG TABLET (FP) PO SCH (10:00)
[2023-03-30] MEDS ORDERED: PANTOPRAZOLE 40 MG TABLET PO SCH (10:00)
[2023-03-30] MEDS ORDERED: POTASSIUM CHLORIDE TABS 20 MEQ TABLET.ER (FP) PO SCH (10:00)
[2023-03-30] MEDS ORDERED: amLODIPine BESYLATE 10 MG TABLET (FP) PO SCH (10:00)
[2023-03-30] MEDS ORDERED: FUROSEMIDE 40 MG TABLET (FP) PO SCH (10:00)
[2023-03-30] MEDS ORDERED: ROSUVASTATIN CA 10 MG TABLET PO SCH (10:00)
[2023-03-30 10:22] LABS: HEMATOCRIT 28.3 % (32.4-45.2); HEMOGLOBIN 8.7 GM/dL (10.7-15.3); MCH 24.6 pg (25.7-33.7); MCHC 30.8 g/dl (32.0-36.0); MEAN CELL VOLUME 79.7 fl (80-96); MEAN PLT VOLUME 8.9 fl (7.5-11.1); PLATELET COUNT 345 10^3/uL (134-434); RBC 3.56 M/mm3 (3.60-5.2); RDW 16.9 % (11.6-15.6); WHITE BLOOD COUNT 6.7 K/mm3 (4.0-10.0)
[2023-03-30 10:38] LABS: POTASSIUM 3.9 mmol/L (3.5-5.1)
[2023-03-30 10:41] LABS: BLOOD UREA NITROGEN 25.9 mg/dL (7-18); CALCIUM 8.7 mg/dL (8.5-10.1); MAGNESIUM 3.3 mg/dL (1.8-2.4)
[2023-03-30 10:45] LABS: CREATININE 2.1 mg/dL (0.55-1.3); PHOSPHOROUS 3.5 mg/dL (2.5-4.9)
== END 2023-03-30 14:58 | disposition home or self-care (01) ==
LOC: JER 10:18 → JERBED 17:52 → J4W 19:21
PROVIDERS: ADMIT Internal Medicine; ATTEND Internal Medicine
PROC: 3E023GC Introduction of Other Therapeutic Substance into Muscle, Percutaneous Approach (ICD-10-PCS; principal; 2023-03-29)
PROC: 3E0337Z Introduction of Electrolytic and Water Balance Substance into Peripheral Vein, Percutaneous Approach (ICD-10-PCS; 2023-03-29)
DX: E83.41 Hypermagnesemia (principal); I12.9 Hypertensive chronic kidney disease with stage 1 through stage 4 chronic kidney disease, or unspecified chronic kidney disease; K59.09 Other constipation; E11.22 Type 2 diabetes mellitus with diabetic chronic kidney disease; N18.9 Chronic kidney disease, unspecified; Z88.8 Allergy status to other drugs, medicaments and biological substances; D56.0 Alpha thalassemia; Z88.5 Allergy status to narcotic agent; R56.9 Unspecified convulsions; Z88.6 Allergy status to analgesic agent; I11.0 Hypertensive heart disease with heart failure; I50.9 Heart failure, unspecified
CPT/HCPCS: 36415; 80048; 80053; 83735; 84100; 85025; 85027; 93005; 93010; 96360; 96372; 99285-25; G0378; J1644

== ENCOUNTER 2023-07-23 14:42 | Inpatient (IN) | payer OTHER ==
[2023-07-23] MEDS ORDERED: ACETAMINOPHEN INJECTION 100 ML IVPB ONE ×2 (15:20→21:01)
[2023-07-23] MEDS ORDERED: ACETAMINOPHEN 1000 MG/100 ML BAG IVPB ONE ×3 (15:37→21:01)
[2023-07-23 16:16] LABS: HEMATOCRIT 22.9 % (32.4-45.2); MCH 22.1 pg (25.7-33.7); MCHC 30.3 g/dl (32.0-36.0); MEAN CELL VOLUME 73.1 fl (80-96); MEAN PLT VOLUME 8.6 fl (7.5-11.1); PLATELET COUNT 693 10^3/uL (134-434); RBC 3.13 M/mm3 (3.60-5.2); RDW 18.7 % (11.6-15.6); WHITE BLOOD COUNT 27.9 K/mm3 (4.0-10.0)
[2023-07-23 16:23] LABS: HEMOGLOBIN 6.9 GM/dL (10.7-15.3)
[2023-07-23 16:41] LABS: INR 1.44 (0.83-1.09); PROTHROMBIN TIME (PATIENT) 16.6 SEC (9.7-13.0)
[2023-07-23 16:44] LABS: VENOUS BASE EXCESS -6.5 mmol/L (-2-2); VENOUS O2 SATURATION 84.3 % (70-80); VENOUS PCO2 30.8 mmHg (38-52); VENOUS PH 7.371 (7.310-7.410)
[2023-07-23 16:44] LABS: ACTIVATED PTT 32.9 SECONDS (25.2-36.5)
[2023-07-23] MEDS ORDERED: VANCOMYCIN 1,000 MG in DEXTROSE 5%-WATER - 250 ML IVPB ONE (17:07)
[2023-07-23] MEDS ORDERED: PIPERACILLIN/TAZOB 3.375 GM 3.375 GM in DEXTROSE 5%-WATER - 50 ML IVPB ONE (17:07)
[2023-07-23 17:10] LABS: POTASSIUM 3.9 mmol/L (3.5-5.1)
[2023-07-23 17:15] LABS: CALCIUM 8.7 mg/dL (8.5-10.1)
[2023-07-23 17:16] LABS: ALBUMIN 2.2 g/dl (3.4-5.0); BLOOD UREA NITROGEN 34.7 mg/dL (7-18)
[2023-07-23] MEDS ORDERED: VANCOMYCIN 1 GRAM (PRE-DOCKED) 1,000 MG/250 ML BAG IVPB ONE (17:16)
[2023-07-23] MEDS ORDERED: PIPERACILLIN/TAZOB 3.375 GM 3.375 GM/50 ML BAG IVPB ONE (17:16)
[2023-07-23 17:19] LABS: CREATININE 3.2 mg/dL (0.55-1.3)
[2023-07-23 17:20] LABS: BILIRUBIN,TOTAL 0.3 mg/dL (0.2-1); TOT PROT 7.3 g/dl (6.4-8.2)
[2023-07-23 17:24] LABS: N-TERMINAL BNP 1272.7 pg/ml (5-125)
[2023-07-23 17:32] LABS: ANISOCYTOSIS 2+; MACROCYTOSIS 1+; OVALOCYTE 1+; PLATELET ESTIMATE INCREASED
[2023-07-23] MEDS ORDERED: SODIUM CHLORIDE 1,000 ML IV STA (17:45)
[2023-07-23 18:52] LABS: EPI CELLS 21 /uL (0-25.1); HYALINE CASTS 7 /uL (0-3.1); PH,URINE 5.5 (5.0-8.0); URINE APPEARANCE TURBID; URINE BILIRUBIN NEGATIVE (NEGATIVE); URINE COLOR ORANGE; URINE GLUCOSE (UA) NEGATIVE (NEGATIVE); URINE KETONE TRACE (NEGATIVE); URINE LEUK ESTERASE 1+ (NEGATIVE); URINE NITRITE NEGATIVE (NEGATIVE); URINE PROTEIN 4+ (NEGATIVE); URINE RBC 10776 /uL (0-23.9); URINE UROBILINOGEN 0.2 mg/dL (0.2-1.0); URINE WBC 609 /uL (0-25.8)
[2023-07-23 20:21] LABS: URINE BACTERIA 397.6 /uL (0-1359)
[2023-07-24] MEDS ORDERED: LORATADINE 10 MG TABLET PO PRN (02:00)
[2023-07-24] MEDS ORDERED: SODIUM CHLORIDE 1,000 ML IV SCH (02:00)
[2023-07-24] MEDS ORDERED: VANCOMYCIN ORAL SOLUTION 125 MG/2.5 ML PO ONE (02:04)
[2023-07-24] MEDS ORDERED: ACETAMINOPHEN INJECTION 100 ML IVPB ONE (03:51)
[2023-07-24] MEDS: ACETAMINOPHEN 1000 MG/100 ML BAG IVPB PRN ×2 (03:57→16:43)
[2023-07-24] MEDS ORDERED: VANCOMYCIN ORAL SOLUTION 125 MG/2.5 ML PO SCH (06:00)
[2023-07-24] MEDS ORDERED: hydrALAZINE HCL 50 MG TABLET (FP) ONE (06:22)
[2023-07-24] MEDS ORDERED: GABAPENTIN 100 MG CAPSULE ONE (06:22)
[2023-07-24] MEDS: GABAPENTIN 100 MG CAPSULE PO SCH ×3 (06:38→21:41)
[2023-07-24] MEDS: hydrALAZINE HCL 50 MG TABLET (FP) PO SCH ×3 (06:38→21:41)
[2023-07-24 08:11] LABS: HEMATOCRIT 26.5 % (32.4-45.2); HEMOGLOBIN 8.2 GM/dL (10.7-15.3); MCH 23.6 pg (25.7-33.7); MCHC 30.8 g/dl (32.0-36.0); MEAN CELL VOLUME 76.9 fl (80-96); MEAN PLT VOLUME 8.6 fl (7.5-11.1); PLATELET COUNT 597 10^3/uL (134-434); POTASSIUM 3.6 mmol/L (3.5-5.1); RBC 3.45 M/mm3 (3.60-5.2); RDW 18.8 % (11.6-15.6); WHITE BLOOD COUNT 23.7 K/mm3 (4.0-10.0)
[2023-07-24 08:16] LABS: BLOOD UREA NITROGEN 35.7 mg/dL (7-18); CALCIUM 9.1 mg/dL (8.5-10.1); MAGNESIUM 1.9 mg/dL (1.8-2.4)
[2023-07-24 08:19] LABS: CREATININE 3.4 mg/dL (0.55-1.3); PHOSPHOROUS 5.4 mg/dL (2.5-4.9)
[2023-07-24 08:20] LABS: BILIRUBIN,TOTAL 0.4 mg/dL (0.2-1); TOT PROT 6.9 g/dl (6.4-8.2)
[2023-07-24 09:28] LABS: ANISOCYTOSIS 1+
[2023-07-24] MEDS: ALLOPURINOL 100 MG TABLET (FP) PO SCH (10:00)
[2023-07-24] MEDS: EZETIMIBE 10 MG TABLET (FP) PO SCH (10:00)
[2023-07-24] MEDS: NIFEdipine E.R. 90 MG TABLET PO SCH (10:00)
[2023-07-24] MEDS ORDERED: PANTOPRAZOLE 40 MG TABLET PO SCH (10:00)
[2023-07-24] MEDS: VANCOMYCIN 250 MG/5 ML ORAL SOLUTION PO SCH ×2 (12:17→18:54)
[2023-07-24] MEDS ORDERED: LACTATED RINGERS SOLUTION 1,000 ML/1,000 ML INFUS.BAG IV SCH (12:45)
[2023-07-24] MEDS ORDERED: SODIUM CHLORIDE 0.9% 500 ML INFUS.BAG IV ONE (13:36)
[2023-07-24 14:50] VITALS: BMI 26.4
[2023-07-24] MEDS: SODIUM CHLORIDE 1,000 ML IV SCH (15:21)
[2023-07-24 18:28] LABS: BASO % 0.4 % (0-2.0); EOS % 1.1 % (0-4.5); HEMATOCRIT 23.7 % (32.4-45.2); HEMOGLOBIN 7.4 GM/dL (10.7-15.3); LYMPH % 5.3 % (8-40); MCH 23.4 pg (25.7-33.7); MCHC 31.3 g/dl (32.0-36.0); MEAN CELL VOLUME 74.7 fl (80-96); MONO % 6.3 % (3.8-10.2); NEUT % 86.9 % (42.8-82.8); PLATELET COUNT 511 10^3/uL (134-434); RBC 3.17 M/mm3 (3.60-5.2); RDW 18.9 % (11.6-15.6); WHITE BLOOD COUNT 21.3 K/mm3 (4.0-10.0)
[2023-07-24 20:01] LABS: ANISOCYTOSIS 2+; MACROCYTOSIS 1+; OVALOCYTE 1+; PLATELET ESTIMATE INCREASED; TARGET CELLS 1+
[2023-07-24] MEDS: ROSUVASTATIN CA 10 MG TABLET PO SCH (21:41)
[2023-07-25] MEDS: ACETAMINOPHEN 1000 MG/100 ML BAG IVPB PRN (01:37)
[2023-07-25 04:56] LABS: HEMATOCRIT 28.7 % (32.4-45.2); HEMOGLOBIN 9.1 GM/dL (10.7-15.3); MCH 24.2 pg (25.7-33.7); MCHC 31.8 g/dl (32.0-36.0); MEAN CELL VOLUME 76.1 fl (80-96); MEAN PLT VOLUME 8.6 fl (7.5-11.1); PLATELET COUNT 651 10^3/uL (134-434); RBC 3.78 M/mm3 (3.60-5.2); RDW 19.4 % (11.6-15.6); WHITE BLOOD COUNT 23.3 K/mm3 (4.0-10.0)
[2023-07-25] MEDS: GABAPENTIN 100 MG CAPSULE PO SCH ×3 (05:28→21:32)
[2023-07-25] MEDS: hydrALAZINE HCL 50 MG TABLET (FP) PO SCH ×3 (05:28→21:32)
[2023-07-25 06:21] LABS: ANISOCYTOSIS 2+; MACROCYTOSIS 0; ROULEAU 2+; TARGET CELLS 1+
[2023-07-25] MEDS: VANCOMYCIN 250 MG/5 ML ORAL SOLUTION PO SCH ×6 (06:25→23:36)
[2023-07-25] MEDS: SODIUM CHLORIDE 1,000 ML IV SCH ×2 (09:31→13:21)
[2023-07-25] MEDS: ALLOPURINOL 100 MG TABLET (FP) PO SCH (09:31)
[2023-07-25] MEDS: EZETIMIBE 10 MG TABLET (FP) PO SCH (09:31)
[2023-07-25] MEDS: NIFEdipine E.R. 90 MG TABLET PO SCH (09:31)
[2023-07-25 09:59] LABS: HEMATOCRIT 28.6 % (32.4-45.2); MCH 24.6 pg (25.7-33.7); MCHC 31.5 g/dl (32.0-36.0); MEAN CELL VOLUME 77.9 fl (80-96); MEAN PLT VOLUME 8.4 fl (7.5-11.1); PLATELET COUNT 657 10^3/uL (134-434); RBC 3.67 M/mm3 (3.60-5.2); RDW 18.9 % (11.6-15.6); WHITE BLOOD COUNT 23.5 K/mm3 (4.0-10.0)
[2023-07-25 10:13] LABS: POTASSIUM 3.6 mmol/L (3.5-5.1)
[2023-07-25 10:17] LABS: CALCIUM 8.9 mg/dL (8.5-10.1)
[2023-07-25 10:18] LABS: ALBUMIN 1.9 g/dl (3.4-5.0); BLOOD UREA NITROGEN 36.2 mg/dL (7-18)
[2023-07-25 10:21] LABS: CREATININE 2.8 mg/dL (0.55-1.3)
[2023-07-25 10:22] LABS: BILIRUBIN,TOTAL 0.6 mg/dL (0.2-1)
[2023-07-25 10:23] LABS: TOT PROT 6.4 g/dl (6.4-8.2)
[2023-07-25 12:08] LABS: HCG,TUMOR MARKER < 1.0 mIU/mL (.)
[2023-07-25] MEDS ORDERED: ACETAMINOPHEN 1000 MG/100 ML BAG IVPB PRN (15:50)
[2023-07-25] MEDS: ROSUVASTATIN CA 10 MG TABLET PO SCH (21:32)
[2023-07-26] MEDS: SODIUM CHLORIDE 1,000 ML IV SCH ×2 (02:34→14:18)
[2023-07-26] MEDS: VANCOMYCIN 250 MG/5 ML ORAL SOLUTION PO SCH ×4 (06:16→23:56)
[2023-07-26] MEDS: hydrALAZINE HCL 50 MG TABLET (FP) PO SCH ×3 (06:17→21:38)
[2023-07-26] MEDS: GABAPENTIN 100 MG CAPSULE PO SCH ×3 (06:17→21:38)
[2023-07-26 10:08] LABS: POTASSIUM 4.2 mmol/L (3.5-5.1)
[2023-07-26 10:13] LABS: ALBUMIN 1.8 g/dl (3.4-5.0); BLOOD UREA NITROGEN 26.8 mg/dL (7-18); CALCIUM 7.9 mg/dL (8.5-10.1)
[2023-07-26 10:16] LABS: CREATININE 2.2 mg/dL (0.55-1.3); PHOSPHOROUS 3.3 mg/dL (2.5-4.9)
[2023-07-26 10:17] LABS: BILIRUBIN,TOTAL 0.3 mg/dL (0.2-1); TOT PROT 6.3 g/dl (6.4-8.2)
[2023-07-26] MEDS: ALLOPURINOL 100 MG TABLET (FP) PO SCH (10:50)
[2023-07-26] MEDS: NIFEdipine E.R. 90 MG TABLET PO SCH (10:50)
[2023-07-26] MEDS: EZETIMIBE 10 MG TABLET (FP) PO SCH (10:50)
[2023-07-26 12:18] LABS: HEMATOCRIT 26.7 % (32.4-45.2); HEMOGLOBIN 8.5 GM/dL (10.7-15.3); MCH 24.3 pg (25.7-33.7); MCHC 31.9 g/dl (32.0-36.0); MEAN CELL VOLUME 76.1 fl (80-96); MEAN PLT VOLUME 7.8 fl (7.5-11.1); PLATELET COUNT 627 10^3/uL (134-434); RBC 3.51 M/mm3 (3.60-5.2); WHITE BLOOD COUNT 21.2 K/mm3 (4.0-10.0)
[2023-07-26 13:02] LABS: ANISOCYTOSIS 1+; MACROCYTOSIS 0
[2023-07-26] MEDS: ROSUVASTATIN CA 10 MG TABLET PO SCH (21:38)
[2023-07-27] MEDS: hydrALAZINE HCL 50 MG TABLET (FP) PO SCH ×3 (06:07→21:31)
[2023-07-27] MEDS: GABAPENTIN 100 MG CAPSULE PO SCH ×3 (06:07→21:31)
[2023-07-27] MEDS: VANCOMYCIN 250 MG/5 ML ORAL SOLUTION PO SCH ×3 (06:08→17:46)
[2023-07-27] MEDS: SODIUM CHLORIDE 1,000 ML IV SCH (07:22)
[2023-07-27 09:03] LABS: HEMATOCRIT 29.2 % (32.4-45.2); HEMOGLOBIN 9.1 GM/dL (10.7-15.3); MCH 24.3 pg (25.7-33.7); MCHC 31.1 g/dl (32.0-36.0); MEAN CELL VOLUME 78.3 fl (80-96); MEAN PLT VOLUME 8.3 fl (7.5-11.1); PLATELET COUNT 658 10^3/uL (134-434); RBC 3.73 M/mm3 (3.60-5.2); RDW 19.9 % (11.6-15.6); WHITE BLOOD COUNT 20.5 K/mm3 (4.0-10.0)
[2023-07-27 09:18] LABS: POTASSIUM 3.5 mmol/L (3.5-5.1)
[2023-07-27 09:33] LABS: ANISOCYTOSIS 1+; MACROCYTOSIS 1+
[2023-07-27 09:42] LABS: CALCIUM 8.6 mg/dL (8.5-10.1)
[2023-07-27 09:43] LABS: BLOOD UREA NITROGEN 21.4 mg/dL (7-18); MAGNESIUM 1.9 mg/dL (1.8-2.4)
[2023-07-27 09:45] LABS: CREATININE 2.2 mg/dL (0.55-1.3); PHOSPHOROUS 3.3 mg/dL (2.5-4.9)
[2023-07-27 09:47] LABS: BILIRUBIN,TOTAL 0.3 mg/dL (0.2-1); TOT PROT 6.5 g/dl (6.4-8.2)
[2023-07-27] MEDS: ALLOPURINOL 100 MG TABLET (FP) PO SCH (10:03)
[2023-07-27] MEDS: NIFEdipine E.R. 90 MG TABLET PO SCH (10:03)
[2023-07-27] MEDS: EZETIMIBE 10 MG TABLET (FP) PO SCH (10:04)
[2023-07-27] MEDS ORDERED: POTASSIUM CHLORIDE TABS 20 MEQ TABLET.ER (FP) PO ONE (10:28)
[2023-07-27] MEDS: ROSUVASTATIN CA 10 MG TABLET PO SCH (21:31)
[2023-07-28] MEDS: VANCOMYCIN 250 MG/5 ML ORAL SOLUTION PO SCH ×2 (00:12→06:10)
[2023-07-28] MEDS: GABAPENTIN 100 MG CAPSULE PO SCH ×2 (06:09→13:46)
[2023-07-28] MEDS: hydrALAZINE HCL 50 MG TABLET (FP) PO SCH ×2 (06:09→13:46)
[2023-07-28 06:13] VITALS: RESP 18
[2023-07-28 09:17] LABS: BASO % 0.5 % (0-2.0); EOS % 1.9 % (0-4.5); HEMOGLOBIN 8.6 GM/dL (10.7-15.3); LYMPH % 5.8 % (8-40); MCH 24.1 pg (25.7-33.7); MCHC 30.6 g/dl (32.0-36.0); MEAN CELL VOLUME 78.7 fl (80-96); MONO % 4.7 % (3.8-10.2); NEUT % 87.1 % (42.8-82.8); PLATELET COUNT 591 10^3/uL (134-434); RBC 3.56 M/mm3 (3.60-5.2); RDW 19.8 % (11.6-15.6); WHITE BLOOD COUNT 17.7 K/mm3 (4.0-10.0)
[2023-07-28] MEDS: NIFEdipine E.R. 90 MG TABLET PO SCH (09:45)
[2023-07-28] MEDS: ALLOPURINOL 100 MG TABLET (FP) PO SCH (09:45)
[2023-07-28] MEDS: EZETIMIBE 10 MG TABLET (FP) PO SCH (09:45)
[2023-07-28] MEDS ORDERED: FUROSEMIDE 40 MG TABLET (FP) PO SCH (10:00)
[2023-07-28 10:06] LABS: POTASSIUM 3.6 mmol/L (3.5-5.1)
[2023-07-28 10:13] LABS: ALBUMIN 1.8 g/dl (3.4-5.0); BLOOD UREA NITROGEN 18.4 mg/dL (7-18); CALCIUM 8.1 mg/dL (8.5-10.1); MAGNESIUM 1.7 mg/dL (1.8-2.4)
[2023-07-28 10:16] LABS: PHOSPHOROUS 3.2 mg/dL (2.5-4.9)
[2023-07-28 10:18] LABS: BILIRUBIN,TOTAL 0.1 mg/dL (0.2-1)
[2023-07-28] MEDS ORDERED: VANCOMYCIN 250 MG/5 ML ORAL SOLUTION PO SCH (12:00)
[2023-07-28 14:57] VITALS: BP 158/82; PULSE 83; TEMP 98.4
== END 2023-07-28 16:46 | disposition home or self-care (01) | DRG 872 ==
LOC: JER 14:42 → JERBED 17:12 → J8W 07-24 13:03
PROVIDERS: ADMIT Internal Medicine; ATTEND Nurse Practitioner Acute Care
DX: A41.89 Other specified sepsis (principal); I13.0 Hypertensive heart and chronic kidney disease with heart failure and stage 1 through stage 4 chronic kidney disease, or unspecified chronic kidney disease; I50.32 Chronic diastolic (congestive) heart failure; A04.72 Enterocolitis due to Clostridium difficile, not specified as recurrent; N17.9 Acute kidney failure, unspecified; N18.4 Chronic kidney disease, stage 4 (severe); E78.5 Hyperlipidemia, unspecified; E78.00 Pure hypercholesterolemia, unspecified; D50.9 Iron deficiency anemia, unspecified; N93.9 Abnormal uterine and vaginal bleeding, unspecified; E11.22 Type 2 diabetes mellitus with diabetic chronic kidney disease; R19.09 Other intra-abdominal and pelvic swelling, mass and lump; E11.42 Type 2 diabetes mellitus with diabetic polyneuropathy; M10.9 Gout, unspecified; K42.9 Umbilical hernia without obstruction or gangrene; D25.9 Leiomyoma of uterus, unspecified; N28.1 Cyst of kidney, acquired; E83.41 Hypermagnesemia; Z96.651 Presence of right artificial knee joint; Z96.642 Presence of left artificial hip joint
CPT/HCPCS: 0241U-QW; 36415; 36430; 71045-TC-FY; 74019-TC-FY; 74176-TC; 76856-TC; 80053; 81003; 82105; 82272; 82378; 82728; 82803; 83036; 83540; 83550; 83605; 83735; 83880; 84100; 84484; 84702; 85025; 85027; 85610; 85730; 86140; 86304; 86850; 86900; 86901; 86922; 87040; 87086; 87324; 87449; 93005; 93010; 93970-TC; 99285-25; P9058

== ENCOUNTER 2024-01-27 13:53 | Emergency (ER) | payer OTHER ==
[2024-01-27 14:05] VITALS: BP 119/68; PULSE 70; RESP 18; TEMP 98; BMI 23.9
== END 2024-01-27 15:50 | disposition home or self-care (01) ==
LOC: JER 13:53
PROC: 0C90XZZ Drainage of Upper Lip, External Approach (ICD-10-PCS; principal; 2024-01-27)
DX: L02.02 Furuncle of face (principal)
CPT/HCPCS: 82962; 99283-25

== ENCOUNTER 2024-03-31 17:00 | Inpatient (IN) | payer OTHER ==
[2024-03-31 22:22] LABS: BASO % 0.8 % (0-2.0); EOS % 2.3 % (0-4.5); HEMATOCRIT 25.7 % (32.4-45.2); HEMOGLOBIN 8.3 GM/dL (10.7-15.3); LYMPH % 10.2 % (8-40); MCH 22.9 pg (25.7-33.7); MCHC 32.5 g/dl (32.0-36.0); MEAN CELL VOLUME 70.3 fl (80-96); MEAN PLT VOLUME 7.6 fl (7.5-11.1); MONO % 4.6 % (3.8-10.2); NEUT % 82.1 % (42.8-82.8); PLATELET COUNT 799 10^3/uL (134-434); RBC 3.65 M/mm3 (3.60-5.2); RDW 22.5 % (11.6-15.6); WHITE BLOOD COUNT 12.3 K/mm3 (4.0-10.0)
[2024-03-31 22:34] LABS: CHLORIDE 99 mmol/L (98-107); SODIUM 129 mmol/L (136-145)
[2024-03-31 22:37] LABS: ALBUMIN 2.2 g/dl (3.4-5.0); BLOOD UREA NITROGEN 31.8 mg/dL (7-18); CO2 22 mmol/L (21-32); MAGNESIUM 3.2 mg/dL (1.8-2.4)
[2024-03-31 22:38] LABS: ANION GAP 7 mmol/L (4-13); POTASSIUM 9.7 mmol/L (3.5-5.1)
[2024-03-31 22:39] LABS: GLUCOSE,RANDOM 140 mg/dL (74-106)
[2024-03-31 22:40] LABS: CREATININE 3.1 mg/dL (0.55-1.3)
[2024-03-31 22:41] LABS: BILIRUBIN,TOTAL 0.3 mg/dL (0.2-1); SGOT/AST 121 U/L (15-37); SGPT/ALT 15 U/L (13-61)
[2024-03-31 22:42] LABS: TOT PROT 8.9 g/dl (6.4-8.2)
[2024-03-31 22:43] LABS: ALK PHOS 103 U/L (45-117)
[2024-03-31 23:51] LABS: ANISOCYTOSIS 1+; MACROCYTOSIS 1+
[2024-04-01] MEDS: hydrALAZINE HCL 25 MG TABLET (FP) PO SCH (05:59)
[2024-04-01] MEDS: GABAPENTIN 100 MG CAPSULE PO SCH (05:59)
[2024-04-01 06:56] LABS: POTASSIUM 4.4 mmol/L (3.5-5.1)
[2024-04-01 06:58] LABS: CALCIUM 8.5 mg/dL (8.5-10.1)
[2024-04-01 06:59] LABS: BLOOD UREA NITROGEN 30.8 mg/dL (7-18)
[2024-04-01] MEDS ORDERED: INSULIN ASPART SLIDING SCALE (NOVOLOG) 1 VIAL SQ SCH (07:00)
[2024-04-01 07:06] LABS: N-TERMINAL BNP 2661.5 pg/ml (5-125)
[2024-04-01 08:11] LABS: HEMATOCRIT 25.6 % (32.4-45.2); HEMOGLOBIN 7.9 GM/dL (10.7-15.3); MCH 22.4 pg (25.7-33.7); MEAN CELL VOLUME 72.4 fl (80-96); MEAN PLT VOLUME 7.3 fl (7.5-11.1); PLATELET COUNT 636 10^3/uL (134-434); RBC 3.53 M/mm3 (3.60-5.2); WHITE BLOOD COUNT 10.3 K/mm3 (4.0-10.0)
[2024-04-01 08:24] LABS: POTASSIUM 4.5 mmol/L (3.5-5.1)
[2024-04-01 08:33] LABS: ALBUMIN 2.3 g/dl (3.4-5.0); CALCIUM 8.6 mg/dL (8.5-10.1); MAGNESIUM 3.1 mg/dL (1.8-2.4)
[2024-04-01 08:34] LABS: BILIRUBIN,TOTAL 0.2 mg/dL (0.2-1); TOT PROT 7.3 g/dl (6.4-8.2)
[2024-04-01 08:36] LABS: CREATININE 2.9 mg/dL (0.55-1.3); PHOSPHOROUS 3.9 mg/dL (2.5-4.9)
[2024-04-01] MEDS: FUROSEMIDE 40 MG/4 ML INJECTABLE VIAL IVPUSH SCH (08:46)
[2024-04-01] MEDS ORDERED: ALLOPURINOL 100 MG TABLET (FP) PO SCH (10:00)
[2024-04-01] MEDS: NIFEdipine E.R. 90 MG TABLET PO SCH (10:55)
[2024-04-01] MEDS: PANTOPRAZOLE 40 MG TABLET PO SCH (10:55)
[2024-04-01 12:48] LABS: EPI CELLS >36 /uL (0-25.1); HYALINE CASTS 2 /uL (0-3.1); URINE APPEARANCE CLEAR; URINE BACTERIA 59 /uL (0-1359); URINE BILIRUBIN NEGATIVE (NEGATIVE); URINE COLOR YELLOW; URINE GLUCOSE (UA) 1+ (NEGATIVE); URINE KETONE NEGATIVE (NEGATIVE); URINE LEUK ESTERASE 1+ (NEGATIVE); URINE NITRITE NEGATIVE (NEGATIVE); URINE PROTEIN 3+ (NEGATIVE); URINE RBC 24 /uL (0-23.9); URINE UROBILINOGEN 0.2 mg/dL (0.2-1.0); URINE WBC 71 /uL (0-25.8)
[2024-04-01] MEDS: ALBUMIN HUMAN 25% 100 ML VIAL IV SCH (14:24)
[2024-04-01 20:06] LABS: EPI CELLS >36 /uL (0-25.1); HYALINE CASTS 4 /uL (0-3.1); PH,URINE 5.5 (5.0-8.0); URINE APPEARANCE CLOUDY; URINE BACTERIA 129 /uL (0-1359); URINE BILIRUBIN NEGATIVE (NEGATIVE); URINE COLOR YELLOW; URINE GLUCOSE (UA) 1+ (NEGATIVE); URINE KETONE NEGATIVE (NEGATIVE); URINE LEUK ESTERASE 2+ (NEGATIVE); URINE NITRITE NEGATIVE (NEGATIVE); URINE PROTEIN 3+ (NEGATIVE); URINE RBC 13 /uL (0-23.9); URINE UROBILINOGEN 0.2 mg/dL (0.2-1.0); URINE WBC 335 /uL (0-25.8)
[2024-04-01] MEDS: ROSUVASTATIN CA 10 MG TABLET PO SCH (22:01)
[2024-04-02 08:52] LABS: BASO % 0.7 % (0-2.0); EOS % 2.2 % (0-4.5); HEMATOCRIT 25.4 % (32.4-45.2); HEMOGLOBIN 7.9 GM/dL (10.7-15.3); LYMPH % 10.2 % (8-40); MCH 22.2 pg (25.7-33.7); MEAN CELL VOLUME 71.4 fl (80-96); MEAN PLT VOLUME 7.5 fl (7.5-11.1); MONO % 5.8 % (3.8-10.2); NEUT % 81.1 % (42.8-82.8); PLATELET COUNT 660 10^3/uL (134-434); RBC 3.56 M/mm3 (3.60-5.2); RDW 22.1 % (11.6-15.6); WHITE BLOOD COUNT 11.1 K/mm3 (4.0-10.0)
[2024-04-02 08:57] LABS: INR 1.05 (0.83-1.09); PROTHROMBIN TIME (PATIENT) 11.8 SEC (9.7-13.0)
[2024-04-02 09:00] LABS: ACTIVATED PTT 32.1 SECONDS (25.2-36.5)
[2024-04-02 09:28] LABS: POTASSIUM 4.5 mmol/L (3.5-5.1)
[2024-04-02 09:48] LABS: CALCIUM 8.6 mg/dL (8.5-10.1); TOT PROT 7.9 g/dl (6.4-8.2)
[2024-04-02 09:49] LABS: BILIRUBIN,TOTAL 0.2 mg/dL (0.2-1); BLOOD UREA NITROGEN 30.5 mg/dL (7-18)
[2024-04-02 09:51] LABS: ALBUMIN 2.9 g/dl (3.4-5.0)
[2024-04-02 09:57] LABS: CREATININE 2.5 mg/dL (0.55-1.3)
[2024-04-02 14:40] LABS: BF WBC & OTHER NUCLEATED CELLS 1007 /mm3
[2024-04-02 15:16] LABS: BODY FLUID MACROPHAGES 55 %
[2024-04-02] MEDS: ACETAMINOPHEN 325 MG TABLET (FP) PO PRN (17:10)
[2024-04-02] MEDS: ALBUMIN HUMAN 25% 100 ML VIAL IV SCH (18:06)
[2024-04-03 09:24] LABS: BASO % 0.6 % (0-2.0); EOS % 3.2 % (0-4.5); HEMATOCRIT 25.8 % (32.4-45.2); HEMOGLOBIN 8.1 GM/dL (10.7-15.3); LYMPH % 10.9 % (8-40); MCH 22.6 pg (25.7-33.7); MCHC 31.5 g/dl (32.0-36.0); MEAN CELL VOLUME 71.8 fl (80-96); MEAN PLT VOLUME 7.5 fl (7.5-11.1); MONO % 6.8 % (3.8-10.2); NEUT % 78.5 % (42.8-82.8); PLATELET COUNT 613 10^3/uL (134-434); RBC 3.59 M/mm3 (3.60-5.2); RDW 22.2 % (11.6-15.6); WHITE BLOOD COUNT 10.9 K/mm3 (4.0-10.0)
[2024-04-03 09:54] LABS: POTASSIUM 4.2 mmol/L (3.5-5.1)
[2024-04-03 10:08] LABS: BLOOD UREA NITROGEN 28.8 mg/dL (7-18); CALCIUM 8.7 mg/dL (8.5-10.1)
[2024-04-03 10:09] LABS: ALBUMIN 2.9 g/dl (3.4-5.0)
[2024-04-03 10:11] LABS: CREATININE 2.5 mg/dL (0.55-1.3)
[2024-04-03 10:13] LABS: BILIRUBIN,TOTAL 0.3 mg/dL (0.2-1); TOT PROT 7.6 g/dl (6.4-8.2)
[2024-04-03] MEDS: ALBUMIN HUMAN 25% 12.5 GM/50 ML VIAL IV SCH ×2 (12:23→17:31)
[2024-04-03 13:44] LABS: BF WBC & OTHER NUCLEATED CELLS 633 /mm3
[2024-04-03 14:25] LABS: BODY FLUID MACROPHAGES 37 %; BODY FLUID MESOTHELIAL 4 %
[2024-04-03] MEDS ORDERED: CEFTRIAXONE 1 GM in DEXTROSE 5%-WATER - 50 ML IVPB SCH (15:30)
[2024-04-03] MEDS: CEFTRIAXONE 2 GM in DEXTROSE 5%-WATER 100 ML IVPB SCH (16:44)
[2024-04-04 08:10] LABS: BASO % 0.7 % (0-2.0); EOS % 4.6 % (0-4.5); HEMATOCRIT 24.4 % (32.4-45.2); HEMOGLOBIN 7.7 GM/dL (10.7-15.3); LYMPH % 16.5 % (8-40); MCH 22.8 pg (25.7-33.7); MCHC 31.5 g/dl (32.0-36.0); MEAN CELL VOLUME 72.4 fl (80-96); MEAN PLT VOLUME 7.4 fl (7.5-11.1); MONO % 6.8 % (3.8-10.2); NEUT % 71.4 % (42.8-82.8); PLATELET COUNT 565 10^3/uL (134-434); RBC 3.37 M/mm3 (3.60-5.2); RDW 22.4 % (11.6-15.6); WHITE BLOOD COUNT 9.8 K/mm3 (4.0-10.0)
[2024-04-04 08:31] LABS: POTASSIUM 4.7 mmol/L (3.5-5.1)
[2024-04-04 08:32] LABS: CALCIUM 8.5 mg/dL (8.5-10.1)
[2024-04-04 08:36] LABS: CREATININE 2.4 mg/dL (0.55-1.3)
[2024-04-04] MEDS: CEFTRIAXONE 2 GM in DEXTROSE 5%-WATER 100 ML IVPB SCH (09:24)
[2024-04-04 10:16] LABS: ANISOCYTOSIS 0; MACROCYTOSIS 0
[2024-04-04 14:11] LABS: BODY FLUID ALBUMIN 2.2 g/dL (Not Estab.)
[2024-04-04 14:11] LABS: BODY FLUID ALBUMIN 2.4 g/dL (Not Estab.)
[2024-04-06] MEDS: ALBUMIN HUMAN 25% 12.5 GM/50 ML VIAL IV SCH (06:18)
[2024-04-06 09:14] LABS: EOS % 5.5 % (0-4.5); HEMATOCRIT 25.8 % (32.4-45.2); HEMOGLOBIN 8.2 GM/dL (10.7-15.3); MCH 22.8 pg (25.7-33.7); MCHC 31.7 g/dl (32.0-36.0); MEAN PLT VOLUME 7.5 fl (7.5-11.1); NEUT % 73.5 % (42.8-82.8); PLATELET COUNT 581 10^3/uL (134-434); RBC 3.58 M/mm3 (3.60-5.2); RDW 22.6 % (11.6-15.6); WHITE BLOOD COUNT 8.7 K/mm3 (4.0-10.0)
[2024-04-06 09:39] LABS: POTASSIUM 4.4 mmol/L (3.5-5.1)
[2024-04-06 09:47] LABS: BLOOD UREA NITROGEN 29.9 mg/dL (7-18); CALCIUM 8.8 mg/dL (8.5-10.1)
[2024-04-06 09:51] LABS: CREATININE 2.3 mg/dL (0.55-1.3)
[2024-04-07 14:13] VITALS: BMI 24.3
[2024-04-07] MEDS: EMPAGLIFLOZIN (JARDIANCE) 10 MG TABLET PO SCH (15:22)
[2024-04-07] MEDS: ALBUMIN HUMAN 25% 12.5 GM/50 ML VIAL IV SCH (18:19)
[2024-04-07] MEDS: ALBUMIN HUMAN 25% 12.5 GM/50 ML VIAL IV ONE (20:48)
[2024-04-08 11:00] LABS: HEMATOCRIT 25.4 % (32.4-45.2); HEMOGLOBIN 7.8 GM/dL (10.7-15.3); MCH 22.2 pg (25.7-33.7); MCHC 30.9 g/dl (32.0-36.0); MEAN PLT VOLUME 7.6 fl (7.5-11.1); PLATELET COUNT 491 10^3/uL (134-434); RBC 3.53 M/mm3 (3.60-5.2); RDW 22.9 % (11.6-15.6); WHITE BLOOD COUNT 5.9 K/mm3 (4.0-10.0)
[2024-04-08 11:24] LABS: POTASSIUM 4.2 mmol/L (3.5-5.1)
[2024-04-08 11:29] LABS: ALBUMIN 3.2 g/dl (3.4-5.0)
[2024-04-08 11:30] LABS: CALCIUM 8.2 mg/dL (8.5-10.1); MAGNESIUM 2.5 mg/dL (1.8-2.4)
[2024-04-08 11:34] LABS: CREATININE 2.1 mg/dL (0.55-1.3); PHOSPHOROUS 4.9 mg/dL (2.5-4.9)
[2024-04-08 11:35] LABS: BILIRUBIN,TOTAL 0.2 mg/dL (0.2-1); TOT PROT 7.6 g/dl (6.4-8.2)
[2024-04-08] MEDS: IRON SUCROSE INJECTION 200 MG in SODIUM CHLORIDE 100 ML IVPB ONE (15:30)
[2024-04-08 22:10] VITALS: PULSE 64
[2024-04-09] MEDS: CEFTRIAXONE 2 GM in DEXTROSE 5%-WATER 100 ML IVPB SCH (06:18)
[2024-04-09 07:05] VITALS: BP 138/66; RESP 18; TEMP 98.4
[2024-04-09 07:48] LABS: HEMATOCRIT 26.8 % (32.4-45.2); HEMOGLOBIN 8.2 GM/dL (10.7-15.3); MCH 22.6 pg (25.7-33.7); MCHC 30.7 g/dl (32.0-36.0); MEAN CELL VOLUME 73.6 fl (80-96); MEAN PLT VOLUME 7.2 fl (7.5-11.1); PLATELET COUNT 463 10^3/uL (134-434); RBC 3.64 M/mm3 (3.60-5.2); RDW 22.8 % (11.6-15.6); WHITE BLOOD COUNT 4.5 K/mm3 (4.0-10.0)
[2024-04-09 08:10] LABS: POTASSIUM 4.3 mmol/L (3.5-5.1)
[2024-04-09 08:12] LABS: CALCIUM 8.3 mg/dL (8.5-10.1)
[2024-04-09 08:13] LABS: BLOOD UREA NITROGEN 31.9 mg/dL (7-18); MAGNESIUM 2.6 mg/dL (1.8-2.4)
[2024-04-09 08:16] LABS: CREATININE 2.1 mg/dL (0.55-1.3); PHOSPHOROUS 5.3 mg/dL (2.5-4.9)
[2024-04-09 08:18] LABS: BILIRUBIN,TOTAL 0.4 mg/dL (0.2-1); TOT PROT 7.3 g/dl (6.4-8.2)
== END 2024-04-09 18:23 | disposition home or self-care (01) | DRG 372 ==
LOC: JER 17:00 → JERBED 23:05 → J7W 04-01 03:35 → OBSVTOIN 04-03 09:37
PROVIDERS: ADMIT Internal Medicine; ATTEND Internal Medicine
PROC: 0W993ZZ Drainage of Right Pleural Cavity, Percutaneous Approach (ICD-10-PCS; principal; 2024-04-02)
PROC: 0W993ZZ Drainage of Right Pleural Cavity, Percutaneous Approach (ICD-10-PCS; 2024-04-07)
DX: K65.2 Spontaneous bacterial peritonitis (principal); E87.1 Hypo-osmolality and hyponatremia; I13.0 Hypertensive heart and chronic kidney disease with heart failure and stage 1 through stage 4 chronic kidney disease, or unspecified chronic kidney disease; I50.32 Chronic diastolic (congestive) heart failure; N17.9 Acute kidney failure, unspecified; E11.22 Type 2 diabetes mellitus with diabetic chronic kidney disease; N18.30 Chronic kidney disease, stage 3 unspecified; E11.42 Type 2 diabetes mellitus with diabetic polyneuropathy; D64.9 Anemia, unspecified; E78.5 Hyperlipidemia, unspecified; R19.09 Other intra-abdominal and pelvic swelling, mass and lump; D56.3 Thalassemia minor; D25.9 Leiomyoma of uterus, unspecified; M10.9 Gout, unspecified; K42.9 Umbilical hernia without obstruction or gangrene; R80.9 Proteinuria, unspecified; Z86.73 Personal history of transient ischemic attack (TIA), and cerebral infarction without residual deficits
CPT/HCPCS: 0241U-QW; 36415; 71045-TC-FY; 71046-TC-FY; 71250-TC; 74176-TC; 76700-TC; 76775-TC; 76942; 76942-TC; 80048; 80053; 81003; 82042; 82150; 82465; 82570; 82945; 83036; 83615; 83735; 83880; 83986; 84100; 84156; 84157; 84478; 85025; 85027; 85610; 85730; 86704; 86803; 87070; 87075; 87077; 87086; 87102; 87116; 87205; 87206; 87210; 87340; 87517; 88108; 88305-TC; 88341-TC; 88342-TC; 93005; 93010; 93306-TC; 93970-TC; 99285-25; G0378; J1756; P9047

== ENCOUNTER 2024-04-21 14:34 | Observation (INO) | payer OTHER ==
[2024-04-21 17:13] LABS: BASO % 1.2 % (0-2.0); HEMOGLOBIN 8.8 GM/dL (10.7-15.3); LYMPH % 12.9 % (8-40); MCH 22.9 pg (25.7-33.7); MCHC 31.3 g/dl (32.0-36.0); MEAN CELL VOLUME 73.1 fl (80-96); MONO % 6.7 % (3.8-10.2); NEUT % 77.2 % (42.8-82.8); PLATELET COUNT 762 10^3/uL (134-434); RBC 3.83 M/mm3 (3.60-5.2); RDW 23.5 % (11.6-15.6); WHITE BLOOD COUNT 10.8 K/mm3 (4.0-10.0)
[2024-04-21 17:24] LABS: CHLORIDE 104 mmol/L (98-107); SODIUM 136 mmol/L (136-145)
[2024-04-21 17:26] LABS: ALBUMIN 2.9 g/dl (3.4-5.0); ANION GAP 7 mmol/L (4-13); CALCIUM 9.4 mg/dL (8.5-10.1); CO2 25 mmol/L (21-32)
[2024-04-21 17:27] LABS: GLUCOSE,RANDOM 108 mg/dL (74-106)
[2024-04-21 17:30] LABS: CREATININE 2.5 mg/dL (0.55-1.3); SGOT/AST 26 U/L (15-37); SGPT/ALT 14 U/L (13-61)
[2024-04-21 17:31] LABS: BILIRUBIN,TOTAL < 0.1 mg/dL (0.2-1); TOT PROT 7.8 g/dl (6.4-8.2)
[2024-04-21 17:32] LABS: ALK PHOS 92 U/L (45-117)
[2024-04-21 17:52] LABS: ANISOCYTOSIS 3+; MACROCYTOSIS 3+; TARGET CELLS 1+
[2024-04-21] MEDS ORDERED: FUROSEMIDE 40 MG/4 ML INJECTABLE VIAL ONE (19:25)
[2024-04-21] MEDS: FUROSEMIDE 40 MG/4 ML INJECTABLE VIAL IVPUSH ONE (19:36)
[2024-04-21] MEDS ORDERED: LORazepam 1 MG TABLET ONE (19:37)
[2024-04-21] MEDS: LORazepam 2 MG TABLET PO ONE (19:39)
[2024-04-21 22:40] VITALS: RESP 18
[2024-04-21] MEDS ORDERED: SENNOSIDES 8.6MG TABLET (FP) PO PRN (23:45)
[2024-04-21 23:56] LABS: EPI CELLS 30 /uL (0-25.1); HYALINE CASTS 1 /uL (0-3.1); PH,URINE 6.5 (5.0-8.0); URINE APPEARANCE CLEAR; URINE BACTERIA 10 /uL (0-1359); URINE BILIRUBIN NEGATIVE (NEGATIVE); URINE COLOR YELLOW; URINE GLUCOSE (UA) 1+ (NEGATIVE); URINE KETONE NEGATIVE (NEGATIVE); URINE LEUK ESTERASE NEGATIVE (NEGATIVE); URINE NITRITE NEGATIVE (NEGATIVE); URINE PROTEIN 3+ (NEGATIVE); URINE RBC 9 /uL (0-23.9); URINE UROBILINOGEN 0.2 mg/dL (0.2-1.0); URINE WBC 11 /uL (0-25.8)
[2024-04-22] MEDS: HEPARIN NA (PORCINE) 5,000 UNITS/ML 1ML VIAL SQ SCH (00:43)
[2024-04-22] MEDS: FUROSEMIDE 40 MG/4 ML INJECTABLE VIAL IVPUSH ONE (00:43)
[2024-04-22] MEDS: GABAPENTIN 100 MG CAPSULE PO SCH (00:43)
[2024-04-22] MEDS: hydrALAZINE HCL 50 MG TABLET (FP) PO SCH (06:08)
[2024-04-22] MEDS: PANTOPRAZOLE 40 MG TABLET PO SCH (06:09)
[2024-04-22] MEDS: INSULIN ASPART SLIDING SCALE (NOVOLOG) 1 VIAL SQ SCH (06:09)
[2024-04-22] MEDS ORDERED: ASPIRIN 325 MG TABLET PO PRN (08:00)
[2024-04-22] MEDS ORDERED: PATIENT'S OWN MEDICATION (NON-FORMULARY) (Linaclotide [Linzess] 72 MCG Capsule) PO SCH (10:00)
[2024-04-22 11:02] LABS: BASO % 0.9 % (0-2.0); EOS % 2.7 % (0-4.5); HEMATOCRIT 26.7 % (32.4-45.2); HEMOGLOBIN 8.2 GM/dL (10.7-15.3); LYMPH % 14.1 % (8-40); MCH 22.5 pg (25.7-33.7); MCHC 30.9 g/dl (32.0-36.0); MEAN CELL VOLUME 72.8 fl (80-96); MEAN PLT VOLUME 6.8 fl (7.5-11.1); MONO % 7.9 % (3.8-10.2); NEUT % 74.4 % (42.8-82.8); PLATELET COUNT 724 10^3/uL (134-434); RBC 3.66 M/mm3 (3.60-5.2); RDW 23.7 % (11.6-15.6); WHITE BLOOD COUNT 9.1 K/mm3 (4.0-10.0)
[2024-04-22 11:21] LABS: POTASSIUM 4.7 mmol/L (3.5-5.1)
[2024-04-22 11:25] LABS: MAGNESIUM 2.6 mg/dL (1.8-2.4)
[2024-04-22 11:28] LABS: PHOSPHOROUS 3.6 mg/dL (2.5-4.9)
[2024-04-22 11:30] LABS: ALBUMIN 2.7 g/dl (3.4-5.0); BILIRUBIN,TOTAL 0.2 mg/dL (0.2-1); BLOOD UREA NITROGEN 34.4 mg/dL (7-18); CALCIUM 8.8 mg/dL (8.5-10.1); TOT PROT 7.1 g/dl (6.4-8.2)
[2024-04-22 11:33] LABS: CREATININE 2.4 mg/dL (0.55-1.3); PHOSPHOROUS 3.6 mg/dL (2.5-4.9)
[2024-04-22 11:37] LABS: MAGNESIUM 2.5 mg/dL (1.8-2.4)
[2024-04-22] MEDS: NIFEdipine E.R. 90 MG TABLET PO SCH (11:59)
[2024-04-22] MEDS: FUROSEMIDE 20 MG TABLET (FP) PO SCH (12:00)
[2024-04-22] MEDS: ALLOPURINOL 100 MG TABLET (FP) PO SCH (12:00)
[2024-04-22] MEDS: EZETIMIBE 10 MG TABLET (FP) PO SCH (12:00)
[2024-04-22 13:09] VITALS: BMI 24.3
[2024-04-22] MEDS: [UNRECOGNIZED DRUG - OTHER] PO SCH (16:39)
[2024-04-22] MEDS: [UNRECOGNIZED DRUG - OTHER] PO SCH (16:39)
[2024-04-22] MEDS: RITONAVIR PO SCH ×2 (16:39)
[2024-04-22] MEDS: NIRMATRELVIR PO SCH ×2 (16:39)
[2024-04-22] MEDS: ROSUVASTATIN CA 10 MG TABLET PO SCH (21:02)
[2024-04-22] MEDS: GABAPENTIN 300 MG CAPSULE PO SCH (21:02)
[2024-04-23 07:38] LABS: HEMATOCRIT 26.9 % (32.4-45.2); HEMOGLOBIN 8.5 GM/dL (10.7-15.3); MCHC 31.5 g/dl (32.0-36.0); MEAN PLT VOLUME 6.8 fl (7.5-11.1); PLATELET COUNT 682 10^3/uL (134-434); RBC 3.68 M/mm3 (3.60-5.2); RDW 23.3 % (11.6-15.6); WHITE BLOOD COUNT 8.4 K/mm3 (4.0-10.0)
[2024-04-23 07:58] LABS: POTASSIUM 4.6 mmol/L (3.5-5.1)
[2024-04-23 07:59] LABS: CALCIUM 8.5 mg/dL (8.5-10.1)
[2024-04-23 08:00] LABS: BLOOD UREA NITROGEN 33.2 mg/dL (7-18)
[2024-04-23 08:03] LABS: CREATININE 2.2 mg/dL (0.55-1.3)
[2024-04-23] MEDS: FUROSEMIDE 40 MG TABLET (FP) PO SCH (09:56)
[2024-04-23 15:14] VITALS: BP 150/74; PULSE 70; TEMP 98.6
== END 2024-04-23 16:19 | disposition home health service (06) ==
LOC: JER 14:34 → JERBED 18:35 → J5S 21:38
PROVIDERS: ADMIT Internal Medicine; ATTEND Internal Medicine
PROC: 3E033GC Introduction of Other Therapeutic Substance into Peripheral Vein, Percutaneous Approach (ICD-10-PCS; principal; 2024-04-21)
DX: I11.0 Hypertensive heart disease with heart failure (principal); R19.00 Intra-abdominal and pelvic swelling, mass and lump, unspecified site; R80.9 Proteinuria, unspecified; E78.5 Hyperlipidemia, unspecified; R73.03 Prediabetes; D50.9 Iron deficiency anemia, unspecified; D56.3 Thalassemia minor; R26.2 Difficulty in walking, not elsewhere classified; M10.9 Gout, unspecified; M19.90 Unspecified osteoarthritis, unspecified site; G62.9 Polyneuropathy, unspecified; Z86.73 Personal history of transient ischemic attack (TIA), and cerebral infarction without residual deficits; Z88.8 Allergy status to other drugs, medicaments and biological substances; Z86.16 Personal history of COVID-19; Z87.891 Personal history of nicotine dependence; Z88.5 Allergy status to narcotic agent
CPT/HCPCS: 0241U-QW; 36415; 71045-TC-FY; 71046-TC-FY; 72148-TC; 80048; 80053; 81003; 82962; 83735; 84100; 85025; 85027; 93005; 93010; 93970-TC; 96374; 96376; 97116-GP; 97161-GP; 99285-25; G0378; J1644

== ENCOUNTER 2024-07-14 06:36 | Emergency (ER) | payer OTHER ==
[2024-07-14 06:48] VITALS: PULSE 71; RESP 20; TEMP 98.4; BMI 21.2
[2024-07-14] MEDS ORDERED: PANTOPRAZOLE 40 MG TABLET PO ONE (08:49)
[2024-07-14] MEDS ORDERED: FUROSEMIDE 20 MG TABLET (FP) ONE (08:50)
[2024-07-14] MEDS ORDERED: NIFEdipine E.R 60 MG TABLET PO ONE (08:50)
[2024-07-14] MEDS ORDERED: hydrALAZINE HCL 50 MG TABLET (FP) ONE ×2 (08:50→08:51)
[2024-07-14] MEDS ORDERED: NIFEdipine E.R. 30 MG TABLET PO ONE (08:50)
[2024-07-14] MEDS: hydrALAZINE HCL 50 MG TABLET (FP) PO ONE (09:04)
[2024-07-14] MEDS: PANTOPRAZOLE 40 MG TABLET PO ONE (09:04)
[2024-07-14] MEDS: FUROSEMIDE 20 MG TABLET (FP) PO ONE (09:04)
[2024-07-14] MEDS ORDERED: DEXAMETHASONE 4 MG TABLET (FP) ONE (09:04)
[2024-07-14] MEDS: NIFEdipine E.R. 90 MG TABLET PO SCH (09:05)
[2024-07-14] MEDS: DEXAMETHASONE 4 MG TABLET (FP) PO ONE (09:13)
[2024-07-14] MEDS ORDERED: GABAPENTIN 100 MG CAPSULE ONE (10:14)
[2024-07-14] MEDS: GABAPENTIN 100 MG CAPSULE PO ONE (10:20)
[2024-07-14 12:20] VITALS: BP 192/92
== END 2024-07-14 12:33 | disposition home or self-care (01) ==
LOC: JER 06:36
DX: R05.9 Cough, unspecified (principal); J02.9 Acute pharyngitis, unspecified; R09.81 Nasal congestion; Z20.822 Contact with and (suspected) exposure to COVID-19
CPT/HCPCS: 0241U-QW; 71046-TC-FY; 99284-25

== ENCOUNTER 2024-12-30 13:37 | Observation (INO) | payer OTHER ==
[2024-12-30] MEDS ORDERED: SODIUM CHLORIDE 0.9% 500 ML INFUS.BAG IV ONE (14:50)
[2024-12-30 15:40] LABS: ABSOLUTE IMMATURE GRANULOCYTES 0.01 x10^3/uL (0.0-0.031); BASOPHILS # 0.04 x10^3/uL (0.01-0.08); EOSINOPHIL % 3.1 % (0.7-5.8); EOSINOPHILS # 0.19 x10^3/uL (0.04-0.36); HEMATOCRIT 26.6 % (34.1-44.9); HEMOGLOBIN 8.2 g/dL (11.2-15.7); MCHC 30.8 g/dl (32.2-35.5); MEAN CELL VOLUME 89.6 fl (79.4-94.8); MEAN PLT VOLUME 10.6 fl (9.4-12.3); MONOCYTE # 0.44 x10^3/uL (0.24-0.86); MONOCYTE % 7.2 % (4.7-12.5); PLATELET COUNT 312 x10^3/uL (182-369); RDW 15.9 % (12.4-16.6)
[2024-12-30 15:44] LABS: EPI CELLS 6 /uL (0-25.1); HYALINE CASTS 0 /uL (0-3.1); URINE APPEARANCE CLEAR; URINE BACTERIA 124 /uL (0-1359); URINE BILIRUBIN NEGATIVE (NEGATIVE); URINE COLOR YELLOW; URINE GLUCOSE (UA) 2+ (NEGATIVE); URINE KETONE NEGATIVE (NEGATIVE); URINE LEUK ESTERASE TRACE (NEGATIVE); URINE NITRITE NEGATIVE (NEGATIVE); URINE PROTEIN 4+ (NEGATIVE); URINE RBC 9 /uL (0-23.9); URINE UROBILINOGEN 0.2 mg/dL (0.2-1.0); URINE WBC 29 /uL (0-25.8)
[2024-12-30 16:14] LABS: CHLORIDE 105 mmol/L (98-107); SODIUM 135 mmol/L (136-145)
[2024-12-30 16:15] LABS: POTASSIUM 7.4 mmol/L (3.5-5.1)
[2024-12-30 16:16] LABS: CALCIUM 8.7 mg/dL (8.5-10.1)
[2024-12-30 16:17] LABS: ANION GAP 6 mmol/L (4-13); CO2 24 mmol/L (21-32); GLUCOSE,RANDOM 115 mg/dL (74-106); MAGNESIUM 4.7 mg/dL (1.8-2.4)
[2024-12-30 16:20] LABS: CREATININE 5.7 mg/dL (0.55-1.3); PHOSPHOROUS 5.6 mg/dL (2.5-4.9); SGOT/AST 62 U/L (15-37); SGPT/ALT 28 U/L (13-61)
[2024-12-30 16:22] LABS: BILIRUBIN,TOTAL 0.3 mg/dL (0.2-1); TOT PROT 7.6 g/dl (6.4-8.2)
[2024-12-30 16:23] LABS: ALK PHOS 130 U/L (45-117)
[2024-12-30 18:04] LABS: POTASSIUM 5.5 mmol/L (3.5-5.1)
[2024-12-30 18:05] LABS: CALCIUM 8.5 mg/dL (8.5-10.1)
[2024-12-30 18:06] LABS: BLOOD UREA NITROGEN 56.6 mg/dL (7-18)
[2024-12-30 18:09] LABS: CREATININE 5.7 mg/dL (0.55-1.3)
[2024-12-30] MEDS: SODIUM CHLORIDE 0.9% 500 ML INFUS.BAG IV ONE (18:31)
[2024-12-30] MEDS ORDERED: SODIUM ZIRCONIUM CYCLOSILICATE (LOKELMA) 10 GM PACKET ONE (18:51)
[2024-12-30] MEDS: SODIUM ZIRCONIUM CYCLOSILICATE (LOKELMA) 5 GM PACKET PO ONE (18:52)
[2024-12-30] MEDS: SODIUM CHLORIDE 1,000 ML IV SCH (21:00)
[2024-12-30] MEDS: GABAPENTIN 100 MG CAPSULE PO SCH (21:00)
[2024-12-30] MEDS: EZETIMIBE 10 MG TABLET (FP) PO SCH (21:00)
[2024-12-30] MEDS: hydrALAZINE HCL 25 MG TABLET (FP) PO SCH (21:00)
[2024-12-30 23:47] VITALS: BMI 25.4
[2024-12-30] MEDS: HEPARIN NA (PORCINE) 5,000 UNITS/ML 1ML VIAL SQ SCH (23:47)
[2024-12-30] MEDS: SIMETHICONE 80 MG TAB.CHEW (FP) PO PRN (23:47)
[2024-12-31 06:39] LABS: ABSOLUTE IMMATURE GRANULOCYTES 0.02 x10^3/uL (0.0-0.031); BASOPHILS # 0.03 x10^3/uL (0.01-0.08); EOSINOPHIL % 4.1 % (0.7-5.8); EOSINOPHILS # 0.25 x10^3/uL (0.04-0.36); HEMATOCRIT 26.1 % (34.1-44.9); MCHC 30.7 g/dl (32.2-35.5); MEAN PLT VOLUME 10.5 fl (9.4-12.3); MONOCYTE # 0.43 x10^3/uL (0.24-0.86); PLATELET COUNT 293 x10^3/uL (182-369); RDW 15.5 % (12.4-16.6)
[2024-12-31 07:02] LABS: ALBUMIN 2.9 g/dl (3.4-5.0); CALCIUM 8.4 mg/dL (8.5-10.1)
[2024-12-31 07:03] LABS: BLOOD UREA NITROGEN 52.6 mg/dL (7-18); MAGNESIUM 3.8 mg/dL (1.8-2.4)
[2024-12-31 07:06] LABS: CREATININE 5.1 mg/dL (0.55-1.3)
[2024-12-31 07:07] LABS: BILIRUBIN,TOTAL 0.1 mg/dL (0.2-1); TOT PROT 6.7 g/dl (6.4-8.2)
[2024-12-31] MEDS ORDERED: EMPAGLIFLOZIN (JARDIANCE) 10 MG TABLET PO SCH (10:00)
[2024-12-31] MEDS: DOXAZOSIN MESYLATE 4 MG TABLET PO SCH (10:18)
[2024-12-31] MEDS: PANTOPRAZOLE 40 MG TABLET PO SCH (10:35)
[2024-12-31] MEDS: NIFEdipine E.R. 90 MG TABLET PO SCH (10:35)
[2024-12-31] MEDS: ROSUVASTATIN CA 10 MG TABLET PO SCH (10:35)
[2024-12-31] MEDS: SODIUM ZIRCONIUM CYCLOSILICATE (LOKELMA) 5 GM PACKET PO ONE (10:40)
[2024-12-31] MEDS ORDERED: SODIUM ZIRCONIUM CYCLOSILICATE (LOKELMA) 5 GM PACKET PO ONE (18:15)
[2025-01-01 07:55] LABS: HEMATOCRIT 27.4 % (34.1-44.9); HEMOGLOBIN 8.4 g/dL (11.2-15.7); MCHC 30.7 g/dl (32.2-35.5); MEAN CELL VOLUME 89.3 fl (79.4-94.8); MEAN PLT VOLUME 10.2 fl (9.4-12.3); PLATELET COUNT 285 x10^3/uL (182-369); RDW 15.4 % (12.4-16.6)
[2025-01-01 08:52] LABS: POTASSIUM 4.5 mmol/L (3.5-5.1)
[2025-01-01 09:06] LABS: ALBUMIN 2.8 g/dl (3.4-5.0); BLOOD UREA NITROGEN 51.8 mg/dL (7-18); CALCIUM 8.9 mg/dL (8.5-10.1); MAGNESIUM 3.4 mg/dL (1.8-2.4)
[2025-01-01 09:09] LABS: CREATININE 4.7 mg/dL (0.55-1.3); PHOSPHOROUS 5.6 mg/dL (2.5-4.9)
[2025-01-01 09:10] LABS: BILIRUBIN,TOTAL 0.2 mg/dL (0.2-1); TOT PROT 6.7 g/dl (6.4-8.2)
[2025-01-01] MEDS: SODIUM ZIRCONIUM CYCLOSILICATE (LOKELMA) 5 GM PACKET PO ONE (11:04)
[2025-01-01] MEDS: CALCIUM ACETATE 667 MG CAPSULE (FP) PO ONE (11:04)
[2025-01-01 11:09] VITALS: BP 159/65; PULSE 72; RESP 17; TEMP 98.1
[2025-01-01] MEDS ORDERED: CALCIUM ACETATE 667 MG CAPSULE (FP) PO SCH (16:30)
[2025-01-02] MEDS ORDERED: CALCIUM ACETATE 667 MG CAPSULE (FP) PO SCH ×2 (10:00)
== END 2025-01-01 12:29 | disposition home or self-care (01) ==
LOC: JER 13:37 → JERBED 19:46 → J6S 20:32
PROVIDERS: ADMIT Hospitalist; ATTEND Internal Medicine
PROC: 3E0337Z Introduction of Electrolytic and Water Balance Substance into Peripheral Vein, Percutaneous Approach (ICD-10-PCS; principal; 2024-12-30)
DX: I11.0 Hypertensive heart disease with heart failure (principal); N17.9 Acute kidney failure, unspecified; E78.5 Hyperlipidemia, unspecified; R80.9 Proteinuria, unspecified; I13.0 Hypertensive heart and chronic kidney disease with heart failure and stage 1 through stage 4 chronic kidney disease, or unspecified chronic kidney disease; N18.9 Chronic kidney disease, unspecified; Z90.79 Acquired absence of other genital organ(s); D25.9 Leiomyoma of uterus, unspecified; D56.3 Thalassemia minor; R01.1 Cardiac murmur, unspecified; N28.1 Cyst of kidney, acquired
CPT/HCPCS: 36415; 76775-TC; 80048; 80053; 81003; 82550; 82553; 82570; 83605; 83735; 84100; 84156; 84300; 84540; 85025; 85027; 87086; 87186; 93005; 93010; 96360; 96372; 99285-25; G0378; J1644

== ENCOUNTER 2025-02-22 12:07 | Inpatient (IN) | payer OTHER ==
[2025-02-22 13:37] LABS: ABSOLUTE IMMATURE GRANULOCYTES 0.01 x10^3/uL (0.0-0.031); BASOPHILS # 0.04 x10^3/uL (0.01-0.08); EOSINOPHIL % 4.1 % (0.7-5.8); EOSINOPHILS # 0.27 x10^3/uL (0.04-0.36); HEMATOCRIT 26.9 % (34.1-44.9); HEMOGLOBIN 8.2 g/dL (11.2-15.7); MCHC 30.5 g/dl (32.2-35.5); MEAN CELL VOLUME 88.5 fl (79.4-94.8); MEAN PLT VOLUME 10.6 fl (9.4-12.3); MONOCYTE # 0.53 x10^3/uL (0.24-0.86); PLATELET COUNT 319 x10^3/uL (182-369); RDW 14.9 % (12.4-16.6)
[2025-02-22 13:57] LABS: CHLORIDE 96 mmol/L (98-107); POTASSIUM 4.9 mmol/L (3.5-5.1); SODIUM 136 mmol/L (136-145)
[2025-02-22 13:59] LABS: CALCIUM 8.4 mg/dL (8.5-10.1)
[2025-02-22 14:00] LABS: ALBUMIN 3.1 g/dl (3.4-5.0); ANION GAP 6 mmol/L (4-13); BLOOD UREA NITROGEN 67.1 mg/dL (7-18); CO2 34 mmol/L (21-32); GLUCOSE,RANDOM 124 mg/dL (74-106)
[2025-02-22 14:03] LABS: CREATININE 5.4 mg/dL (0.55-1.3); SGOT/AST 46 U/L (15-37); SGPT/ALT 33 U/L (13-61)
[2025-02-22 14:04] LABS: BILIRUBIN,TOTAL 0.2 mg/dL (0.2-1); TOT PROT 7.1 g/dl (6.4-8.2)
[2025-02-22 14:05] LABS: ALK PHOS 124 U/L (45-117)
[2025-02-22 14:15] LABS: MAGNESIUM 7.3 mg/dL (1.8-2.4)
[2025-02-22 14:54] LABS: HCV DIAGNOSTIC IN-HOUSE W/RFLX NON-REACTIVE (NONREACTIVE); HIV INTERPRETATION NEGATIVE (NEGATIVE)
[2025-02-22 15:14] LABS: POTASSIUM 4.5 mmol/L (3.5-5.1)
[2025-02-22 15:20] LABS: MAGNESIUM 7.6 mg/dL (1.8-2.4)
[2025-02-22] MEDS ORDERED: SODIUM CHLORIDE 0.45% 1,000 ML IV SCH (15:45)
[2025-02-22] MEDS: SODIUM CHLORIDE 0.9% 500 ML INFUS.BAG IV ONE (15:53)
[2025-02-22] MEDS: SODIUM CHLORIDE 0.45% 1,000 ML IV SCH ×2 (19:32→22:21)
[2025-02-22] MEDS: FUROSEMIDE 40 MG/4 ML INJECTABLE VIAL IVPUSH ONE (19:32)
[2025-02-22 20:42] VITALS: BMI 26.3
[2025-02-22] MEDS: hydrALAZINE HCL 25 MG TABLET (FP) PO SCH (22:19)
[2025-02-22] MEDS: GABAPENTIN 100 MG CAPSULE PO SCH (22:19)
[2025-02-22] MEDS: HEPARIN NA (PORCINE) 5,000 UNITS/ML 1ML VIAL SQ SCH (22:19)
[2025-02-23 07:04] LABS: ABSOLUTE IMMATURE GRANULOCYTES 0.02 x10^3/uL (0.0-0.031); BASOPHILS # 0.05 x10^3/uL (0.01-0.08); EOSINOPHIL % 5.4 % (0.7-5.8); EOSINOPHILS # 0.38 x10^3/uL (0.04-0.36); HEMATOCRIT 27.9 % (34.1-44.9); HEMOGLOBIN 8.4 g/dL (11.2-15.7); MCHC 30.1 g/dl (32.2-35.5); MEAN CELL VOLUME 90.3 fl (79.4-94.8); MEAN PLT VOLUME 10.1 fl (9.4-12.3); MONOCYTE # 0.52 x10^3/uL (0.24-0.86); MONOCYTE % 7.4 % (4.7-12.5); PLATELET COUNT 335 x10^3/uL (182-369); RDW 14.6 % (12.4-16.6)
[2025-02-23 07:25] LABS: CHLORIDE 100 mmol/L (98-107); SODIUM 135 mmol/L (136-145)
[2025-02-23 07:33] LABS: ALBUMIN 3.2 g/dl (3.4-5.0); ANION GAP 7 mmol/L (4-13); BLOOD UREA NITROGEN 64.5 mg/dL (7-18); CALCIUM 8.2 mg/dL (8.5-10.1); CO2 28 mmol/L (21-32)
[2025-02-23 07:34] LABS: GLUCOSE,RANDOM 117 mg/dL (74-106)
[2025-02-23 07:36] LABS: CREATININE 5.1 mg/dL (0.55-1.3); SGOT/AST 24 U/L (15-37); SGPT/ALT 27 U/L (13-61)
[2025-02-23 07:37] LABS: PHOSPHOROUS 7.5 mg/dL (2.5-4.9)
[2025-02-23 07:38] LABS: BILIRUBIN,TOTAL 0.3 mg/dL (0.2-1); TOT PROT 7.2 g/dl (6.4-8.2)
[2025-02-23 07:39] LABS: ALK PHOS 134 U/L (45-117)
[2025-02-23 07:43] LABS: MAGNESIUM 6.6 mg/dL (1.8-2.4)
[2025-02-23] MEDS: CALCIUM ACETATE 667 MG CAPSULE (FP) PO SCH (08:05)
[2025-02-23] MEDS: EZETIMIBE 10 MG TABLET (FP) PO SCH (09:22)
[2025-02-23] MEDS: NIFEdipine E.R. 90 MG TABLET PO SCH (09:22)
[2025-02-23] MEDS: ALLOPURINOL 100 MG TABLET (FP) PO SCH (09:22)
[2025-02-23] MEDS: PANTOPRAZOLE 40 MG TABLET PO SCH (09:22)
[2025-02-23] MEDS ORDERED: DOXAZOSIN MESYLATE 4 MG TABLET PO SCH (10:00)
[2025-02-23 10:39] LABS: GAMMA GLUTAMYL TRANSPEPTIDASE 112 U/L (5-85)
[2025-02-23] MEDS: FUROSEMIDE 40 MG TABLET (FP) PO ONE (12:04)
[2025-02-23 16:30] LABS: CHLORIDE 99 mmol/L (98-107); POTASSIUM 4.6 mmol/L (3.5-5.1); SODIUM 134 mmol/L (136-145)
[2025-02-23 16:32] LABS: ALBUMIN 2.9 g/dl (3.4-5.0); CALCIUM 7.8 mg/dL (8.5-10.1)
[2025-02-23 16:33] LABS: ANION GAP 8 mmol/L (4-13); BLOOD UREA NITROGEN 60.5 mg/dL (7-18); CO2 27 mmol/L (21-32); GLUCOSE,RANDOM 141 mg/dL (74-106)
[2025-02-23 16:34] LABS: MAGNESIUM 5.7 mg/dL (1.8-2.4)
[2025-02-23 16:36] LABS: CREATININE 4.9 mg/dL (0.55-1.3); SGOT/AST 28 U/L (15-37); SGPT/ALT 28 U/L (13-61)
[2025-02-23 16:37] LABS: BILIRUBIN,TOTAL 0.1 mg/dL (0.2-1)
[2025-02-23 16:38] LABS: ALK PHOS 115 U/L (45-117)
[2025-02-23 16:39] LABS: TOT PROT 6.5 g/dl (6.4-8.2)
[2025-02-24 07:37] LABS: ABSOLUTE IMMATURE GRANULOCYTES 0.03 x10^3/uL (0.0-0.031); BASOPHILS # 0.04 x10^3/uL (0.01-0.08); EOSINOPHIL % 5.1 % (0.7-5.8); EOSINOPHILS # 0.41 x10^3/uL (0.04-0.36); HEMATOCRIT 27.3 % (34.1-44.9); HEMOGLOBIN 8.3 g/dL (11.2-15.7); MCHC 30.4 g/dl (32.2-35.5); MEAN PLT VOLUME 10.2 fl (9.4-12.3); MONOCYTE # 0.68 x10^3/uL (0.24-0.86); MONOCYTE % 8.4 % (4.7-12.5); PLATELET COUNT 286 x10^3/uL (182-369); RDW 14.5 % (12.4-16.6)
[2025-02-24 07:51] LABS: CHLORIDE 102 mmol/L (98-107); POTASSIUM 4.3 mmol/L (3.5-5.1); SODIUM 135 mmol/L (136-145)
[2025-02-24 07:54] LABS: CALCIUM 8.2 mg/dL (8.5-10.1)
[2025-02-24 07:55] LABS: ALBUMIN 2.9 g/dl (3.4-5.0); ANION GAP 8 mmol/L (4-13); BLOOD UREA NITROGEN 58.9 mg/dL (7-18); CO2 25 mmol/L (21-32); GLUCOSE,RANDOM 110 mg/dL (74-106)
[2025-02-24 07:58] LABS: CREATININE 4.6 mg/dL (0.55-1.3); PHOSPHOROUS 6.9 mg/dL (2.5-4.9); SGOT/AST 17 U/L (15-37); SGPT/ALT 23 U/L (13-61)
[2025-02-24 07:59] LABS: BILIRUBIN,TOTAL 0.3 mg/dL (0.2-1)
[2025-02-24 08:00] LABS: TOT PROT 6.7 g/dl (6.4-8.2)
[2025-02-24 08:01] LABS: ALK PHOS 115 U/L (45-117)
[2025-02-24 08:03] LABS: MAGNESIUM 5.1 mg/dL (1.8-2.4)
[2025-02-24] MEDS: DOXAZOSIN MESYLATE 4 MG TABLET PO SCH (09:25)
[2025-02-24] MEDS: hydrALAZINE HCL 25 MG TABLET (FP) PO SCH (09:25)
[2025-02-24] MEDS: FUROSEMIDE 40 MG/4 ML INJECTABLE VIAL IVPUSH ONE (10:21)
[2025-02-24] MEDS: DEXTROSE 50%-WATER 25 GM/50 ML DISP.SYRIN IVPUSH ONE (10:54)
[2025-02-24] MEDS: ROSUVASTATIN CA 10 MG TABLET PO SCH (22:04)
[2025-02-24] MEDS: BENZOCAINE/MENTHOL 1 EACH LOZENGE MM PRN (22:04)
[2025-02-24 22:18] VITALS: RESP 18
[2025-02-25 07:01] LABS: POTASSIUM 4.2 mmol/L (3.5-5.1)
[2025-02-25 07:12] LABS: BLOOD UREA NITROGEN 56.5 mg/dL (7-18); CALCIUM 8.4 mg/dL (8.5-10.1)
[2025-02-25 07:13] LABS: MAGNESIUM 4.4 mg/dL (1.8-2.4)
[2025-02-25 07:16] LABS: CREATININE 4.2 mg/dL (0.55-1.3); PHOSPHOROUS 6.6 mg/dL (2.5-4.9)
[2025-02-25 07:17] LABS: BILIRUBIN,TOTAL 0.3 mg/dL (0.2-1); TOT PROT 6.8 g/dl (6.4-8.2)
[2025-02-25] MEDS: FUROSEMIDE 40 MG/4 ML INJECTABLE VIAL IVPUSH ONE (09:30)
[2025-02-25] MEDS: hydrALAZINE HCL 25 MG TABLET (FP) PO SCH (15:12)
[2025-02-26 09:59] LABS: HEMATOCRIT 26.7 % (34.1-44.9); HEMOGLOBIN 8.2 g/dL (11.2-15.7); MCHC 30.7 g/dl (32.2-35.5); MEAN CELL VOLUME 89.6 fl (79.4-94.8); MEAN PLT VOLUME 10.4 fl (9.4-12.3); PLATELET COUNT 270 x10^3/uL (182-369)
[2025-02-26 10:23] LABS: CALCIUM 8.3 mg/dL (8.5-10.1)
[2025-02-26 10:24] LABS: ALBUMIN 2.9 g/dl (3.4-5.0); BLOOD UREA NITROGEN 57.3 mg/dL (7-18); MAGNESIUM 3.7 mg/dL (1.8-2.4)
[2025-02-26 10:27] LABS: CREATININE 4.2 mg/dL (0.55-1.3); PHOSPHOROUS 6.5 mg/dL (2.5-4.9)
[2025-02-26 10:29] LABS: BILIRUBIN,TOTAL 0.2 mg/dL (0.2-1); TOT PROT 6.5 g/dl (6.4-8.2)
[2025-02-26] MEDS: FUROSEMIDE 40 MG/4 ML INJECTABLE VIAL IVPUSH ONE (11:55)
[2025-02-26] MEDS: hydrALAZINE HCL 50 MG TABLET (FP) PO SCH (13:21)
[2025-02-26 15:01] VITALS: BP 112/56; PULSE 76; TEMP 97.7
== END 2025-02-26 15:40 | disposition home or self-care (01) | DRG 292 ==
LOC: JER 12:07 → JERBED 15:45 → OBSVTOIN 17:35 → J4W 20:01
PROVIDERS: ADMIT Internal Medicine; ATTEND Internal Medicine
DX: I13.2 Hypertensive heart and chronic kidney disease with heart failure and with stage 5 chronic kidney disease, or end stage renal disease (principal); M62.82 Rhabdomyolysis; N18.5 Chronic kidney disease, stage 5; E83.41 Hypermagnesemia; I50.32 Chronic diastolic (congestive) heart failure; R25.1 Tremor, unspecified; E11.42 Type 2 diabetes mellitus with diabetic polyneuropathy; E11.22 Type 2 diabetes mellitus with diabetic chronic kidney disease; E78.5 Hyperlipidemia, unspecified; E86.0 Dehydration; N18.9 Chronic kidney disease, unspecified; D63.1 Anemia in chronic kidney disease
CPT/HCPCS: 0241U-QW; 36415; 70450-TC; 80053; 82550; 82553; 82962; 82977; 83735; 84100; 84132; 84443; 84484; 85025; 85027; 86803; 87389; 93005; 93010; 97116-GP; 97161-GP; 99285-25; G0378